=== PATIENT | female | born 1955 | race Caucasian/White ===

== ENCOUNTER 2021-01-26 08:25 | Inpatient (IN) | payer OTHER ==
[2021-01-26] MEDS ORDERED: FUROSEMIDE 40 MG/4 ML VIAL ONE (09:07)
[2021-01-26 09:12] LABS: Arterial Blood Carboxyhemoglob 1.1 % (0-1.5); Blood Gas Oxyhemoglobin 87.3 % (94-97); Blood O2 Saturation 89.1 % (92-98.5)
[2021-01-26 09:18] LABS: Absolute Lymphocytes (CBC) 3.2 K/uL (0.7-4.9); Basophils % 0.5 % (0-1.3); Hematocrit 40.1 % (36.0-45.0); Lymphocytes % 14.6 % (15.3-44.8); MPV 8.8 fL (7.6-11.3); RBC Red Blood Cell Count 3.98 M/uL (3.86-4.86)
[2021-01-26] MEDS ORDERED: NITROGLYCERIN/D5W 50 MG/250 ML BTL IV ONE (09:25)
[2021-01-26 09:31] LABS: Protime INR 1.02
[2021-01-26 09:39] LABS: ALT/SGPT 31 U/L (12-78); AST/SGOT 15 U/L (15-37); Albumin 3.3 g/dL (3.4-5.0); Alkaline Phosphatase 81 U/L (45-117); BUN Blood Urea Nitrogen 36 mg/dL (7-18); Bicarbonate 23 mmol/L (21-32); Bilirubin Direct < 0.1 mg/dL (0-0.2); Bilirubin Total 0.4 mg/dL (0.2-1.0); CKMB Creatine Kinase MB < 1.0 ng/mL (0.3-3.6); Creatine Phosphokinase 59 U/L (26-192); Glucose Level 395 mg/dL (74-106); Lipase 138 U/L (73-393); Magnesium 2.3 mg/dL (1.8-2.4); NT PRO-BNP 2235 pg/mL (<125); Potassium 4.9 mmol/L (3.5-5.1); Protein, Total 8.2 g/dL (6.4-8.2); Sodium Level 136 mmol/L (136-145); Troponin (Emerg Dept Use Only) 0.12 ng/mL (0.0-0.045)
--- NOTE | 2021-01-26 10:25 | RAD REPORT ---
EXAM DESCRIPTION: RAD - Chest Single View - 01/26/2021 9:44 am CLINICAL HISTORY: SOB, CHF COMPARISON: December 2011 TECHNIQUE: AP portable chest image was obtained 01/26/2021 9:44 am . FINDINGS: Alveolar opacification is present throughout most of the mid and lower left lung field. Le ft heart border is still visualized. Patchy right lower lung field airspace opacification is present. Trachea is midline. Sternotomy wires are in place. Right shoulder postsurgical changes are present w ith progression of degenerative change since comparison. Heart size is upper normal. Pulmonary vascul ature within normal limits. No measurable pleural effusion and no pneumothorax. No acute bony abnorma lity seen. No acute aortic findings suspected. IMPRESSION: Airspace opacification in the mid and lower left lung field with patchy opacification in the right lung field. Heart size is upper normal, decreased in size from comparison. Clinical history provided indicates CHF. Chest findings could represent an atypical presentation of C HF. Pneumonia is certainly a possibility and needs correlation with clinical presentation.
--- NOTE | 2021-01-26 10:36 | ER ---
Nurse's Notes [facility] Name: Mercedez Degroot Age: 65 yrs Sex: Female : 1955 Arrival Date: 01/26/2021 Time: 08:42 Bed 5 Private MD: Diagnosis: Unspecified combined systolic (congestive) and diastolic (congestive) heart failure;Hypoxemia Presentation: 01/26 08:55 Chief complaint: EMS states: "family called for a pt that woke up today with confusion jd3 and shortness of breath today. pt presenting with shortness of breath and A\\T\\O X 2. denies pain. 20 G started to left hand.". Coronavirus screen: difficulty breathing, Client presents with at least one sign or symptom that may indicate coronavirus-19. Standard/surgical mask placed on the client. Provider contacted for isolation considerations. Ebola Screen: Patient negative for fever greater than or equal to 101.5 degrees Fahrenheit, and additional compatible Ebola Virus Disease symptoms. Initial Sepsis Screen: Does the patient meet any 2 criteria? No. Patient's initial sepsis screen is negative. Does the patient have a suspected source of infection? No. Patient's initial sepsis screen is negative. Risk Assessment: Do you want to hurt yourself or someone else? Patient reports no desire to harm self or others. Onset of symptoms was January 26, 2021. 08:55 Method Of Arrival: EMS: [facility] jd3 08:55 Acuity: TRISHA 2 jd3 Triage Assessment: 08:45 Respiratory: Onset: The symptoms/episode began/occurred this morning, the patient has jd3 moderate shortness of breath. Historical: - Allergies: 09:03 Lisinopril; jd3 09:03 Tape; jd3 09:03 Valium; jd3 - Home Meds: 09:03 atorvastatin 40 mg oral tab 1 tab once daily [Active]; clopidogrel 75 mg oral tab 1 tab jd3 once daily [Active]; gabapentin 300 mg oral cap 1 cap 3 times per day [Active]; glipizide 5 mg Oral tab 1 tab 2 times per day [Active]; hydralazine 25 mg Oral tab 1 tab 2 times per day [Active]; isosorbide mononitrate 60 mg Oral Tb24 1 tab twice a day [Active]; losartan 50 mg oral tab 1 tab 2 times per day [Active]; metoprolol succinate 25 mg oral Tb24 1 tab twice a day [Active]; sotalol 120 mg Oral tab 1 tab daily [Active]; - PMHx: 09:03 cancer, hx; Diabetes - NIDDM; Hypertension; Hypothyroidism; kidney disease; CHF; jd3 - PSHx: 09:03 triple bypass; Hysterectomy; jd3 - Immunization history:: Adult Immunizations up to date. - Social history:: Smoking status: Patient denies any tobacco usage or history of. Screenin:13 Abuse screen: Denies threats or abuse. Nutritional screening: No deficits noted. jd3 Tuberculosis screening: No symptoms or risk factors identified. Fall Risk Ambulatory Aid- None/Bed Rest/Nurse Assist (0 pts). Gait- Normal/Bed Rest/Wheelchair (0 pts) Mental Status- Oriented to own ability (0 pts). Total Enrique Fall Scale indicates No Risk (0-24 pts). Assessment: 08:45 General: Appears uncomfortable, Behavior is anxious. Pain: Denies pain. Neuro: Level of jd3 Consciousness is awake, alert, obeys commands, confused, Oriented to person, place. Cardiovascular: Denies chest pain, Capillary refill < 3 seconds Rhythm is sinus tachycardia. Respiratory: Reports shortness of breath at rest cough that is productive, hacking, Airway is patent Respiratory effort is labored, shallow, using tripod position, Respiratory pattern is symmetrical, tachypnea Breath sounds are coarse Breath sounds with crackles bilaterally. GI: Abdomen is round non-distended, Patient currently denies abdominal pain, diarrhea, nausea, vomiting. : No signs and/or symptoms were reported regarding the genitourinary system. EENT: No signs and/or symptoms were reported regarding the EENT system. Derm: Skin is intact, Skin is diaphoretic, Skin is normal, Skin temperature is warm. Musculoskeletal: Circulation, motion, and sensation intact. Range of motion: intact in all extremities. 09:45 Reassessment: No changes from previously documented assessment. Patient and/or family jd3 updated on plan of care and expected duration. Pain level reassessed. pt reports feeling better on BiPAP. pt becoming less confused. A\\T\\O X 3 of person, place, time. pt continues to be tachypneic with respirations at 26, but reports feeling better breathing. 10:46 Reassessment: Patient and/or family updated on plan of care and expected duration. Pain jd3 level reassessed. Patient is alert, oriented x 3, equal unlabored respirations, skin warm/dry/pink. Patient states feeling better. 11:30 Reassessment: Patient appears in no apparent distress at this time. No changes from jd3 previously documented assessment. Patient and/or family updated on plan of care and expected duration. Pain level reassessed. 12:10 Reassessment: Patient appears in no apparent distress at this time. Patient and/or jd3 family updated on plan of care and expected duration. Pain level reassessed. pt A\\T\\O X . tachypnea, noted. pt reports feeling more relaxed and feels less short of breath. 13:23 Reassessment: Patient appears in no apparent distress at this time. Patient and/or jd3 family updated on plan of care and expected duration. Pain level reassessed. Patient is alert, oriented x 3, equal unlabored respirations, skin warm/dry/pink. Patient states symptoms have improved. 14:32 Reassessment: Patient appears in no apparent distress at this time. Patient and/or jd3 family updated on plan of care and expected duration. Pain level reassessed. Patient is alert, oriented x 3, equal unlabored respirations, skin warm/dry/pink. Patient states feeling better. 15:58 Reassessment: Patient appears in no apparent distress at this time. Patient and/or jd3 family updated on plan of care and expected duration. Pain level reassessed. Patient is alert, oriented x 3, equal unlabored respirations, skin warm/dry/pink. report given to Chelsie VELASQUEZ. Vital Signs: 09:04 BP 175 / 139; Pulse 128; Resp 38 S; Temp 98.5(O); Pulse Ox 86% on R/A; Weight 96.16 kg jd3 (R); Height 5 ft. 4 in. (162.56 cm) (R); Pain 0/10; 09:08 BP 190 / 143; Pulse 130; Resp 29; Pulse Ox 92% on 3 lpm NC; jd3 09:42 BP 166 / 105; Pulse 116; Resp 25; Pulse Ox 100% on BiPAP; jd3 10:45 BP 135 / 104; Pulse 95; Resp 28; Pulse Ox 100% on BiPAP; jd3 12:12 BP 129 / 95; Pulse 89; Resp 26; Pulse Ox 100% on BiPAP; jd3 13:23 BP 96 / 80; Pulse 87; Resp 24 S; Pulse Ox 100% on 4 lpm NC; jd3 14:33 BP 126 / 99; Pulse 90; Resp 17 S; Pulse Ox 100% on R/A; jd3 09:04 Body Mass Index 36.39 (96.16 kg, 162.56 cm) jd3 ED Course: 08:42 Patient arrived in ED. aa5 08:43 Andrey Rosen MD is Attending Physician. tw4 08:43 Bryan Estrada, EVA is Primary Nurse. jd3 08:57 Triage completed. jd3 09:05 Arm band placed on. EKG completed in triage. Results shown to MD. jd3 09:40 Callahan cath inserted, using sterile technique, 18 Fr., by va, balloon inflated, to jd3 gravity drainage, returned clear yellow urine. Patient tolerated well. 09:42 Maintain EMS IV. Dressing intact. Good blood return noted. Site clean \\T\\ dry. Gauge \\T\\ irina 3 site: 20 G left hand. 09:44 XRAY CXR (1 view) In Process Unspecified. EDMS 10:35 Eusebio Tan DO is Hospitalizing Provider. tw4 12:16 Patient has correct armband on for positive identification. Bed in low position. Call j light in reach. Side rails up X2. Adult w/ patient. monitoring coordinator on. Pulse ox on. NIBP on. 12:48 CT Head Brain wo Cont In Process Unspecified. EDMS 15:58 No provider procedures requiring assistance completed. Patient admitted, IV remains in jd3 place. Administered Medications: 08:54 Drug: Lasix (furosemide) 40 mg Route: IVP; Site: left hand; jd3 09:50 Follow up: Response: No adverse reaction jd3 09:15 Drug: Nitro Drip - (Nitroglycerin 50 mg, D5W 250 ml) Route: IV; Rate: 5 mcg/min; Site: jd3 left hand; 10:45 Follow up: Response: No adverse reaction; IV Status: Order to discontinue infusion jd3 11:06 Drug: Rocephin (cefTRIAXone) 1 grams Route: IV; Rate: bolus; Site: left hand; jd3 12:00 Follow up: Response: No adverse reaction; IV Status: Completed infusion jd3 12:08 Drug: AZITHromycin 500 mg Route: IVPB; Infused Over: 1 hrs; Site: left hand; jd3 13:00 Follow up: Response: No adverse reaction; IV Status: Completed infusion jd3 Outcome: 10:36 Decision to Hospitalize by Provider. tw4 15:59 Admitted to Med/surg accompanied by nurse, via wheelchair, room 2232, with oxygen, with jd3 chart, Report called to Chelsie VELASQUEZ 15:59 Condition: stable 15:59 Instructed on the need for admit, Demonstrated understanding of instructions. 16:52 Patient left the ED. jd3 Signatures: Dispatcher [employer] EDMS Becka Nesbitt RN RN aa5 Bryan Estrada RN RN jd3 Andrey Rosen MD MD tw4 Corrections: (The following items were deleted from the chart) 09:42 09:04 BP 175 / 139; Pulse 128bpm; Resp 38bpm; Spontaneous; Pulse Ox 94% RA; Temp 98.5F jd3 Oral; 96.16 kg Reported; Height 5 ft. 4 in. Reported; BMI: 36.3; Pain 0/10; jd3
--- NOTE | 2021-01-26 10:36 | EDPHYS ---
Physician Documentation [facility] Name: Mercedez Degroot Age: 65 yrs Sex: Female : 1955 Arrival Date: 01/26/2021 Time: 08:42 Bed 5 Private MD: ED Physician Andrey Rosen HPI: 01/26 13:09 This 65 yrs old Female presents to ER via EMS with complaints of Shortness Of tw4 Breath. 13:09 The patient has shortness of breath at rest. Onset: The symptoms/episode began/occurred tw4 today. Duration: The symptoms are continuous, and are steadily getting worse. The patient's shortness of breath has no apparent modifying factors. Associated signs and symptoms: Pertinent positives: altered mental status . Severity of symptoms: At their worst the symptoms were severe in the emergency department the symptoms are unchanged. The patient has not experienced similar symptoms in the past. Historical: - Allergies: 09:03 Lisinopril; jd3 09:03 Tape; jd3 09:03 Valium; jd3 - Home Meds: 09:03 atorvastatin 40 mg oral tab 1 tab once daily [Active]; clopidogrel 75 mg oral tab 1 tab jd3 once daily [Active]; gabapentin 300 mg oral cap 1 cap 3 times per day [Active]; glipizide 5 mg Oral tab 1 tab 2 times per day [Active]; hydralazine 25 mg Oral tab 1 tab 2 times per day [Active]; isosorbide mononitrate 60 mg Oral Tb24 1 tab twice a day [Active]; losartan 50 mg oral tab 1 tab 2 times per day [Active]; metoprolol succinate 25 mg oral Tb24 1 tab twice a day [Active]; sotalol 120 mg Oral tab 1 tab daily [Active]; - PMHx: 09:03 cancer, hx; Diabetes - NIDDM; Hypertension; Hypothyroidism; kidney disease; CHF; jd3 - PSHx: 09:03 triple bypass; Hysterectomy; jd3 - Immunization history:: Adult Immunizations up to date. - Social history:: Smoking status: Patient denies any tobacco usage or history of. ROS: 13:09 Constitutional: Negative for fever, chills, and weight loss, Eyes: Negative for injury, tw4 pain, redness, and discharge, Cardiovascular: Negative for chest pain, palpitations, and edema, Abdomen/GI: Negative for abdominal pain, nausea, vomiting, diarrhea, and constipation, Back: Negative for injury and pain, MS/Extremity: Negative for injury and deformity, Skin: Negative for injury, rash, and discoloration, Neuro: Negative for headache, weakness, numbness, tingling, and seizure. 13:09 Respiratory: Positive for shortness of breath, Negative for cough, dyspnea on exertion, hemoptysis, orthopnea, pleurisy. Exam: 13:09 Head/Face: Normocephalic, atraumatic. Eyes: Pupils equal round and reactive to light, tw4 extra-ocular motions intact. Lids and lashes normal. Conjunctiva and sclera are non-icteric and not injected. Cornea within normal limits. Periorbital areas with no swelling, redness, or edema. Chest/axilla: Normal chest wall appearance and motion. Nontender with no deformity. No lesions are appreciated. 13:09 Abdomen/GI: Soft, non-tender, with normal bowel sounds. No distension or tympany. No guarding or rebound. No evidence of tenderness throughout. Back: No spinal tenderness. No costovertebral tenderness. Full range of motion. Skin: Warm, dry with normal turgor. Normal color with no rashes, no lesions, and no evidence of cellulitis. MS/ Extremity: Pulses equal, no cyanosis. Neurovascular intact. Full, normal range of motion. Neuro: Awake and alert, GCS 15, oriented to person, place, time, and situation. Cranial nerves II-XII grossly intact. Motor strength 5/5 in all extremities. Sensory grossly intact. Cerebellar exam normal. Normal gait. 13:09 Constitutional: The patient appears agitated, in obvious distress, severely distressed, uncomfortable. 13:09 Cardiovascular: Rate: tachycardic, Rhythm: 13:09 Respiratory: severe repiratory distress is noted, Respirations: labored breathing, Breath sounds: rales, that are moderate, are located in both bases. Vital Signs: 09:04 BP 175 / 139; Pulse 128; Resp 38 S; Temp 98.5(O); Pulse Ox 86% on R/A; Weight 96.16 kg jd3 (R); Height 5 ft. 4 in. (162.56 cm) (R); Pain 0/10; 09:08 BP 190 / 143; Pulse 130; Resp 29; Pulse Ox 92% on 3 lpm NC; jd3 09:42 BP 166 / 105; Pulse 116; Resp 25; Pulse Ox 100% on BiPAP; jd3 10:45 BP 135 / 104; Pulse 95; Resp 28; Pulse Ox 100% on BiPAP; jd3 12:12 BP 129 / 95; Pulse 89; Resp 26; Pulse Ox 100% on BiPAP; jd3 13:23 BP 96 / 80; Pulse 87; Resp 24 S; Pulse Ox 100% on 4 lpm NC; jd3 14:33 BP 126 / 99; Pulse 90; Resp 17 S; Pulse Ox 100% on R/A; jd3 09:04 Body Mass Index 36.39 (96.16 kg, 162.56 cm) jd3 MDM: 08:43 Patient medically screened. tw4 13:23 Data reviewed: vital signs, nurses notes. 01/26 08:45 Order name: Blood Culture Adult (2) 01/26 08:45 Order name: BMP; Complete Time: 10:07 01/26 10:08 Interpretation: Normal except: GLUC 395; CRE 2.12; GFR 23; BUN 36. 01/26 08:45 Order name: CBC with Diff 01/26 08:45 Order name: Ckmb; Complete Time: 10:07 01/26 10:09 Interpretation: Within normal limits: CKMB < 1.0. 01/26 08:45 Order name: CPK; Complete Time: 10:07 01/26 10:09 Interpretation: Within normal limits: CPK 59. 01/26 08:45 Order name: D-Dimer 01/26 08:45 Order name: Hepatic Function; Complete Time: 10:07 01/26 10:08 Interpretation: Normal except: ALB 3.3; GLOB 4.9; A/G 0.7. 01/26 08:45 Order name: Lipase; Complete Time: 10:07 01/26 10:09 Interpretation: Within normal limits: LIP 138. 01/26 08:45 Order name: Magnesium; Complete Time: 10:07 01/26 10:09 Interpretation: Within normal limits: MG 2.3. 01/26 08:45 Order name: NT PRO-BNP; Complete Time: 10:07 [facility] 01/26 10:08 Interpretation: Abnormal: NT PRO-BNP 2235. tw01/26 08:45 Order name: PT-INR 01/26 08:45 Order name: Ptt, Activated 01/26 08:45 Order name: Troponin (emerg Dept Use Only); Complete Time: 10:07 [facility] 01/26 10:08 Interpretation: Abnormal: TROPED 0.12. 01/26 08:46 Order name: ABG; Complete Time: 10:07 01/26 10:09 Interpretation: Normal except: ABGPH 7.30; ABGPCO2 46.6; ABGPO2 63.2; ABGSO2 89.1; tw4 DORU4HR 87.3. 01/26 08:45 Order name: XRAY CXR (1 view) [facility] 01/26 08:45 Order name: EKG; Complete Time: 08:46 01/26 08:45 Order name: Cardiac monitoring; Complete Time: 08:54 01/26 08:45 Order name: EKG - Nurse/Tech; Complete Time: 08:55 01/26 08:45 Order name: IV Saline Lock; Complete Time: 08:54 01/26 08:45 Order name: Labs collected and sent; Complete Time: 11:08 01/26 08:45 Order name: CT Head Brain wo Cont 01/26 08:50 Order name: BIPAP [facility] 01/26 09:07 Order name: Glucose, Ancillary Testing EDAR 01/26 10:11 Order name: Manual Differential [facility]AR 01/26 11:11 Order name: SARS-COV-2 RT PCR [facility]AR 01/26 08:45 Order name: O2 Per Protocol; Complete Time: 08:54 01/26 08:45 Order name: O2 Sat Monitoring; Complete Time: 08:54 01/26 09:38 Order name: Sindy; Complete Time: 09:38 jd3 EC:38 Rate is 129 beats/min. Rhythm is regular. QRS [place] is Normal. IN interval is normal. tw4 QRS interval is normal. QT interval is normal. No Q waves. T waves are Inverted. No ST changes noted. Clinical impression: Sinus tachycardia. Interpreted by me. Reviewed by me. Administered Medications: 08:54 Drug: Lasix (furosemide) 40 mg Route: IVP; Site: left hand; jd3 09:50 Follow up: Response: No adverse reaction jd3 09:15 Drug: Nitro Drip - (Nitroglycerin 50 mg, D5W 250 ml) Route: IV; Rate: 5 mcg/min; Site: [facility] left hand; 10:45 Follow up: Response: No adverse reaction; IV Status: Order to discontinue infusion jd3 11:06 Drug: Rocephin (cefTRIAXone) 1 grams Route: IV; Rate: bolus; Site: left hand; jd3 12:00 Follow up: Response: No adverse reaction; IV Status: Completed infusion jd3 12:08 Drug: AZITHromycin 500 mg Route: IVPB; Infused Over: 1 hrs; Site: left hand; jd3 13:00 Follow up: Response: No adverse reaction; IV Status: Completed infusion jd3 Disposition: 01/26/21 10:36 Hospitalization ordered by Eusebio Tan for Inpatient Admission. Preliminary diagnosis are Unspecified combined systolic (congestive) and diastolic (congestive) heart failure, Hypoxemia. - Bed requested for Telemetry/MedSurg (Inpatient). - Status is Inpatient Admission. jd3 - Condition is Stable. - Problem is new. - Symptoms have improved. Signatures: Dispatcher [employer] Aida Alejandro RN RN dw Davies, Jonathon, RN RN jd3 Wadley, Terrence, MD MD tw4 Corrections: (The following items were deleted from the chart) 10:15 09:10 CORONAVIRUS+MR.LAB.BRZ ordered. [facility] 15:23 10:36 Hospitalization Ordered by Eusebio Tan DO for Inpatient Admission. Preliminary diagnosis is Unspecified combined systolic (congestive) and diastolic (congestive) heart failure; Hypoxemia. Bed requested for Telemetry/MedSurg (Inpatient). Status is Inpatient Admission. Condition is Stable. Problem is new. Symptoms have improved. tw4 16:52 15:23 01/26/2021 10:36 Hospitalization Ordered by Eusebio Tan DO for Inpatient jd3 Admission. Preliminary diagnosis is Unspecified combined systolic (congestive) and diastolic (congestive) heart failure; Hypoxemia. Bed requested for Telemetry/MedSurg (Inpatient). Status is Inpatient Admission. Condition is Stable. Problem is new. Symptoms have improved. dw
[2021-01-26] MEDS ORDERED: AZITHROMYCIN IV 500 MG in NA CHLORIDE 0.9% 250 ML IVPB ONE (11:00)
[2021-01-26] MEDS ORDERED: CEFTRIAXONE/SWI 1gm 1 GM/10 ML SYR ONE (11:12)
[2021-01-26 13:12] LABS: Blood Morphology Comment NOT SEEN (NOT SEEN); Platelet Estimate ADEQ
--- NOTE | 2021-01-26 14:54 | P.HP ---
Certification for Inpatient Patient admitted to: Inpatient With expected LOS: >2 Midnights Patient will require the following post-hospital care: None Practitioner: I am a practitioner with admitting privileges, knowledge of patient current condition, hospital course, and medical plan of care. Services: Services provided to patient in accordance with Admission requirements found in Title 42 Section 412.3 of the Code of Federal Regulations Patient History Date of Service: 01/26/21 Reason for admission: AMS History of Present Illness: Patient is a 65 year old female with a PMHx significant for HTN, DM 2, HLD, CKD who presents with c\o of AMS onset this morning. Patient currently AAO Xx2. Family reported that patient woke up confused and was unable to get out of bed due to generalized weakness. Patient reported associated s\s of fatigue, generalized body pain, cough and sob. Patient denies any other s\s. Symptoms are aggravated or relieved by nothing. Family decided to bring to the hospital for medical evaluation Allergies diazepam [From Valium] Allergy (Verified 01/26/21 17:24) Hives/Rash lisinopril Allergy (Verified 01/26/21 17:24) Unknown Tape Allergy (Uncoded 01/26/21 17:24) Unknown Home medications list reviewed: Yes Home Medications: Aspirin 325 mg PO DAILY 01/26/21 Atorvastatin Calcium [Lipitor] 40 mg PO BEDTIME 01/26/21 Clopidogrel Bisulfate [Plavix*] 1 tab PO DAILY 01/26/21 Gabapentin 300 mg PO TID 01/26/21 Hydralazine [Apresoline] 25 mg PO BID 01/26/21 Isosorbide Mononitrate [Isosorbide Mononitrate ER] 60 mg PO BID 01/26/21 Losartan Potassium [Cozaar] 50 mg PO BID 01/26/21 Metoprolol Succinate [Toprol Xl] 25 mg PO BID 01/26/21 Sotalol HCl [Sotalol] 1 tab PO DAILY 01/26/21 glipiZIDE [Glipizide] 1 tab PO BID 01/26/21 - Past Medical/Surgical History Diabetic: Yes - Family History Mother -: Heart disease, Lung disease, GI disease, Diabetes, Cancer, Kidney disease, Other (see notes) Notes: Colon Cancer - Social History Smoking Status: Never smoker Alcohol use: No CD- Drugs: No Caffeine use: Yes Place of Residence: Home Review of Systems General: Weakness, Other (Generalized body pain) Eyes: Unremarkable ENT: Unremarkable Respiratory: Cough, Shortness of Breath Cardiovascular: Unremarkable Gastrointestinal: Unremarkable Genitourinary: Unremarkable Musculoskeletal: Unremarkable Neurological: Weakness, Confusion Lymphatics: Unremarkable Physical Examination - Physical Exam General: Alert, Oriented x2, Cooperative HEENT: Atraumatic, Normocephalic, PERRLA, EOMI Neck: Supple, 2+ carotid pulse no bruit, JVD not distended Respiratory: Clear to auscultation bilaterally, Diminished Cardiovascular: No edema, Normal pulses, Regular rate/rhythm, Normal S1 S2 Capillary refill: <2 Seconds Gastrointestinal: Normal bowel sounds, Non-distended Musculoskeletal: No clubbing, No swelling Integumentary: No rashes Neurological: Normal gait, Normal speech, Normal strength at 5/5 x4 extr, Normal tone, Normal affect Lymphatics: No axilla or inguinal lymphadenopathy External genitalia: No edema, No lesions, Deferred Rectal: Deferred - Studies Laboratory Data (last 24 hrs) 01/26/21 09:05: PT 11.7, INR 1.02, APTT 33.5 01/26/21 09:05: WBC 21.70 H*, Hgb 12.8, Hct 40.1, Plt Count 313 01/26/21 09:05: Sodium 136, Potassium 4.9, BUN 36 H, Creatinine 2.12 H, Glucose 395 H, Magnesium 2.3, Total Bilirubin 0.4, AST 15, ALT 31, Alkaline Phosphatase 81, Lipase 138 Assessment and Plan - Plan --Acute encephalopathy. Unlcear etiology. CT brain pending . UA pending. Mental status improving Continue supportive care Acute systolic or diastolic CHF. BNP elevated @ 2235. Long Chain Beamer consulted. Echocardiogram pending to assess LV\Valvular functions and wall motion. Continue diuresis with Lasix. Daily weight and strict I\O. Continue home [id number] . Further mgt per supervisor cytogenetic laboratory --DM 2. Poor controlled. BS monitoring with s\s insulin, premeal insulin and Lantus --CKD 4. Baseline functions unknown. Will continue to monitor renal functions. --HTN. Poorly controlled. Continue home medications and labetalol prn --DVT prophylaxis with Lovenox subQ Discharge Plan: Home Plan to discharge in: 72 Hours - Advance Directives Does patient have a Living Will: No Does patient have a Durable POA for Healthcare: Yes - Code Status/Comfort Care Code Status Assessed: Yes Code Status: Do Not Attempt Resuscitat Critical Care: No
[2021-01-26 17:16] VITALS: BMI 36.3
[2021-01-26] MEDS ORDERED: GLUCAGON 1 MG/VIAL IM PRN ×2 (18:16→18:17)
[2021-01-26] MEDS ORDERED: D50W 25 GM/50 ML SYRINGE IV PRN (18:16)
[2021-01-26] MEDS ORDERED: ONDANSETRON 4 MG/2 ML VIAL IV PRN (18:19)
[2021-01-26] MEDS ORDERED: HYDROCODONE/APAP 5/325 MG TAB PO PRN (18:19)
[2021-01-26] MEDS ORDERED: D50W 25 GM/50 ML VIAL IV PRN (18:33)
[2021-01-26] MEDS: IPRATROPIUM BROM 0.5MG/2.5ML NEB SCH (19:45)
[2021-01-26] MEDS: ALBUTEROL 2.5 MG/3 ML NEB SOL NEB SCH (19:45)
[2021-01-26 19:54] LABS: Troponin I 1.28 ng/mL (0.0-0.045)
[2021-01-26] MEDS: INSULIN GLARGINE 100 UNITS/ML SQ SCH (20:44)
[2021-01-26] MEDS: HYDRALAZINE HCL 25 MG TABLET PO SCH (20:45)
[2021-01-26] MEDS: INSULIN -REGULAR HUMAN 50 UNIT/0.5 ML ML SQ SCH (20:45)
[2021-01-26] MEDS: ISOSORBIDE MONO SR 60 MG TAB PO SCH (20:45)
[2021-01-26] MEDS: METOPROLOL XL 25 MG TAB PO SCH (20:46)
[2021-01-26] MEDS: ATORVASTATIN 40 MG TAB PO SCH (20:46)
[2021-01-26] MEDS ORDERED: LABETALOL 20 MG/4ML SYRINGE IV PRN (20:53)
[2021-01-26] MEDS ORDERED: HEPARIN 5000 UNIT/ML 1 ML VIAL SQ SCH (21:00)
[2021-01-26] MEDS ORDERED: ENOXAPARIN 100 MG/ML SYR SQ SCH (21:00)
[2021-01-27] MEDS: ALBUTEROL 2.5 MG/3 ML NEB SOL NEB SCH ×3 (01:05→14:30)
[2021-01-27] MEDS: IPRATROPIUM BROM 0.5MG/2.5ML NEB SCH ×4 (01:05→14:30)
[2021-01-27] MEDS: PIPER/TAZO/NS 3.375gm 3.375 GM/100 ML BAG IVPB SCH ×3 (01:16→18:10)
[2021-01-27] MEDS: ACETAMINOPHEN 325 MG TABLET PO PRN ×2 (05:50→16:01)
[2021-01-27 06:18] LABS: Absolute Lymphocytes (CBC) 2.1 K/uL (0.7-4.9); Basophils % 0.2 % (0-1.3); Hematocrit 32.9 % (36.0-45.0); Lymphocytes % 12.7 % (15.3-44.8); MPV 8.7 fL (7.6-11.3); RBC Red Blood Cell Count 3.38 M/uL (3.86-4.86)
[2021-01-27 06:58] LABS: Potassium 4.2 mmol/L (3.5-5.1); Uric Acid 9.3 mg/dL (2.6-6.0)
[2021-01-27 07:03] LABS: Troponin I 0.58 ng/mL (0.0-0.045)
[2021-01-27] MEDS: INSULIN -REGULAR HUMAN 50 UNIT/0.5 ML ML SQ SCH ×4 (07:30→21:43)
--- NOTE | 2021-01-27 08:26 | RAD REPORT ---
EXAM DESCRIPTION: NM - Vent Perfusion VQ Scan - 01/27/2021 8:15 am CLINICAL HISTORY: Shortness of breath/elevated D-dimer COMPARISON: January 26, 2021 chest x-ray TECHNIQUE: 13.2 Mci [id number] was administered by inhalation. First breath, equilibrium, and washout images of the lungs obtained 7.7 millicuries Technetium-99 MAA was administered intravenously. Anterior, posterior, lateral and ob lique views of the lungs were taken. FINDINGS: Moderate area of diminished radiotracer uptake involves upper left lower lobe which is mat ched on ventilation and perfusion sequences. The right lung demonstrates relatively homogeneous radiotracer activity on ventilation and perfusion sequences. No mismatched segmental or lobar perfusion defects are seen. IMPRESSION: Low probability of a pulmonary embolus
--- NOTE | 2021-01-27 08:30 | RAD REPORT ---
EXAM DESCRIPTION: CT - Head Brain Wo Cont - 01/26/2021 12:48 pm CLINICAL HISTORY: Alteration of awareness/confusion COMPARISON: None TECHNIQUE: Computed axial tomography of the head was obtained. IV contrast was not requested. All CT scans are performed using dose optimization technique as appropriate and may include automated exposure control or mA/KV adjustment according to patient size. FINDINGS: The images have just now become available for interpretation. An intracranial bleed is not seen . The ventricles are normal in caliber. No extra-axial fluid collection is noted. Mild to moderate low-density areas within periventricular, deep and subcortical white matter likely r epresent ischemic changes secondary to small vessel disease. Fluid within the sinuses/ mastoids is not seen. IMPRESSION: No acute intracranial abnormality is seen. If patient's symptoms persist MRI of the bra in would be recommended.
[2021-01-27] MEDS: INSULIN LISPRO 100 UNIT/1 ML SQ SCH ×2 (09:21→12:00)
[2021-01-27] MEDS: HYDRALAZINE HCL 25 MG TABLET PO SCH ×2 (09:24→21:43)
[2021-01-27] MEDS: CLOPIDOGREL 75 MG TABLET PO SCH (09:25)
[2021-01-27] MEDS: ASPIRIN 325 MG TAB PO SCH (09:25)
[2021-01-27] MEDS: ISOSORBIDE MONO SR 60 MG TAB PO SCH ×2 (09:25→21:43)
[2021-01-27] MEDS: METOPROLOL XL 25 MG TAB PO SCH ×2 (09:25→21:42)
[2021-01-27] MEDS: SOTALOL HCL 80 MG TAB PO SCH (09:26)
[2021-01-27] MEDS: FUROSEMIDE 40 MG/4 ML VIAL IV SCH ×2 (09:27→18:07)
[2021-01-27 11:33] LABS: Blood Morphology Comment NOT SEEN (NOT SEEN); Platelet Estimate ADEQ
--- NOTE | 2021-01-27 12:53 | EKG ---
Test Date: 2021-01-26 Test Time: 08:52:18 General Warehouse Worker: KATARINA MEASUREMENT RESULTS: Intervals: Rate: 129 MA: 152 QRSD: 80 QT: 280 QTc: 410 [place]: P: 67 MA: 152 QRS: 3 T: 86 INTERPRETIVE STATEMENTS: Sinus tachycardia with premature supraventricular complexes T wave abnormality, consider lateral ischemia Abnormal ECG Compared to ECG 12/25/2011 18:48:40 Atrial premature complex(es) now present T-wave abnormality now present Possible ischemia now present Sinus rhythm no longer present Myocardial infarct finding no longer present Electronically Signed On 01-27-21 12:52:21 CDT by Jevon Berry
--- NOTE | 2021-01-27 13:21 | ECHO ---
HEIGHT: 5 ft 4 in WEIGHT: 211 lb 8 oz DATE OF STUDY: 01/27/[address]: Lucia Huggins 2-DIMENSIONAL: YES M.MODE: YES DOPPLER: NO COLOR FLOW: NO TDS: NO PORTABLE: NO DEFINITY: NO BUBBLE STUDY: NO DIAGNOSIS: CONGESTIVE HEART FAILURE CARDIAC HISTORY: CATHERIZATION: YES SURGERY: YES PROSTHETIC VALVE: NO PACEMAKER: NO MEASUREMENTS (cm) DIASTOLIC (NORMALS) SYSTOLIC (NORMALS) IVSd 1.2 (0.6-1.2) LA Diam 3.1 (1.9-4.0) LVEF 52% LVIDd 4.8 (3.5-5.7) LVIDs 3.5 (2.0-3.5) %FS 27% LVPWd 1.3 (0.6-1.2) Ao Diam 2.7 (2.0-3.7) 2 DIMENSIONAL ASSESSMENT: RIGHT ATRIUM: NORMAL LEFT ATRIUM: NORMAL RIGHT VENTRICLE: NORMAL LEFT VENTRICLE: NORMAL TRICUSPID VALVE: NORMAL MITRAL VALVE: NORMAL PULMONIC VALVE: NORMAL AORTIC VALVE: NORMAL PERICARDIAL EFFUSION: NONE AORTIC ROOT: NORMAL LEFT VENTRICULAR WALL MOTION: DECREASED LEFT VENTRICULAR COMPLIANCE. DOPPLER/COLOR FLOW: NOT REQUESTED. COMMENTS: DECREASED LEFT VENTRICULAR COMPLIANCE CONSISTENT WITH DIASTOLIC DYSFUNCTION. NORMAL LEFT VENTRICULAR EJECTION FRACTION. NO EFFUSION. TECHNOLOGIST: Peter TRUJILLO
--- NOTE | 2021-01-27 14:50 | RAD REPORT ---
EXAM DESCRIPTION: US - Renal Ultrasound-Complete - 01/27/2021 2:37 pm CLINICAL HISTORY: anh/ckd Flank pain COMPARISON: No comparisons FINDINGS: The left kidney is echogenic and small in size. The right kidney measures 11.2 x 5.0 x 4.8 cm. No hydronephrosis, focal mass or perinephric fluid. The left kidney measures 6.5 x 3.6 x 3.0 cm. No hydronephrosis, focal mass or perinephric fluid. The urinary bladder is incompletely distended without gross abnormality seen. IMPRESSION: Echogenic left kidney most compatible with underlying medical renal disease.
[2021-01-27] MEDS ORDERED: ALBUTEROL 2.5 MG/3 ML NEB SOL NEB PRN (15:34)
[2021-01-27] MEDS ORDERED: IPRATROPIUM BROM 0.5MG/2.5ML NEB PRN (15:36)
--- NOTE | 2021-01-27 15:37 | P.PN ---
Subjective Date of Service: 01/27/21 Chief Complaint: AMS Subjective: Improving, Doing well Physical Examination - Vital Signs Temperature: 97.7 F Blood Pressure: 111/55 Pulse: 66 Respirations: 16 Pulse Ox (%): 95 - Studies Microbiology Data (last 24 hrs): 01/26/21 12:20 Blood - Blood Anaerobic Blood Culture - Final Assessment & Plan Discharge Plan: Home Plan to discharge in: 24 Hours Physician Review Additional Text: Physical exam Patient alert, cooperative. Currently on 2 L per nasal cannula. Patient back to baseline. Heart: Regular rate and rhythm Lungs: Slight crackles to the bases. Better air movement bilateral. Abdomen: Soft nontender nondistended Extremities: Minimal pitting edema to the lower extremities Impression: Acute toxic encephalopathy likely related to acute on chronic diastolic CHF possible underlying pneumonia Acute on chronic renal disease stage IV Diabetes mellitus type 2 with hyperglycemia Hypertension Atrial fibrillation not on chronic anticoagulation therapy Hyperlipidemia Plan: Acute toxic encephalopathy likely related to acute on chronic diastolic CHF with possible underlying pneumonia: Patient doing well with IV diuresis. We will teach on 1500 cc/day fluid restriction. Patient was not on a fluid restriction at home. Echo shows diastolic dysfunction. We will recheck chest x-ray tomorrow. VQ scan shows no evidence of pulmonary embolism. We will continue with antibiotic therapy at this time as white count was elevated. We will need to rule out pneumonia. If chest x-ray unremarkable tomorrow we will discontinue antibiotic therapy. Acute on chronic renal disease stage IV: Continue diuresis. Nephrology consulted. Renal ultrasound obtained. Await further recommendations. Continue 1500 cc/day fluid restriction. Diabetes mellitus type 2 with hyperglycemia: Continue Lantus. Discontinue NovoLog. We will provide sliding scale as needed. Discontinue glipizide. Hypertension: Continue with home medications. Hold ARB inhibitor. Atrial fibrillation not on chronic anticoagulation therapy: Continue with sotalol. Continue aspirin and Plavix. Hyperlipidemia: Continue with medication. Time Spent Managing Pts Care (In Minutes): 55
[2021-01-27] MEDS: GABAPENTIN 300 MG CAP PO SCH ×2 (16:02→21:42)
--- NOTE | 2021-01-27 20:29 | P.CNS ---
Date of Consult: 01/27/21 Reason for Consult: REBECCA/ CKD Requesting Physician: Eusebio Tan Chief Complaint: AMS History of Present Illness: Patient is a 65 year old female with a PMHx significant for HTN, DM 2, HLD, CKD who presents with c\o of AMS onset this morning. Patient currently AAO Xx2. Family reported that patient woke up confused and was unable to get out of bed due to generalized weakness. Patient reported associated s\s of fatigue, generalized body pain, cough and sob. Patient denies any other s\s. Symptoms are aggravated or relieved by nothing. Family decided to bring to the hospital for medical evaluation. 13:09 This 65 yrs old Female presents to ER via EMS with complaints of Shortness Of tw4 Breath. 13:09 The patient has shortness of breath at rest. Onset: The symptoms/episode began/occurred tw4 today. Duration: The symptoms are continuous, and are steadily getting worse. The patient's shortness of breath has no apparent modifying factors. Associated signs and symptoms: Pertinent positives: altered mental status . Severity of symptoms: At their worst the symptoms were severe in the emergency department the symptoms are unchanged. The patient has not experienced similar symptoms in the past. Allergies diazepam [From Valium] Allergy (Verified 01/26/21 17:24) Hives/Rash lisinopril Allergy (Verified 01/26/21 17:24) Unknown Tape Allergy (Uncoded 01/26/21 17:24) Unknown Home Medications: Aspirin 325 mg PO DAILY 01/26/21 Atorvastatin Calcium [Lipitor] 40 mg PO BEDTIME 01/26/21 Clopidogrel Bisulfate [Plavix*] 1 tab PO DAILY 01/26/21 Gabapentin 300 mg PO TID 01/26/21 Hydralazine [Apresoline] 25 mg PO BID 01/26/21 Isosorbide Mononitrate [Isosorbide Mononitrate ER] 60 mg PO BID 01/26/21 Losartan Potassium [Cozaar] 50 mg PO BID 01/26/21 Metoprolol Succinate [Toprol Xl] 25 mg PO BID 01/26/21 Sotalol HCl [Sotalol] 1 tab PO DAILY 01/26/21 glipiZIDE [Glipizide] 1 tab PO BID 01/26/21 - Past Medical/Surgical History Diabetic: Yes -: DM-NIDDM -: HTN -: Stage 3 kidney disease -: AFIB -: Hypothyroidism -: Triple Bypass -: Hystectomy -: Hernia removal x7 - Family History Mother Medical History: Heart disease, Lung disease, GI disease, Diabetes, Cancer, Kidney disease, Other (see notes) Notes: Colon Cancer - Social History Alcohol use: No CD- Drugs: No Caffeine use: Yes Place of Residence: Home Physical Examination Temp Pulse Resp BP Pulse Ox 97.1 F 76 16 111/63 93 01/27/21 16:00 01/27/21 18:07 01/27/21 16:00 01/27/21 18:07 01/27/21 16:00 Blood work reviewed in the chart. Imagings Data: EXAM DESCRIPTION: US - Renal Ultrasound-Complete - 01/27/2021 2:37 pm CLINICAL HISTORY: rebecca/ckd Flank pain COMPARISON: No comparisons FINDINGS: The left kidney is echogenic and small in size. The right kidney measures 11.2 x 5.0 x 4.8 cm. No hydronephrosis, focal mass or perinephric fluid. The left kidney measures 6.5 x 3.6 x 3.0 cm. No hydronephrosis, focal mass or perinephric fluid. The urinary bladder is incompletely distended without gross abnormality seen. IMPRESSION: Echogenic left kidney most compatible with underlying medical renal disease. EXAM DESCRIPTION: RAD - Chest Single View - 01/26/2021 9:44 am CLINICAL HISTORY: SOB, CHF COMPARISON: December 2011 TECHNIQUE: AP portable chest image was obtained 01/26/2021 9:44 am . FINDINGS: Alveolar opacification is present throughout most of the mid and lower left lung field. Left heart border is still visualized. Patchy right lower lung field airspace opacification is present. Trachea is midline. Sternotomy wires are in place. Right shoulder postsurgical changes are present with progression of degenerative change since comparison. Heart size is upper normal. Pulmonary vasculature within normal limits. No measurable pleural effusion and no pneumothorax. No acute bony abnormality seen. No acute aortic findings suspected. IMPRESSION: Airspace opacification in the mid and lower left lung field with patchy opacification in the right lung field. Heart size is upper normal, decreased in size from comparison. Clinical history provided indicates CHF. Chest findings could represent an atypical presentation of CHF. Pneumonia is certainly a possibility and needs correlation with clinical presentation. LEFT VENTRICULAR WALL MOTION: DECREASED LEFT VENTRICULAR COMPLIANCE DOPPLER/COLOR FLOW: NOT REQUESTED COMMENTS: DECREASED LEFT VENTRICULAR COMPLIANCE CONSISTENT WITH DIASTOLIC DYSFUNCTION. NORMAL LEFT VENTRICULAR EJECTION FRACTION. NO EFFUSION. Conclusions/Impression: A/P: Continue the current POC and Medications other than the changes listed. AM Labs PRN. Recommend daily weight. Please see the orders for complete details. REBECCA likely CRS CKD IV -No NSAIDs -Continue furosemide Hyperkalemia -Continue furosemide HTN with CKD/ CHF -Continue Hydralazine -Continue Imdur Diastolic CHF, A/C -Continue furosemide -Continue Metoprolol DM II with CKD -Continue Lantus -RISS Anemia in chronic illness -Monitor H&H Toxic Metabolic Encephalopathy -Continue Zosyn for possible PNA Thank you kindly for the consultation.
[2021-01-27] MEDS ORDERED: ENOXAPARIN 40 MG/0.4 ML SQ SCH (21:00)
[2021-01-27] MEDS: ATORVASTATIN 40 MG TAB PO SCH (21:41)
[2021-01-27] MEDS: INSULIN GLARGINE 100 UNITS/ML SQ SCH (21:43)
[2021-01-28] MEDS: PIPER/TAZO/NS 3.375gm 3.375 GM/100 ML BAG IVPB SCH ×2 (00:35→08:58)
[2021-01-28 06:04] LABS: Absolute Lymphocytes (CBC) 2.2 K/uL (0.7-4.9); Basophils % 0.3 % (0-1.3); Hematocrit 30.8 % (36.0-45.0); Lymphocytes % 15.4 % (15.3-44.8); MPV 8.9 fL (7.6-11.3); RBC Red Blood Cell Count 3.19 M/uL (3.86-4.86)
[2021-01-28 06:18] LABS: Magnesium 2.2 mg/dL (1.8-2.4); Phosphorus 3.8 mg/dL (2.5-4.9); Potassium 3.3 mmol/L (3.5-5.1); Uric Acid 9.5 mg/dL (2.6-6.0)
[2021-01-28] MEDS: INSULIN -REGULAR HUMAN 50 UNIT/0.5 ML ML SQ SCH ×2 (07:30→12:39)
[2021-01-28] MEDS ORDERED: POTASSIUM CL SA 10 MEQ TAB PO ONE (07:45)
[2021-01-28] MEDS ORDERED: HYDRALAZINE HCL 25 MG TABLET PO SCH (07:47)
[2021-01-28] MEDS: CLOPIDOGREL 75 MG TABLET PO SCH (08:59)
[2021-01-28] MEDS: GABAPENTIN 300 MG CAP PO SCH ×2 (08:59→14:30)
[2021-01-28] MEDS: ISOSORBIDE MONO SR 60 MG TAB PO SCH (08:59)
[2021-01-28] MEDS: METOPROLOL XL 25 MG TAB PO SCH (08:59)
[2021-01-28] MEDS: ASPIRIN 325 MG TAB PO SCH (08:59)
[2021-01-28] MEDS ORDERED: SPIRONOLACTONE 25 MG TABLET PO SCH (09:00)
[2021-01-28] MEDS: SOTALOL HCL 80 MG TAB PO SCH (09:00)
[2021-01-28] MEDS: FUROSEMIDE 40 MG/4 ML VIAL IV SCH (09:00)
[2021-01-28] MEDS: ACETAMINOPHEN 325 MG TABLET PO PRN (09:05)
--- NOTE | 2021-01-28 09:06 | RAD REPORT ---
EXAM DESCRIPTION: RAD - Chest Pa And Lat (2 Views) - 01/28/2021 7:07 am CLINICAL HISTORY: follow up CHF, rule out pneumonia Chest pain. COMPARISON: Chest Single View dated 01/26/2021; CHEST SINGLE VIEW dated 12/25/2011; CHEST PA AND LAT 2 VIEW dated 06/27/2011; CHEST SINGLE VIEW dated 06/25/2011 FINDINGS: The left-sided pneumonia has moderately improved since comparative study. The right lung a ppears clear. The heart is upper limit normal in size with changes of a prior CABG. Hardware plate is present proximal right humerus. IMPRESSION: Moderate improvement in the left-sided pneumonia.
[2021-01-28 09:11] LABS: Urine Appearance CLEAR (Clear); Urine Bilirubin NEGATIVE (Negataive); Urine Blood NEGATIVE (Negative); Urine Color YELLOW (Yellow); Urine Glucose NEGATIVE (Negative); Urine Protein 1+ (Negative); Urine Specific Gravity 1.015 (1.005-1.030); Urine Urobilinogen 0.2 mg/dL (0.2-1.0); Urine pH 5.5 (5.0-7.0)
[2021-01-28 09:33] LABS: Urine Bacteria <20 /HPF (<20); Urine RBC <5 /HPF (NONE SEEN)
--- NOTE | 2021-01-28 10:12 | P.PN ---
Subjective Date of Service: 01/28/21 Chief Complaint: AMS Subjective: Other (Patient reports increased phlegm. Some shortness of breath this morning.) Physical Examination - Vital Signs Temperature: 99.0 F Blood Pressure: 145/89 Pulse: 111 Respirations: 18 Pulse Ox (%): 94 - Studies Microbiology Data (last 24 hrs): 01/26/21 12:20 Blood - Blood Anaerobic Blood Culture - Final Assessment & Plan Discharge Plan: Home Plan to discharge in: 24 Hours Physician Review Additional Text: Physical exam Patient alert, cooperative. Patient was on room air this morning. Phlegm noted from patient's cup Heart: A. fib rate slightly elevated. Lungs: Slight crackles to the bases. Better air movement bilateral. Abdomen: Soft nontender nondistended Extremities: Minimal pitting edema to the lower extremities Impression: Acute toxic encephalopathy likely related to acute on chronic diastolic CHF with left-sided pneumonia Acute on chronic renal disease stage IV Diabetes mellitus type 2 with hyperglycemia Hypertension Atrial fibrillation not on chronic anticoagulation therapy Hyperlipidemia Plan: Acute toxic encephalopathy likely related to acute on chronic diastolic CHF with left-sided pneumonia: Patient reports improvement. Continue with IV diuresis and 1500 cc. Fluid restriction. Patient also on IV Zosyn. Will transition to oral medication. VQ scan negative for pulmonary embolism. Echo shows ejection fraction around 52% with diastolic dysfunction noted. Renal ultrasound shows chronic renal disease. Case discussed with nephrology. Will also discuss with cardiology. We will ambulate today. Continue home medications including sotalol and metoprolol. If doing well will consider discharge later today if not tomorrow. Will need to check if patient will require oxygen at discharge. Will reassess after lunchtime. Acute on chronic renal disease stage IV: Continue diuresis. Nephrology consulted. Renal ultrasound obtained. Await further recommendations. Continue 1500 cc/day fluid restriction. Diabetes mellitus type 2 with hyperglycemia: Continue Lantus. We will provide sliding scale as needed. Discontinue glipizide. Hypertension: Continue with home medications. Hold ARB inhibitor. Atrial fibrillation not on chronic anticoagulation therapy: Continue with sotalol. Patient also takes metoprolol. Continue aspirin and Plavix. Hyperlipidemia: Continue with medication. Time Spent Managing Pts Care (In Minutes): 55
[2021-01-28 13:25] VITALS: O2SAT 98
--- NOTE | 2021-01-28 13:33 | CON ---
Date of Consultation: 01/27/2021 Reason For Consultation: I saw the patient for congestive heart failure and elevated troponin on . History Of Present Illness: Ms. Degroot is a 65-year-old woman. She has an extensive past medical hi story including history of diabetes, hypertension, chronic renal disease, cancer, congestive heart fa ilure, coronary artery disease status post CABG. She is also status post hysterectomy. Came in with shortness of breath and altered mental status. No nausea, vomiting, diaphoresis, PND, orthopnea, pe anat edema, palpitations, or syncope. She denied any chest pain. Denied any fever or chills. Her ma in symptoms were shortness of breath at rest. Medications: At home include Lipitor, Plavix, gabapentin, glipizide, hydralazine, Imdur, losartan, m etoprolol, sotalol. Past Medical History: As stated above. Also has a history of atrial fibrillation that is paroxysmal and she is on sotalol. She is on aspirin and Plavix for anticoagulation. Allergies: SHE IS ALLERGIC TO LISINOPRIL, TAPE, AND VALIUM. Review of Systems: Negative. Social History: Negative. Family History: Noncontributory. Physical Examination: Vital Signs: When she came in; her blood pressure was 175/139 with pulse of 128. HEENT: Negative. Neck: Supple without any bruit, lymphadenopathy, JVD, or thyromegaly. Chest: Revealed rales at both bases. Cardiac: Revealed atrial fibrillation. Abdomen: Benign. Extremities: Revealed no clubbing, cyanosis. She had 2+ edema. Diagnostic Data: Her creatinine was 2.54. Her white count was 22,000. Her hemoglobin was 12.8. He r D-dimer was 2927. Her pO2 was 63, pCO2 was 46, pH was 7.30. Her glucose was 395. Her troponin wa s 0.58. Chest x-ray was consistent with atypical presentation of congestive heart failure. She had a head CT that was normal. She had a V/Q scan that showed a low probability of pulmonary embolus. S he had a renal ultrasound that was consistent with medical disease. Echocardiogram which was done sh owed an ejection fraction of 52% with diastolic dysfunction. Impression And Plan: 1.Acute on chronic diastolic congestive heart failure. 2.Acute kidney injury. 3.Elevated white count. 4.Hypertension. 5.Dyslipidemia. 6.Diabetes. 7.Coronary artery disease, status post coronary artery bypass graft in the past. 8.Paroxysmal atrial fibrillation. Mrs. Degroot has elevated D-dimer, elevated BNP, and elevated trop onin and I think all are secondary to her acute on chronic diastolic congestive failure and her sever e very poorly controlled hypertension. I think she needs to have an aggressive treatment with blood pressure. Needs to continue aspirin and Plavix. I would put her on some antibiotic considering her white count. The patient is not a candidate for catheterization because of her altered mental status and renal dysfunction. She needs to be treated for congestive heart failure and for hypertension wh ile watching her kidney and I agree with Nephrology consultation. We will continue to follow the pat ient along. Her present medications are basically her home medicines. She is also on Lasix 40 mg IV twice a day. We can certainly increase her hydralazine and metoprolol dose if we have to. Norvasc may be appropriate, Aldactone dose can be increased as well. I will discuss the case further with Dr. Tan. JUSTINE/RENNY Voice ID: [id number] Report ID: [id number]
[2021-01-28 14:24] VITALS: BP 140/69; TEMP 98.7
--- NOTE | 2021-01-28 15:07 | P.DS ---
Admission Date: 01/26/21 Discharge Date: 01/28/21 Primary Care Provider: none Disposition: ROUTINE DISCHARGE Discharge Condition: GOOD Reason for Admission: AMS Consultations: Cardiology-Dr. Berry Nephrology-Dr. Fish Procedures: COVID: Negative ECHO: MEASUREMENTS (cm) DIASTOLIC (NORMALS) SYSTOLIC (NORMALS) IVSd 1.2 (0.6-1.2) LA Diam 3.1 (1.9-4.0) LVEF 52% LVIDd 4.8 (3.5-5.7) LVIDs 3.5 (2.0-3.5) %FS 27% LVPWd 1.3 (0.6-1.2) Ao Diam 2.7 (2.0-3.7) 2 DIMENSIONAL ASSESSMENT: RIGHT ATRIUM: NORMAL LEFT ATRIUM: NORMAL RIGHT VENTRICLE: NORMAL LEFT VENTRICLE: NORMAL TRICUSPID VALVE: NORMAL MITRAL VALVE: NORMAL PULMONIC VALVE: NORMAL AORTIC VALVE: NORMAL PERICARDIAL EFFUSION: NONE AORTIC ROOT: NORMAL LEFT VENTRICULAR WALL MOTION: DECREASED LEFT VENTRICULAR COMPLIANCE. DOPPLER/COLOR FLOW: NOT REQUESTED. COMMENTS: DECREASED LEFT VENTRICULAR COMPLIANCE CONSISTENT WITH DIASTOLIC DYSFUNCTION. NORMAL LEFT VENTRICULAR EJECTION FRACTION. NO EFFUSION. CT Head: FINDINGS: The images have just now become available for interpretation. An intracranial bleed is not seen . The ventricles are normal in caliber. No extra-axial fluid collection is noted. Mild to moderate low-density areas within periventricular, deep and subcortical white matter likely represent ischemic changes secondary to small vessel disease. Fluid within the sinuses/ mastoids is not seen. IMPRESSION: No acute intracranial abnormality is seen Renal US: FINDINGS: The left kidney is echogenic and small in size. The right kidney measures 11.2 x 5.0 x 4.8 cm. No hydronephrosis, focal mass or perinephric fluid. The left kidney measures 6.5 x 3.6 x 3.0 cm. No hydronephrosis, focal mass or perinephric fluid. The urinary bladder is incompletely distended without gross abnormality seen. IMPRESSION: Echogenic left kidney most compatible with underlying medical renal disease. V/Q scan: FINDINGS: Moderate area of diminished radiotracer uptake involves upper left lower lobe which is matched on ventilation and perfusion sequences. The right lung demonstrates relatively homogeneous radiotracer activity on ventilation and perfusion sequences. No mismatched segmental or lobar perfusion defects are seen. IMPRESSION: Low probability of a pulmonary embolus Follow up CXR: FINDINGS: The left-sided pneumonia has moderately improved since comparative study. The right lung appears clear. The heart is upper limit normal in size with changes of a prior CABG. Hardware plate is present proximal right humerus. IMPRESSION: Moderate improvement in the left-sided pneumonia. Medical Problem List: Acute toxic encephalopathy likely related to acute on chronic diastolic CHF with left-sided pneumonia Acute on chronic renal disease stage IV Diabetes mellitus type 2 with hyperglycemia Hypertension Atrial fibrillation not on chronic anticoagulation therapy Hyperlipidemia Hypothyroidism Brief History of Present Illness: 65 year old female with a PMHx significant for HTN, DM 2, HLD, CKD who presents with c\o of AMS onset this morning. Patient currently AAO Xx2. Family reported that patient woke up confused and was unable to get out of bed due to generalized weakness. Patient reported associated s\s of fatigue, generalized body pain, cough and sob. Patient denies any other s\s. Symptoms are aggravated or relieved by nothing. Patient found to have acute on chronic systolic CHF with pneumonia. Patient admitted for symptoms. Hospital Course: Patient presented with acute toxic encephalopathy related to acute on chronic diastolic CHF with left-sided pneumonia. Patient was treated with IV diuresis, fluid restriction and IV antibiotic therapy. Her condition improved. Patient doing well. VQ scan negative for pulmonary embolism. Echo shows ejection fraction around 52% with diastolic dysfunction. Renal ultrasound shows chronic renal disease. Patient was seen and evaluated by nephrology and cardiology. Patient has done well. Patient still requires oxygen at discharge. Medications have been adjusted. At discharge for her pneumonia the patient will continue with Augmentin 500 mg daily for 7 days. Recommend to recheck chest x-ray in 2 to 4 weeks to monitor resolution. Patient will be prescribed Tessalon Perles 100 mg 3 times a day as needed for cough. For her CHF patient will continue with the 1500 cc/day fluid restriction and low-salt diet. Patient will continue with Lasix 40 mg daily and Aldactone 25 mg daily. Recommend to monitor her weight daily. If her weight increases by more than 5 pounds further adjustment in medication may be required. This can be done with the help of her PCP, nephrology or process excellence manager. Recommend follow-up with cardiology in 1 to 2 weeks to follow-up his hospitalization and continue her care. At discharge home oxygen will be arranged to maintain sats above 93%. Patient currently on 2 L per nasal cannula. Patient would benefit with continued home health and physical therapy at discharge. Patient with acute on chronic renal disease stage IV. Patient continued diuresis with improvement. Nephrology adjusted medications as above. At discharge she will continue with the 1500 cc/day fluid restriction. Recommend no further use of nonsteroidal anti-inflammatories. Recommend to recheck labBMP in 1 week. Recommend follow-up with nephrology in 1 week to follow-up hospitalization. Patient with diabetes mellitus type 2. Patient takes glipizide. At discharge she will continue with glipizide as directed. Recommend to maintain blood sugar less than 140 fasting and less than 200 for meals. A1c well controlled at 6.1. Further adjustment in medication can be done by her PCP. Patient with hypertension. ARB inhibitor was discontinued. This was replaced with Aldactone. Patient will continue with her other medications including hydralazine 25 mg 1 pill twice daily, Toprol 25 mg 1 pill twice daily. Recommend to monitor her blood pressure daily. Recommend to maintain blood pressure less than 130/80. Further adjustment can be done by her PCP, cardiology or nephrology. Patient with CAD and atrial fibrillation not on chronic anticoagulation therapy. At discharge she will continue with aspirin 325 mg daily, sotalol 160 mg daily, isosorbide mononitrate 60 mg 1 pill twice daily and Toprol-XL 25 mg 1 pill twice daily. Patient previously took anticoagulation therapy in the past but this was discontinued due to anemia. Recommend follow-up with cardiology as directed. Patient with hyperlipidemia. At discharge she will continue with her medication Lipitor 40 mg daily. Patient with diabetic neuropathy. At discharge patient will continue with gabapentin 300 mg 1 pill 3 times a day. Patient with hypothyroidism. At discharge patient will continue with levothyroxine 137 mcg daily. Vital Signs/Physical Exam: Temp Pulse Resp BP Pulse Ox 98.7 F 86 18 140/69 97 01/28/21 12:00 01/28/21 12:00 01/28/21 12:00 01/28/21 12:00 01/28/21 12:00 General: Alert, In no apparent distress, Oriented x3, Cooperative HEENT: Atraumatic Neck: Supple Respiratory: Clear to auscultation bilaterally, Other (Better air movement bilateral. Less congestion noted) Cardiovascular: Irregular heart rate/rhythm (A. fib rate controlled) Gastrointestinal: Normal bowel sounds Musculoskeletal: No erythema, No tenderness, No warmth Integumentary: No tenderness/swelling Neurological: Normal speech, Normal strength at 5/5 x4 extr, Normal tone, Normal affect Laboratory Data at Discharge: WBC 14.00 K/uL (4.3-10.9) H D 01/28/21 05:31 Hgb 10.5 g/dL (12.0-15.0) L 01/28/21 05:31 Hct 30.8 % (36.0-45.0) L 01/28/21 05:31 Plt Count 223 K/uL (152-406) 01/28/21 05:31 PT 11.7 SECONDS (9.5-12.5) 01/26/21 09:05 INR 1.02 01/26/21 09:05 APTT 33.5 SECONDS (24.3-36.9) 01/26/21 09:05 Sodium 142 mmol/L (136-145) 01/28/21 05:31 Potassium 3.3 mmol/L (3.5-5.1) L 01/28/21 05:31 BUN 43 mg/dL (7-18) H 01/28/21 05:31 Creatinine 2.45 mg/dL (0.55-1.3) H 01/28/21 05:31 Glucose 76 mg/dL (74-106) 01/28/21 05:31 Uric Acid 9.5 mg/dL (2.6-6.0) H 01/28/21 05:31 Phosphorus 3.8 mg/dL (2.5-4.9) 01/28/21 05:31 Magnesium 2.2 mg/dL (1.8-2.4) 01/28/21 05:31 Total Bilirubin 0.4 mg/dL (0.2-1.0) 01/26/21 09:05 AST 15 U/L (15-37) 01/26/21 09:05 ALT 31 U/L (12-78) 01/26/21 09:05 Alkaline Phosphatase 81 U/L (45-117) 01/26/21 09:05 Troponin I 0.58 ng/mL (0.0-0.045) H* 01/27/21 05:39 Triglycerides 113 mg/dL (<150) 01/26/21 19:01 Cholesterol 182 mg/dL (<200) 01/26/21 19:01 HDL Cholesterol 62 mg/dL (40-60) H 01/26/21 19:01 Cholesterol/HDL Ratio 2.94 01/26/21 19:01 Lipase 138 U/L (73-393) 01/26/21 09:05 Home Medications: Aspirin 325 mg PO DAILY 01/26/21 Atorvastatin Calcium [Lipitor] 40 mg PO BEDTIME 01/26/21 Clopidogrel Bisulfate [Plavix*] 1 tab PO DAILY 01/26/21 Gabapentin 300 mg PO TID 01/26/21 Hydralazine [Apresoline*] 25 mg PO BID 01/26/21 Isosorbide Mononitrate [Isosorbide Mononitrate ER] 60 mg PO BID 01/26/21 Metoprolol Succinate [Toprol Xl*] 25 mg PO BID 01/26/21 Sotalol HCl [Sotalol] 1 tab PO DAILY 01/26/21 glipiZIDE [Glipizide] 1 tab PO BID 01/26/21 Amoxicillin/Potassium Clav [Augmentin 500-125 Tablet] 1 each PO DAILY #7 tablet 01/28/21 Benzonatate [Tessalon Perle] 100 mg PO TID PRN #10 cap 01/28/21 Furosemide [Lasix] 40 mg PO DAILY #30 tab 01/28/21 Levothyroxine Sodium [Levothyroxine] 137 mcg PO [id number] 01/28/21 Spironolactone [Aldactone*] 25 mg PO DAILY #30 tab 01/28/21 New Medications: Spironolactone [Aldactone*] 25 mg PO DAILY #30 tab Amoxicillin/Potassium Clav [Augmentin 500-125 Tablet] 1 each PO DAILY #7 tablet Furosemide [Lasix] 40 mg PO DAILY #30 tab Benzonatate [Tessalon Perle] 100 mg PO TID PRN #10 cap PRN Reason: Cough Physician Discharge Instructions: Patient presented with acute toxic encephalopathy related to acute on chronic diastolic CHF with left-sided pneumonia. Patient was treated with IV diuresis, fluid restriction and IV antibiotic therapy. Her condition improved. Patient back to baseline. Patient doing well. VQ scan negative for pulmonary embolism. Echo shows ejection fraction around 52% with diastolic dysfunction. Renal ultrasound shows chronic renal disease. Patient was seen and evaluated by nephrology and cardiology. Patient has done well. Patient still requires oxygen at discharge. Medications have been adjusted. At discharge for her pneumonia the patient will continue with Augmentin 500 mg daily for 7 days. Recommend to recheck chest x-ray in 2 to 4 weeks to monitor resolution. Patient will be prescribed Tessalon Perles 100 mg 3 times a day as needed for cough. For her CHF patient will continue with the 1500 cc/day fluid restriction and low-salt diet. Patient will continue with Lasix 40 mg daily and Aldactone 25 mg daily. Recommend to monitor her weight daily. If her weight increases by more than 5 pounds further adjustment in medication may be required. This can be done with the help of her PCP, nephrology or process excellence manager. Recommend follow-up with cardiology in 1 to 2 weeks to follow-up his hospitalization and continue her care. At discharge home oxygen will be arranged to maintain sats above 93%. Patient currently on 2 L per nasal cannula. Patient would benefit with continued home health and physical therapy at discharge. Patient with acute on chronic renal disease stage IV. Patient continued diuresis with improvement. Nephrology adjusted medications as above. At discharge she will continue with the 1500 cc/day fluid restriction. Recommend no further use of nonsteroidal anti-inflammatories. Recommend to recheck labBMP in 1 week. Recommend follow-up with nephrology in 1 week to follow-up hospitalization. Patient with diabetes mellitus type 2. Patient takes glipizide. At discharge she will continue with glipizide as directed. Recommend to maintain blood sugar less than 140 fasting and less than 200 for meals. A1c well controlled at 6.1. Further adjustment in medication can be done by her PCP. Patient with hypertension. ARB inhibitor was discontinued. This was replaced with Aldactone. Patient will continue with her other medications including hydralazine 25 mg 1 pill twice daily, Toprol 25 mg 1 pill twice daily. Recommend to monitor her blood pressure daily. Recommend to maintain blood pressure less than 130/80. Further adjustment can be done by her PCP, cardiology or nephrology. Patient with CAD and atrial fibrillation not on chronic anticoagulation therapy. At discharge she will continue with aspirin 325 mg daily, sotalol 160 mg daily, isosorbide mononitrate 60 mg 1 pill twice daily and Toprol-XL 25 mg 1 pill twice daily. Patient previously took anticoagulation therapy in the past but this was discontinued due to anemia. Recommend follow-up with cardiology as directed. Patient with hyperlipidemia. At discharge she will continue with her medication Lipitor 40 mg daily. Patient with diabetic neuropathy. At discharge patient will continue with gabapentin 300 mg 1 pill 3 times a day. Patient with hypothyroidism. At discharge patient will continue with levothyroxine 137 mcg daily. Diet: 1500 cc fl Activity: Ad sarah Followup: NONE,NONE [Primary Care Provider] - Time spent managing pt's care (in minutes): 55
--- NOTE | 2021-01-28 20:51 | P.PN ---
Date of Service: 01/28/21 Vital Signs Temp Pulse Resp BP Pulse Ox 98.7 F 86 18 140/69 97 01/28/21 12:00 01/28/21 12:00 01/28/21 12:00 01/28/21 12:00 01/28/21 12:00 Microbiology Results 01/26/21 12:20 Blood - Blood Aerobic Blood Culture - Preliminary No growth in 24 hours. 01/26/21 12:20 Blood - Blood Anaerobic Blood Culture - Final 01/26/21 09:05 Blood - Blood Aerobic Blood Culture - Preliminary No growth in 24 hours. 01/26/21 09:05 Blood - Blood Anaerobic Blood Culture - Preliminary No growth in 24 hours. Assessment/ Plan: Nephrology No acute cardiac or pulmonary complaints. No CP or SOB. Feeling better. No acute events overnight. Vitals, medications, blood work and imaging reviewed in the chart. Blood work reviewed in the chart. Imagings Data: EXAM DESCRIPTION: US - Renal Ultrasound-Complete - 01/27/2021 2:37 pm CLINICAL HISTORY: rebecca/ckd Flank pain COMPARISON: No comparisons FINDINGS: The left kidney is echogenic and small in size. The right kidney measures 11.2 x 5.0 x 4.8 cm. No hydronephrosis, focal mass or perinephric fluid. The left kidney measures 6.5 x 3.6 x 3.0 cm. No hydronephrosis, focal mass or perinephric fluid. The urinary bladder is incompletely distended without gross abnormality seen. IMPRESSION: Echogenic left kidney most compatible with underlying medical renal disease. EXAM DESCRIPTION: RAD - Chest Single View - 01/26/2021 9:44 am CLINICAL HISTORY: SOB, CHF COMPARISON: December 2011 TECHNIQUE: AP portable chest image was obtained 01/26/2021 9:44 am . FINDINGS: Alveolar opacification is present throughout most of the mid and lower left lung field. Left heart border is still visualized. Patchy right lower lung field airspace opacification is present. Trachea is midline. Sternotomy wires are in place. Right shoulder postsurgical changes are present with progression of degenerative change since comparison. Heart size is upper normal. Pulmonary vasculature within normal limits. No measurable pleural effusion and no pneumothorax. No acute bony abnormality seen. No acute aortic findings suspected. IMPRESSION: Airspace opacification in the mid and lower left lung field with patchy opacification in the right lung field. Heart size is upper normal, decreased in size from comparison. Clinical history provided indicates CHF. Chest findings could represent an atypical presentation of CHF. Pneumonia is certainly a possibility and needs correlation with clinical presentation. LEFT VENTRICULAR WALL MOTION: DECREASED LEFT VENTRICULAR COMPLIANCE DOPPLER/COLOR FLOW: NOT REQUESTED COMMENTS: DECREASED LEFT VENTRICULAR COMPLIANCE CONSISTENT WITH DIASTOLIC DYSFUNCTION. NORMAL LEFT VENTRICULAR EJECTION FRACTION. NO EFFUSION. EXAM DESCRIPTION: RAD - Chest Pa And Lat (2 Views) - 01/28/2021 7:07 am CLINICAL HISTORY: follow up CHF, rule out pneumonia Chest pain. COMPARISON: Chest Single View dated 01/26/2021; CHEST SINGLE VIEW dated 12/25/2011; CHEST PA AND LAT 2 VIEW dated 06/27/2011; CHEST SINGLE VIEW dated 06/25/2011 FINDINGS: The left-sided pneumonia has moderately improved since comparative study. The right lung appears clear. The heart is upper limit normal in size with changes of a prior CABG. Hardware plate is present proximal right humerus. IMPRESSION: Moderate improvement in the left-sided pneumonia. Conclusions/Impression: A/P: Continue the current POC and Medications other than the changes listed. AM Labs PRN. Recommend daily weight. Please see the orders for complete details. REBECCA likely CRS CKD IV -No NSAIDs -Continue furosemide Hyperkalemia -Continue furosemide -Replete potassium HTN with CKD/ CHF -Continue Hydralazine -Continue Imdur Diastolic CHF, A/C -Continue furosemide -Start spironolactone -Continue Metoprolol DM II with CKD -Continue Lantus -RISS Anemia in chronic illness -Monitor H&H Toxic Metabolic Encephalopathy -Continue Zosyn for possible PNA Case reviewed with Dr. Tan
--- NOTE | 2021-01-30 10:27 | PN ---
Date of Progress Note: 01/28/2021 Ms. Degroot was admitted to Dr. Tan on 01/26/2021. I saw her on 01/27/2021 because of acute diasto lic congestive heart failure, acute kidney injury, hypertension, dyslipidemia, diabetes, coronary art tai disease and paroxysmal atrial fibrillation. She had an elevated D-dimer, BNP and troponin, all s econdary to her acute on chronic diastolic congestive heart failure and severely controlled hypertens ion. I did not think she was a candidate for catheterization because of her altered mental status an d renal dysfunction. She improved dramatically on Lasix IV twice a day. I think hydralazine and met oprolol can be increased and I think calcium channel edward may be appropriate, her Aldactone can be increased as well. Her blood pressure has improved. She is not symptomatic. Echocardiogram showed an ejection fraction of 52% with decreased left ventricular compliance. I think she can go home whe never it is okay with Dr. Tan and we will see her in the office in the next couple of weeks. JUSTINE/RENNY Voice ID: [id number] Report ID: [id number]
== END 2021-01-28 16:37 | disposition home or self-care (01) | DRG 291 ==
LOC: ER 08:25 → ERHOLD 15:16 → 2ND 16:23
PROVIDERS: ADMIT Family Medicine; ATTEND Family Medicine
PROC: 5A09457 Assistance with Respiratory Ventilation, 24-96 Consecutive Hours, Continuous Positive Airway Pressure (ICD-10-PCS; principal; 2021-01-28)
DX: I13.0 Hypertensive heart and chronic kidney disease with heart failure and stage 1 through stage 4 chronic kidney disease, or unspecified chronic kidney disease (principal); I50.33 Acute on chronic diastolic (congestive) heart failure; G92 Toxic encephalopathy; J18.9 Pneumonia, unspecified organism; N18.4 Chronic kidney disease, stage 4 (severe); N17.9 Acute kidney failure, unspecified; E11.22 Type 2 diabetes mellitus with diabetic chronic kidney disease; E11.65 Type 2 diabetes mellitus with hyperglycemia; E11.40 Type 2 diabetes mellitus with diabetic neuropathy, unspecified; D72.829 Elevated white blood cell count, unspecified; E03.9 Hypothyroidism, unspecified; E87.5 Hyperkalemia; I25.10 Atherosclerotic heart disease of native coronary artery without angina pectoris; I48.0 Paroxysmal atrial fibrillation; D63.8 Anemia in other chronic diseases classified elsewhere; E78.5 Hyperlipidemia, unspecified; Z66 Do not resuscitate; Z91.048 Other nonmedicinal substance allergy status; Z79.02 Long term (current) use of antithrombotics/antiplatelets; Z79.82 Long term (current) use of aspirin; Z88.8 Allergy status to other drugs, medicaments and biological substances; Z79.84 Long term (current) use of oral hypoglycemic drugs; Z79.899 Other long term (current) drug therapy; Z90.710 Acquired absence of both cervix and uterus; Z79.01 Long term (current) use of anticoagulants; Z79.890 Hormone replacement therapy; Z20.822 Contact with and (suspected) exposure to COVID-19
CPT/HCPCS: 36415; 51702; 70450; 71045; 71046; 76770; 78582; 80048; 80061; 80076; 81001; 82550; 82553; 82805; 82947; 83036; 83690; 83735; 83880; 84100; 84484; 84550; 85025; 85379; 85610; 85730; 87040; 87070; 87205; 93005; 93307; 94660; 96365; 96367; 96375; 99285; A9540; A9558; J0456; J0696; J1644; J1650; J1815; J1940; J2543; J7050; U0003

== ENCOUNTER 2021-02-17 05:18 | Inpatient (IN) | payer OTHER ==
[2021-02-17 06:39] LABS: Basophils % 0.7 % (0-1.3); Hematocrit 34.5 % (36.0-45.0); Lymphocytes % 12.6 % (15.3-44.8); MPV 9.4 fL (7.6-11.3)
[2021-02-17 06:41] LABS: Protime INR 0.97
[2021-02-17] MEDS ORDERED: FAMOTIDINE 20 MG/2 ML VIAL IV ONE (06:44)
[2021-02-17] MEDS ORDERED: LEVALBUTEROL 1.25 MG/3 ML NEB ONE (06:44)
[2021-02-17] MEDS ORDERED: METHYLPREDNISOLONE 125 MG INJ ONE (06:44)
[2021-02-17] MEDS ORDERED: IPRATROPIUM BROM 0.5MG/2.5ML ONE (06:44)
[2021-02-17] MEDS ORDERED: FUROSEMIDE 20 MG/ 2ML VIAL ONE ×2 (06:44→07:13)
[2021-02-17] MEDS ORDERED: PIPER/TAZO/NS 3.375gm 3.375 GM/100 ML BAG ONE (06:45)
[2021-02-17 06:50] LABS: Magnesium 2.2 mg/dL (1.8-2.4)
[2021-02-17 06:53] LABS: Albumin 3.8 g/dL (3.4-5.0); Bilirubin Direct 0.1 mg/dL (0-0.2); Bilirubin Total 0.4 mg/dL (0.2-1.0); CKMB Creatine Kinase MB 2.7 ng/mL (0.3-3.6); Potassium 4.3 mmol/L (3.5-5.1); Protein, Total 8.1 g/dL (6.4-8.2); Troponin (Emerg Dept Use Only) 0.07 ng/mL (0.0-0.045)
--- NOTE | 2021-02-17 06:56 | ER ---
Nurse's Notes [facility] Name: Mercedez eDgroot Age: 66 yrs Sex: Female : 1955 Arrival Date: 02/17/2021 Time: 05:22 Bed 13 Private MD: Diagnosis: Dyspnea;Hypoxemia;Systolic (congestive) heart failure;Essential (primary) hypertension Presentation: 02/17 05:39 Chief complaint: Patient states: I am having difficulty of breathing started 1 AM and rr5 it gets worse now with cough that is started for couple of days now. last time I was here 3 weeks ago I got admitted with pneumonia. Coronavirus screen: Client denies travel out of the [place] in the last 14 days. cough unrelated to allergies, difficulty breathing. Ebola Screen: Patient negative for fever greater than or equal to 101.5 degrees Fahrenheit, and additional compatible Ebola Virus Disease symptoms. Initial Sepsis Screen: Does the patient meet any 2 criteria? RR > 20 per min. HR > 90 bpm. Does the patient have a suspected source of infection? Yes: Productive cough/pneumonia If YES to both, name of provider notified: Ajit Kim MD. Risk Assessment: Do you want to hurt yourself or someone else? Patient reports no desire to harm self or others. Onset of symptoms was February 17, 2021. 05:39 Method Of Arrival: Wheelchair rr5 05:39 Acuity: TRISHA 2 rr5 Triage Assessment: 06:50 Respiratory: Onset: The symptoms/episode began/occurred this morning, the patient has jm8 moderate shortness of breath. Historical: - Allergies: 05:44 Lisinopril; rr5 05:44 Tape; rr5 05:44 Valium; rr5 - Home Meds: 05:44 atorvastatin 40 mg Oral tab 1 tab once daily [Active]; clopidogrel 75 mg Oral tab 1 tab rr5 once daily [Active]; hydralazine 25 mg Oral tab 1 tab 2 times per day [Active]; glipizide 5 mg Oral tab 1 tab 2 times per day [Active]; isosorbide mononitrate 60 mg Oral Tb24 1 tab twice a day [Active]; gabapentin 300 mg Oral cap 1 cap 3 times per day [Active]; metoprolol succinate 25 mg Oral Tb24 1 tab twice a day [Active]; losartan 50 mg Oral tab 1 tab 2 times per day [Active]; sotalol 120 mg Oral tab 1 tab daily [Active]; - PMHx: 05:44 cancer, hx; CHF; Diabetes - NIDDM; Hypertension; Hypothyroidism; kidney disease; rr5 - PSHx: 05:44 arm surgery; endoscopy; Hernia repair; Hysterectomy; heart bypass; rr5 - Immunization history:: Adult Immunizations up to date. - Social history:: Smoking status: unknown. - Family history:: not pertinent. Screenin:21 Abuse screen: Denies threats or abuse. Denies injuries from another. Nutritional jm8 screening: No deficits noted. Tuberculosis screening: No symptoms or risk factors identified. Fall Risk IV access (20 points). Assessment: 06:48 General: Appears distressed, uncomfortable, Behavior is calm, cooperative, appropriate jm8 for age. Pain: Denies pain. Neuro: No deficits noted. Level of Consciousness is awake, alert, obeys commands, Oriented to person, place, time. Cardiovascular: No deficits noted. Rhythm is regular. Respiratory: Reports shortness of breath cough that is labored breathing pain with cough since 0100 this morning Airway is patent Trachea midline Respiratory effort is even, labored, Breath sounds are clear. GI: No deficits noted. No signs and/or symptoms were reported involving the gastrointestinal system. : No deficits noted. No signs and/or symptoms were reported regarding the genitourinary system. EENT: No deficits noted. No signs and/or symptoms were reported regarding the EENT system. Derm: No deficits noted. No signs and/or symptoms reported regarding the dermatologic system. Skin is intact, is healthy with good turgor, Skin is dry, Skin is pink, warm \T\ dry. Musculoskeletal: No deficits noted. No signs and/or symptoms reported regarding the musculoskeletal system. 19:34 General: report called to rn. ak2 Vital Signs: 05:39 BP 182 / 99; Pulse 99; Resp 30; Temp 98.5; Pulse Ox 100% ; Weight 89.81 kg; Height 5 rr5 ft. 4 in. (162.56 cm); Pain 0/10; 06:51 BP 158 / 113; Pulse 87; Resp 26; Pulse Ox 100% on Nebulizer Mask; jm8 07:47 BP 167 / 79; Pulse 86; Resp 20; Pulse Ox 98% on R/A; ll1 05:39 Body Mass Index 33.99 (89.81 kg, 162.56 cm) rr5 ED Course: 05:22 Patient arrived in ED. am4 05:22 Ajit Kim MD is Attending Physician. [facility] 05:42 Triage completed. rr5 05:44 Arm band placed on right wrist. rr5 06:00 COVID swab sent to lab. rr5 06:00 Flu and/or RSV swab sent to lab. rr5 06:21 Patient has correct armband on for positive identification. Placed in gown. Bed in low jm8 position. Call light in reach. Side rails up X2. Adult w/ patient. 06:52 Russ Valles MD is Hospitalizing Provider. [facility] 07:31 Ahsan Concepcion RN is Primary Nurse. ll1 Administered Medications: 05:49 CANCELLED (Other Intervention Used): NS 0.9% (30 ml/kg) 30 ml/kg IV at bolus once; 8 Sepsis Protocol 06:37 Drug: Xopenex (levalbuterol) 3.75 mg Route: Inhalation; 8 06:37 Drug: AtroVENT (ipratropium) Aerosol 0.5 mg Route: Inhalation; 8 06:37 Drug: Pepcid (famotidine) 20 mg Route: IVP; Site: right antecubital; jm8 06:46 Follow up: Response: No adverse reaction 8 06:37 Drug: Lasix (furosemide) 20 mg Route: IVP; Site: right antecubital; jm8 06:46 Follow up: Response: No adverse reaction 8 06:38 Drug: SOLU-Medrol (methylPrednisoLONE) 125 mg Route: IVP; Site: right antecubital; jm8 06:46 Follow up: Response: No adverse reaction 8 06:38 Drug: Zosyn (piperacillin-tazobactam) 3.375 grams Route: IVPB; Infused Over: 60 mins; 8 Site: right antecubital; 06:58 Drug: Lasix (furosemide) 20 mg Route: IVP; Site: right antecubital; jm8 07:49 Follow up: Response: No adverse reaction 1 07:47 Drug: HydrALAZINE 25 mg Route: PO; ll1 07:48 Drug: Aspirin 162 mg Route: PO; ll1 07:48 Drug: Lopressor (metoprolol TARTRATE) 50 mg Route: PO; ll1 07:48 Not Given (BP 167/79. PO only): hydrALAZINE 10 mg IVP once ll1 07:49 Drug: Lovenox (enoxaparin) 60 mg Route: Sub-Q; Site: left lower abdomen; ll1 08:32 Drug: PlaVIX (clopidogrel) 75 mg Route: PO; ll1 Outcome: 06:56 Decision to Hospitalize by Provider. osmani 19:54 Patient left the ED. ak2 Signatures: Ajit Kim MD MD cha Roque, Raymond RN RN rr5 Ahsan Concepcion RN RN ll1 Nitza Holland Joseph, RN RN jm8 Christiano Patricio2
--- NOTE | 2021-02-17 06:56 | EDPHYS ---
Physician Documentation [facility] Name: Mercedez Degroot Age: 66 yrs Sex: Female : 1955 Arrival Date: 02/17/2021 Time: 05:22 Bed 13 Private MD: MAXX Physician Ajit Kim HPI: 02/17 05:52 This 66 yrs old Female presents to ER via Wheelchair with complaints of osmani Breathing Difficulty. 05:52 The patient has shortness of breath at rest, with light activity. Onset: The osmani symptoms/episode began/occurred 2 day(s) ago. Duration: The symptoms are continuous, and are steadily getting worse. The patient's shortness of breath is aggravated by exertion, light activity, prone position. Associated signs and symptoms: Pertinent positives: non-productive cough, dizziness, nausea, vomiting. Severity of symptoms: At their worst the symptoms were moderate in the emergency department the symptoms are unchanged. The patient has experienced similar episodes in the past, multiple times. Historical: - Allergies: 05:44 Lisinopril; rr5 05:44 Tape; rr5 05:44 Valium; rr5 - Home Meds: 05:44 atorvastatin 40 mg Oral tab 1 tab once daily [Active]; clopidogrel 75 mg Oral tab 1 tab rr5 once daily [Active]; hydralazine 25 mg Oral tab 1 tab 2 times per day [Active]; glipizide 5 mg Oral tab 1 tab 2 times per day [Active]; isosorbide mononitrate 60 mg Oral Tb24 1 tab twice a day [Active]; gabapentin 300 mg Oral cap 1 cap 3 times per day [Active]; metoprolol succinate 25 mg Oral Tb24 1 tab twice a day [Active]; losartan 50 mg Oral tab 1 tab 2 times per day [Active]; sotalol 120 mg Oral tab 1 tab daily [Active]; - PMHx: 05:44 cancer, hx; CHF; Diabetes - NIDDM; Hypertension; Hypothyroidism; kidney disease; rr5 - PSHx: 05:44 arm surgery; endoscopy; Hernia repair; Hysterectomy; heart bypass; rr5 - Immunization history:: Adult Immunizations up to date. - Social history:: Smoking status: unknown. - Family history:: not pertinent. ROS: 05:52 Constitutional: Negative for fever, chills, and weight loss, Eyes: Negative for injury, osmani pain, redness, and discharge, ENT: Negative for injury, pain, and discharge, Neck: Negative for injury, pain, and swelling, Cardiovascular: Negative for chest pain, palpitations, and edema, Abdomen/GI: Negative for abdominal pain, nausea, vomiting, diarrhea, and constipation, Back: Negative for injury and pain, : Negative for injury, bleeding, discharge, and swelling, MS/Extremity: Negative for injury and deformity, Skin: Negative for injury, rash, and discoloration, Psych: Negative for depression, anxiety, suicide ideation, homicidal ideation, and hallucinations, Allergy/Immunology: Negative for hives, rash, and allergies, Endocrine: Negative for neck swelling, polydipsia, polyuria, polyphagia, and marked weight changes, Hematologic/Lymphatic: Negative for swollen nodes, abnormal bleeding, and unusual bruising. 05:52 Respiratory: Positive for cough, dyspnea on exertion, shortness of breath, wheezing, expiratory. Exam: 05:52 Constitutional: This is a well developed, well nourished patient who is awake, alert, osmani and in no acute distress. Head/Face: Normocephalic, atraumatic. Eyes: Pupils equal round and reactive to light, extra-ocular motions intact. Lids and lashes normal. Conjunctiva and sclera are non-icteric and not injected. Cornea within normal limits. Periorbital areas with no swelling, redness, or edema. ENT: Nares patent. No nasal discharge, no septal abnormalities noted. Tympanic membranes are normal and external auditory canals are clear. Oropharynx with no redness, swelling, or masses, exudates, or evidence of obstruction, uvula midline. Mucous membranes moist. Neck: Trachea midline, no thyromegaly or masses palpated, and no cervical lymphadenopathy. Supple, full range of motion without nuchal rigidity, or vertebral point tenderness. No Meningismus. Chest/axilla: Normal chest wall appearance and motion. Nontender with no deformity. No lesions are appreciated. Cardiovascular: Regular rate and rhythm with a normal S1 and S2. No gallops, murmurs, or rubs. Normal PMI, no JVD. No pulse deficits. Abdomen/GI: Soft, non-tender, with normal bowel sounds. No distension or tympany. No guarding or rebound. No evidence of tenderness throughout. Back: No spinal tenderness. No costovertebral tenderness. Full range of motion. Female : Normal external genitalia. Skin: Warm, dry with normal turgor. Normal color with no rashes, no lesions, and no evidence of cellulitis. MS/ Extremity: Pulses equal, no cyanosis. Neurovascular intact. Full, normal range of motion. Neuro: Awake and alert, GCS 15, oriented to person, place, time, and situation. Cranial nerves II-XII grossly intact. Motor strength 5/5 in all extremities. Sensory grossly intact. Cerebellar exam normal. Normal gait. Psych: Awake, alert, with orientation to person, place and time. Behavior, mood, and affect are within normal limits. 05:52 Respiratory: the patient does not display signs of respiratory distress, Respirations: normal, no acute changes, labored breathing, Breath sounds: bronchial sounds, that are mild, decreased breath sounds, that are moderate, rhonchi, that are mild, stridor, is not appreciated, wheezing: expiratory 06:01 ECG was reviewed by the Attending Physician. [facility] Vital Signs: 05:39 BP 182 / 99; Pulse 99; Resp 30; Temp 98.5; Pulse Ox 100% ; Weight 89.81 kg; Height 5 rr5 ft. 4 in. (162.56 cm); Pain 0/10; 06:51 BP 158 / 113; Pulse 87; Resp 26; Pulse Ox 100% on Nebulizer Mask; jm8 07:47 BP 167 / 79; Pulse 86; Resp 20; Pulse Ox 98% on R/A; ll1 05:39 Body Mass Index 33.99 (89.81 kg, 162.56 cm) rr5 MDM: 05:47 Patient medically screened. [facility] 05:52 Differential diagnosis: Anemia Anxiety Reaction asthma, Bronchitis CHF exacerbation, osmani Chronic Obstructive Pulmonary Disease pulmonary edema, Sepsis. Antibiotic administration: zosyn. The patient's Wells Deep Vein Thrombosis Score was calculated as follows: Total Score: 0-2 Pts- Low Risk. The patient's pulmonary embolism risk score was calculated as follows: Total Score: 0-2 points. This patient was found to be at low risk for a pulmonary embolism by using the Well's assessment criteria. Immunization status: Pneumococcal vaccine: Influenza vaccine: Data reviewed: vital signs, nurses notes, lab test result(s), EKG, radiologic studies, CT scan, plain films. Data interpreted: ekg monitor: rate is 99 beats/min, rhythm is regular, Pulse oximetry: on room air is 100 %. Test interpretation: by ED physician or midlevel provider: ECG, plain radiologic studies. Counseling: I had a detailed discussion with the patient and/or guardian regarding: the historical points, exam findings, and any diagnostic results supporting the discharge/admit diagnosis, the presence of at least one elevated blood pressure reading (>120/80) during this emergency department visit, lab results, radiology results, the need for further work-up and treatment in the hospital. 02/17 05:45 Order name: Amylase, Serum rr5 02/17 05:45 Order name: Basic Metabolic Panel rr5 02/17 05:45 Order name: Blood Culture Adult (2) rr5 02/17 05:45 Order name: CBC with Diff rr5 02/17 05:45 Order name: Ckmb rr 02/17 05:45 Order name: CPK rr 02/17 05:45 Order name: Lactate rr 02/17 05:45 Order name: LFT's rr5 02/17 05:45 Order name: Lipase rr 02/17 05:45 Order name: Protime (+inr) rr 02/17 05:45 Order name: Ptt, Activated rr 02/17 05:45 Order name: Troponin (emerg Dept Use Only) rr 02/17 05:45 Order name: Urine Microscopic Only rr 02/17 05:49 Order name: Magnesium [facility] 02/17 05:49 Order name: NT PRO-BNP [facility] 02/17 05:49 Order name: COVID-19 : Document "Date of Symptom Onset" if Symptomatic. jm8 02/17 05:51 Order name: Flu [facility] 02/17 06:31 Order name: CORONAVIRUS [facility] 02/17 06:31 Order name: Influenza Screen (A EDID 02/17 06:40 Order name: CBC with Automated Diff; Complete Time: 07:23 EDID 02/17 06:42 Order name: Protime (+INR); Complete Time: 06:50 EDID 02/17 06:42 Order name: PTT, Activated Partial Thromb; Complete Time: 06:50 EDID 02/17 06:49 Order name: Lactate; Complete Time: 06:50 EDID 02/17 06:50 Order name: NT PRO-BNP; Complete Time: 07:23 EDMS 02/17 06:50 Order name: Magnesium; Complete Time: 07:23 EDMS 02/17 06:53 Order name: Basic Metabolic Panel; Complete Time: 07:23 EDMS 02/17 06:53 Order name: Liver (Hepatic) Function; Complete Time: 07:23 EDMS 02/17 06:53 Order name: Creatine Phosphokinase; Complete Time: 07:23 EDMS 02/17 06:53 Order name: CKMB Creatine Kinase MB; Complete Time: 07:23 EDMS 02/17 05:45 Order name: Chest Single View XRAY rr5 02/17 05:45 Order name: Accucheck; Complete Time: 07:10 rr5 02/17 05:45 Order name: Cardiac monitoring; Complete Time: 06:48 rr5 02/17 05:45 Order name: EKG - Nurse/Tech; Complete Time: 06:19 rr5 02/17 05:45 Order name: IV Saline Lock - Large Bore; Complete Time: 06:19 rr5 02/17 05:45 Order name: Labs collected and sent; Complete Time: 06:19 rr5 02/17 05:45 Order name: O2 Per Protocol; Complete Time: 06:19 rr5 02/17 05:45 Order name: O2 Sat Monitoring; Complete Time: 06:19 rr5 02/17 05:49 Order name: EKG; Complete Time: 05:49 [facility] 02/17 06:53 Order name: Troponin (Emerg Dept Use Only); Complete Time: 07:23 EDMS 02/17 06:53 Order name: Amylase; Complete Time: 07:23 EDMS 02/17 06:53 Order name: Lipase; Complete Time: 07:23 EDMS 02/17 07:12 Order name: COVID-19/FLU A+B; Complete Time: 07:23 EDMS 02/17 07:20 Order name: CBC Smear Scan; Complete Time: 07:23 EDMS 02/17 07:35 Order name: Urine Dipstick-Ancillary; Complete Time: 08:18 EDMS 02/17 08:51 Order name: RAD EDMS 02/17 09:48 Order name: Urine Microscopic Only EDMS 02/17 14:54 Order name: Glucose, Ancillary Testing EDMS 02/17 05:45 Order name: Urine Dipstick-Ancillary (obtain specimen); Complete Time: 07:39 rr5 02/17 05:49 Order name: IV Saline Lock; Complete Time: :19 osmani EC:01 Rate is 92 beats/min. Rhythm is regular. QRS [place] is Normal. [place] interval is normal. QRS osmani interval is normal. QT interval is normal. No Q waves. T waves are Normal. No ST changes noted. Clinical impression: Abnormal EKG without significant change and No evidence of ischemia. Interpreted by me. Reviewed by me. Administered Medications: 05:49 CANCELLED (Other Intervention Used): NS 0.9% (30 ml/kg) 30 ml/kg IV at bolus once; 8 Sepsis Protocol 06:37 Drug: Xopenex (levalbuterol) 3.75 mg Route: Inhalation; 8 06:37 Drug: AtroVENT (ipratropium) Aerosol 0.5 mg Route: Inhalation; 8 06:37 Drug: Pepcid (famotidine) 20 mg Route: IVP; Site: right antecubital; 8 06:46 Follow up: Response: No adverse reaction 8 06:37 Drug: Lasix (furosemide) 20 mg Route: IVP; Site: right antecubital; jm8 06:46 Follow up: Response: No adverse reaction 8 06:38 Drug: SOLU-Medrol (methylPrednisoLONE) 125 mg Route: IVP; Site: right antecubital; 8 06:46 Follow up: Response: No adverse reaction 8 06:38 Drug: Zosyn (piperacillin-tazobactam) 3.375 grams Route: IVPB; Infused Over: 60 mins; [facility] Site: right antecubital; 06:58 Drug: Lasix (furosemide) 20 mg Route: IVP; Site: right antecubital; jm8 07:49 Follow up: Response: No adverse reaction ll1 07:47 Drug: HydrALAZINE 25 mg Route: PO; ll1 07:48 Drug: Aspirin 162 mg Route: PO; ll1 07:48 Drug: Lopressor (metoprolol TARTRATE) 50 mg Route: PO; ll1 07:48 Not Given (BP 167/79. PO only): hydrALAZINE 10 mg IVP once ll1 07:49 Drug: Lovenox (enoxaparin) 60 mg Route: Sub-Q; Site: left lower abdomen; ll1 08:32 Drug: PlaVIX (clopidogrel) 75 mg Route: PO; ll1 Disposition: 02/17/21 06:56 Hospitalization ordered by Russ Valles for Inpatient Admission. Preliminary diagnosis are Dyspnea, Hypoxemia, Systolic (congestive) heart failure, Essential (primary) hypertension. - Bed requested for Telemetry/MedSurg (Inpatient). - Status is Inpatient Admission. ak2 - Condition is Fair. - Problem is new. - Symptoms have improved. Signatures: Dispatcher [employer] EDMS Mariah Tejada Corey, MD MD cha Calderon, Audri RN RN aa5 Johnathon Bailey RN RN rr5 Ahsan Concepcion RN RN ll1 Ra Foster RN RN jm8 Christiano Patricio ak2 Corrections: (The following items were deleted from the chart) 05:49 05:45 NS 0.9% (30 ml/kg) 30 ml/kg IV at bolus once; Sepsis Protocol ordered. 5 jm8 09:50 06:56 Hospitalization Ordered by Russ Valles MD for Inpatient Admission. Preliminary [facility] diagnosis is Dyspnea; Hypoxemia; Systolic (congestive) heart failure; Essential (primary) hypertension. Bed requested for Telemetry/MedSurg (Inpatient). Status is Inpatient Admission. Condition is Fair. Problem is new. Symptoms have improved. [facility] 09:50 09:50 02/17/2021 06:56 Hospitalization Ordered by Russ Valles MD for Inpatient aa5 Admission. Preliminary diagnosis is Dyspnea; Hypoxemia; Systolic (congestive) heart failure; Essential (primary) hypertension. Bed requested for [facility] ER HOLD. Status is Inpatient Admission. Condition is Fair. Problem is new. Symptoms have improved. [facility] 18:37 09:50 02/17/2021 06:56 Hospitalization Ordered by Russ Valles MD for Inpatient bd Admission. Preliminary diagnosis is Dyspnea; Hypoxemia; Systolic (congestive) heart failure; Essential (primary) hypertension. Bed requested for [facility] ER HOLD. Status is Inpatient Admission. Condition is Fair. Problem is new. Symptoms have improved. [facility] 19:54 18:37 02/17/2021 06:56 Hospitalization Ordered by Russ Valles MD for Inpatient ak2 Admission. Preliminary diagnosis is Dyspnea; Hypoxemia; Systolic (congestive) heart failure; Essential (primary) hypertension. Bed requested for Telemetry/MedSurg (Inpatient). Status is Inpatient Admission. Condition is Fair. Problem is new. Symptoms have improved. bd
[2021-02-17 07:12] LABS: SARS-COV-2 RT PCR NEGATIVE (NEGATIVE)
[2021-02-17 07:20] LABS: Blood Morphology Comment NOT SEEN (NOT SEEN); Platelet Estimate ADEQ; White Blood Cell Scan OK (OK)
[2021-02-17 07:35] LABS: Urine Blood Negative (Negative); Urine Glucose Negative (Negative); Urine Protein 2+ (Negative); Urine Specific Gravity 1.025 (1.005-1.030)
[2021-02-17] MEDS ORDERED: HYDRALAZINE HCL 10 MG TABLET ONE (07:53)
[2021-02-17] MEDS ORDERED: ASPIRIN 81 MG CHEWABLE TABLET ONE (07:53)
[2021-02-17] MEDS ORDERED: HYDRALAZINE HCL 20 MG/ML VIAL ONE (07:53)
[2021-02-17] MEDS ORDERED: METOPROLOL TAR 50 MG TAB ONE (07:53)
[2021-02-17] MEDS ORDERED: ENOXAPARIN 60 MG/0.6 ML SQ ONE (07:54)
[2021-02-17] MEDS ORDERED: CLOPIDOGREL 75 MG TABLET ONE (08:45)
--- NOTE | 2021-02-17 08:50 | RAD REPORT ---
EXAM DESCRIPTION: RAD - Chest Single View - 02/17/2021 6:36 am CLINICAL HISTORY: COUGH COMPARISON: January 28 TECHNIQUE: AP portable chest image was obtained 02/17/2021 6:36 am . FINDINGS: No new mass or consolidation. No recurrence of the pneumonia findings seen on the January 28 study. Patient may have some very minimal remnant interstitial and alveolar opacities related to inc omplete clearing of the pneumonia. Trachea is midline. Sternotomy wires and CABG surgical changes are evident. Heart and vasculature are normal. No measurable pleural effusion and no pneumothorax. No acute bony abnormality seen. No acute aortic findings suspected. IMPRESSION: No new mass or consolidation. Very minimal interstitial and alveolar opacities are believed to be final remnants of the pneumonia s een January 28.
[2021-02-17] MEDS ORDERED: ONDANSETRON 4 MG/2 ML VIAL IV PRN (09:16)
[2021-02-17] MEDS: ACETAMINOPHEN 500 MG TAB PO PRN ×2 (09:43→21:32)
[2021-02-17 09:48] LABS: Urine Bacteria <20 /HPF (<20)
[2021-02-17] MEDS ORDERED: ACETAMINOPHEN 500 MG TAB ONE (09:50)
[2021-02-17] MEDS: NACHLORIDE 0.45% 1,000 ML IV SCH (10:00)
[2021-02-17] MEDS ORDERED: NACHLORIDE 0.45% 1,000 ML IV ONE (11:18)
[2021-02-17 11:27] VITALS: BMI 34.0
[2021-02-17] MEDS ORDERED: BENZONATATE 100 MG CAP PO PRN (15:00)
[2021-02-17] MEDS ORDERED: GLUCAGON 1 MG/VIAL IM PRN (15:04)
[2021-02-17] MEDS ORDERED: D50W 25 GM/50 ML SYRINGE IV PRN (15:04)
[2021-02-17] MEDS ORDERED: INSULIN 70/30 100 UNITS/ML SQ ONE ×2 (16:00→17:19)
[2021-02-17] MEDS ORDERED: FUROSEMIDE 40 MG/4 ML VIAL IV SCH (17:00)
[2021-02-17] MEDS: METOPROLOL XL 25 MG TAB PO SCH ×2 (18:00→21:00)
[2021-02-17] MEDS: POTASSIUM 25 MEQ EFFERV TAB PO SCH (21:20)
[2021-02-17] MEDS: HYDRALAZINE HCL 25 MG TABLET PO SCH (21:21)
[2021-02-17] MEDS: GABAPENTIN 300 MG CAP PO SCH (21:21)
[2021-02-17] MEDS: METOPROLOL TAR 50 MG TAB PO SCH (21:21)
[2021-02-17] MEDS: ISOSORBIDE MONO SR 60 MG TAB PO SCH (21:22)
[2021-02-17] MEDS: ATORVASTATIN 40 MG TAB PO SCH (21:32)
[2021-02-17] MEDS: glipiZIDE 5 MG TAB PO SCH (21:32)
--- NOTE | 2021-02-18 04:48 | CON ---
Date of Consultation: 02/17/2021 Reason For Consultation: Acute CHF exacerbation. History Of Present Illness: Ms. Degroot is a 66-year-old woman whom we have just seen recently in the hospital for the same situation. She has a history of congestive heart failure, diabetes, hypertens ion, hypothyroidism, kidney disease, coronary artery bypass surgery. She has had multiple surgeries in the past including cancer surgery, arm surgery, endoscopy, hernia repair, and hysterectomy. Came in with shortness of breath. She does have a history of COPD as well. Denied palpitation or syncope or fever or chills, but she has PND, orthopnea, pedal edema, and wheezing. Past Medical History: As stated above. Allergies: TO LISINOPRIL, TAPE AND VALIUM. Medications: At home include Lipitor, Plavix, hydralazine, glipizide, Imdur, gabapentin, metoprolol, losartan, and sotalol 120 mg daily. Review of Systems: Negative. Social History: Positive for history of tobacco. Family History: Noncontributory. Review of Systems: Negative. Physical Examination: Vital Signs: She had a blood pressure of 155/80, her pulse was 62 and normal rhythm, respiratory rat e was 20, she was afebrile. Her temperature was 98.2. O2 saturation on 100% oxygen was 95%. HEENT: Negative. Neck: Supple with no bruit, lymphadenopathy, JVD, or thyromegaly. Chest: Revealed diffuse wheezing and rales at the bases. Cardiac: Revealed a normal sinus rhythm. No murmurs, gallops, or rubs. Abdomen: Obese. Extremities: Revealed 2+ edema to the knee. Neurological: She was nonfocal. Pulses were present distally bilaterally. Skin: Dry and intact. Diagnostic Data: Her creatinine was 1.68. Her white count was 15.7. Her glucose was 314. BNP was 7284. Her troponin was 0.07. Chest x-ray showed a remnant of pneumonia from January 28. EKG showed sinus tachycardia with PACs. Echocardiogram which was done in January 27 revealed diastolic congest nishant heart failure with ejection fraction of 52%. Impression And Plan: 1.Acute on chronic diastolic congestive heart failure. 2.Acute chronic obstructive pulmonary disease exacerbation on chronic. 3.Paroxysmal atrial fibrillation in sinus rhythm, on sotalol, unable to take anticoagulants. She is on aspirin and Plavix for that. 4.Diabetes, poorly controlled. 5.High obesity. 6.Hypertension. 7.Hypothyroidism. 8.Coronary artery disease, status post coronary artery bypass graft. 9.Dyslipidemia. 10.Chronic renal disease. History Of Present Illness: Ms. Degroot is on appropriate medical therapy at home including sotalol, Lipitor, aspirin, and Plavix. She is on hydralazine and Imdur. She is on losartan. I am surprised, she is not on any Lasix at home. Her mainstay of therapy is going to be beta-blockade which she is already on with sotalol, Lasix, COPD treatment with inhalers, possibly steroid, Lasix IV for now. No need to repeat any further cardiac workup at this point. Her present regimen is adequate. We will use more IV Lasix on an as-needed basis. Control her glucose and I melyssa l continue to follow her along. JUSTINE/RENNY Voice ID: [id number] Report ID: [id number]
[2021-02-18] MEDS: LEVOTHYROXINE SOD 0.025 MG TAB PO SCH (05:45)
[2021-02-18] MEDS: LEVOTHYROXINE SOD 0.112 MG TAB PO SCH (05:45)
[2021-02-18] MEDS ORDERED: HOME MED 1 EA UNK (Levothyroxine Sodium [Levothyroxine] 137 MCG Capsule) PO SCH (06:00)
[2021-02-18] MEDS: NACHLORIDE 0.45% 1,000 ML IV SCH (06:00)
[2021-02-18 06:07] LABS: Absolute Lymphocytes (CBC) 1.9 K/uL (0.7-4.9); Basophils % 0.5 % (0-1.3); Hematocrit 30.8 % (36.0-45.0); Lymphocytes % 14.8 % (15.3-44.8); MPV 9.2 fL (7.6-11.3); RBC Red Blood Cell Count 3.14 M/uL (3.86-4.86)
[2021-02-18 06:21] LABS: Bilirubin Total 0.3 mg/dL (0.2-1.0); Phosphorus 2.4 mg/dL (2.5-4.9); Potassium 4.7 mmol/L (3.5-5.1); Protein, Total 6.8 g/dL (6.4-8.2)
[2021-02-18 06:22] LABS: Magnesium 2.3 mg/dL (1.8-2.4)
[2021-02-18] MEDS: ENOXAPARIN 40 MG/0.4 ML SQ SCH (09:00)
[2021-02-18] MEDS: POTASSIUM 25 MEQ EFFERV TAB PO SCH ×2 (09:00→20:04)
[2021-02-18] MEDS: GABAPENTIN 300 MG CAP PO SCH ×3 (10:32→20:02)
[2021-02-18] MEDS: HYDRALAZINE HCL 25 MG TABLET PO SCH ×2 (10:32→20:03)
[2021-02-18] MEDS: glipiZIDE 5 MG TAB PO SCH ×2 (10:32→16:07)
[2021-02-18] MEDS: METOPROLOL TAR 50 MG TAB PO SCH ×2 (10:32→20:04)
[2021-02-18] MEDS: FUROSEMIDE 40 MG TABLET PO SCH (10:33)
[2021-02-18] MEDS: CLOPIDOGREL 75 MG TABLET PO SCH (10:33)
[2021-02-18] MEDS: ISOSORBIDE MONO SR 60 MG TAB PO SCH ×2 (10:33→20:03)
[2021-02-18] MEDS: SPIRONOLACTONE 25 MG TABLET PO SCH (10:33)
[2021-02-18] MEDS: SOTALOL HCL 80 MG TAB PO SCH (10:34)
[2021-02-18] MEDS: ASPIRIN EC 81 MG TAB PO SCH (10:35)
[2021-02-18] MEDS: POTASS/SODIUM PHOSPHATE 1 PKT POWD.PACK PO SCH ×3 (10:36→14:26)
[2021-02-18] MEDS ORDERED: FUROSEMIDE 40 MG/4 ML VIAL IV ONE (10:41)
--- NOTE | 2021-02-18 10:47 | P.HP ---
Certification for Inpatient Patient admitted to: Inpatient With expected LOS: >2 Midnights Patient will require the following post-hospital care: None Practitioner: I am a practitioner with admitting privileges, knowledge of patient current condition, hospital course, and medical plan of care. Services: Services provided to patient in accordance with Admission requirements found in Title 42 Section 412.3 of the Code of Federal Regulations Patient History Date of Service: 02/17/21 Reason for admission: Acute CHF exacerbation History of Present Illness: Patient is a 66-year-old female came to the hospital with difficulty breathing. Patient states she had significant shortness of breath so patient came into the emergency room. In the emergency room patient was found have pulmonary edema. Patient been going by fluid restrictions; however, patient's symptoms continue to be worsened. Patient's blood pressure was uncontrolled during hospitalizat ion. Decision was made to admit the patient to the hospital for further evaluation. Patient w/ acute CHF exacerbation. Recent echocardiogram a couple weeks ago revealed normal ejection fraction with diastolic dysfunction. Patient with heart failure with preserved ejection fraction Allergies diazepam [From Valium] Allergy (Verified 01/26/21 17:24) Hives/Rash lisinopril Allergy (Verified 01/26/21 17:24) Unknown Tape Allergy (Uncoded 01/26/21 17:24) Unknown Home Medications: Aspirin 325 mg PO DAILY 01/26/21 Atorvastatin Calcium [Lipitor] 40 mg PO BEDTIME 01/26/21 Clopidogrel Bisulfate [Plavix*] 1 tab PO DAILY 01/26/21 Gabapentin 300 mg PO TID 01/26/21 Hydralazine [Apresoline*] 25 mg PO BID 01/26/21 Isosorbide Mononitrate [Isosorbide Mononitrate ER] 60 mg PO BID 01/26/21 Metoprolol Succinate [Toprol Xl*] 25 mg PO BID 01/26/21 Sotalol HCl [Sotalol] 1 tab PO DAILY 01/26/21 glipiZIDE [Glipizide] 1 tab PO BID 01/26/21 Amoxicillin/Potassium Clav [Augmentin 500-125 Tablet] 1 each PO DAILY #7 tablet 01/28/21 Benzonatate [Tessalon Perle] 100 mg PO TID PRN #10 cap 01/28/21 Furosemide [Lasix] 40 mg PO DAILY #30 tab 01/28/21 Levothyroxine Sodium [Levothyroxine] 137 mcg PO [id number] 01/28/21 Spironolactone [Aldactone*] 25 mg PO DAILY #30 tab 01/28/21 - Past Medical/Surgical History Has patient received pneumonia vaccine in the past: Yes Diabetic: Yes -: DM-NIDDM -: HTN -: Stage 3 kidney disease -: AFIB -: Hypothyroidism -: Triple Bypass -: Hystectomy -: Hernia removal x7 - Family History Mother Medical History: Heart disease, Lung disease, GI disease, Diabetes, Cancer, Kidney disease, Other (see notes) Notes: Colon Cancer - Social History Smoking Status: Never smoker Alcohol use: No CD- Drugs: No Caffeine use: Yes Place of Residence: Home Review of Systems 10-point ROS is otherwise unremarkable Physical Examination - Vital Signs Temperature: 98.7 F Blood Pressure: 168/79 Pulse: 87 Respirations: 20 Pulse Ox (%): 98 - Physical Exam General: Alert, In no apparent distress, Oriented x3 HEENT: Atraumatic, PERRLA, Mucous membr. moist/pink, EOMI, Sclerae nonicteric Neck: Supple, 2+ carotid pulse no bruit, No LAD, Without JVD or thyroid abnorma lity Respiratory: Diminished, Crackles/rales Cardiovascular: Regular rate/rhythm, Normal S1 S2, No murmurs Gastrointestinal: Normal bowel sounds, Soft and benign, Non-distended, No tenderness Musculoskeletal: No clubbing, No tenderness, Swelling Integumentary: No rashes Neurological: Normal gait, Normal speech, Normal strength at 5/5 x4 extr, Normal tone, Sensation intact, Cranial nerves 3-12 intact, Normal affect Lymphatics: No axilla or inguinal lymphadenopathy Assessment & Plan - Problems (Diagnosis) (1) Acute exacerbation of CHF (congestive heart failure) Current Visit: Yes Status: Acute (2) Acute congestive heart failure with left ventricular diastolic dysfunction Current Visit: Yes Status: Acute (3) Pulmonary edema Current Visit: Yes Status: Acute (4) Chronic kidney disease Current Visit: Yes Status: Acute (5) Hypertensive urgency Current Visit: Yes Status: Acute - Plan 1. Echocardiogram performed a few weeks ago and has been reviewed 2. Continue cardiac meds 3. Strict blood pressure control 4. Cardiology consultation appreciated 5. Aggressive diuresis 6. Strict I's and O's 7. Repeat CXR 8. Daily weights 9. Education regarding diet and treatment of congestive heart failure Discharge Plan: Home Plan to discharge in: Greater than 2 days - Advance Directives Does patient have a Living Will: Yes Does patient have a Durable POA for Healthcare: Yes - Code Status/Comfort Care Code Status Assessed: Yes Code Status: Full Code Critical Care: No Time Spent Managing PTS Care (In Minutes): 45
[2021-02-18] MEDS: ACETAMINOPHEN 500 MG TAB PO PRN ×2 (10:48→20:19)
[2021-02-18] MEDS ORDERED: CEFTRIAXONE 1 GM/NS 50 ML 1 GM/50 ML BAG IV ONE (12:00)
[2021-02-18] MEDS: CEFTRIAXONE/SWI 1gm 1 GM/10 ML SYR IV SCH (12:21)
[2021-02-18] MEDS: ATORVASTATIN 40 MG TAB PO SCH (20:03)
[2021-02-19 01:31] VITALS: O2SAT 99
[2021-02-19] MEDS: LEVOTHYROXINE SOD 0.025 MG TAB PO SCH (05:40)
[2021-02-19] MEDS: LEVOTHYROXINE SOD 0.112 MG TAB PO SCH (05:40)
[2021-02-19 05:45] VITALS: TEMP 98.7
[2021-02-19 07:16] LABS: Absolute Lymphocytes (CBC) 3.4 K/uL (0.7-4.9); Basophils % 0.6 % (0-1.3); Hematocrit 31.9 % (36.0-45.0); Lymphocytes % 35.3 % (15.3-44.8); MPV 9.3 fL (7.6-11.3); RBC Red Blood Cell Count 3.26 M/uL (3.86-4.86)
[2021-02-19 07:41] LABS: Albumin 3.2 g/dL (3.4-5.0); Bilirubin Total 0.4 mg/dL (0.2-1.0); Magnesium 2.2 mg/dL (1.8-2.4); Phosphorus 4.3 mg/dL (2.5-4.9); Potassium 4.3 mmol/L (3.5-5.1)
--- NOTE | 2021-02-19 08:19 | ECHO ---
HEIGHT: 5 ft 4 in WEIGHT: 198 lb 0 oz DATE OF STUDY: 02/18/[address]: Russ Valles MD 2-DIMENSIONAL: YES M.MODE: YES DOPPLER: YES COLOR FLOW: YES TDS: PORTABLE: DEFINITY: BUBBLE STUDY: DIAGNOSIS: CONGESTIVE HEART FAILURE CARDIAC HISTORY: CATHERIZATION: SURGERY: PROSTHETIC VALVE: PACEMAKER: YES MEASUREMENTS (cm) DIASTOLIC (NORMALS) SYSTOLIC (NORMALS) IVSd 1.0 (0.6-1.2) LA Diam 4.1 (1.9-4.0) LVEF 55-60% LVIDd 4.7 (3.5-5.7) LVIDs 3.5 (2.0-3.5) %FS 26% LVPWd 1.0 (0.6-1.2) Ao Diam 2.3 (2.0-3.7) 2 DIMENSIONAL ASSESSMENT: RIGHT ATRIUM: NORMAL LEFT ATRIUM: ENLARGED RIGHT VENTRICLE: NORMAL LEFT VENTRICLE: NORMAL TRICUSPID VALVE: MILD TRICUSPID REGURGITATION MITRAL VALVE: MILD MITRAL REGURGITATION PULMONIC VALVE: NORMAL AORTIC VALVE: NORMAL PERICARDIAL EFFUSION: TRACE AORTIC ROOT: NORMAL LEFT VENTRICULAR WALL MOTION: NORMAL DOPPLER/COLOR FLOW: SEE BELOW COMMENTS: NORMAL LEFT VENTRICULAR EJECTION FRACTION 55-60% WITH NORMAL WALL MOTION. DIASTOLIC DYSFUNCTION. MILD MITRAL AND TRICUSPID REGURGITATION. LEFT ATRIAL ENLARGEMENT. TECHNOLOGIST: REEMA CRUZ
--- NOTE | 2021-02-19 08:32 | P.PN ---
Subjective Date of Service: 02/18/21 Patient clinically feels much better. Still with elevated BNP today. Renal function is also slightly elevated. Patient denies any new complaints. Anticipate discharge in morning. Review of Systems 10-point ROS is otherwise unremarkable Physical Examination - Vital Signs Temperature: 98.7 F Blood Pressure: 122/55 Pulse: 62 Respirations: 17 Pulse Ox (%): 94 - Physical Exam General: Alert, In no apparent distress, Oriented x3 Respiratory: Diminished, Crackles/rales Cardiovascular: Regular rate/rhythm, Normal S1 S2, Systolic murmur Gastrointestinal: Normal bowel sounds, Soft and benign, Non-distended, No tenderness Musculoskeletal: No clubbing, No swelling, No tenderness Neurological: Normal tone, Sensation intact, Cranial nerves 3-12 intact - Studies Medications List Reviewed: Yes Assessment & Plan - Problems (Diagnosis) (1) Acute exacerbation of CHF (congestive heart failure) Current Visit: Yes Status: Acute (2) Acute congestive heart failure with left ventricular diastolic dysfunction Current Visit: Yes Status: Acute (3) Pulmonary edema Current Visit: Yes Status: Acute (4) Chronic kidney disease Current Visit: Yes Status: Acute (5) Hypertensive urgency Current Visit: Yes Status: Acute - Plan 1. No significant changes with echocardiogram. It appears patient has flash pulmonary edema. Elevated blood pressure with flash pulmonary edema. D strict blood pressure and volume control 2. Continue cardiac meds 3. Strict blood pressure control 4. Cardiology consultation appreciated 5. Continue with aggressive diuresis 6. Strict I's and O's 7. Repeat CXR in the morning 8. Daily weights 9. Monitor renal function closely Discharge Plan: Home Plan to discharge in: 24 Hours - Advance Directives Does patient have a Living Will: Yes Does patient have a Durable POA for Healthcare: Yes - Code Status/Comfort Care Code Status: Full Code Critical Care: No Time Spent Managing PTS Care (In Minutes): 35
--- NOTE | 2021-02-19 08:39 | P.DS ---
Discharge Date: 02/19/21 Disposition: ROUTINE DISCHARGE Discharge Condition: GOOD Reason for Admission: Acute CHF exacerbation Consultations: Commercial Underwriter - Problems (1) Acute exacerbation of CHF (congestive heart failure) Current Visit: Yes Status: Acute (2) Acute congestive heart failure with left ventricular diastolic dysfunction Current Visit: Yes Status: Acute (3) Pulmonary edema Current Visit: Yes Status: Acute (4) Chronic kidney disease Current Visit: Yes Status: Acute (5) Hypertensive urgency Current Visit: Yes Status: Acute Brief History of Present Illness: Patient is a 66-year-old female came to the hospital with difficulty breathing. Patient states she had significant shortness of breath so patient came into the emergency room. In the emergency room patient was found have pulmonary edema. Patient been going by fluid restrictions; however, patient's symptoms continue to be worsened. Patient's blood pressure was uncontrolled during hospitalization. Decision was made to admit the patient to the hospital for further evaluation. Patient w/ acute CHF exacerbation. Recent echocardiogram a couple weeks ago revealed normal ejection fraction with diastolic dysfunction. Patient with heart failure with preserved ejection fraction Hospital Course: Patient clinically doing much better. Patient was diuresed and symptoms are better. Renal function is stable from prior renal function labs. Hemodynamically she is feeling much better. Strict blood pressure control. At this time, patient is stable for discharge home. Vital Signs/Physical Exam: Temp Pulse Resp BP Pulse Ox 98.7 F 62 17 122/55 L 94 02/19/21 08:32 02/19/21 08:32 02/19/21 08:32 02/19/21 08:32 02/19/21 08:32 General: Alert, In no apparent distress, Oriented x3 Laboratory Data at Discharge: WBC 9.50 K/uL (4.3-10.9) D 02/19/21 06:28 Hgb 10.6 g/dL (12.0-15.0) L 02/19/21 06:28 Hct 31.9 % (36.0-45.0) L 02/19/21 06:28 Plt Count 241 K/uL (152-406) 02/19/21 06:28 PT 11.2 SECONDS (9.5-12.5) 02/17/21 06:10 INR 0.97 02/17/21 06:10 APTT 26.2 SECONDS (24.3-36.9) 02/17/21 06:10 Sodium 141 mmol/L (136-145) 02/19/21 06:28 Potassium 4.3 mmol/L (3.5-5.1) 02/19/21 06:28 BUN 44 mg/dL (7-18) H 02/19/21 06:28 Creatinine 2.07 mg/dL (0.55-1.3) H 02/19/21 06:28 Glucose 83 mg/dL (74-106) 02/19/21 06:28 Phosphorus 4.3 mg/dL (2.5-4.9) D 02/19/21 06:28 Magnesium 2.2 mg/dL (1.8-2.4) 02/19/21 06:28 Total Bilirubin 0.4 mg/dL (0.2-1.0) 02/19/21 06:28 AST 12 U/L (15-37) L 02/19/21 06:28 ALT 18 U/L (12-78) 02/19/21 06:28 Alkaline Phosphatase 55 U/L (45-117) 02/19/21 06:28 Amylase 76 U/L (25-115) 02/17/21 06:10 Lipase 154 U/L (73-393) 02/17/21 06:10 Home Medications: Aspirin 325 mg PO DAILY 01/26/21 Atorvastatin Calcium [Lipitor] 40 mg PO BEDTIME 01/26/21 Clopidogrel Bisulfate [Plavix*] 1 tab PO DAILY 01/26/21 Gabapentin 300 mg PO TID 01/26/21 Isosorbide Mononitrate [Isosorbide Mononitrate ER] 60 mg PO BID 01/26/21 Metoprolol Succinate [Toprol Xl*] 25 mg PO BID 01/26/21 Sotalol HCl [Sotalol] 1 tab PO DAILY 01/26/21 glipiZIDE [Glipizide] 1 tab PO BID 01/26/21 Amoxicillin/Potassium Clav [Augmentin 500-125 Tablet] 1 each PO DAILY #7 tablet 01/28/21 Benzonatate [Tessalon Perle*] 100 mg PO TID PRN #10 cap 01/28/21 Furosemide [Lasix*] 40 mg PO DAILY #30 tab 01/28/21 Levothyroxine Sodium [Levothyroxine] 137 mcg PO [id number] 01/28/21 Spironolactone [Aldactone*] 25 mg PO DAILY #30 tab 01/28/21 Clopidogrel Bisulfate [Plavix*] 75 mg PO DAILY #30 tablet 02/19/21 Hydralazine HCl 50 mg PO BID #60 tablet 02/19/21 New Medications: Hydralazine HCl 50 mg PO BID #60 tablet Clopidogrel Bisulfate [Plavix*] 75 mg PO DAILY #30 tablet Physician Discharge Instructions: OK TO DC IV AND DC HOME FOLLOW-UP WITH PRIMARY CARE PROVIDER IN 1-2 WEEKS FOLLOW-UP WITH CARDIOLOGY and Nephrology IN 1-2 WEEKS RETURN TO THE ER IF symptoms worsen CALL or TEXT DR. GONZALEZ AT [phone] IF ANY QUESTIONS REGARDING HOSPITAL STAY. PLEASE CALL THE FLOOR AT [phone] IF ANY MEDICATION OR NURSING QUESTIONS. Diet: AHA Activity: Fall precautions Followup: Unknown,U [Primary Care Provider] - Time spent managing pt's care (in minutes): 35
--- NOTE | 2021-02-19 08:49 | RAD REPORT ---
EXAM DESCRIPTION: RAD - Chest Single View - 02/19/2021 4:37 am CLINICAL HISTORY: pneumonia Chest pain. COMPARISON: Chest Single View dated 02/17/2021; Chest Pa And Lat (2 Views) dated 01/28/2021; Chest Sin gle View dated 01/26/2021; CHEST SINGLE VIEW dated 12/25/2011 FINDINGS: Portable technique limits examination quality. The lungs are grossly clear. The heart is mildly enlarged in size with postsurgical changes. Hardware is present proximal right humerus. IMPRESSION: No acute intrathoracic process suspected.
[2021-02-19] MEDS: ENOXAPARIN 40 MG/0.4 ML SQ SCH (09:00)
[2021-02-19] MEDS ORDERED: CEFTRIAXONE 1 GM/NS 50 ML 1 GM/50 ML BAG IV SCH (09:00)
[2021-02-19] MEDS: CLOPIDOGREL 75 MG TABLET PO SCH (09:20)
[2021-02-19] MEDS: HYDRALAZINE HCL 25 MG TABLET PO SCH (09:20)
[2021-02-19] MEDS: SOTALOL HCL 80 MG TAB PO SCH (09:21)
[2021-02-19] MEDS: ISOSORBIDE MONO SR 60 MG TAB PO SCH (09:21)
[2021-02-19] MEDS: SPIRONOLACTONE 25 MG TABLET PO SCH (09:21)
[2021-02-19] MEDS: CEFTRIAXONE/SWI 1gm 1 GM/10 ML SYR IV SCH (09:22)
[2021-02-19] MEDS: ASPIRIN EC 81 MG TAB PO SCH (09:22)
[2021-02-19] MEDS: GABAPENTIN 300 MG CAP PO SCH (09:22)
[2021-02-19] MEDS: glipiZIDE 5 MG TAB PO SCH (09:22)
[2021-02-19] MEDS: FUROSEMIDE 40 MG TABLET PO SCH (09:22)
[2021-02-19] MEDS: METOPROLOL TAR 50 MG TAB PO SCH (09:22)
[2021-02-19] MEDS: POTASSIUM 25 MEQ EFFERV TAB PO SCH (09:23)
[2021-02-19 09:48] VITALS: BP 131/78
== END 2021-02-19 10:26 | disposition home or self-care (01) | DRG 291 ==
LOC: ER 05:18 → ERHOLD 09:16 → 2ND 20:02
PROVIDERS: ADMIT Hospitalist; ATTEND Hospitalist
DX: I13.0 Hypertensive heart and chronic kidney disease with heart failure and stage 1 through stage 4 chronic kidney disease, or unspecified chronic kidney disease (principal); I50.33 Acute on chronic diastolic (congestive) heart failure; J44.1 Chronic obstructive pulmonary disease with (acute) exacerbation; N18.9 Chronic kidney disease, unspecified; E11.22 Type 2 diabetes mellitus with diabetic chronic kidney disease; I48.0 Paroxysmal atrial fibrillation; I16.0 Hypertensive urgency; E03.9 Hypothyroidism, unspecified; I25.10 Atherosclerotic heart disease of native coronary artery without angina pectoris; E78.5 Hyperlipidemia, unspecified; E66.9 Obesity, unspecified; Z91.048 Other nonmedicinal substance allergy status; Z79.02 Long term (current) use of antithrombotics/antiplatelets; Z95.1 Presence of aortocoronary bypass graft; Z79.84 Long term (current) use of oral hypoglycemic drugs; Z79.890 Hormone replacement therapy; Z88.8 Allergy status to other drugs, medicaments and biological substances; Z68.34 Body mass index [BMI] 34.0-34.9, adult; Z79.82 Long term (current) use of aspirin; Z79.899 Other long term (current) drug therapy; Z90.710 Acquired absence of both cervix and uterus; Z20.822 Contact with and (suspected) exposure to COVID-19
CPT/HCPCS: 0240U; 36415; 71045; 80048; 80053; 80076; 81003; 81015; 82150; 82550; 82553; 82947; 83605; 83690; 83735; 83880; 84100; 84484; 85025; 85610; 85730; 87040; 87086; 87088; 93005; 93306; 96372; 96374; 96375; 99284; J0360; J0696; J1650; J1815; J1940; J2543; J2930

== ENCOUNTER 2021-04-01 15:50 | Emergency (ER) | payer OTHER ==
--- NOTE | 2021-04-01 17:48 | RAD REPORT ---
EXAM DESCRIPTION: US - Extremity Venous Uni Ltd - 04/01/2021 5:42 pm CLINICAL HISTORY: Left arm pain and swelling COMPARISON: None. TECHNIQUE: Real-time sonographic evaluation of the left upper extremity deep venous systems was perf ormed. FINDINGS: Normal compressibility, flow augmentation, phasic flow and spontaneous flow are identified in the left upper extremity deep venous system. No intraluminal filling defects seen. Internal jugul ar and subclavian veins are normal as well. IMPRESSION: No DVT in the left upper extremity.
--- NOTE | 2021-04-01 18:10 | ER ---
Nurse's Notes [facility] Name: Mercedez Degroot Age: 66 yrs Sex: Female : 1955 Arrival Date: 04/01/2021 Time: 15:53 Bed 7 Private MD: Diagnosis: Edema of Upper Extremity Presentation: 04/01 16:05 Chief complaint: Patient states: Swelling to L upper arm, sent by PCP to check for ph blood clot. Coronavirus screen: Client denies travel out of the [place] in the last 14 days. At this time, the client does not indicate any symptoms associated with coronavirus-19. Ebola Screen: No symptoms or risks identified at this time. Initial Sepsis Screen: Does the patient meet any 2 criteria? No. Patient's initial sepsis screen is negative. Does the patient have a suspected source of infection? No. Patient's initial sepsis screen is negative. Risk Assessment: Do you want to hurt yourself or someone else? Patient reports no desire to harm self or others. Onset of symptoms was April 01, 2021. 16:05 Method Of Arrival: Ambulatory ph 16:05 Acuity: TRISHA 3 ph Historical: - Allergies: 16:08 Lisinopril; ph 16:08 Tape; ph 16:08 Valium; ph - PMHx: 16:08 cancer, hx; CHF; Diabetes - NIDDM; Hypertension; Hypothyroidism; kidney disease; ph - Immunization history:: Client reports receiving the 2nd dose of the Covid vaccine. - Social history:: Smoking status: Patient denies any tobacco usage or history of. Screenin:43 Abuse screen: Denies threats or abuse. Nutritional screening: No deficits noted. tw2 Tuberculosis screening: No symptoms or risk factors identified. Fall Risk None identified. Assessment: 17:45 General: Appears in no apparent distress. obese, well groomed, Behavior is calm, tw2 cooperative, appropriate for age. Pain: Denies pain. Neuro: Level of Consciousness is awake, alert, obeys commands, Oriented to person, place, time, situation. Cardiovascular: Patient's skin is warm and dry. Respiratory: Airway is patent Respiratory effort is even, unlabored, Respiratory pattern is regular, symmetrical. GI: No signs and/or symptoms were reported involving the gastrointestinal system. : No signs and/or symptoms were reported regarding the genitourinary system. Derm: No signs and/or symptoms reported regarding the dermatologic system. Musculoskeletal: Circulation, motion, and sensation intact. Range of motion: intact in all extremities. Vital Signs: 16:05 BP 130 / 71; Pulse 65; Resp 18; Temp 97.8; Pulse Ox 99% on R/A; ph 17:50 BP 183 / 92; Pulse 62; Resp 17; Pulse Ox 99% on R/A; tw2 18:20 BP 148 / 75; Pulse 67; Resp 20; Pulse Ox 98% on R/A; kg ED Course: 15:53 Patient arrived in ED. am2 16:07 Triage completed. ph 16:07 Arm band placed on Patient placed in an exam room. ph 17:41 Kirby Rose PA is PHCP. [facility] 17:41 Ajit Kim MD is Attending Physician. [facility] 17:42 US Extremity Venous Unilateral Ltd In Process Unspecified. EDMS 17:43 Zoila Mathew, RN is Primary Nurse. tw2 17:43 Bed in low position. Call light in reach. Adult w/ patient. Pulse ox on. NIBP on. tw2 18:29 No provider procedures requiring assistance completed. Patient did not have IV access kg during this emergency room visit. Administered Medications: No medications were administered Outcome: 18:09 Discharge ordered by . [facility] 18:30 Discharged to home via wheelchair, with family. kg 18:30 Condition: good 18:30 Discharge instructions given to patient, family, Instructed on discharge instructions, follow up and referral plans. Demonstrated understanding of instructions, follow-up care. 18:30 Patient left the ED. kg Signatures: Dispatcher [employer] EDMS Kirby Rose PA PA Roxana Renee, RN RN ph Zoila Mathew, RN RN tw2 Florinda Brandt am2 Anabel Hilliard, RN RN kg
--- NOTE | 2021-04-01 18:10 | EDPHYS ---
Physician Documentation [facility] Name: Mercedez Degroot Age: 66 yrs Sex: Female : 1955 Arrival Date: 04/01/2021 Time: 15:53 Bed 7 Private MD: ED Physician Ajit Kim HPI: 04/01 18:01 This 66 yrs old Female presents to ER via Ambulatory with complaints of jmm possible blood clot. 18:01 The patient or guardian complains of swelling. The complaints affect the left tricep. jmm Onset: The symptoms/episode began/occurred gradually, 2 week(s) ago. Modifying factors: The symptoms are alleviated by nothing. the symptoms are aggravated by nothing. This is a 66 year old female with a history of CHF, DM, HTN that presents to the ED with complaints of left arm swelling beginning approx 2 weeks ago. Denies fever, chest pain, shortness of breath. . Historical: - Allergies: 16:08 Lisinopril; ph 16:08 Tape; ph 16:08 Valium; ph - PMHx: 16:08 cancer, hx; CHF; Diabetes - NIDDM; Hypertension; Hypothyroidism; kidney disease; ph - Immunization history:: Client reports receiving the 2nd dose of the Covid vaccine. - Social history:: Smoking status: Patient denies any tobacco usage or history of. ROS: 18:01 Constitutional: Negative for fever, chills, and weight loss, Cardiovascular: Negative jmm for chest pain, palpitations, and edema, Respiratory: Negative for shortness of breath, cough, wheezing, and pleuritic chest pain. 18:01 MS/extremity: Positive for swelling. 18:01 All other systems are negative. Exam: 18:01 Constitutional: This is a well developed, well nourished patient who is awake, alert, jmm and in no acute distress. Head/Face: atraumatic. Eyes: EOMI, no conjunctival erythema appreciated ENT: Moist Mucus Membranes Neck: Trachea midline, Supple Chest/axilla: Normal chest wall appearance and motion. Cardiovascular: Regular rate and rhythm. No edema appreciated Respiratory: Normal respirations, no respiratory distress appreciated Abdomen/GI: Non distended, soft Back: Normal ROM Skin: General appearance color normal 18:01 Musculoskeletal/extremity: ROM: intact in all extremities, full left radial pulse, compartments are soft, NVI. 18:01 Skin: Appearance: Color: normal in color. 18:01 Neuro: Orientation: is normal, Mentation: is normal, Memory: is normal. 18:01 Psych: Behavior/mood is pleasant, cooperative. Vital Signs: 16:05 BP 130 / 71; Pulse 65; Resp 18; Temp 97.8; Pulse Ox 99% on R/A; ph 17:50 BP 183 / 92; Pulse 62; Resp 17; Pulse Ox 99% on R/A; tw2 18:20 BP 148 / 75; Pulse 67; Resp 20; Pulse Ox 98% on R/A; kg MDM: 17:[address] [facility] 18:06 Data reviewed: vital signs, nurses notes. Counseling: I had a detailed discussion with addis the patient and/or guardian regarding: the historical points, exam findings, and any diagnostic results supporting the discharge/admit diagnosis, lab results, the need for outpatient follow up, to return to the emergency department if symptoms worsen or persist or if there are any questions or concerns that arise at home. ED course: Patient is alert and non toxic in appearance in the ED. No signs of resp distress. I do not suspect DVT, PE, cellulitis. Patient is advised to follow up with pcp for further evaluation. patient otherwise given strict return precautions. patient understood and agrees with the plan of care. . 07 16:38 Order name: US Extremity Venous Unilateral Ltd; Complete Time: 17:51 ph Administered Medications: No medications were administered Disposition: 04/02 07:31 Co-signature as Attending Physician, Ajit Kim MD I agree with the assessment and [facility] plan of care. Disposition Summary: 04/01/21 18:09 Discharge Ordered Location: Home [facility] Condition: Stable [facility] Diagnosis - Edema of Upper Extremity [facility] Followup: [facility] - With: Private Physician - When: 2 - 3 days - Reason: Recheck today's complaints, Continuance of care, Re-evaluation by your physician Discharge Instructions: - Discharge Summary Sheet matt - Edema [facility] Forms: - Medication Reconciliation Form [facility] - Thank You Letter matt - Antibiotic Education mattm - Prescription Opioid Use matt Signatures: Dispatcher [employer] Ajit Del Cid MD MD cha Mickail, Joel, PA PA Roxana Renee RN RN ph
[2021-04-01 18:57] VITALS: TEMP 97.8
[2021-04-01 19:01] VITALS: BP 148/75; O2SAT 98
== END 2021-04-01 18:30 | disposition home or self-care (01) ==
LOC: ER 15:50
DX: R60.9 Edema, unspecified (principal); I10 Essential (primary) hypertension; E11.9 Type 2 diabetes mellitus without complications; Z88.5 Allergy status to narcotic agent; Z88.8 Allergy status to other drugs, medicaments and biological substances; Z91.048 Other nonmedicinal substance allergy status
CPT/HCPCS: 93971; 99283

== ENCOUNTER 2021-07-23 07:57 | Inpatient (IN) | payer OTHER ==
[2021-07-23 08:59] LABS: Basophils % 0.4 % (0-1.3); Hematocrit 38.1 % (36.0-45.0); Lymphocytes % 6.2 % (15.3-44.8); MPV 8.5 fL (7.6-11.3); RBC Red Blood Cell Count 4.07 M/uL (3.86-4.86)
[2021-07-23] MEDS ORDERED: NA CHLORIDE 0.9% 1,000 ML ONE (09:01)
[2021-07-23] MEDS ORDERED: NA CHLORIDE 0.9% 0 ML ONE (09:01)
[2021-07-23 09:03] LABS: Protime INR 1.73
--- NOTE | 2021-07-23 09:16 | RAD REPORT ---
EXAM DESCRIPTION: RAD - Chest Single View - 07/23/2021 8:54 am CLINICAL HISTORY: COUGH COMPARISON: February 19, 2021 TECHNIQUE: AP portable chest image was obtained 07/23/2021 8:54 am . FINDINGS: No peripheral mass or consolidation. Interstitial pattern matches comparison. Heart size is upper normal, magnified by portable technique. No vascular engorgement. CABG surgical changes are noted. No measurable pleural effusion and no pneumothorax. No acute bone finding. Surgical hardware is pres ent at the right humeral head and proximal shaft. There additional advanced degenerative changes at t he right shoulder joint. No acute aortic findings suspected. IMPRESSION: No acute cardiopulmonary process. Above detailed findings are not clearly different from the February 19 exam.
--- NOTE | 2021-07-23 09:53 | EDPHYS ---
Physician Documentation [facility] Name: Mercedez Degroot Age: 66 yrs Sex: Female : 1955 Arrival Date: 07/23/2021 Time: 07:57 Bed 14 Private MD: ED Physician Ajit Kim HPI: 07/23 08:32 This 66 yrs old Female presents to ER via Unassigned with complaints of osmani Weakness. 08:32 The patient presents to the emergency department with weakness of the entire body, osmani generalized weakness, that is moderate. Onset: The symptoms/episode began/occurred this morning. Context: occurred at home. 08:32 awoke weak all over , no pain , no fever no chills, no n/v/d. Severity of symptoms: At osmani their worst the symptoms were mild moderate in the emergency department the symptoms are unchanged. The patient has not experienced similar symptoms in the past. - Family history:: not pertinent. ROS: 08:35 Constitutional: Negative for fever, chills, and weight loss, Eyes: Negative for injury, osmani pain, redness, and discharge, ENT: Negative for injury, pain, and discharge, Neck: Negative for injury, pain, and swelling, Respiratory: Negative for shortness of breath, cough, wheezing, and pleuritic chest pain, Abdomen/GI: Negative for abdominal pain, nausea, vomiting, diarrhea, and constipation, Back: Negative for injury and pain, : Negative for injury, bleeding, discharge, and swelling, MS/Extremity: Negative for injury and deformity, Skin: Negative for injury, rash, and discoloration, Psych: Negative for depression, anxiety, suicide ideation, homicidal ideation, and hallucinations, Allergy/Immunology: Negative for hives, rash, and allergies, Endocrine: Negative for neck swelling, polydipsia, polyuria, polyphagia, and marked weight changes, Hematologic/Lymphatic: Negative for swollen nodes, abnormal bleeding, and unusual bruising. 08:35 Cardiovascular: Positive for palpitations. 08:35 Neuro: Positive for weakness. Exam: 08:39 Constitutional: This is a well developed, well nourished patient who is awake, alert, osmani and in no acute distress. Head/Face: Normocephalic, atraumatic. Eyes: Pupils equal round and reactive to light, extra-ocular motions intact. Lids and lashes normal. Conjunctiva and sclera are non-icteric and not injected. Cornea within normal limits. Periorbital areas with no swelling, redness, or edema. ENT: Nares patent. No nasal discharge, no septal abnormalities noted. Tympanic membranes are normal and external auditory canals are clear. Oropharynx with no redness, swelling, or masses, exudates, or evidence of obstruction, uvula midline. Mucous membranes moist. Neck: Trachea midline, no thyromegaly or masses palpated, and no cervical lymphadenopathy. Supple, full range of motion without nuchal rigidity, or vertebral point tenderness. No Meningismus. Chest/axilla: Normal chest wall appearance and motion. Nontender with no deformity. No lesions are appreciated. Respiratory: Lungs have equal breath sounds bilaterally, clear to auscultation and percussion. No rales, rhonchi or wheezes noted. No increased work of breathing, no retractions or nasal flaring. Abdomen/GI: Soft, non-tender, with normal bowel sounds. No distension or tympany. No guarding or rebound. No evidence of tenderness throughout. Back: No spinal tenderness. No costovertebral tenderness. Full range of motion. Female : Normal external genitalia. Skin: Warm, dry with normal turgor. Normal color with no rashes, no lesions, and no evidence of cellulitis. MS/ Extremity: Pulses equal, no cyanosis. Neurovascular intact. Full, normal range of motion. Psych: Awake, alert, with orientation to person, place and time. Behavior, mood, and affect are within normal limits. 08:39 Cardiovascular: Rate: tachycardic, Rhythm: irregularly irregular, Pulses: Pulses are 4+ in bilateral radial, brachial, femoral, popliteal, posterior tibial and and dorsalis pedis arteries.. Heart sounds: normal, normal S1and S2, no S3 or S4, no murmur, no rub, no gallop, Edema: is not appreciated, JVD: is not appreciated. 08:39 ECG was reviewed by the Attending Physician. Vital Signs: 08:53 BP 104 / 59; Pulse 125; Resp 18; Temp 98.2(TE); Pulse Ox 95% on R/A; Weight 87.09 kg; mh5 Height 5 ft. 4 in. (162.56 cm); Pain 9/10; 10:18 BP 115 / 71; Pulse 105; Resp 18; Pulse Ox 95% ; vg1 11:45 BP 110 / 83; Pulse 95; Resp 24; Pulse Ox 98% on R/A; vg1 12:30 BP 114 / 89; Pulse 103; Resp 22; Pulse Ox 96% on R/A; vg1 13:30 BP 120 / 91; Pulse 105; Resp 16; Pulse Ox 96% on R/A; vg1 14:30 BP 123 / 63; Pulse 103; Resp 20; Pulse Ox 97% on R/A; vg1 08:53 Body Mass Index 32.96 (87.09 kg, 162.56 cm) 5 MDM: 07:57 Patient medically screened. osmani 08:40 Differential diagnosis: arrythmia, dehydration, stress disorder. Differential Diagnosis osmani altered mental status, sepsis, flu. Data reviewed: vital signs, nurses notes, lab test result(s), EKG, radiologic studies, plain films. 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 Test interpretation: by ED physician or midlevel provider: ECG, plain radiologic studies. Counseling: I had a detailed discussion with the patient and/or guardian regarding: the historical points, exam findings, and any diagnostic results supporting the discharge/admit diagnosis, lab results, radiology results. 07/23 07:59 Order name: Basic Metabolic Panel; Complete Time: 11:46 [facility] 07/23 07:59 Order name: CBC with Diff; Complete Time: 09:48 [facility] 07/23 07:59 Order name: LFT's; Complete Time: 11:46 [facility] 07/23 07:59 Order name: Magnesium; Complete Time: 11:46 [facility] 07/23 07:59 Order name: NT PRO-BNP; Complete Time: 11:46 [facility] 07/23 07:59 Order name: PT-INR; Complete Time: 09:48 [facility] 07/23 07:59 Order name: Troponin (emerg Dept Use Only); Complete Time: 11:46 [facility] 07/23 07:59 Order name: Lipase; Complete Time: 11:46 [facility] 07/23 07:59 Order name: TSH; Complete Time: 11:46 [facility] 07/23 08:22 Order name: Blood Culture Adult (2) [facility] 07/23 08:22 Order name: Lactate; Complete Time: 09:48 [facility] 07/23 08:23 Order name: Urine Culture [facility] 07/23 07:59 Order name: XRAY Chest (1 view); Complete Time: 09:48 [facility] 07/23 07:59 Order name: EKG; Complete Time: 08:00 [facility] 07/23 07:59 Order name: Cardiac monitoring; Complete Time: 08:17 [facility] 07/23 07:59 Order name: EKG - Nurse/Tech; Complete Time: 08:48 [facility] 07/23 10:02 Order name: Urine Dipstick-Ancillary; Complete Time: 10:54 [facility] 07/23 11:55 Order name: CT Stone Protocol [facility] 07/23 13:26 Order name: COVID-19/FLU A+B [facility] 07/23 14:57 Order name: Comprehensive Metabolic Panel [facility] 07/23 14:57 Order name: Comprehensive Metabolic Panel [facility] 07/23 14:57 Order name: CONS Physician Consult [facility] 07/23 14:57 Order name: Renal [facility] 07/23 14:57 Order name: CBC with Automated Diff [facility] 07/23 14:57 Order name: CBC with Automated Diff [facility] 07/23 07:59 Order name: IV Saline Lock; Complete Time: 08:49 [facility] 07/23 07:59 Order name: Labs collected and sent; Complete Time: 08:49 [facility] 07/23 07:59 Order name: O2 Per Protocol; Complete Time: 08:49 [facility] 07/23 07:59 Order name: O2 Sat Monitoring; Complete Time: 08:17 [facility] 07/23 07:59 Order name: Urine Dipstick-Ancillary (obtain specimen); Complete Time: 10:16 [facility] EC:39 Rate is 112 beats/min. Rhythm is irregularly irregular. QRS Baldwin is Normal. SD interval osmani is normal. QRS interval is normal. QT interval is normal. No Q waves. T waves are Normal. No ST changes noted. Clinical impression: Atrial Fibrillation and No evidence of ischemia. Interpreted by me. Reviewed by me. Administered Medications: 08:44 Drug: NS 0.9% 500 ml Route: IV; Rate: bolus; Site: left antecubital; tc5 10:58 Follow up: IV Status: Completed infusion; IV Intake: 500ml vg1 10:56 Drug: Rocephin (cefTRIAXone) 1 grams Route: IV; Rate: per protocol; Site: right vg1 antecubital; 10:58 Follow up: IV Status: Completed infusion vg1 10:58 Drug: NS 0.9% 1000 ml Route: IV; Rate: 125 ml/hr; Site: right antecubital; vg1 16:20 Follow up: IV Status: Completed infusion; IV Intake: 500ml vg1 Disposition Summary: 07/23/21 09:53 Hospitalization Ordered Hospitalization Status: Inpatient Admission osmani Provider: Russ Valles cha Location: Telemetry/MedSurg (Inpatient) osmani Condition: Fair osmani Problem: new osmani Symptoms: have improved osmani Bed/Room Type: Standard osmani Room Assignment: 213(07/23/21 15:34) dw Diagnosis - Chronic atrial fibrillation - in RVR osmani - Weakness osmani - Other malaise and fatigue osmani - Elevated white blood cell count osmani - UTI/ Urinary tract infection, site not specified osmani - Acute kidney failure, unspecified - ON CHRONIC osmani Forms: - Medication Reconciliation Form osmani - SBAR form osmani Signatures: Dispatcher [employer] EDAida Mcmanus RN RN Ajit Tang MD MD cha Garcia, Victoria, RN RN vg1 Vianney William RN RN tc5 Corrections: (The following items were deleted from the chart) 09:36 08:23 CORONAVIRUS+MR.LAB.BRZ ordered. EDMS EDMS 09:37 08:23 Influenza Screen (A \T\ B)+BA.LAB.BRZ ordered. EDMS EDMS 15:34 09:53 osmani dw
--- NOTE | 2021-07-23 09:53 | ER ---
Nurse's Notes [facility] Name: Mercedez Degroot Age: 66 yrs Sex: Female : 1955 Arrival Date: 07/23/2021 Time: 07:57 Bed 14 Private MD: Diagnosis: Chronic atrial fibrillation-in RVR;Weakness;Other malaise and fatigue;Elevated white blood cell count;UTI/ Urinary tract infection, site not specified;Acute kidney failure, unspecified-ON CHRONIC Presentation: 07/23 09:06 Chief complaint: Patient states: weakness, couldn't get off the toilet this am because tc5 she was so weak, states her son and DIL had to help her. Coronavirus screen: Vaccine status: Patient reports receiving the 2nd dose of the covid vaccine. Client presents with at least one sign or symptom that may indicate coronavirus-19. Standard/surgical mask placed on the client. Ebola Screen: No symptoms or risks identified at this time. No acute neurological deficit is noted. Initial Sepsis Screen: Does the patient meet any 2 criteria? No. Patient's initial sepsis screen is negative. Risk Assessment: Do you want to hurt yourself or someone else? Patient reports no desire to harm self or others. Onset of symptoms was July 16, 2021 at 01:00. 09:06 Method Of Arrival: EMS tc5 09:06 Acuity: TRISHA 3 tc5 Triage Assessment: 09:09 The onset of the patients symptoms was July 16, 2021 at 01:00. General: Appears in tc5 no apparent distress. Behavior is calm, cooperative, appropriate for age, pt reports she has chronic pain, and COPD. rates her pain in BLE 9/10 at this time.. Pain: Complains of pain in right leg and left leg. Neuro: No deficits noted. - Family history:: not pertinent. Screenin:11 Abuse screen: Denies threats or abuse. Denies injuries from another. Nutritional tc5 screening: No deficits noted. Tuberculosis screening: No symptoms or risk factors identified. Fall Risk IV access (20 points). Gait- Weak (10 pts.). Assessment: 09:11 Reassessment: Patient appears in no apparent distress at this time. General: see tc5 triage.. 10:17 General: Appears in no apparent distress. comfortable, Behavior is calm, cooperative. vg1 Pain: Complains of pain in left leg and right leg Pain currently is 8 out of 10 on a pain scale. Neuro: Level of Consciousness is awake, alert, obeys commands, Oriented to person, place, time, situation. Cardiovascular: Patient's skin is warm and dry. Respiratory: Airway is patent Respiratory effort is even, unlabored. GI: No signs and/or symptoms were reported involving the gastrointestinal system. : No signs and/or symptoms were reported regarding the genitourinary system. EENT: No signs and/or symptoms were reported regarding the EENT system. Derm: Skin is pink, warm \T\ dry. Musculoskeletal: Circulation, motion, and sensation intact. 11:50 Reassessment: Patient appears in no apparent distress at this time. No changes from vg1 previously documented assessment. Patient and/or family updated on plan of care and expected duration. Pain level reassessed. Patient is alert, oriented x 3, equal unlabored respirations, skin warm/dry/pink. 13:00 Reassessment: Patient appears in no apparent distress at this time. No changes from vg1 previously documented assessment. Patient and/or family updated on plan of care and expected duration. Pain level reassessed. Patient is alert, oriented x 3, equal unlabored respirations, skin warm/dry/pink. 15:24 Reassessment: Patient appears in no apparent distress at this time. No changes from vg1 previously documented assessment. Patient and/or family updated on plan of care and expected duration. Pain level reassessed. Pt resting with eyes closed. Vital Signs: 08:53 BP 104 / 59; Pulse 125; Resp 18; Temp 98.2(TE); Pulse Ox 95% on R/A; Weight 87.09 kg; mh5 Height 5 ft. 4 in. (162.56 cm); Pain 9/10; 10:18 BP 115 / 71; Pulse 105; Resp 18; Pulse Ox 95% ; vg1 11:45 BP 110 / 83; Pulse 95; Resp 24; Pulse Ox 98% on R/A; vg1 12:30 BP 114 / 89; Pulse 103; Resp 22; Pulse Ox 96% on R/A; vg1 13:30 BP 120 / 91; Pulse 105; Resp 16; Pulse Ox 96% on R/A; vg1 14:30 BP 123 / 63; Pulse 103; Resp 20; Pulse Ox 97% on R/A; vg1 08:53 Body Mass Index 32.96 (87.09 kg, 162.56 cm) mh5 ED Course: 07:57 Patient arrived in ED. ds1 07:57 Ajit Kim MD is Attending Physician. osmani 08:17 Vianney William, RN is Primary Nurse. tc5 08:35 EKG done, by rvda master certified rv technician. reviewed by Ajit Kim MD. at1 08:35 Callahan cath inserted, using sterile technique, 16 Fr., by wi, balloon inflated, urine mh5 specimen collected. 08:48 Lactate Sent. mh5 08:48 Blood Culture Adult (2) Sent. mh5 08:48 TSH Sent. mh5 08:48 Lipase Sent. mh5 08:49 Basic Metabolic Panel Sent. mh5 08:49 CBC with Diff Sent. mh5 08:49 LFT's Sent. mh5 08:49 Magnesium Sent. mh5 08:49 NT PRO-BNP Sent. mh5 08:49 PT-INR Sent. mh5 08:49 Troponin (emerg Dept Use Only) Sent. mh5 08:49 Patient has correct armband on for positive identification. Bed in low position. Call [facility] light in reach. Side rails up X2. Adult w/ patient. Warm blanket given. Pillow given. desk monitor on. Pulse ox on. NIBP on. 08:50 Inserted saline lock: 20 gauge in left antecubital area, using aseptic technique. Blood mh5 collected. 08:50 Initial lab(s) drawn, by wi, sent to lab. First set of blood cultures drawn Second set mh5 of blood cultures drawn by wi, EKG done, by rvda master certified rv technician. reviewed by Ajit Kim MD COVID swab sent to lab. Flu and/or RSV swab sent to lab. 08:54 XRAY Chest (1 view) In Process Unspecified. EDMS 09:09 Triage completed. tc5 09:51 Russ Valles MD is Hospitalizing Provider. osmani 10:54 Inserted saline lock: 22 gauge in right antecubital area, using aseptic technique. vg1 ,using aseptic technique. Completed by Sylvia VELASQUEZ. 12:58 CT Stone Protocol In Process Unspecified. EDMS 16:09 Arm band placed on. vg1 16:15 No provider procedures requiring assistance completed. Patient admitted, IV remains in vg1 place. Administered Medications: 08:44 Drug: NS 0.9% 500 ml Route: IV; Rate: bolus; Site: left antecubital; tc5 10:58 Follow up: IV Status: Completed infusion; IV Intake: 500ml 1 10:56 Drug: Rocephin (cefTRIAXone) 1 grams Route: IV; Rate: per protocol; Site: right vg1 antecubital; 10:58 Follow up: IV Status: Completed infusion 1 10:58 Drug: NS 0.9% 1000 ml Route: IV; Rate: 125 ml/hr; Site: right antecubital; vg1 16:20 Follow up: IV Status: Completed infusion; IV Intake: 500ml vg1 Intake: 10:58 IV: 500ml; Total: 500ml. vg1 16:20 IV: 500ml; Total: 1000ml. 1 Outcome: 09:53 Decision to Hospitalize by Provider. osmani 16:11 Admitted to Tele accompanied by tech, via stretcher, room 213, with chart, Report vg1 called to EVA GRULLON 16:11 Condition: stable 16:11 Instructed on the need for admit. 16:27 Patient left the ED. [facility] Signatures: Dispatcher [employer] EDAjit Sofia MD MD cha Sanford, Demi ds1 Florinda Gerardo, lumber sorter machine EKG Rebecca Cardenas Victoria, RN RN vg1 Vianney William, EVA RN tc5 Corrections: (The following items were deleted from the chart) 09:36 08:48 CORONAVIRUS+MR.LAB.BRZ drawn and sent. [facility] EDTX 09:37 08:48 Influenza Screen (A \T\ B)+BA.LAB.BRZ drawn and sent. [facility] EDTX
[2021-07-23 10:03] LABS: Urine Blood 1+ (Negative); Urine Glucose Negative (Negative); Urine Protein 1+ (Negative); Urine pH 5.5 (5.0-7.0)
[2021-07-23] MEDS ORDERED: CEFTRIAXONE 1000 MG/VIAL ONE (10:21)
[2021-07-23 11:41] LABS: ALT/SGPT 26 U/L (12-78); AST/SGOT 19 U/L (15-37); Albumin 3.1 g/dL (3.4-5.0); Alkaline Phosphatase 76 U/L (45-117); BUN Blood Urea Nitrogen 79 mg/dL (7-18); Bicarbonate 22 mmol/L (21-32); Bilirubin Direct 0.1 mg/dL (0-0.2); Bilirubin Total 0.4 mg/dL (0.2-1.0); Glucose Level 189 mg/dL (74-106); Lipase 217 U/L (73-393); Magnesium 2.4 mg/dL (1.8-2.4); NT PRO-BNP 6974 pg/mL (<125); Potassium 4.1 mmol/L (3.5-5.1); Protein, Total 7.8 g/dL (6.4-8.2); Sodium Level 137 mmol/L (136-145); Troponin (Emerg Dept Use Only) < 0.02 ng/mL (0.0-0.045)
--- NOTE | 2021-07-23 13:11 | RAD REPORT ---
EXAM DESCRIPTION: CT - Stone Protocol - 07/23/2021 12:59 pm CLINICAL HISTORY: Flank pain. FLANK PAIN;Pain COMPARISON: No comparisons TECHNIQUE: Axial images were obtained without oral or IV contrast. Lack of contrast limits solid org an and vascular assessment. The [id number] spans the entirety of the system partially obscuring uppermost abdomen and lung bases. Coronal reformatted images were obtained and reviewed. All CT scans are performed using dose optimization technique as appropriate and may include automated exposure control or mA/KV adjustment according to patient size. FINDINGS: The lower lung sen are clear. Imaged portions of the liver and spleen show no suspicious findings on non-contrast imaging.Cholelith iasis. The pancreas and adrenal glands are normal. No pathologic lymphadenopathy in the abdomen or pe lvis. No urinary tract stones or obstructive uropathy. Atrophy left kidney is noted. No bowel obstruction, free air, free fluid or abscess. The appendix is not identified as a discrete s tructure, however, no secondary findings of appendicitis are identified. There is a Callahan catheter in place. Moderate lumbosacral degenerative changes. IMPRESSION: No urinary tract stones or obstructive uropathy. Cholelithiasis.
[2021-07-23 13:25] LABS: SARS-COV-2 RT PCR NEGATIVE (NEGATIVE)
[2021-07-23] MEDS ORDERED: ONDANSETRON 4 MG/2 ML VIAL IV PRN (14:54)
[2021-07-23] MEDS ORDERED: ACETAMINOPHEN 500 MG TAB PO PRN (14:54)
[2021-07-23] MEDS: NA CHLORIDE 0.9% 1,000 ML IV SCH ×3 (15:00→18:45)
[2021-07-23] MEDS: MORPHINE 2 MG/ML SYR IV PRN ×2 (17:15→22:12)
[2021-07-23 18:45] VITALS: BMI 32.9
[2021-07-23] MEDS ORDERED: PNEUMOCOCCAL VACCINE 0.5 ML IMVAC ONE (20:00)
[2021-07-23] MEDS ORDERED: INFLUENZA VACCINE (for 6+ mo) 0.5 ML DOSE IMVAC ONE (20:00)
[2021-07-23] MEDS: APIXABAN 5 MG TABLET PO SCH (20:31)
[2021-07-23] MEDS: METOPROLOL XL 50 MG TAB PO SCH (20:31)
[2021-07-23] MEDS: ATORVASTATIN 40 MG TAB PO SCH (20:31)
[2021-07-23] MEDS: ISOSORBIDE MONO SR 30 MG TAB PO SCH (20:31)
[2021-07-23] MEDS ORDERED: ISOSORBIDE MONO SR 60 MG TAB PO SCH (21:00)
[2021-07-23] MEDS ORDERED: METOPROLOL XL 25 MG TAB PO SCH (21:00)
[2021-07-23] MEDS ORDERED: HOME MED 1 EA UNK (Hydralazine Hcl [Hydralazine Hcl] 50 MG Tablet) PO SCH (21:00)
[2021-07-23] MEDS ORDERED: HYDRALAZINE HCL 25 MG TABLET PO SCH (21:00)
--- NOTE | 2021-07-23 21:38 | P.CNS ---
Date of Consult: 07/23/21 Reason for Consult: REBECCA/ CKD Requesting Physician: Russ Valles Chief Complaint: Weakness History of Present Illness: 66 yo WF HTN, DM presented to the ER with moderate, progressive weakness starting early this morning. She reports needing help to the bathroom and was unable to get off the toilet. Abdominal pain. 08:32 This 66 yrs old Female presents to ER via Unassigned with complaints of osmani Weakness. 08:32 The patient presents to the emergency department with weakness of the entire body, osmani generalized weakness, that is moderate. Onset: The symptoms/episode began/occurred this morning. Context: occurred at home. 08:32 awoke weak all over , no pain , no fever no chills, no n/v/d. Severity of symptoms: At osmani their worst the symptoms were mild moderate in the emergency department the symptoms are unchanged. The patient has not experienced similar symptoms in the past. Allergies diazepam [From Valium] Allergy (Verified 01/26/21 17:24) Hives/Rash lisinopril Allergy (Verified 01/26/21 17:24) Unknown Tape Allergy (Uncoded 01/26/21 17:24) Unknown Home medications list reviewed: Yes Home Medications: Aspirin 325 mg PO DAILY 01/26/21 Atorvastatin Calcium [Lipitor] 40 mg PO BEDTIME 01/26/21 Clopidogrel Bisulfate [Plavix*] 1 tab PO DAILY 01/26/21 Gabapentin 300 mg PO TID 01/26/21 Isosorbide Mononitrate [Isosorbide Mononitrate ER] 60 mg PO BID 01/26/21 Metoprolol Succinate [Toprol Xl*] 25 mg PO BID 01/26/21 Sotalol HCl [Sotalol] 1 tab PO DAILY 01/26/21 glipiZIDE [Glipizide] 1 tab PO BID 01/26/21 Amoxicillin/Potassium Clav [Augmentin 500-125 Tablet] 1 each PO DAILY #7 tablet 01/28/21 Benzonatate [Tessalon Perle*] 100 mg PO TID PRN #10 cap 01/28/21 Furosemide [Lasix*] 40 mg PO DAILY #30 tab 01/28/21 Levothyroxine Sodium [Levothyroxine] 137 mcg PO [id number] 01/28/21 Spironolactone [Aldactone*] 25 mg PO DAILY #30 tab 01/28/21 Clopidogrel Bisulfate [Plavix*] 75 mg PO DAILY #30 tablet 02/19/21 Hydralazine HCl 50 mg PO BID #60 tablet 02/19/21 - Past Medical/Surgical History Diabetic: Yes -: DM-NIDDM -: HTN -: Stage 3 kidney disease -: AFIB -: Hypothyroidism -: Triple Bypass -: Hystectomy -: Hernia removal x7 - Family History Mother Medical History: Heart disease, Lung disease, GI disease, Diabetes, Cancer, Kidney disease, Other (see notes) Notes: Colon Cancer - Social History Smoking Status: Unknown if ever smoked Alcohol use: No CD- Drugs: No Caffeine use: Yes Review of Systems 10-point ROS is otherwise unremarkable General: Weakness, Malaise Neurological: Weakness Physical Examination Temp Pulse Resp BP Pulse Ox 98.5 F 92 H 20 120/83 97 07/23/21 17:00 07/23/21 20:31 07/23/21 17:00 07/23/21 20:31 07/23/21 17:00 General: Alert, In no apparent distress, Oriented x3 HEENT: Atraumatic Neck: Supple Respiratory: Clear to auscultation bilaterally Cardiovascular: No edema, Irregular heart rate/rhythm Gastrointestinal: Non-distended, Tenderness Musculoskeletal: No clubbing, No contractures Integumentary: No rashes, No cyanosis Neurological: Normal speech Laboratory Data (last 24 hrs) 07/23/21 10:36: Sodium 137, Potassium 4.1, BUN 79 H, Creatinine 2.78 H, Glucose 189 H, Magnesium 2.4, Total Bilirubin 0.4, AST 19, ALT 26, Alkaline Phosphatase 76, Lipase 217 07/23/21 08:35: PT 20.0 H, INR 1.73 07/23/21 08:35: WBC 16.20 H, Hgb 12.6, Hct 38.1, Plt Count 313 Imagings Data: EXAM DESCRIPTION: CT - Stone Protocol - 07/23/2021 12:59 pm CLINICAL HISTORY: Flank pain. FLANK PAIN;Pain COMPARISON: No comparisons TECHNIQUE: Axial images were obtained without oral or IV contrast. Lack of contrast limits solid organ and vascular assessment. The [id number] spans the entirety of the system partially obscuring uppermost abdomen and lung bases. Coronal reformatted images were obtained and reviewed. All CT scans are performed using dose optimization technique as appropriate and may include automated exposure control or mA/KV adjustment according to patient size. FINDINGS: The lower lung sen are clear. Imaged portions of the liver and spleen show no suspicious findings on non- contrast imaging.Cholelithiasis. The pancreas and adrenal glands are normal. No pathologic lymphadenopathy in the abdomen or pelvis. No urinary tract stones or obstructive uropathy. Atrophy left kidney is noted. No bowel obstruction, free air, free fluid or abscess. The appendix is not identified as a discrete structure, however, no secondary findings of appendicitis are identified. There is a Callahan catheter in place. Moderate lumbosacral degenerative changes. IMPRESSION: No urinary tract stones or obstructive uropathy. Cholelithiasis. EXAM DESCRIPTION: RAD - Chest Single View - 07/23/2021 8:54 am CLINICAL HISTORY: COUGH COMPARISON: February 19, 2021 TECHNIQUE: AP portable chest image was obtained 07/23/2021 8:54 am . FINDINGS: No peripheral mass or consolidation. Interstitial pattern matches comparison. Heart size is upper normal, magnified by portable technique. No vascular engorgement. CABG surgical changes are noted. No measurable pleural effusion and no pneumothorax. No acute bone finding. Surgical hardware is present at the right humeral head and proximal shaft. There additional advanced degenerative changes at the right shoulder joint. No acute aortic findings suspected. IMPRESSION: No acute cardiopulmonary process. Above detailed findings are not clearly different from the February 19 exam. Conclusions/Impression: REBECCA may be due to hypovolemia CKD III with proteinuria -No NSAIDs -Continue gentle IVF HTN with CKD -Continue Metoprolol and Imdur DM II with CKD -Recommend RISS Mild malnutrition -Start Nepro Thank you kindly for the consultation.
[2021-07-24 05:11] LABS: Urine Appearance CLOUDY (Clear); Urine Bilirubin NEGATIVE (Negative); Urine Blood 3+ (Negative); Urine Color YELLOW (Yellow); Urine Glucose NEGATIVE (Negative); Urine Protein 1+ (Negative); Urine Urobilinogen 0.2 mg/dL (0.2-1.0)
[2021-07-24] MEDS: METOPROLOL TARTRATE 5 MG/5 ML INJ IV PRN (05:51)
[2021-07-24 05:53] LABS: Urine Bacteria 20-50 /HPF (<20)
[2021-07-24 06:26] LABS: Absolute Lymphocytes (CBC) 1.3 K/uL (0.7-4.9); Basophils % 0.5 % (0-1.3); Hematocrit 33.7 % (36.0-45.0); Lymphocytes % 10.6 % (15.3-44.8); MPV 8.4 fL (7.6-11.3); RBC Red Blood Cell Count 3.63 M/uL (3.86-4.86)
[2021-07-24 06:40] LABS: Protime INR 1.89
[2021-07-24 07:02] LABS: Albumin 2.6 g/dL (3.4-5.0); Bilirubin Total 0.4 mg/dL (0.2-1.0); Phosphorus 3.1 mg/dL (2.5-4.9); Protein, Total 7.3 g/dL (6.4-8.2); Uric Acid 11.3 mg/dL (2.6-6.0)
[2021-07-24 07:07] LABS: Thyroid Stimulating Hormone 4.51 uIU/mL (0.360-3.740)
[2021-07-24] MEDS: METOPROLOL XL 50 MG TAB PO SCH ×2 (08:42→21:11)
[2021-07-24] MEDS: ISOSORBIDE MONO SR 30 MG TAB PO SCH ×2 (08:42→21:10)
[2021-07-24] MEDS: APIXABAN 5 MG TABLET PO SCH ×2 (08:42→21:10)
[2021-07-24] MEDS: NEPRO SHAKE 237 ML CAN PO SCH ×2 (08:43→21:15)
[2021-07-24] MEDS ORDERED: CLOPIDOGREL 75 MG TABLET PO SCH (09:00)
--- NOTE | 2021-07-24 10:35 | P.HP ---
Certification for Inpatient Patient admitted to: Inpatient With expected LOS: >2 Midnights Patient will require the following post-hospital care: None Practitioner: I am a practitioner with admitting privileges, knowledge of patient current condition, hospital course, and medical plan of care. Services: Services provided to patient in accordance with Admission requirements found in Title 42 Section 412.3 of the Code of Federal Regulations Patient History Date of Service: 07/23/21 Reason for admission: Weakness History of Present Illness: Pt is a 66yo female who came to the hospital with generalized weakness. Patient's history of hypertension and diabetes and she also has been being monitored by her chronic kidney disease by Dr. Fish. Also with a history of atrial fibrillation. Patient's heart rate was elevated in the 130s when she arrived in the emergency room. Her creatinine was elevated to 2.8(GFR of 17) and her baseline is 1.8(GFR of 29). Patient is not ambulating as well as she had been. She is not able to make it to the restroom at her home. In the emergency room, patient with a significant leukocytosis. Patient also with acute renal insufficiency. Patient be admitted to the hospital for further evaluation. Allergies diazepam [From Valium] Allergy (Verified 01/26/21 17:24) Hives/Rash lisinopril Allergy (Verified 01/26/21 17:24) Unknown Tape Allergy (Uncoded 01/26/21 17:24) Unknown Home Medications: Atorvastatin Calcium [Lipitor] 80 mg PO BEDTIME 01/26/21 Gabapentin 300 mg PO TID 01/26/21 Isosorbide Mononitrate [Isosorbide Mononitrate ER] 60 mg PO DAILY 01/26/21 Metoprolol Succinate [Toprol Xl*] 100 mg PO BID 01/26/21 Furosemide [Lasix*] 40 mg PO DAILY #30 tab 01/28/21 Levothyroxine Sodium [Levothyroxine] 137 mcg PO [id number] 01/28/21 Apixaban [Eliquis] 1 tab PO BID 07/24/21 Aspirin [Aspirin EC 81 MG] 1 tab PO DAILY 07/24/21 Diltiazem HCl [Dilt-Xr] 120 mg PO BEDTIME 07/24/21 Diltiazem HCl [Dilt-Xr] 240 mg PO BREAKFAST 07/24/21 Glipizide [Glipizide ER] 5 mg PO BID 07/24/21 Isosorbide Mononitrate [Isosorbide Mononitrate ER] 60 mg PO BID 07/24/21 Pantoprazole [Protonix Tab*] 40 mg PO DAILY 07/24/21 Spironolactone [Aldactone*] 25 mg PO BID 07/24/21 - Past Medical/Surgical History Diabetic: Yes -: DM-NIDDM -: HTN -: Stage 3 kidney disease -: AFIB -: Hypothyroidism -: Triple Bypass -: Hystectomy -: Hernia removal x7 - Family History Mother Medical History: Heart disease, Lung disease, GI disease, Diabetes, Cancer, Kidney disease, Other (see notes) Notes: Colon Cancer - Social History Alcohol use: No CD- Drugs: No Caffeine use: Yes Review of Systems 10-point ROS is otherwise unremarkable Physical Examination - Vital Signs Temperature: 96.8 F Blood Pressure: 120/77 Pulse: 125 Respirations: 20 Pulse Ox (%): 95 - Physical Exam General: Alert, In no apparent distress, Oriented x3 HEENT: Atraumatic, PERRLA, Mucous membr. moist/pink, EOMI, Sclerae nonicteric Neck: Supple, 2+ carotid pulse no bruit, No LAD, Without JVD or thyroid abnorm ality Respiratory: Diminished, Crackles/rales Cardiovascular: Irregular heart rate/rhythm, Systolic murmur Gastrointestinal: Normal bowel sounds, Soft and benign, Non-distended, No tenderness Musculoskeletal: No clubbing, No tenderness, Swelling Neurological: Normal speech, Normal tone, Sensation intact, Cranial nerves 3-12 intact, Normal affect, Abnormal gait, Abnormal strength Lymphatics: No axilla or inguinal lymphadenopathy - Studies Laboratory Data (last 24 hrs) 07/23/21 10:36: Sodium 137, Potassium 4.1, BUN 79 H, Creatinine 2.78 H, Glucose 189 H, Magnesium 2.4, Total Bilirubin 0.4, AST 19, ALT 26, Alkaline Phosphatase 76, Lipase 217 Assessment & Plan - Problems (Diagnosis) (1) Generalized weakness Current Visit: Yes Status: Acute (2) Atrial fibrillation with rapid ventricular response Current Visit: Yes Status: Acute (3) Left ventricular thrombus Current Visit: Yes Status: Acute (4) Acute congestive heart failure with left ventricular diastolic dysfunction Current Visit: No Status: Acute (5) Chronic kidney disease Current Visit: No Status: Acute - Plan Plan: 1. Continue with antiarrhythmics and anticoagulation 2. Cardiology consultation 3. Nephrology consultation for worsening renal function 4. Continue with gentle diuresing 5. Strict blood sugar and blood pressure controlled 6. Physical therapy evaluation 7. IV antibiotic therapy for urinary tract infection 8. Echocardiogram to evaluate left ventricular thrombus 9. GI and DVT prophylaxis Discharge Plan: Home Plan to discharge in: Greater than 2 days - Advance Directives Does patient have a Living Will: Yes Does patient have a Durable POA for Healthcare: Yes - Code Status/Comfort Care Code Status Assessed: Yes Code Status: Full Code Critical Care: No Time Spent Managing PTS Care (In Minutes): 45
[2021-07-24] MEDS: MORPHINE 2 MG/ML SYR IV PRN (10:43)
[2021-07-24] MEDS ORDERED: CEFTRIAXONE 1 GM/NS 50 ML 1 GM/50 ML BAG IV ONE (11:00)
[2021-07-24] MEDS ORDERED: GABAPENTIN 300 MG CAP PO ONE (11:38)
[2021-07-24] MEDS ORDERED: LEVOTHYROXINE SOD 0.025 MG TAB PO ONE (11:39)
[2021-07-24] MEDS: GABAPENTIN 300 MG CAP PO SCH ×2 (15:44→21:09)
[2021-07-24] MEDS: NA CHLORIDE 0.9% 1,000 ML IV SCH (15:44)
[2021-07-24] MEDS ORDERED: ACETAMINOPHEN 500 MG TAB PO PRN (18:24)
--- NOTE | 2021-07-24 20:55 | PN ---
Date of Progress Note: 07/24/2021 Subjective: The patient was seen and examined at bedside. She is doing okay. Her weakness is slowl y improving. She states that her neuropathy is bothering her and her gabapentin has been restarted. Blood pressures have been reviewed. Blood pressures are running low in the 104/58 range. Objective: General: She appears in no acute distress. Lungs: Clear to auscultation. Heart: Auscultation of the heart revealed irregular rate and rhythm. Abdomen: Soft and nontender. Extremities: Showed no evidence of edema. Laboratory Data: Showed creatinine improving to 2.1 from 2.7. Other electrolytes are stable. TSH w as 4.5, uric acid was elevated to 11.3. BMP results are showing, WBC count improving to 12,000, hemo globin of 11, hematocrit 33.7, platelet count of 270. Current Medications: Include aspirin, Eliquis 5 mg b.i.d., diltiazem 240 mg and 120 mg daily, Lasix 40 mg p.o. daily. Gabapentin 300 mg 3 times a day. Levothyroxine, metoprolol, Nepro shake, Rocephin , and spironolactone 25 mg b.i.d. Impression: 1.Acute renal failure secondary to acute tubular necrosis, improving at this time. Continue to kumar tor. 2.Generalized weakness, likely debility from atrial fibrillation. We will do physical therapy asses sment. 3.Atrial fibrillation with rapid ventricular response. Continue diltiazem and Eliquis for anticoagu lation. 4.Left ventricular thrombus. Continue anticoagulation. 5.Acute congestive heart failure with diastolic dysfunction, compensated. Continue to monitor with p.o. Lasix. Plan: Overall, the patient is doing okay at this time. Continue to monitor left renal levels. Avoi d nephrotoxins and hypotension. We will discontinue hydration and monitor her renal function closely . VV/MODL Voice ID: [id number] Report ID: [id number]
[2021-07-24] MEDS ORDERED: APIXABAN 5 MG TABLET PO SCH (21:00)
[2021-07-24] MEDS: DILTIAZEM HCL 120 MG SR CAP PO SCH (21:10)
[2021-07-24] MEDS: SPIRONOLACTONE 25 MG TABLET PO SCH (21:10)
[2021-07-24] MEDS: ATORVASTATIN 40 MG TAB PO SCH (21:11)
[2021-07-24] MEDS: GLIPIZIDE S.A. 5 MG TAB PO SCH (21:11)
[2021-07-25] MEDS: LEVOTHYROXINE SOD 0.112 MG TAB PO SCH (05:42)
[2021-07-25] MEDS: LEVOTHYROXINE SOD 0.025 MG TAB PO SCH (05:43)
[2021-07-25] MEDS ORDERED: LEVOTHYROXINE SOD 0.025 MG TAB PO ONE (06:30)
[2021-07-25] MEDS ORDERED: DILTIAZEM HCL 120 MG SR CAP PO SCH (08:00)
[2021-07-25] MEDS: SPIRONOLACTONE 25 MG TABLET PO SCH (08:24)
[2021-07-25] MEDS: FUROSEMIDE 40 MG TABLET PO SCH (08:25)
[2021-07-25] MEDS: ISOSORBIDE MONO SR 30 MG TAB PO SCH (08:25)
[2021-07-25] MEDS: METOPROLOL XL 50 MG TAB PO SCH (08:26)
[2021-07-25] MEDS: GABAPENTIN 300 MG CAP PO SCH ×3 (08:28→21:22)
[2021-07-25] MEDS: APIXABAN 5 MG TABLET PO SCH ×2 (08:28→21:22)
[2021-07-25] MEDS: GLIPIZIDE S.A. 5 MG TAB PO SCH ×2 (08:28→21:22)
[2021-07-25] MEDS: ASPIRIN EC 81 MG TAB PO SCH (08:28)
[2021-07-25] MEDS: PANTOPRAZOLE 40MG TABLET PO SCH (08:28)
[2021-07-25] MEDS: NEPRO SHAKE 237 ML CAN PO SCH ×2 (08:29→21:26)
[2021-07-25] MEDS: CEFTRIAXONE 1 GM/NS 50 ML 1 GM/50 ML BAG IV SCH (08:32)
[2021-07-25 12:17] LABS: Absolute Lymphocytes (CBC) 1.6 K/uL (0.7-4.9); Basophils % 0.8 % (0-1.3); Hematocrit 31.4 % (36.0-45.0); Lymphocytes % 17.4 % (15.3-44.8); MPV 8.6 fL (7.6-11.3); RBC Red Blood Cell Count 3.36 M/uL (3.86-4.86)
[2021-07-25 12:55] LABS: Magnesium 2.3 mg/dL (1.8-2.4); Potassium 3.7 mmol/L (3.5-5.1)
[2021-07-25] MEDS ORDERED: ALBUMIN HUMAN 25% 100 ML IV ONE (14:53)
[2021-07-25] MEDS: ATORVASTATIN 40 MG TAB PO SCH (21:22)
[2021-07-25] MEDS: METOPROLOL XL 25 MG TAB PO SCH (21:23)
[2021-07-25] MEDS: DILTIAZEM HCL 120 MG SR CAP PO SCH (21:23)
--- NOTE | 2021-07-25 22:57 | P.PN ---
Subjective Date of Service: 07/24/21 Patient clinically doing better. Patient's respiratory status is improved. Patient still has some weakness. She says the right side is weak and she has a facial droop. Also some bruising on the right foot. Patient has not really gotten out of bed since she has been hurting. Improved with Neurontin. P hysical therapy evaluation. Review of Systems 10-point ROS is otherwise unremarkable Physical Examination - Vital Signs Temperature: 97.5 F Blood Pressure: 131/74 Pulse: 72 Respirations: 18 Pulse Ox (%): 96 - Physical Exam General: Alert, In no apparent distress, Oriented x3 Respiratory: Diminished, Crackles/rales Cardiovascular: Regular rate/rhythm, Normal S1 S2, No murmurs Gastrointestinal: Normal bowel sounds, Soft and benign, Non-distended, No tenderness Musculoskeletal: No clubbing, No tenderness, Swelling Integumentary: No rashes Neurological: Sensation intact, Cranial nerves 3-12 intact, Abnormal gait, A bnormal strength - Studies Microbiology Data (last 24 hrs): 07/23/21 10:00 Clean Catch Urine [place] Count - Final BETWEEN 10,000 & 100,000 CFU/ML 07/23/21 10:00 Clean Catch Urine - Final MIXED [place]. Medications List Reviewed: Yes Assessment & Plan - Problems (Diagnosis) (1) Generalized weakness Current Visit: Yes Status: Acute (2) Atrial fibrillation with rapid ventricular response Current Visit: Yes Status: Acute (3) Left ventricular thrombus Current Visit: Yes Status: Acute (4) Acute congestive heart failure with left ventricular diastolic dysfunction Current Visit: No Status: Acute (5) Chronic kidney disease Current Visit: No Status: Acute (6) Right sided weakness Current Visit: Yes Status: Acute (7) Foot pain, right Current Visit: Yes Status: Acute - Plan Plan: 1. Continue with antiarrhythmics and anticoagulation; 2. Cardiology consultation pending; adjusting blood pressure medications 3. Nephrology consultation for worsening renal function; this has stabilized 4. Continue with gentle diuresing; monitor renal function closely 5. Strict blood sugar and blood pressure controlled 6. Physical therapy evaluation pending; right foot x-ray and repeat CT of the brain 7. IV antibiotic therapy for urinary tract infection 8. Repeat an Echocardiogram to evaluate left ventricular thrombus 9. GI and DVT prophylaxis Discharge Plan: Home Plan to discharge in: Greater than 2 days - Advance Directives Does patient have a Living Will: Yes Does patient have a Durable POA for Healthcare: Yes - Code Status/Comfort Care Code Status: Full Code Critical Care: No Time Spent Managing PTS Care (In Minutes): 35
--- NOTE | 2021-07-25 23:01 | P.PN ---
Date of Service: 07/25/21 Subjective Patient continues to improve. She was able to ambulate today. Still having pain in the right foot so will get an x-ray. Also continued weakness and slight facial droop and slurred speech so we will get a CT of the brain. Echocardiogram to evaluate left ventricular thrombus Review of Systems 10-point ROS is otherwise unremarkable Physical Examination - Vital Signs Reviewed - Physical Exam General: Alert, In no apparent distress, Oriented x3 Respiratory: Diminished, Crackles/rales Cardiovascular: Regular rate/rhythm, Normal S1 S2, No murmurs Gastrointestinal: Normal bowel sounds, Soft and benign, Non-distended, No tenderness Musculoskeletal: No clubbing, No tenderness, Swelling Integumentary: No rashes; bruises on the right foot Neurological: Sensation intact, Cranial nerves 3-12 intact, Abnormal gait, Abnormal strength Assessment & Plan - Problems (Diagnosis) (1) Generalized weakness Current Visit: Yes Status: Acute (2) Atrial fibrillation with rapid ventricular response Current Visit: Yes Status: Acute (3) Left ventricular thrombus Current Visit: Yes Status: Acute (4) Acute congestive heart failure with left ventricular diastolic dysfunction Current Visit: No Status: Acute (5) Chronic kidney disease Current Visit: No Status: Acute (6) Right sided weakness Current Visit: Yes Status: Acute (7) Foot pain, right Current Visit: Yes Status: Acute - Plan Continue with plan of care as mentioned below: 1. Continue with antiarrhythmics and anticoagulation; adjusting BP medications as blood pressure has been in the 90 to low low 100s today. 2. Cardiology consultation pending; adjusting blood pressure medications 3. Nephrology consultation for worsening renal function; this has stabilized 4. Continue with gentle diuresing; monitor renal function closely 5. Strict blood sugar and blood pressure controlled 6. Physical therapy evaluation pending; right foot x-ray and repeat CT of the brain 7. IV antibiotic therapy for urinary tract infection 8. Repeat an Echocardiogram to evaluate left ventricular thrombus 9. GI and DVT prophylaxis
[2021-07-25] MEDS: METOPROLOL TARTRATE 5 MG/5 ML INJ IV PRN (23:27)
[2021-07-26] MEDS ORDERED: LEVOTHYROXINE SOD 0.025 MG TAB PO SCH (06:00)
[2021-07-26] MEDS: LEVOTHYROXINE SOD 0.025 MG TAB PO SCH (06:27)
[2021-07-26] MEDS: LEVOTHYROXINE SOD 0.112 MG TAB PO SCH (06:27)
--- NOTE | 2021-07-26 08:41 | RAD REPORT ---
EXAM DESCRIPTION: CT - Head Brain Wo Cont - 07/26/2021 7:41 am CLINICAL HISTORY: right sided weakness Headache, drowsiness COMPARISON: Head Brain Wo Cont dated 01/26/2021 TECHNIQUE: All CT scans are performed using dose optimization technique as appropriate and may inclu de automated exposure control or mA/KV adjustment according to patient size. FINDINGS: No intracranial hemorrhage, hydrocephalus or extra-axial fluid collection.Mild generalized brain atrophy is present with mild periventricular and deep white matter chronic microvascular ische benedict changes.No areas of brain edema or evidence of midline shift. The paranasal sinuses and mastoids are clear. The calvarium is intact. IMPRESSION: No acute intracranial abnormality.
--- NOTE | 2021-07-26 09:29 | RAD REPORT ---
EXAM DESCRIPTION: RAD - Foot Right 2 View - 07/26/2021 6:04 am CLINICAL HISTORY: pain COMPARISON: Foot Right 3 View dated 05/25/2016 FINDINGS: Moderate posterior plantar calcaneal spurs. The bones are mildly demineralized. No acute f racture or dislocation.
[2021-07-26] MEDS: ASPIRIN EC 81 MG TAB PO SCH (09:30)
[2021-07-26] MEDS: PANTOPRAZOLE 40MG TABLET PO SCH (09:31)
[2021-07-26] MEDS: GLIPIZIDE S.A. 5 MG TAB PO SCH (09:31)
[2021-07-26] MEDS: METOPROLOL XL 25 MG TAB PO SCH (09:31)
[2021-07-26] MEDS: FUROSEMIDE 40 MG TABLET PO SCH (09:31)
[2021-07-26] MEDS: GABAPENTIN 300 MG CAP PO SCH (09:31)
[2021-07-26] MEDS: CEFTRIAXONE 1 GM/NS 50 ML 1 GM/50 ML BAG IV SCH (09:32)
[2021-07-26] MEDS: APIXABAN 5 MG TABLET PO SCH (09:38)
[2021-07-26] MEDS: NEPRO SHAKE 237 ML CAN PO SCH (09:40)
[2021-07-26 10:00] VITALS: O2SAT 98
--- NOTE | 2021-07-26 10:59 | P.DS ---
Admission Date: 07/23/21 Discharge Date: 07/26/21 Primary Care Provider: Dr. Fish; Cardiology-Dr. Marley Disposition: ROUTINE DISCHARGE Discharge Condition: GOOD Reason for Admission: Weakness Consultations: Nephrology-Dr. Fish Cardiology-Dr. Cornell Procedures: COVID: Negative CXR: COMPARISON: February 19, 2021 TECHNIQUE: AP portable chest image was obtained 07/23/2021 8:54 am . FINDINGS: No peripheral mass or consolidation. Interstitial pattern matches comparison. Heart size is upper normal, magnified by portable technique. No vascular engorgement. CABG surgical changes are noted. No measurable pleural effusion and no pneumothorax. No acute bone finding. Surgical hardware is present at the right humeral head and proximal shaft. There additional advanced degenerative changes at the right shoulder joint. No acute aortic findings suspected. IMPRESSION: No acute cardiopulmonary process. CT Head: COMPARISON: Head Brain Wo Cont dated 01/26/2021 TECHNIQUE: All CT scans are performed using dose optimization technique as appropriate and may include automated exposure control or mA/KV adjustment according to patient size. FINDINGS: No intracranial hemorrhage, hydrocephalus or extra-axial fluid collection.Mild generalized brain atrophy is present with mild periventricular and deep white matter chronic microvascular ischemic changes.No areas of brain edema or evidence of midline shift. The paranasal sinuses and mastoids are clear. The calvarium is intact. IMPRESSION: No acute intracranial abnormality. Right foot xray: COMPARISON: Foot Right 3 View dated 05/25/2016 FINDINGS: Moderate posterior plantar calcaneal spurs. The bones are mildly demineralized. No acute fracture or dislocation. CT Ab/Pelvis: COMPARISON: No comparisons TECHNIQUE: Axial images were obtained without oral or IV contrast. Lack of contrast limits solid organ and vascular assessment. The [id number] spans the entirety of the system partially obscuring uppermost abdomen and lung bases. Coronal reformatted images were obtained and reviewed. All CT scans are performed using dose optimization technique as appropriate and may include automated exposure control or mA/KV adjustment according to patient size. FINDINGS: The lower lung sen are clear. Imaged portions of the liver and spleen show no suspicious findings on non- contrast imaging.Cholelithiasis. The pancreas and adrenal glands are normal. No pathologic lymphadenopathy in the abdomen or pelvis. No urinary tract stones or obstructive uropathy. Atrophy left kidney is noted. No bowel obstruction, free air, free fluid or abscess. The appendix is not identified as a discrete structure, however, no secondary findings of appendicitis are identified. There is a Callahan catheter in place. Moderate lumbosacral degenerative changes. IMPRESSION: No urinary tract stones or obstructive uropathy. Cholelithiasis. Medical Problem List: Weakness secondary to atrial fibrillation with RVR with history of chronic atrial fibrillation on chronic anticoagulation therapy Acute on chronic diastolic CHF Hypertension Hyperlipidemia Diabetes mellitus type 2 Hypothyroidism GERD Diabetic neuropathy Right foot pain likely sprained ankle Brief History of Present Illness: 66-year-old female with multiple medical problems including diabetes, hypertension, chronic renal disease stage III, atrial fibrillation, hypothyroidism. Patient reported generalized weakness. Patient found to have A. fib with RVR. Creatinine slightly abnormal. Patient was admitted for further evaluation and treatment. Hospital Course: Patient presented with generalized weakness likely secondary to atrial fibrillation with RVR. Patient with history of atrial fibrillation on chronic anticoagulation therapy. Patient also presented with acute on chronic diastolic CHF. The patient was treated in the course of her stay. Patient was seen by nephrology and cardiology. Patient responded well to diuresis. Patient with underlying hypertension, hyperlipidemia. Medications were adjusted during the course of her stay. Aldactone discontinued. Diltiazem was decreased to 120 mg daily. Her metoprolol XL also decreased from 100 to 25 mg 1 pill twice daily. Patient has done well. At discharge patient without significant shortness of breath. Patient on room air. Blood pressure within normal range. Heart rate well controlled. Patient remains in atrial fibrillation. At discharge the patient will continue with aspirin 81 mg daily, Eliquis 5 mg 1 pill twice daily, diltiazem 120 mg at bedtime and Toprol-XL 25 mg 1 pill twice daily. As mentioned above medications have been adjusted. Recommend to discontinue Aldactone and isosorbide mononitrate at discharge as the patient has done well without these medications. Recommend follow-up with cardiology within 1 week to follow-up his hospitalization. Recommend follow-up with PCP within 1 week to follow-up his hospitalization. Recommend to recheck labBMP within 1 week. As mentioned above patient with acute on chronic diastolic CHF. Diuresis was provided. At discharge patient may continue with Lasix 40 mg daily. Aldactone has been discontinued at discharge. Recommend to continue 1500 cc/day fluid restriction and low-salt diet. If her weight increases by more than 5 pounds or shortness of breath is noted Aldactone may need to be restarted or further adjustment in Lasix may be required. This can be done with the help of her PCP or cardiology. Patient with chronic renal disease. Stage III noted. Overall stable. Nephrology was consulted. No further adjustment in medication required. Future medications may need to be renally dosed. Medication adjustments have been done as above. Recommend follow-up with nephrology within 1 week to follow-up his hospitalization. Recommend to recheck labBMP within 1 week. Patient with hyperlipidemia. At discharge patient will continue with Lipitor 80 mg daily. Patient with hypothyroidism. At discharge patient will continue with levothyroxine 137 mcg daily. Patient with diabetic neuropathy. At discharge she will continue with gabapentin 300 mg 1 pill 3 times a day. Patient with diabetes mellitus type 2. Blood sugar well controlled. At discharge she will continue with glipizide ER 5 mg 1 pill twice daily. Recommend to maintain blood sugar less than 140 fasting and less than 200 after meals. May need to hold medication if with hypoglycemia. Education provided. Recommend to recheck hemoglobin A1c every 3 months to monitor her progress. Patient had swelling to the right ankle region. Fall precautions in place. X- ray shows no evidence of fracture. Bone spurs noted. If pain persists recommend podiatry evaluation as an outpatient. Patient with underlying GERD. At discharge she will continue with Protonix 40 mg daily. Patient will be provided supplementation including Nepro 1 can twice daily as needed. Patient was given antibiotic therapy for possible UTI. Urine culture at discharge shows mixed darling. No need for antibiotic therapy at discharge. Vital Signs/Physical Exam: Temp Pulse Resp BP Pulse Ox 96.8 F 89 20 137/69 98 07/26/21 08:00 07/26/21 09:31 07/26/21 08:00 07/26/21 09:31 07/26/21 08:00 General: Alert, In no apparent distress, Oriented x3, Cooperative HEENT: Atraumatic Neck: Supple Respiratory: Clear to auscultation bilaterally, Normal air movement, Other (Patient on room air) Cardiovascular: Other (Atrial fibrillation rate controlled) Gastrointestinal: Normal bowel sounds, No ascites, No tenderness, No masses, No rebound Integumentary: Other (Mild swelling to the right ankle region. Patient able to ambulate) Neurological: Normal speech, Normal strength at 5/5 x4 extr, Normal tone, Normal affect Laboratory Data at Discharge: WBC 9.50 K/uL (4.3-10.9) D 07/25/21 11:27 Hgb 10.5 g/dL (12.0-15.0) L 07/25/21 11:27 Hct 31.4 % (36.0-45.0) L 07/25/21 11:27 Plt Count 260 K/uL (152-406) 07/25/21 11:27 PT 21.9 SECONDS (9.5-12.5) H 07/24/21 05:29 INR 1.89 07/24/21 05:29 APTT 39.0 SECONDS (24.3-36.9) H 07/24/21 05:29 Sodium 144 mmol/L (136-145) 07/25/21 11:27 Potassium 3.7 mmol/L (3.5-5.1) 07/25/21 11:27 BUN 56 mg/dL (7-18) H 07/25/21 11:27 Creatinine 2.15 mg/dL (0.55-1.3) H 07/25/21 11:27 Glucose 188 mg/dL (74-106) H 07/25/21 11:27 Uric Acid 11.3 mg/dL (2.6-6.0) H 07/24/21 05:29 Phosphorus 3.1 mg/dL (2.5-4.9) 07/24/21 05:29 Magnesium 2.3 mg/dL (1.8-2.4) 07/25/21 11:27 Total Bilirubin 0.4 mg/dL (0.2-1.0) 07/24/21 05:29 AST 11 U/L (15-37) L 07/24/21 05:29 ALT 22 U/L (12-78) 07/24/21 05:29 Alkaline Phosphatase 71 U/L (45-117) 07/24/21 05:29 Lipase 217 U/L (73-393) 07/23/21 10:36 Home Medications: Atorvastatin Calcium [Lipitor] 80 mg PO BEDTIME 01/26/21 Gabapentin 300 mg PO TID 01/26/21 Metoprolol Succinate [Toprol Xl*] 100 mg PO BID 01/26/21 Furosemide [Lasix*] 40 mg PO DAILY #30 tab 01/28/21 Levothyroxine Sodium [Levothyroxine] 137 mcg PO [id number] 01/28/21 Apixaban [Eliquis] 1 tab PO BID 07/24/21 Aspirin [Aspirin EC 81 MG] 1 tab PO DAILY 07/24/21 Diltiazem HCl [Dilt-Xr] 120 mg PO BEDTIME 07/24/21 Glipizide [Glipizide ER] 5 mg PO BID 07/24/21 Pantoprazole [Protonix Tab*] 40 mg PO DAILY 07/24/21 Metoprolol Succinate [Toprol Xl] 25 mg PO BID #60 tab.er.24h 07/26/21 Nepro Shake [Nepro*] 237 ml PO BID #60 can 07/26/21 New Medications: Nepro Shake [Nepro*] 237 ml PO BID #60 can Metoprolol Succinate [Toprol Xl] 25 mg PO BID #60 tab.er.24h Physician Discharge Instructions: Patient presented with generalized weakness likely secondary to atrial fibrillation with RVR. Patient with history of atrial fibrillation on chronic anticoagulation therapy. Patient also presented with acute on chronic diastolic CHF. The patient was treated in the course of her stay. Patient was seen by nephrology and cardiology. Patient responded well to diuresis. Patient with underlying hypertension, hyperlipidemia. Medications were adjusted during the course of her stay. Aldactone discontinued. Diltiazem was decreased to 120 mg daily. Her metoprolol XL also decreased from 100 to 25 mg 1 pill twice daily. Patient has done well. At discharge patient without significant shortness of breath. Patient on room air. Blood pressure within normal range. Heart rate well controlled. Patient remains in atrial fibrillation. At discharge the patient will continue with aspirin 81 mg daily, Eliquis 5 mg 1 pill twice daily, diltiazem 120 mg at bedtime and Toprol-XL 25 mg 1 pill twice daily. As mentioned above medications have been adjusted. Recommend to discontinue Aldactone and isosorbide mononitrate at discharge as the patient has done well without these medications. Recommend follow-up with cardiology within 1 week to follow-up his hospitalization. Recommend follow-up with PCP within 1 week to follow-up his hospitalization. Recommend to recheck labBMP within 1 week. As mentioned above patient with acute on chronic diastolic CHF. Diuresis was provided. At discharge patient may continue with Lasix 40 mg daily. Aldactone has been discontinued at discharge. Recommend to continue 1500 cc/day fluid restriction and low-salt diet. If her weight increases by more than 5 pounds or shortness of breath is noted Aldactone may need to be restarted or further adjustment in Lasix may be required. This can be done with the help of her PCP or cardiology. Patient with chronic renal disease. Stage III noted. Overall stable. Nephrology was consulted. No further adjustment in medication required. Future medications may need to be renally dosed. Medication adjustments have been done as above. Recommend follow-up with nephrology within 1 week to follow-up his hospitalization. Recommend to recheck labBMP within 1 week. Patient with hyperlipidemia. At discharge patient will continue with Lipitor 80 mg daily. Patient with hypothyroidism. At discharge patient will continue with levothyroxine 137 mcg daily. Patient with diabetic neuropathy. At discharge she will continue with gabapenti n 300 mg 1 pill 3 times a day. Patient with diabetes mellitus type 2. Blood sugar well controlled. At discharge she will continue with glipizide ER 5 mg 1 pill twice daily. Recommend to maintain blood sugar less than 140 fasting and less than 200 after meals. May need to hold medication if with hypoglycemia. Education provided. Recommend to recheck hemoglobin A1c every 3 months to monitor her progress. Patient had swelling to the right ankle region. Fall precautions in place. X- ray shows no evidence of fracture. Bone spurs noted. If pain persists recommend podiatry evaluation as an outpatient. Patient with underlying GERD. At discharge she will continue with Protonix 40 mg daily. Patient will be provided supplementation including Nepro 1 can twice daily as needed. Patient was given antibiotic therapy for possible UTI. Urine culture at discharge shows mixed darling. No need for antibiotic therapy at discharge. Diet: ADA Activity: Ad sarah Followup: Unknown,U [Primary Care Provider] - Time spent managing pt's care (in minutes): 55
[2021-07-26 12:19] VITALS: BP 138/89; TEMP 97.3
--- NOTE | 2021-07-27 07:12 | ECHO ---
HEIGHT: 5 ft 4 in WEIGHT: 195 lb 14.4 oz DATE OF STUDY: 07/26/[address]: Russ Valles MD 2-DIMENSIONAL: YES M.MODE: YES DOPPLER: YES COLOR FLOW: YES TDS: YES PORTABLE: NO DEFINITY: NO BUBBLE STUDY: NO DIAGNOSIS: LEFT VENTRICULAR THROMBUS CARDIAC HISTORY: CATHERIZATION: NO SURGERY: YES PROSTHETIC VALVE: NO PACEMAKER: NO MEASUREMENTS (cm) DIASTOLIC (NORMALS) SYSTOLIC (NORMALS) IVSd 0.9 (0.6-1.2) LA Diam 3.2 (1.9-4.0) LVEF % LVIDd 5.2 (3.5-5.7) LVIDs 4.5 (2.0-3.5) %FS % LVPWd 0.9 (0.6-1.2) Ao Diam 2.0 (2.0-3.7) 2 DIMENSIONAL ASSESSMENT: RIGHT ATRIUM: LEFT ATRIUM: RIGHT VENTRICLE: LEFT VENTRICLE: TRICUSPID VALVE: MITRAL VALVE: PULMONIC VALVE: AORTIC VALVE: PERICARDIAL EFFUSION: AORTIC ROOT: LEFT VENTRICULAR WALL MOTION: DOPPLER/COLOR FLOW: COMMENTS: VERY LIMITED STUDY DUE TO POOR WINDOWS. LEFT VENTRICULAR EJECTION FRACTION APPEARS MODERATELY TO SEVERELY DEPRESSED. RECOMMEND CONTRAST STUDY. TECHNOLOGIST: Peter TRUJILLO
--- NOTE | 2021-07-27 19:38 | P.PN ---
Date of Service: 07/27/21 Vital Signs Temp Pulse Resp BP Pulse Ox 97.3 F 126 H 19 138/89 98 07/26/21 12:00 07/26/21 12:00 07/26/21 12:00 07/26/21 12:00 07/26/21 12:00 Microbiology Results 07/23/21 10:00 Clean Catch Urine [place] Count - Final BETWEEN 10,000 & 100,000 CFU/ML 07/23/21 10:00 Clean Catch Urine - Final MIXED LEOLA. 07/23/21 08:50 Blood - Blood Aerobic Blood Culture - Preliminary No growth in 24 hours. 07/23/21 08:50 Blood - Blood Anaerobic Blood Culture - Preliminary No growth in 24 hours. 07/23/21 08:35 Blood - Blood Aerobic Blood Culture - Preliminary No growth in 24 hours. 07/23/21 08:35 Blood - Blood Anaerobic Blood Culture - Preliminary No growth in 24 hours. Assessment/ Plan: Nephrology Progress Note Feeling better. No chest pain or dyspnea No acute events overnight Vitals, medications blood work and imaging reviewed in the chart General: Alert, In no apparent distress, Oriented x3 HEENT: Atraumatic Neck: Supple Respiratory: Clear to auscultation bilaterally Cardiovascular: No edema, Irregular heart rate/rhythm Gastrointestinal: Non-distended, Tenderness Musculoskeletal: No clubbing, No contractures Integumentary: No rashes, No cyanosis Neurological: Normal speech Laboratory Data (last 24 hrs) 07/23/21 10:36: Sodium 137, Potassium 4.1, BUN 79 H, Creatinine 2.78 H, Glucose 189 H, Magnesium 2.4, Total Bilirubin 0.4, AST 19, ALT 26, Alkaline Phosphatase 76, Lipase 217 07/23/21 08:35: PT 20.0 H, INR 1.73 07/23/21 08:35: WBC 16.20 H, Hgb 12.6, Hct 38.1, Plt Count 313 Imagings Data: EXAM DESCRIPTION: CT - Stone Protocol - 07/23/2021 12:59 pm CLINICAL HISTORY: Flank pain. FLANK PAIN;Pain COMPARISON: No comparisons TECHNIQUE: Axial images were obtained without oral or IV contrast. Lack of contrast limits solid organ and vascular assessment. The [id number] spans the entirety of the system partially obscuring uppermost abdomen and lung bases. Coronal reformatted images were obtained and reviewed. All CT scans are performed using dose optimization technique as appropriate and may include automated exposure control or mA/KV adjustment according to patient size. FINDINGS: The lower lung sen are clear. Imaged portions of the liver and spleen show no suspicious findings on non- contrast imaging.Cholelithiasis. The pancreas and adrenal glands are normal. No pathologic lymphadenopathy in the abdomen or pelvis. No urinary tract stones or obstructive uropathy. Atrophy left kidney is noted. No bowel obstruction, free air, free fluid or abscess. The appendix is not identified as a discrete structure, however, no secondary findings of appendicitis are identified. There is a Callahan catheter in place. Moderate lumbosacral degenerative changes. IMPRESSION: No urinary tract stones or obstructive uropathy. Cholelithiasis. EXAM DESCRIPTION: RAD - Chest Single View - 07/23/2021 8:54 am CLINICAL HISTORY: COUGH COMPARISON: February 19, 2021 TECHNIQUE: AP portable chest image was obtained 07/23/2021 8:54 am . FINDINGS: No peripheral mass or consolidation. Interstitial pattern matches comparison. Heart size is upper normal, magnified by portable technique. No vascular engorgement. CABG surgical changes are noted. No measurable pleural effusion and no pneumothorax. No acute bone finding. Surgical hardware is present at the right humeral head and proximal shaft. There additional advanced degenerative changes at the right shoulder joint. No acute aortic findings suspected. IMPRESSION: No acute cardiopulmonary process. Above detailed findings are not clearly different from the February 19 exam. Conclusions/Impression: REBECCA may be due to hypovolemia CKD III with proteinuria -No NSAIDs -Discontinue gentle IVF HTN with CKD -Continue Metoprolol and Imdur DM II with CKD -Recommend RISS Mild malnutrition -Continue Nepro
--- NOTE | 2021-08-01 08:10 | CON ---
Date of Consultation: 07/26/2021 Reason For Consultation: Atrial fibrillation, shortness of breath, and weakness. History Of Present Illness: She was admitted to Dr. Valles for further evaluation and workup. She did not have any chest pain. Denied any nausea, vomiting, diaphoresis, PND, orthopnea, or pedal edema. She actually denied any palpitation or syncope. Denied any fever or chills. In the emergency room, she was noted to have an issue of atrial fibrillation at a rate of 125. Otherwise, the rest of the vital signs were stable. Before I saw her, she was actually seen by Dr. Fish. She had some abdom inal pain. Past Medical History: Include dyslipidemia, coronary artery disease, neuropathy, atrial fibrillation , diabetes, chronic congestive heart failure that is diastolic, and hypothyroidism. Review of Systems: Negative. Social History: Negative. Family History: Noncontributory. Physical Examination: Vital Signs: Her blood pressure was 130/80, her pulse was 126 in atrial fibrillation, and her temper ature was 97.3. HEENT: Negative. Neck: Supple with no bruit. Chest: Clear to auscultation and percussion. Cardiac: Revealed atrial fibrillation. Abdomen: Benign. Extremities: Revealed no clubbing, cyanosis, or edema. Laboratory Data: She had a creatinine of 2.15, hemoglobin is 10.5. Her chloride is 111, glucose is 238. Her BNP was 13,616. Her chest x-ray was negative. She had an abdominal CT that showed gallsto ne. Echocardiogram that was done on the day that I saw her was technically difficult with what appea red to be moderately to severe depressed ejection fraction. Impression And Plan: Atrial fibrillation, unresponsive to sotalol. She has taken now sotalol 80 b.i .d. I think we need to go up on her sotalol dose. At home, she was not sure she was taking diltiaze m and metoprolol for her atrial fibrillation. I think we need to consider stopping the diltiazem. C ontinue with metoprolol. Continue the sotalol, but she may be a better candidate for amiodarone cons idering her ejection fraction. I would definitely continue with Eliquis. She needs to have her Lasi x continued. Her other problem is coronary artery disease that is stable. She is on aspirin. She i s on Lipitor. She is on a beta-edward. She is on Plavix. She has diabetes, controlled on glipizid e. Hypothyroidism is controlled on Synthroid. She has some reflux issue, she has been controlled on Protonix. She has renal insufficiency that Dr. Perry saw and Dr. Fish is following. She is d efinitely improved since admission. Her last medications list include Eliquis, aspirin, Lipitor, dil tiazem, Lasix, isosorbide, glipizide, levothyroxine, metoprolol, pantoprazole, and spironolactone. I would like to see Ms. Degroot in the office in the near future. I think she may be a candidate for s witching to amiodarone and considering a direct current cardioversion after that. I will discuss the case further with Dr. Valles. JUSTINE/RENNY Voice ID: [id number] Report ID: [id number]
== END 2021-07-26 13:21 | disposition home or self-care (01) | DRG 291 ==
LOC: ER 07:57 → 2ND 15:56
PROVIDERS: ADMIT Hospitalist; ATTEND Hospitalist
DX: I13.0 Hypertensive heart and chronic kidney disease with heart failure and stage 1 through stage 4 chronic kidney disease, or unspecified chronic kidney disease (principal); I50.33 Acute on chronic diastolic (congestive) heart failure; N17.0 Acute kidney failure with tubular necrosis; N39.0 Urinary tract infection, site not specified; E46 Unspecified protein-calorie malnutrition; I24.0 Acute coronary thrombosis not resulting in myocardial infarction; I48.91 Unspecified atrial fibrillation; N18.30 Chronic kidney disease, stage 3 unspecified; E11.22 Type 2 diabetes mellitus with diabetic chronic kidney disease; E11.40 Type 2 diabetes mellitus with diabetic neuropathy, unspecified; K21.9 Gastro-esophageal reflux disease without esophagitis; E03.9 Hypothyroidism, unspecified; S93.401A Sprain of unspecified ligament of right ankle, initial encounter; X58.XXXA Exposure to other specified factors, initial encounter; Z68.33 Body mass index [BMI] 33.0-33.9, adult; R53.1 Weakness; R29.810 Facial weakness; Z79.01 Long term (current) use of anticoagulants; Z20.822 Contact with and (suspected) exposure to COVID-19
CPT/HCPCS: 0240U; 36415; 51702; 70450; 71045; 74176; 76377; 80048; 80053; 80076; 81001; 81003; 82947; 83605; 83690; 83735; 83880; 84100; 84439; 84443; 84484; 84550; 85025; 85610; 85730; 87040; 87086; 87088; 93005; 93306; 96361; 96374; 97161; 99285; J0696; J2270; J7030; J7040; P9047

== ENCOUNTER 2021-11-02 13:24 | Observation (INO) | payer OTHER ==
--- OUTSIDE RECORDS SUMMARY | 2021-11-02 13:40 | XMS REPORT | Continuity of Care Document ---
:1955 Author Organization [facility] t Address [address] [place] [address] Care Team Providers Name Role Phone Unavailable Unavailable Unavailable Problems Condition Condition Condition Status Onset Resolution Last Treating Co mments Source Name Details Category Date Date Treatment Clinician Date CHEST Diagnosis Active 2018-102019-07-29 Mem oria PAIN, CAD 0-24 10:24:00 l CHEST 00:00: [place] PAIN, CAD 00 Active 07/25/2019 [facility] CHEST PAIN Diagnosis Active 2018-102019-07-25 Memoria 0-24 18:00:00 l CHEST 00:00: [place] PAIN 00 Active 07/25/2019 [facility] I25.10 Diagnosis Active 2019-03-01 Mem oria 2-14 11:17:00 l I25.10 00:00: [place] 00 Active 11/15/2018 [facility] M79.609 - Diagnosis Active 2018-05-24 Memoria PAIN IN 8-20 14:50:00 l UNSPECIFIE M79.609 00:01: Her fuentes D LIMB - PAIN IN 00 UNSPECIFIE D LIMB Active 05/21/2018 [facility] [place] Transient Problem Active 2021-07-02 Me moria ischemic 21:48:41 l attack [place]istan (disorder) Transient ischemic attack (disorder) Active Problem 07/02/2021 Medical [facility] [place], [facility] Diabetes Problem Active 2019-07-28 Mem oria mellitus 23:14:58 l type 2 Diabetes Abhinav n (disorder) mellitus type 2 (disorder) Active Problem 07/28/2019 Medical [facility] [place], [facility] Anemia Problem Active 2021-07-02 Memor ia (disorder) 21:48:41 l Anemia [place] (disorder) Active Problem 07/02/2021 Medical Group,[facility] Callosity Problem Active 2021-07-02 Me moria (disorder) 21:48:41 l [place] Callosity (disorder) Active Problem 07/02/2021 Medical Group,[facility] Chronic Problem Active 2021-07-02 Jose Roberto jesus obstructiv 21:48:41 l e lung Chronic [place] disease obstructiv (disorder) e lung disease (disorder) Active Problem 07/02/2021 Medical Group,[facility] Chronic Problem Active 2021-07-02 Jose Roberto jesus systolic 21:48:41 l heart Chronic [place] failure systolic (disorder) heart failure (disorder) Active Problem 07/02/2021 Medical Group,[facility] Diabetic Problem Active 2021-07-02 Mem oria neuropathy 21:48:41 l (disorder) Diabetic He rmann neuropathy (disorder) Active Problem 07/02/2021 Medical Group,[facility] Hyperlipid Problem Active 2021-07-02 M emoria emia 21:48:41 l (disorder) Abhinav n Hyperlipid emia (disorder) Active Problem 07/02/2021 Medical Group,[facility] Hypertensi Problem Active 2020-07-13 M emoria ve heart 00:08:42 l disease [place] (disorder) Hypertensi ve heart disease (disorder) Active Problem 07/13/2020 Medical Group History of Problem Active 2021-07-02 M emoria - atrial 21:48:41 l fibrillati History Her fuentes on of - (context-d atrial ependent fibrillati category) on (context-d ependent category) Active Problem 07/02/2021 Medical Group Hypertensi Problem Active 2021-07-02 M emoria ve heart 21:48:41 l AND renal [place] disease Hypertensi (disorder) ve heart AND renal disease (disorder) Active Problem 07/02/2021 Medical Group ATHSCL Diagnosis Active 2019-07-29 Mem oria HEART 10:24:00 l DISEASE OF ATHSCL Herm isma [place] [facility] CORONARY DISEASE OF [place] CORONARY Active [facility] CHEST Diagnosis Active 2019-07-29 Mem oria PAIN, 10:24:00 l UNSPECIFIE CHEST Clarissa nn D PAIN, UNSPECIFIE D Active [facility] Atheroscle Problem 2018-12-11 M emoria rosis of 13:04:54 l eek [place] arteries Atheroscle of rosis of extremitie eek s with arteries intermitte of nt extremitie claudicati s with on, left intermitte leg nt claudicati on, left leg 12/11/2018 [facility] Hallux Problem 2018-12-11 Memor ia valgus 13:04:54 l (acquired) Hallux Herm isma , valgus unspecifie (acquired) d foot , unspecifie d foot 12/11/2018 [facility] Disorder Problem Resolve 2021-07-02 Me moria of d 21:48:41 l implantabl Disorder He rmann e of defibrilla implantabl tor e (disorder) defibrilla tor (disorder) Resolved Problem 07/02/2021 Medical [facility] [place], [facility] [place], [facility] Atrial Problem Active 2020-10-09 Memor ia fibrillati 00:57:01 l on Atrial [place] (disorder) fibrillati on (disorder) Active Problem 10/09/2020 [facility] [place] Chronic Problem Active 2021-07-02 Jose Roberto jesus kidney 21:48:41 l disease Chronic 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 type (disorder) 2 diabetes mellitus (disorder) Active Problem 07/02/2021 Medical Group,[facility] [place], [facility] [place], [facility] Chronic Problem Active 2020-07-13 Jose Roberto jesus renal 00:08:42 l failure Chronic Abhinav n syndrome renal (disorder) failure syndrome (disorder) Active Problem 07/13/2020 Medical Group,[facility] [place], [facility] [place], [facility] Coronary Problem Active 2021-07-02 Mem oria arterioscl 21:48:41 l erosis Coronary Abhinav n (disorder) arterioscl erosis (disorder) Active Problem 07/02/2021 Medical Group,[facility] [place], [facility] [place], [facility] Eczema Problem Active 2021-07-02 Memor ia (disorder) 21:48:41 l Eczema [place] (disorder) Active Problem 07/02/2021 Medical Group,[facility] [place],[facility], [facility] Hyperchole Problem Active 2019-05-26 M emoria sterolemia 23:35:57 l (disorder) Abhinav n Hyperchole sterolemia (disorder) Active Problem 05/26/2019 Medical Group,[facility] [place],[facility], [facility] Hypertensi Problem Active 2021-07-02 M emoria ve 21:48:41 l disorder, [place] systemic Hypertensi arterial ve (disorder) disorder, systemic arterial (disorder) Active Problem 07/02/2021 Medical Group,[facility] [place],[facility], [facility] Hypothyroi Problem Active 2021-07-02 M emoria dism 21:48:41 l (disorder) Abhinav n Hypothyroi dism (disorder) Active Problem 07/02/2021 Medical Group,[facility] [place] Morbid Problem Active 2019-07-28 Memor ia obesity 23:14:58 l (disorder) Morbid Herm isma obesity (disorder) Active Problem 07/28/2019 Medical Group,[facility] [place],[facility], [facility] Myocardial Problem Active 2019-05-26 M emoria infarction 23:35:57 l (disorder) Abhinav n Myocardial infarction (disorder) Active Problem 05/26/2019 Medical Group,[facility] [place], [facility] [place], [facility] Neuropathy Problem Active 2019-05-26 M emoria (disorder) 23:35:57 l [place] Neuropathy (disorder) Active Problem 05/26/2019 Medical Group,[facility] [place],[facility] Peripheral Problem Active 2020-02-16 M emoria vascular 23:21:56 l disease [place] (disorder) Peripheral vascular disease (disorder) Active Problem 02/16/2020 [facility] Group[facility] [place] Pulmonary Problem Active 2019-05-26 Me moria emphysema 23:35:57 l (disorder) Abhinav n Pulmonary emphysema (disorder) Active Problem 05/26/2019 Medical Group,[facility] [place], [facility] [place] History of Past Illness Condition Condition Condition Status Onset Resolution Last Treating Co mments Source Name Details Category Date Date Treatment Clinician Date Encounter Problem 2018-12-13 2018-12-13 Memoria for 06-02 11:15:02 11:15:02 l screening 05:17: [place] mammogram Encounter 04 for for malignant screening neoplasm mammogram of breast for malignant neoplasm of breast 06/02/2018 12/13/2018 [facility] [place] Atheroscle Problem 2018-12-11 2018-12-11 Memoria rosis of 06-09 13:04:54 13:04:54 l eek 04:54: [place] arteries Atheroscle 40 of rosis of extremitie eek s with arteries intermitte of nt extremitie claudicati s with on, right intermitte leg nt claudicati on, right leg 06/09/2018 12/11/2018 [facility] [place] Allergies, Adverse Reactions, Alerts Allergy Allergy Status Severity Reaction(s) Onset Inactive Treating Comm ents Source Name Type Date Date Clinician lisinopr lisinopr Active Memori a il il l [place] Valium Valium Active Memoria l [place] Social History Social Habit Start Date Stop Date Quantity Comments Source Social History 2018-10-17 2018-10-17 Ricki ordaz 20:17:11 20:17:11 Medications Ordered Filled Start Stop Current Ordering Indication Dosage Frequency Signature Comments Components Source Medication Medication Date Date Medication? 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 MANAGER, Weight Hydralazine 0 Yes = 1 tab, Me moria Hydrochlori 7-02 PO, BID, # l de 25 MG 22:39: 180 tab, 3 Her fuentes Oral Tablet 00 Refill(s), Pharmacy: [facility], 162.56, cm, 11/12/20 9:05:00 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, Height, 94.773, kg, 11/12/20 9:05:00 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 MANAGER, Weight clopidogrel 2020-0 Yes = 1 tab, Me moria 75 mg oral 3-28 PO, Daily, l tablet 03:08: # 30 tab, Abhinav n 00 4 Refill(s), Pharmacy: [facility], 162.56, cm, 11/12/20 9:05:00 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 MANAGER, Height, 94.773, kg, 11/12/20 9:05:00 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 MANAGER, Weight Hydralazine 0 Yes = 1 tab, Me moria Hydrochlori 2-10 PO, BID, # l de 25 MG 06:02: 180 tab, 3 Her fuentes Oral Tablet 00 Refill(s), Pharmacy: [facility], 162.56, cm, 09/10/20 10:03:00 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 MANAGER, Height, 93.636, kg, 09/10/20 10:03:00 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 MANAGER, Weight atorvastati 0 Yes = 1 tab, Me moria n 40 mg 1-05 PO, l oral tablet 14:26: Bedtime, # [place] 00 30 tab, 10 Refill(s), Pharmacy: [facility], 162.56, cm, 09/10/20 10:03:00 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 MANAGER, Height, 93.636, kg, 09/10/20 10:03:00 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 MANAGER, Weight isosorbide 2020-1 Yes 60 mg = 1 Me moria mononitrate 2-10 tab, PO, l 60 mg oral 19:00: QAM, # 90 He rmann tablet, 00 tab, 3 extended Refill(s), release Pharmacy: [facility], 162.56, cm, 09/10/20 10:03:00 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 MANAGER, Height, 93.636, kg, 09/10/20 10:03:00 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 MANAGER, Weight isosorbide 2019-10 No 60 mg = 1 Me moria mononitrate 2-07 tab, PO, l 60 mg oral 22:20: QAM, # 30 He rmann tablet, 00 tab, 0 extended Refill(s), release Pharmacy: [id number], 162.56, cm, 08/12/20 8:58:00 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 MANAGER, Height, 93.352, kg, 08/12/20 8:58:00 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 MANAGER, Weight rifaMPIN 2019-10 Yes 600 mg = 2 Mem oria 300 mg oral 1-11 cap, PO, l capsule 15:03: Daily, 0 Abhinav n 00 Refill(s) ethambutol 2019-10 Yes 400 mg = 1 M emoria 400 mg oral 1-11 tab, PO, l tablet 15:03: Daily, 0 [place] 00 Refill(s) clarithromy 2019-10 Yes 500 mg = 1 Memoria steven 500 mg 1-11 tab, PO, l oral tablet 15:03: BID, 0 Herm isma 00 Refill(s) levothyroxi 2019-10 Yes 137 Memori a ne 137 mcg 0-08 microgram l (0.137 mg) 19:29: = 1 tab, Her fuentes oral tablet 00 PO, Daily, # 90 tab, 1 Refill(s), Pharmacy: [facility], 162.56, cm, 05/19/20 7:36:00 CDT, Height, 94.716, kg, 05/19/20 7:36:00 CDT, Weight valacyclovi Yes 1 gm = 1 Me moria r 1000 MG 8-18 tab, PO, l Oral Tablet 12:57: Q8H, X 7 He rmann [Valtrex] 00 day, # 21 tab, 0 Refill(s), Pharmacy: [facility], 162.56, cm, 05/19/20 7:36:00 CDT, Height, 94.716, kg, 05/19/20 7:36:00 CDT, Weight gabapentin Yes 300 mg = 1 M emoria 300 MG Oral 8-05 cap, PO, l Capsule 18:30: TID, # 90 Clarissa nn 00 cap, 6 Refill(s), Pharmacy: [facility], 162.56, cm, 03/18/20 13:49:00 CDT, Height, 95.966, kg, 03/18/20 13:49:00 CDT, Weight sotalol 120 2020-0 Yes 120 mg = 1 Memoria mg oral 7-02 tab, PO, l tablet 06:34: Daily, # [place] 00 90 tab, 3 Refill(s), Pharmacy: [facility] 162.56, cm, 03/18/20 13:49:00 CDT, Height, 95.966, kg, 03/18/20 13:49:00 CDT, Weight gabapentin 2019-0 Yes 300 mg = 1 M emoria 300 MG Oral 6-17 cap, PO, l Capsule 19:21: TID, # 90 Clarissa nn 00 cap, 1 Refill(s), Pharmacy: [facility], 162.56, cm, 03/18/20 13:49:00 CDT, Height, 95.966, kg, 03/18/20 13:49:00 CDT, Weight Glipizide 5 2019-0 Yes 5 mg = 1 Me moria MG Oral 6-17 tab, PO, l Tablet 19:20: BID-Before Clarissa nn 00 Meals, # 180 tab, 1 Refill(s), Pharmacy: [facility], 162.56, cm, 03/18/20 13:49:00 CDT, Height, 95.966, kg, 03/18/20 13:49:00 CDT, Weight gabapentin 2019-0 Yes 300 mg = 1 M emoria 300 MG Oral 5-15 cap, PO, l Capsule 17:01: TID, # 90 Clarissa nn 00 cap, 0 Refill(s), Pharmacy: [facility] atorvastati 2020-0 Yes 40 mg = 1 M emoria n 40 MG 3-31 tab, PO, l Oral Tablet 13:20: Bedtime, # [place] [Lipitor] 00 90 tab, 2 Refill(s), Pharmacy: [facility] Furosemide 2020-0 Yes 20 mg = 1 Me moria 20 MG Oral 3-31 tab, PO, l Tablet 13:20: Daily, PRN Clarissa nn 00 Edema, # 90 tab, 3 Refill(s), Pharmacy: [facility] levothyroxi 2019-0 Yes 137 Memori a ne 137 mcg 3-27 microgram l (0.137 mg) 22:03: = 1 tab, Her fuentes oral tablet 00 PO, Daily, # 90 tab, 1 Refill(s), Pharmacy: [facility] Fluticasone 2019-0 Yes 50 Memori a propionate 3-27 microgram l 0.05 22:01: = 1 spray, Tristan MG/ACTUAT 00 NASAL, Metered BID, # 1 Dose Nasal ea, 6 [place] Refill(s), [Flonase] Pharmacy: [place] [id number] isosorbide 0 Yes 60 mg = 1 Me moria mononitrate 3-23 tab, PO, l 60 mg oral 20:04: QAM, # 90 He rmann tablet, 00 tab, 2 extended Refill(s), release Pharmacy: [facility] losartan 50 0 Yes 50 mg = 1 M emoria mg oral 3-23 tab, PO, l tablet 20:04: BID, # 180 Clarissa nn 00 tab, 2 Refill(s), Pharmacy: [facility] metoprolol 2019-0 Yes 25 mg = 1 Me moria 25 mg oral 3-23 tab, PO, l tablet, 20:04: Daily, # Abhinav n extended 00 90 tab, 2 release Refill(s), Pharmacy: [facility] Hydralazine 2019-0 Yes 25 mg = 1 M emoria Hydrochlori 3-23 tab, PO, l de 25 MG 20:04: BID, # 180 Her fuentes Oral Tablet 00 tab, 2 Refill(s), Pharmacy: [facility] clopidogrel 2019-0 Yes 75 mg = 1 M emoria 75 mg oral 3-23 tab, PO, l tablet 20:04: Daily, # [place] 00 90 tab, 2 Refill(s), Pharmacy: [facility] isosorbide 2018-10 Yes 60 mg = 1 Me moria mononitrate 2-06 tab, PO, l 60 mg oral 13:54: QAM, # 90 He rmann tablet, 00 tab, 3 extended Refill(s), release Pharmacy: [facility] losartan 50 2018-10 Yes 50 mg = 1 M emoria mg oral 2-06 tab, PO, l tablet 13:54: BID, # 180 Clarissa nn 00 tab, 3 Refill(s), Pharmacy: [facility] metoprolol 2018-10 Yes 25 mg = 1 Me moria 25 mg oral 2-06 tab, PO, l tablet, 13:54: BID, # 180 Herm isma extended 00 tab, 3 release Refill(s), Pharmacy: [facility] Aspirin 325 2018-10 Yes 325 mg = 1 Memoria MG Oral 2-04 tab, PO, l Tablet 14:51: Daily, # [place] 00 30 tab, 0 Refill(s) lovastatin 2018-10 No 10 mg = 1 Me moria 10 mg oral 2-02 tab, PO, l tablet 16:45: Bedtime, # Clarissa nn 00 30 tab, 0 Refill(s) Symbicort 2018-10 Yes 2 puff, Memor ia 160/4.5 2-02 INHALATION l inhalation 16:45: , BID, # 6 H ermann aerosol 00 gm, 0 with Refill(s) adapter Fluticasone 2018-10 Yes 1 spray, Me moria propionate 2-02 NASAL, l 0.05 16:45: BID, # 16 [place] MG/ACTUAT 00 gm, 0 Metered Refill(s) Dose Nasal [place] [Flonase] Furosemide 2018-10 No 20 mg, Memor ia 20 MG Oral 0 Route: PO, l Tablet 15:00: Drug form: Clarissa nn [Lasix] 00 TAB, Daily, Dosing Weight 95.011, kg, Start date: 07/27/19 10:00:00 CDT, Duration: 30 day, Stop date: 08/26/19 9:00:00 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 MANAGER Calcium 2018-10 No 600 mg, Memoria Carbonate Route: PO, l 14:00: Drug form: [place] 00 TAB, Daily, Dosing Weight 95.011, kg, Start date: 07/27/19 9:00:00 CDT, Duration: 30 day, Stop date: 08/25/19 9:00:00 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 MANAGER Lipitor 2018-10 No Notes: Memoria 0-26 (Same as: l 02:00: Lipitor) Tristan 00 metoprolol 2018-10 No 25 mg, Memor ia extended 0-25 Route: PO, l release 22:00: Drug form: Herm isma ERTAB, BID, Start date: 07/26/19 17:00:00 CDT, Duration: 30 day, Stop date: 08/25/19 9:00:00 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 MANAGER losartan 50 2018-10 Yes 50 mg = 1 M emoria mg oral 0-25 tab, PO, l tablet 20:06: BID, # 60 Abhinav n 00 tab, 0 Refill(s), Pharmacy: [facility] metoprolol 2018-10 Yes 25 mg = 1 Me moria 25 mg oral 0-25 tab, PO, l tablet, 20:06: BID, # 60 Clarissa nn extended 00 tab, 0 release Refill(s), Pharmacy: [facility] gabapentin 2018-10 No Notes: Memor ia 0-25 (Same as: l 18:00: Neurontin) Tristan 00 Imdur 2018-10 No Notes: Memoria 0-25 (Same l 15:00: as:Imdur) "Do Not Crush" Take on empty stomach/ full glass of water. Do not crush Aspirin 2018-10 No Notes: Do Memor ia 0-25 not crush l 15:00: or chew. (Same As: Ecotrin) Plavix 2018-10 No Notes: Memoria 0-25 (Same As: l 15:00: Plavix) Atrial 2018-10 No 120 mg, Memoria Fibrillatio 0-25 Route: PO, l n Sotalol 15:00: Daily, Abhinav n Hydrochlori 00 Dosing de 120 MG Weight Oral Tablet 95.011, kg, Start date: 07/26/19 10:00:00 CDT, Duration: 30 day, Stop date: 08/25/19 9:00:00 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 MANAGER Furosemide 2018-10 No Notes: Memor ia 20 MG Oral 0-25 (Same as: l Tablet 15:00: Lasix) [Lasix] 00 May cause GI upset. Give with food or milk. sotalol 2018-10 No Notes: Memoria 0-25 (Same As: l 15:00: Betapace) Os-Don 500 2018-10 No Notes: Memor ia 0-25 500mg l 14:42: elemental [place] 00 calcium = 1250mg calcium carbonate. Contains 500mg elemental calcium. (Same As: OsCal 500) Thyroxine 2018-10 No Notes: Memori a 0-25 Take 1 l 14:39: hour [place] 00 before or 2 hours after meal; Enteral feeds may interefere with the absorption of this medication . (Same as:Levothr oid) Losartan 2018-10 No Notes: Memoria 0-25 (Same as: l 14:09: Cozaar) [place] 00 metoprolol 2018-10 No Notes: Memor ia extended 0-25 (Same as: l release 14:08: Toprol XL) Herm isma Do Not Crush Losartan 2018-10 No 50 mg, Memoria 0-25 Route: PO, l 14:00: Drug form: [place] 00 TAB, BID, Dosing Weight 95.011, kg, Start date: 07/26/19 9:00:00 CDT, Duration: 30 day, Stop date: 08/24/19 17:00:00 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 MANAGER Dextrometho 2018-10 No Notes: Jose Roberto jesus rphan 0-25 (dextromet l Hydrobromid 07:02: horphan-gu [place] e 2 MG/ML / 00 aifenesin Guaifenesin 10-100/5 20 MG/ML ml LIQ) Oral (Same as: Solution Robitussin -DM) Hydralazine 2018-10 No Notes: Jose Roberto jesus Hydrochlori 0-25 (Same as: l de 25 MG 02:00: Apresoline Her fuentes Oral Tablet 00 ) May interfere w/enteral feedings Take With Food. metoprolol 2018-10 No Notes: Memor ia extended 0-25 (Same as: l release 02:00: Toprol XL) Herm isma Do Not Crush Saline 2018-10 No Notes: Memoria Flush 0.9% 0-25 Same as: l 02:00: BD Posiflush Sterile heparin 2018-10 No Notes: Memoria 0-25 porcine l 02:00: heparin Sotalol 2018-10 Yes 120 mg, Memoria 0-25 PO, Daily l 01:50: [place] 00 Glipizide 5 2018-10 Yes 5 mg = 1 Me moria MG Oral 0-25 tab, PO, l Tablet 01:50: BID-Before Clarissa nn 00 Meals Thyroxine 2018-10 Yes 137 Memoria 0-25 microgram, l 01:50: PO, Daily [place] 00 gabapentin 2018-10 Yes 300 mg, Jose Roberto jesus 0-25 PO, TID l 01:50: [place] 00 Losartan 2018-10 No 50 mg, PO, Mem oria 0-25 Daily l 01:50: [place] 00 Hydralazine 2018-10 Yes 25 mg, PO, Memoria 0-25 BID l 01:50: [place] magnesium 2018-10 Yes 250 mg = 1 Me moria oxide 250 0-25 tab, PO, l mg oral 01:50: Daily [place] tablet 00 metoprolol 2018-10 No 25 mg = 1 Me moria 25 mg oral 0-25 tab, PO, l tablet, 01:50: Daily [place] extended 00 release Lipitor 2018-10 Yes 40 mg, PO, Jose Roberto jesus 0-25 Bedtime l 01:50: [place] 00 Calcium 2018-10 Yes 600 mg = 1 Jose Roberto jesus Carbonate 0-25 tab, PO, l 1500 MG 01:50: Daily [place] Oral Tablet 00 [Caltrate] albuterol 2018-10 Yes 2 puff, Memor ia 90 mcg/inh 0-25 INHALATION l inhalation 01:50: , Q6H, PRN H ermann aerosol 00 Wheezing Albuterol 2018-10 No Notes: SEE Me moria 0.83 MG/ML 0-24 RT l Inhalant 23:51: DOCUMENTAT Her fuentes Solution 00 ION (Same as: Proventil) Hydralazine 2018-10 No Notes: Jose Roberto jesus 0-24 (Same as: l 23:40: Apresoline ) Push over 5 minutes Nitroglycer 2018-10 No Notes: Jose Roberto jesus in 0-24 (Same l 23:36: as:Nitroqu ick, Nitrostat) "Do Not Crush" Sublingual tablet Ondansetron 2018-10 No Notes: Jose Roberto jesus 0-24 (Same as: l 23:36: Zofran) Saline 2018-10 No Notes: Memoria Flush 0.9% 0-24 Same as: l 23:36: BD Posiflush Sterile Saline 2018-10 No Notes: Memoria Flush 0.9% 0-24 preservati l 17:12: ve free. [place] 00 sotalol 120 2018- Yes 120 mg = 1 Memoria mg oral 0-09 tab, PO, l tablet 00:33: Daily, # [place] 00 90 tab, 3 Refill(s), Pharmacy: [facility] Glipizide 5 Yes 5 mg = 1 Me moria MG Oral 8-29 tab, PO, l Tablet 20:59: Daily, # [place] 42 90 tab, 1 Refill(s), Pharmacy: [facility] gabapentin Yes 300 mg = 1 M emoria 300 MG Oral 8-29 cap, PO, l Capsule 20:58: TID, # 270 Herm isma 44 cap, 1 Refill(s), Pharmacy: [facility] Levothroid Yes 137 Memoria 137 mcg 8-29 microgram l (0.137 mg) 20:58: = 1 tab, Her fuentes oral tablet 06 PO, Daily, # 90 tab, 1 Refill(s), Pharmacy: [facility] Glipizide 5 No 5 mg = 1 Me moria MG Oral 8-28 tab, PO, l Tablet 18:38: Daily, X [place] 00 90 day, # 90 tab, 1 Refill(s), Pharmacy: [facility] Levothroid No 137 Memoria 137 mcg 8-28 microgram l (0.137 mg) 18:33: = 1 tab, Her fuentes oral tablet 00 PO, Daily, X 30 day, # 30 tab, 6 Refill(s), Pharmacy: [facility] gabapentin No 300 mg = 1 M emoria 300 MG Oral 8-28 cap, PO, l Capsule 18:33: TID, X 30 Clarissa nn 00 day, # 90 cap, 6 Refill(s), Pharmacy: [facility] Fluticasone 2018- Yes 2 spray, Me moria propionate 8-26 NASAL, l 0.05 18:04: Daily, in [place] MG/ACTUAT 00 each Metered nostril, # Dose Nasal 16 gm, 3 [place] Refill(s), [Flonase] Pharmacy: [facility] losartan 50 2018- Yes 50 mg = 1 M emoria mg oral 8-22 tab, PO, l tablet 21:35: Daily, # [place] 00 90 tab, 3 Refill(s), Pharmacy: [facility] Hydralazine Yes 25 mg = 1 M emoria Hydrochlori 6-06 tab, PO, l de 25 MG 17:41: BID, # 180 Her fuentes Oral Tablet 00 tab, 3 Refill(s), Pharmacy: [facility] metoprolol Yes 25 mg = 1 Me moria 25 mg oral 6-06 tab, PO, l tablet, 17:41: Daily, # Abhinav n extended 00 90 tab, 3 release Refill(s), Pharmacy: [facility] atorvastati Yes 40 mg = 1 M emoria n 40 MG 6-06 tab, PO, l Oral Tablet 17:41: Bedtime, # [place] [Lipitor] 00 90 tab, 3 Refill(s), Pharmacy: [facility] gabapentin Yes 300 mg = 1 M emoria 300 MG Oral 5-30 cap, PO, l Capsule 17:41: TID, # 90 Clarissa nn 00 cap, 1 Refill(s), Pharmacy: [facility] amoxicillin Yes 500 mg = 1 Memoria 500 mg oral 5-30 cap, PO, l capsule 17:40: TID, X 7 Abhinav n 00 day, # 21 cap, 0 Refill(s), Pharmacy: [facility] Hydralazine Yes 25 mg = 1 M emoria Hydrochlori 5-10 tab, PO, l de 25 MG 14:54: BID, # 60 Herm isma Oral Tablet 00 tab, 0 Refill(s), Pharmacy: [facility] Levothroid Yes 137 Memoria 137 mcg 5-10 microgram l (0.137 mg) 14:54: = 1 tab, Her fuentes oral tablet 00 PO, Daily, # 30 tab, 0 Refill(s), Pharmacy: [facility] lovastatin Yes 20 mg = 1 Me moria 20 mg oral 4-16 tab, PO, l tablet 16:45: Bedtime, # Clarissa nn 10 90 tab, 0 Refill(s), Pharmacy: [facility] Guaifenesin Yes 100 mg = 5 Memoria 20 MG/ML 4-16 ml, PO, l Oral 15:27: Q12H, PRN [place] Solution 00 for cough, X 10 day, # 120 mL, 0 Refill(s), Pharmacy: [facility] Fluticasone Yes 1 spray, Me moria propionate 4-16 NASAL, l 0.05 15:27: BID, # 16 [place] MG/ACTUAT 00 gm, 0 Metered Refill(s), Dose Nasal Pharmacy: [place] [facility]Flonase[facility] LOVASTATIN No = 1 tab, Mem oria 20MG TAB 4-12 PO, l 22:05: Bedtime, # [place] 52 30 tab, Pharmacy: [facility] benzonatate Yes 200 mg = 1 Memoria 200 MG Oral 4-03 cap, PO, l Capsule 17:01: TID, X 10 Clarissa nn [Tessalon] 00 day, # 30 cap, 0 Refill(s), Pharmacy: [facility] CoQ10 Yes 300 mg, Memoria 2-14 PO, Daily, l 17:24: 0 [place] 00 Refill(s) magnesium 2018- Yes 250 mg = 1 Me moria oxide 250 2-14 tab, PO, l mg oral 17:24: Daily, 0 Abhinav n tablet 00 Refill(s) gabapentin Yes 300 mg = 1 M emoria 300 MG Oral 2-14 cap, PO, l Capsule 17:24: TID, # 270 Herm isma 00 cap, 0 Refill(s) lovastatin No 20 mg = 1 Me moria 20 mg oral 2-01 tab, PO, l tablet 21:50: Bedtime, # Clarissa nn 00 30 tab, 0 Refill(s), Pharmacy: [facility] sotalol 120 2018- Yes 120 mg = 1 Memoria mg oral 2-01 tab, PO, l tablet 21:50: Daily, # [place] 00 30 tab, 0 Refill(s), Pharmacy: [facility] cilostazol No 100 mg = 1 M emoria 100 mg oral 1-28 tab, PO, l tablet 16:05: BID, # 60 Abhinav n 00 tab, 1 Refill(s), Pharmacy: [id number] losartan 50 0 No 50 mg = 1 M emoria mg oral 1-28 tab, PO, l tablet 16:05: Daily, # [place] 00 30 tab, 1 Refill(s), Pharmacy: [id number] Triamcinolo No 1 appl, Mem oria ne 1-16 TOP, l Acetonide 1 20:45: Daily, PRN [place] MG/ML 00 For rash, Topical X 14 day, Cream # 15 gm, 0 Refill(s) Furosemide Yes 20 mg = 1 Me moria 20 MG Oral 1-16 tab, PO, l Tablet 20:19: Daily, 0 [place] 00 Refill(s) Glipizide 5 Yes 10 mg = 2 M emoria MG Oral 1-16 tab, PO, l Tablet 20:19: Daily, 0 [place] 00 Refill(s) clopidogrel Yes 75 mg = 1 M emoria 75 mg oral 1-16 tab, PO, l tablet 20:19: Daily, 0 [place] 00 Refill(s) sotalol 120 No 120 mg = 1 Memoria mg oral 1-16 tab, PO, l tablet 20:19: BID, # 180 Clarissa nn 00 tab, 0 Refill(s) cilostazol No 100 mg = 1 M emoria 100 mg oral 1-16 tab, PO, l tablet 20:19: BID, # 180 Clarissa nn 00 tab, 3 Refill(s) isosorbide Yes 60 mg = 1 Me moria mononitrate 1-16 tab, PO, l 60 mg oral 20:19: QAM, 0 Clarissa nn tablet, 00 Refill(s) extended release Ranitidine Yes 150 mg = 1 M emoria 150 MG Oral 1-16 tab, PO, l Tablet 20:19: BID, 0 [place] 00 Refill(s) Ranitidine 0 No 0 Memoria 1-16 Refill(s) l 20:19: [place] 00 amitriptyli No 25 mg = 1 M emoria ne 25 mg 1-16 tab, PO, l oral tablet 20:19: Bedtime, 0 [place] 00 Refill(s) losartan 50 2018- Yes 50 mg = 1 M emoria mg oral 1-16 tab, PO, l tablet 20:19: Daily, 0 [place] 00 Refill(s) gabapentin No 300 mg = 1 M emoria 300 MG Oral 1-16 cap, PO, l Capsule 20:19: TID, 0 [place] 00 Refill(s) Caltrate 0 No PO, Daily, Mem oria 600 Plus -16 0 l 20:19: Refill(s) [place] 00 Levothroid No 137 Memoria 137 mcg 1-16 microgram l (0.137 mg) 20:19: = 1 tab, Her fuentes oral tablet 00 PO, Daily, 0 Refill(s) Alendronate 0 No PO, Daily, Memoria 1-16 0 l 20:19: Refill(s) Hydralazine No 25 mg = 1 M emoria Hydrochlori 1-16 tab, PO, l de 25 MG 20:19: BID, # 90 Herm isma Oral Tablet 00 tab, 3 Refill(s) lovastatin No 40 mg = 1 Me moria 40 mg oral 1-16 tab, PO, l tablet 20:19: Daily, 0 [place] 00 Refill(s) Aspirin Yes 81 mg, 0 Memori a 1-16 Refill(s) l 20:19: [place] 00 CoQ10 Yes 100 mg, Memoria 1-16 PO, Daily, l 20:19: 0 [place] 00 Refill(s) Immunizations Ordered Immunization Filled Immunization Date Status Commen ts Source Name Name [id number]- 2020-12-06 Completed Jose Roberto rial [id number] 17:44:23 Herm isma <sup>1, 2</sup> [id number]- 2020-11-15 Completed Jose Roberto rial [id number] 17:44:32 Herm isma <sup>3, 4</sup> influenza virus 2020-08-12 Completed [facility] vaccine, 17:21:00 [place] inactivated<sup>5</s up> influenza virus 2020-08-12 Completed [facility] vaccine, 17:21:00 [place] inactivated<sup>1</s up> influenza virus 2020-08-12 Completed [facility] vaccine, 17:21:00 [place] inactivated<sup>1</s up> pneumococcal 2019-09-02 Completed [facility] 13-valent vaccine 20:15:00 [place] influenza virus 2019-09-02 Completed [facility] vaccine, inactivated 19:20:00 Herm isma diphtheria/pertussis 2018-03-14 Completed Jose Roberto rial , acel/tetanus 00:00:00 [place] adult<sup>1</sup> diphtheria/pertussis 2018-03-14 Completed Jose Roberto rial , acel/tetanus 00:00:00 [place] adult<sup>6</sup> diphtheria/pertussis 2018-03-14 Completed Jose Roberto rial , acel/tetanus 00:00:00 [place] adult<sup>2</sup> Vital Signs Vital Name Observation Time Observation Value Comments Source Systolic (mm Hg) 2020-11-12 15:05:00 Jose Roberto rial [place] Diastolic (mm Hg) 2020-11-12 15:05:00 Mem orial [place] Heart Rate 2020-11-12 15:05:00 [facility] [place] Respitory Rate 2020-11-12 15:05:00 Memori al [place] Height 2020-11-12 15:05:00 162.56 cm [facility] [place] Weight 2020-11-12 15:05:00 [facility] [place] BMI Calculated 2020-11-12 15:05:00 Memori al [place] Systolic (mm Hg) 2020-09-10 15:41:00 Jose Roberto rial [place] Diastolic (mm Hg) 2020-09-10 15:41:00 Mem orial [place] Heart Rate 2020-09-10 15:41:00 [facility] [place] Height 2020-09-10 15:41:00 162.56 cm [facility] [place] Weight 2020-09-10 15:41:00 [facility] [place] BMI Calculated 2020-09-10 15:41:00 Memori al [place] Systolic (mm Hg) 2020-08-12 14:58:00 Jose Roberto rial [place] Diastolic (mm Hg) 2020-08-12 14:58:00 Mem orial [place] Heart Rate 2020-08-12 14:58:00 [facility] [place] Respitory Rate 2020-08-12 14:58:00 Memori al [place] Height 2020-08-12 14:58:00 162.56 cm [facility] [place] Weight 2020-08-12 14:58:00 [facility] [place] BMI Calculated 2020-08-12 14:58:00 Memori al [place] Systolic (mm Hg) 2020-05-19 12:36:00 Jose Roberto rial [place] Diastolic (mm Hg) 2020-05-19 12:36:00 Mem orial [place] Heart Rate 2020-05-19 12:36:00 [facility] [place] Respitory Rate 2020-05-19 12:36:00 Memori al [place] Height 2020-05-19 12:36:00 162.56 cm [facility] [place] Weight 2020-05-19 12:36:00 [facility] [place] BMI Calculated 2020-05-19 12:36:00 Memori al [place] Systolic (mm Hg) 2020-03-18 18:49:00 Jose Roberto rial [place] Diastolic (mm Hg) 2020-03-18 18:49:00 Mem orial [place] Heart Rate 2020-03-18 18:49:00 [facility] [place] Respitory Rate 2020-03-18 18:49:00 Memori al [place] Height 2020-03-18 18:49:00 162.56 cm [facility] [place] Weight 2020-03-18 18:49:00 [facility] [place] BMI Calculated 2020-03-18 18:49:00 Memori al [place] Systolic (mm Hg) 2019-09-04 14:40:00 Jose Roberto rial [place] Diastolic (mm Hg) 2019-09-04 14:40:00 Mem orial [place] Heart Rate 2019-09-04 14:40:00 [facility] [place] Height 2019-09-04 14:40:00 162.56 cm [facility] [place] Weight 2019-09-04 14:40:00 [facility] [place] BMI Calculated 2019-09-04 14:40:00 Memori al [place] Systolic (mm Hg) 2019-09-02 16:57:00 Jose Roberto rial [place] Diastolic (mm Hg) 2019-09-02 16:57:00 Mem orial [place] Systolic (mm Hg) 2019-09-02 16:31:00 Jose Roberto rial [place] Diastolic (mm Hg) 2019-09-02 16:31:00 Mem orial [place] Heart Rate 2019-09-02 16:31:00 [facility] [place] Respitory Rate 2019-09-02 16:31:00 Memori al [place] Temperature Oral (F) 2019-09-02 16:31:00 98.3 F [facility] [place] Height 2019-09-02 16:31:00 162.56 cm [facility] [place] Weight 2019-09-02 16:31:00 [facility] [place] BMI Calculated 2019-09-02 16:31:00 Memori al [place] Temperature Oral (F) 2019-07-26 20:12:00 98.6 F [facility] [place] Heart Rate 2019-07-26 20:12:00 [facility] [place] Systolic (mm Hg) 2019-07-26 20:12:00 Jose Roberto rial [place] Diastolic (mm Hg) 2019-07-26 20:12:00 Mem orial [place] Temperature Oral (F) 2019-07-26 15:11:00 98.3 F [facility] [place] Heart Rate 2019-07-26 15:11:00 [facility] [place] Systolic (mm Hg) 2019-07-26 15:11:00 Jose Roberto rial [place] Diastolic (mm Hg) 2019-07-26 15:11:00 Mem orial [place] Temperature Oral (F) 2019-07-26 13:50:00 98.2 F [facility] [place] Heart Rate 2019-07-26 13:50:00 [facility] [place] Respitory Rate 2019-07-26 13:50:00 Memori al [place] Systolic (mm Hg) 2019-07-26 13:50:00 Jose Roberto rial [place] Diastolic (mm Hg) 2019-07-26 13:50:00 Mem orial [place] Respitory Rate 2019-07-26 08:49:00 Memori al [place] Height 2019-07-26 07:58:00 162.56 cm [facility] [place] Weight 2019-07-26 07:58:00 [facility] [place] BMI Calculated 2019-07-26 07:58:00 Memori al [place] Respitory Rate 2019-07-26 04:35:00 Memori al [place] BMI Calculated 2019-07-25 23:36:00 Memori al [place] BMI Calculated 2019-07-25 21:04:00 Memori al [place] Height 2019-07-25 17:08:00 162.56 cm [facility] [place] Weight 2019-07-25 17:08:00 [facility] [place] Systolic (mm Hg) 2019-07-08 14:11:00 Jose Roberto rial [place] Diastolic (mm Hg) 2019-07-08 14:11:00 Mem orial [place] Heart Rate 2019-07-08 14:11:00 [facility] [place] Height 2019-07-08 14:11:00 162.56 cm [facility] [place] Weight 2019-07-08 14:11:00 [facility] [place] BMI Calculated 2019-07-08 14:11:00 Memori al [place] Systolic (mm Hg) 2019-05-28 03:40:00 Jose Roberto rial [place] Diastolic (mm Hg) 2019-05-28 03:40:00 Mem orial [place] Systolic (mm Hg) 2019-05-27 17:30:00 Jose Roberto rial [place] Diastolic (mm Hg) 2019-05-27 17:30:00 Mem orial [place] Heart Rate 2019-05-27 17:30:00 [facility] [place] Respitory Rate 2019-05-27 17:30:00 Memori al [place] Temperature Oral (F) 2019-05-27 17:30:00 98.0 F [facility] [place] Height 2019-05-27 17:30:00 154.94 cm [facility] [place] Weight 2019-05-27 17:30:00 [facility] [place] BMI Calculated 2019-05-27 17:30:00 Memori al [place] Weight 2019-03-07 14:15:00 [facility] [place] BMI Calculated 2019-03-07 14:15:00 Memori al [place] Height 2019-03-07 14:15:00 162.56 cm [facility] [place] Heart Rate 2019-03-07 14:15:00 [facility] [place] Systolic (mm Hg) 2019-03-07 14:15:00 Jose Roberto rial [place] Diastolic (mm Hg) 2019-03-07 14:15:00 Mem orial [place] Weight 2019-02-28 14:57:00 [facility] [place] Height 2019-02-28 14:57:00 154.94 cm [facility] [place] BMI Calculated 2019-02-28 14:57:00 Memori al [place] Temperature Oral (F) 2019-02-28 14:57:00 97.8 F [facility] [place] Respitory Rate 2019-02-28 14:57:00 Memori al [place] Heart Rate 2019-02-28 14:57:00 [facility] [place] Systolic (mm Hg) 2019-02-28 14:57:00 Jose Roberto rial [place] Diastolic (mm Hg) 2019-02-28 14:57:00 Mem orial [place] Respitory Rate 2019-01-24 15:12:00 Memori al [place] Weight 2019-01-24 15:12:00 [facility] [place] Height 2019-01-24 15:12:00 162.56 cm [facility] [place] BMI Calculated 2019-01-24 15:12:00 Memori al [place] Systolic (mm Hg) 2019-01-24 15:12:00 Jose Roberto rial [place] Diastolic (mm Hg) 2019-01-24 15:12:00 Mem orial [place] Heart Rate 2019-01-24 15:12:00 [facility] [place] Weight 2019-01-15 14:46:00 [facility] [place] Height 2019-01-15 14:46:00 162.56 cm [facility] [place] BMI Calculated 2019-01-15 14:46:00 Memori al [place] Respitory Rate 2019-01-15 14:46:00 Memori al [place] Temperature Oral (F) 2019-01-15 14:46:00 97.8 F [facility] [place] Heart Rate 2019-01-15 14:46:00 [facility] [place] Systolic (mm Hg) 2019-01-15 14:46:00 Jose Roberto rial [place] Diastolic (mm Hg) 2019-01-15 14:46:00 Mem orial [place] Weight 2019-01-03 14:36:00 [facility] [place] BMI Calculated 2019-01-03 14:36:00 Memori al [place] Height 2019-01-03 14:36:00 162.56 cm [facility] [place] Heart Rate 2019-01-03 14:36:00 [facility] [place] Systolic (mm Hg) 2019-01-03 14:36:00 Jose Roberto rial [place] Diastolic (mm Hg) 2019-01-03 14:36:00 Mem orial [place] BMI Calculated 2019-01-02 16:18:00 Memori al [place] Weight 2019-01-02 16:18:00 [facility] [place] Height 2019-01-02 16:18:00 162.56 cm [facility] [place] Systolic (mm Hg) 2019-01-02 16:18:00 Jose Roberto rial [place] Diastolic (mm Hg) 2019-01-02 16:18:00 Mem orial [place] Heart Rate 2019-01-02 16:18:00 [facility] [place] Temperature Oral (F) 2019-01-02 16:18:00 97.8 F [facility] [place] Respitory Rate 2019-01-02 16:18:00 Memori al [place] Weight 2018-12-03 18:52:00 [facility] [place] BMI Calculated 2018-12-03 18:52:00 Memori al [place] Height 2018-12-03 18:52:00 162.56 cm [facility] [place] Weight 2018-11-15 17:17:00 [facility] [place] Height 2018-11-15 17:17:00 162.56 cm [facility] [place] BMI Calculated 2018-11-15 17:17:00 Memori al [place] Systolic (mm Hg) 2018-11-15 17:17:00 Jose Roberto rial [place] Diastolic (mm Hg) 2018-11-15 17:17:00 Mem o[facility] [place] Heart Rate 2018-11-15 17:17:00 [facility] [place] Systolic (mm Hg) 2018-11-02 21:19:00 Jose Roberto rial [place] Diastolic (mm Hg) 2018-11-02 21:19:00 Mem orial [place] Heart Rate 2018-11-02 21:19:00 [facility] [place] Respitory Rate 2018-11-02 21:19:00 Memori al [place] Temperature Oral (F) 2018-11-02 21:19:00 97.4 F [facility] [place] Height 2018-11-02 21:19:00 162.56 cm [facility] [place] Weight 2018-11-02 21:19:00 [facility] [place] BMI Calculated 2018-11-02 21:19:00 Memori al [place] Systolic (mm Hg) 2018-10-17 21:39:00 Jose Roberto rial [place] Diastolic (mm Hg) 2018-10-17 21:39:00 Mem orial [place] Height 2018-10-17 19:45:00 165.1 cm [facility] [place] Weight 2018-10-17 19:45:00 [facility] [place] BMI Calculated 2018-10-17 19:45:00 Memori al [place] Heart Rate 2018-10-17 19:45:00 [facility] [place] Respitory Rate 2018-10-17 19:45:00 Memori al [place] Temperature Oral (F) 2018-10-17 19:45:00 97.9 F [facility] [place] Systolic (mm Hg) 2018-10-17 19:45:00 Jose Roberto [place] Diastolic (mm Hg) 2018-10-17 19:45:00 Mem o[facility] [place] Procedures Procedure Date / Time Performing Clinician Source Performed Diabetic retinal eye 2021-02-25 05:00:00 Derek fulton [place] exam<sup>1</sup> Diabetic retinal eye 2021-01-14 05:00:00 Derek fulton [place] exam<sup>1, 2, 3</sup> Diabetic retinal eye 2020-10-02 00:00:00 Derek fulton [place] exam<sup>1, 2</sup> Mammogram - 2019-04-01 05:00:00 Ricki Farmer fuentes screening<sup>3, 4</sup> Cardiac catheterisation 2018-12-20 05:00:00 Jose Roberto Diasann Mammogram - 2018-05-26 05:00:00 [facility] Her fuentes screening<sup>2</sup> Colonoscopy 2015-10-02 06:00:00 [facility] Her fuentes CABG x 3 - Coronary artery 1992-10-02 06:00:00 emoriamber Diasann bypass grafts x 3 Total 1988-10-02 00:00:00 [facility] Her fuentes hysterectomy<sup>5</sup> ICD - Internal cardiac [facility] defibrillator procedure Encounters Start End Encounter Admission Attending Care Care Encounter Source Date/Time Date/Time Type Type Clinicians Facility Department ID 2021-06-29 2021-06-30 Between nullFlavo [facility] [id number] Memoria 16:17:24 16:17:24 Visit r Primary 51 l [facility] 2021-06-03 2021-06-05 Phone nullFlavo MG [id number] Memoria 19:14:03 04:59:59 Message r Primary 37 l [facility] 2021-04-27 2021-04-28 Between nullFlavo [facility] [id number] Memoria 14:28:58 14:28:58 Visit r Primary 49 l [facility] 2021-04-02 2021-04-04 Phone nullFlavo [facility] [id number] Memoria 15:11:04 04:59:59 Message r Cardiology 36 l [facility] 2021-03-25 2021-03-27 Phone nullFlavo MG [id number] Memoria 20:10:12 04:59:59 Message r Primary 35 l [facility] 2021-03-12 2021-03-12 [place] [id number] Memoria 13:00:00 13:00:00 Pre-Reg r Primary 24 l [facility] 2020-12-25 2020-12-27 Phone nullFlavo MG [id number] Memoria 17:29:39 04:59:59 Message r Cardiology 34 l [facility] 2020-11-12 2020-11-13 [place] [id number] Memoria 15:00:00 05:59:59 r Primary 22 l [facility] 2020-11-10 2020-11-12 Phone nullFlavo MG [id number] Memoria 15:10:38 05:59:59 Message r Cardiology 33 l [facility] 2020-10-05 2020-10-07 Phone nullFlavo MG [id number] Memoria 20:55:01 05:59:59 Message r Cardiology 30 l [facility] 2020-09-10 2020-09-11 [place] [id number] Memoria 16:10:00 05:59:59 r Cardiology 23 l [facility] 2020-09-07 2020-09-09 Phone nullFlavo MG [id number] Memoria 19:17:47 05:59:59 Message r Cardiology 29 l [facility] 2020-09-01 2020-09-03 Phone nullFlavo MG [id number] Memoria 15:44:30 05:59:59 Message r Primary 28 l [facility] 2020-08-21 2020-08-21 [place] [id number] Memoria 20:15:00 20:15:00 Pre-Reg r Primary 20 l [facility] 2020-08-20 2020-08-21 Between nullFlavo MG [id number] Memoria 13:26:37 13:26:37 Visit r Primary 39 l [facility] 2020-08-12 2020-08-13 [place] [id number] Memoria 15:30:00 05:59:59 r Primary 21 l [facility] 2020-07-09 2020-07-11 Phone nullFlavo MG [id number] Memoria 13:22:44 04:59:59 Message r Primary 27 l [facility] 2020-05-19 2020-05-20 [place] [id number] Memoria 12:45:00 04:59:59 r Primary 19 l [facility] 2020-05-06 2020-05-08 Phone nullFlavo MG [id number] Memoria 17:48:35 04:59:59 Message r Primary 26 l [facility] 2020-03-30 2020-04-01 Phone nullFlavo MG [id number] Memoria 16:34:59 04:59:59 Message r Cardiology 25 l [facility] 2020-03-18 2020-03-20 Phone nullFlavo MG [id number] Memoria 20:16:58 04:59:59 Message r Primary 24 l [facility] 2020-03-18 2020-03-19 [place] [id number] Memoria 18:45:00 04:59:59 r Primary 17 l [facility] 2020-03-18 2020-03-19 [place] [id number] Mem[facility] 18:45:00 04:59:59 r Primary 18 l [facility] 2020-02-13 2020-02-15 Phone nullFlavo MG [id number] Memoria 17:59:00 04:59:59 Message r Primary 23 l [facility] 2020-01-29 2020 Phone nullFlavo MG [id number] Memoria 19:29:03 04:59:59 Message r Cardiology 22 l [facility] 2020-01-21 2020-01-21 Ambulatory nullFlavo [facility] [id number] Memoria 13:40:00 13:40:00 Pre-Reg r Cardiology 16 l [facility] 2019-12-30 2020-01-01 Phone nullFlavo MG [id number] Memoria 19:02:38 04:59:59 Message r Cardiology 21 l [facility] 2019-12-27 2019-12-29 Phone nullFlavo [facility] [id number] Memoria 21:36:53 04:59:59 Message r Primary 20 l [facility] 2019-12-27 2019-12-29 Phone nullFlavo MG [id number] Memoria 21:36:01 04:59:59 Message r Primary 19 l [facility] 2019-12-24 2019-12-26 Phone nullFlavo [facility] [id number] Memoria 21:13:46 04:59:59 Message r Primary 18 l [facility] 2019-12-23 2019-12-25 Phone nullFlavo [facility] [id number] Memoria 16:38:08 04:59:59 Message r Cardiology 17 l [facility] 2019-12-02 2019-12-02 Ambulatory nullFlavo [facility] [id number] Memoria 15:15:00 15:15:00 Pre-Reg r Primary 15 l [facility] 2019-04-30 2019-11-11 NURSE nullFlavo [facility] [id number] Memoria 16:05:06 21:32:15 NAVIGATOR jenaro Hudson [address] 2019-09-06 2019-09-08 Phone nullFlavo [facility] [id number] Memoria 13:36:37 05:59:59 Message r Cardiology 16 l [facility] 2019-09-05 2019-09-07 Phone nullFlavo [facility] [id number] Memoria 16:15:29 05:59:59 Message r Cardiology 15 l [facility] 2019-09-04 2019-09-05 Outpatient nullFlavo [facility] [id number] Memoria 14:40:00 05:59:59 r Cardiology 14 l [facility] 2019-09-02 2019-09-03 Outpatient nullFlavo [facility] [id number] Memoria 17:15:00 05:59:59 r Primary 13 [facility] 2019-07-25 2019-07-27 Phone nullFlavo [facility] [id number] Memoria 15:42:53 04:59:59 Message r Cardiology 14 l [facility] 2019-07-25 2019-07-26 Observatio nullFlavo [facility] [id number] Memoria 16:56:46 23:30:00 n r [facility] 14 l [facility] 2019-07-18 2019-07-20 Outside nullFlavo MG [id number] Memoria 20:19:30 04:59:59 Medical r Primary 13 l [facility] 2019-07-17 2019-07-19 Outside nullFlavo MG [id number] [facility] 15:38:56 04:59:59 Medical r Primary 12 l [facility] 2019-07-09 2019-07-11 Phone nullFlavo MG [id number] [facility] 18:20:30 04:59:59 Message r Cardiology 11 l [facility] 2019-07-08 2019-07-09 [place] [id number] Mem[facility] 14:30:00 04:59:59 r Cardiology 11 l [facility] 2019-06-10 2019-06-12 Phone nullFlavo MG [id number] [facility] 13:52:31 04:59:59 Message r Cardiology 10 l [facility] 2019-05-27 2019-05-28 [place] [id number] [facility] 17:45:00 04:59:59 r Primary 12 l [facility] 2019-05-23 2019-05-25 Phone nullFlavo MG [id number] [facility] 13:57:39 04:59:59 Message r Cardiology 09 l [facility] 2019-04-24 2019-04-25 Outpt Diag nullFlavo [facility] [id number] Memoria 16:09:00 04:59:00 Services r Outpatient 05 l Imaging [facility] 2019-03-07 2019-03-08 [place] [id number] Mem[facility] 14:30:00 04:59:59 r Cardiology 07 l [facility] 2019-02-28 2019-03-01 [place] [id number] [facility] 15:00:00 04:59:59 r Primary 10 l [facility] 2019-02-28 2019-03-01 Outpt Diag nullFlavo [facility] [id number] Mem[facility] 15:40:00 04:59:00 Services r Outpatient 04 l Imaging [facility] 2019-02-21 2019-02-23 Outside nullFlavo [facility] [id number] [facility]oria 17:55:18 04:59:59 Medical r Primary 08 l [facility] 2019-02-08 2019-02-10 Phone nullFlavo MG [id number] [facility] 14:45:41 04:59:59 Message r Primary 07 l [facility] 2019-01-24 2019-01-25 [place] [id number] [facility] 15:00:00 04:59:59 r Primary 09 l [facility] 2019-01-15 2019-01-16 [place] [id number] [facility] 15:00:00 04:59:59 r Primary 08 l [facility] 2019-01-14 2019-01-16 Phone nullFlavo MG [id number] [facility] 21:32:00 04:59:59 Message r Cardiology 06 l [facility] 2019-01-10 2019-01-12 Outside nullFlavo MG [id number] [facility] 17:41:00 04:59:59 Medical r Primary 05 l [facility] 2019-01-04 2019-01-05 Between nullFlavo MG [id number] [facility] 14:40:16 14:40:16 Visit r Primary 09 l [facility] 2019-01-03 2019-01-04 [place] [id number] [facility] 14:50:00 04:59:59 r Cardiology 05 l [facility] 2019-01-02 2019-01-03 [place] [id number] [facility] 16:30:00 04:59:59 r Primary 06 l [facility] 2019-01-02 2019-01-03 Outpt Diag nullFlavo [facility] [id number] [facility] 17:19:00 04:59:00 Services r Outpatient 03 l [facility] - [facility]2018-12-20 2018-12-20 [place] [id number] [facility] 15:30:00 15:30:00 Pre-Reg r Cardiology 04 l [facility] 2018-12-07 2018-12-07 [place] [id number] [facility] 16:30:00 16:30:00 Pre-Reg r Primary 01 l [facility] 2018-12-04 2018-12-06 Phone nullFlavo [facility] [id number] [facility] 19:23:00 05:59:59 Message r Cardiology 04 l [facility] 2018-12-04 2018-12-06 Phone nullFlavo [facility] [id number] [facility] 19:05:00 05:59:59 Message r Cardiology 03 l [facility] 2018-12-03 2018-12-04 Outpatient nullFlavo [place] [id number] [facility] 18:33:00 05:59:00 r [place] [facility] 2018-11-27 2018-11-29 Outside nullFlavo [facility] [id number] [facility] 21:06:00 05:59:59 Medical r Primary 02 l [facility] 2018-11-22 2018-11-23 Outside nullFlavo [facility] [id number] [facility] 00:10:00 05:59:59 Medical r Primary 01 l [facility] 2018-11-21 2018-11-23 Phone nullFlavo [facility] [id number] [facility] 17:41:00 05:59:59 Message r Primary 00 l [facility] 2018-11-19 2018-11-20 Outpt Diag nullFlavo [facility] [id number] [facility] 19:51:00 05:59:00 Services r Outpatient 02 l Imaging [facility] 2018-11-15 2018-11-16 Outpatient nullFlavo [facility] [id number] [facility] 17:20:00 05:59:59 r Cardiology 03 l [facility] 2018-11-02 2018-11-03 Outpatient nullFlavo [facility] [id number] [facility] 21:30:00 05:59:59 r Primary 02 l [facility] 2018-10-17 2018-10-18 Outpatient nullFlavo [facility] [id number] [facility] 21:00:00 05:59:59 r Primary 00 l [facility] 2018-05-26 2018-05-27 Outpatient nullFlavo [facility] [id number] [facility] 15:24:00 04:59:00 r Outpatient 00 l Imaging [facility] 2018-05-24 2018-05-25 Outpt Diag nullFlavo [facility] [id number] [facility] 19:40:00 04:59:00 Services r Outpatient 01 l Imaging [facility] Results Test Description Test Time Test Comments Results Result Comments Source SPECIAL CHEMISTRY 2020-11-12 6.2 [facility] [place] 15:57:00 CHEM PANEL 2020-11-12 116 [facility] 15:57:00 CHEM PANEL 2020-11-12 31 [facility] 15:57:00 CHEM PANEL 2020-11-12 1.83 [facility] 15:57:00 CHEM PANEL 2020-11-12 28 [facility] 15:57:00 CHEM PANEL 2020-11-12 33 [facility] 15:57:00 CHEM PANEL 2020-11-12 17 [facility] 15:57:00 CHEM PANEL 2020-11-12 141 [facility] 15:57:00 CHEM PANEL 2020-11-12 4.4 [facility] [place] 15:57:00 CHEM PANEL 2020-11-12 105 [facility] 15:57:00 CHEM PANEL 2020-11-12 29 [facility] 15:57:00 CHEM PANEL 2020-11-12 9.5 [facility] 15:57:00 CHEM PANEL 2020-11-12 6.8 [facility] 15:57:00 CHEM PANEL 2020-11-12 4.1 [facility] 15:57:00 CHEM PANEL 2020-11-12 2.7 [facility] 15:57:00 CHEM PANEL 2020-11-12 1.5 [facility] 15:57:00 CHEM PANEL 2020-11-12 0.4 [facility] [place] 15:57:00 CHEM PANEL 2020-11-12 74 [facility] 15:57:00 CHEM PANEL 2020-11-12 20 [facility] [place] 15:57:00 CHEM PANEL 2020-11-12 23 [facility] 15:57:00 HEMATOLOGY 2020-11-12 29 [facility] 15:57:00 IMMUNOLOGY 2020-11-12 2.7 [facility] 15:57:00 IMMUNOLOGY 2020-11-12 <14 [facility] 15:57:00 CHEM PANEL 2020-08-12 108 [facility] 17:27:00 CHEM PANEL 2020-08-12 34 [facility] 17:27:00 CHEM PANEL 2020-08-12 2.04 [facility] 17:27:00 CHEM PANEL 2020-08-12 25 [facility] 17:27:00 CHEM PANEL 2020-08-12 29 [facility] 17:27:00 CHEM PANEL 2020-08-12 17 [facility] 17:27:00 CHEM PANEL 2020-08-12 142 [facility] 17:27:00 CHEM PANEL 2020-08-12 4.2 [facility] 17:27:00 CHEM PANEL 2020-08-12 104 [facility] 17:27:00 CHEM PANEL 2020-08-12 25 [facility] 17:27:00 CHEM PANEL 2020-08-12 9.6 [facility] 17:27:00 CHEM PANEL 2020-08-12 6.7 [facility] 17:27:00 CHEM PANEL 2020-08-12 4.1 [facility] 17:27:00 CHEM PANEL 2020-08-12 2.6 [facility] 17:27:00 CHEM PANEL 2020-08-12 1.6 [facility] 17:27:00 CHEM PANEL 2020-08-12 0.4 [facility] 17:27:00 CHEM PANEL 2020-08-12 64 [facility] 17:27:00 CHEM PANEL 2020-08-12 32 [facility] 17:27:00 CHEM PANEL 2020-08-12 38 [facility] 17:27:00 LIPIDS 2020-08-12 157 [facility] 17:27:00 LIPIDS 2020-08-12 52 [facility] 17:27:00 LIPIDS 2020-08-12 73 [facility] 17:27:00 LIPIDS 2020-08-12 89 [facility] 17:27:00 LIPIDS 2020-08-12 3.0 [facility] 17:27:00 LIPIDS 2020-08-12 105 [facility] 17:27:00 SPECIAL CHEMISTRY 2020-08-12 6.2 [facility] [place] 17:27:00 URINE CHEM 2020-08-12 172 [facility] 17:27:00 URINE CHEM 2020-08-12 18.8 [facility] 17:27:00 URINE CHEM 2020-08-12 109 [facility] 17:27:00 CHEM PANEL 2020-03-18 108 [facility] 19:42:00 CHEM PANEL 2020-03-18 35 [facility] 19:42:00 CHEM PANEL 2020-03-18 1.98 [facility] 19:42:00 CHEM PANEL 2020-03-18 26 [facility] 19:42:00 CHEM PANEL 2020-03-18 30 [facility] 19:42:00 CHEM PANEL 2020-03-18 18 [facility] 19:42:00 CHEM PANEL 2020-03-18 141 [facility] 19:42:00 CHEM PANEL 2020-03-18 4.8 [facility] 19:42:00 CHEM PANEL 2020-03-18 102 [facility] 19:42:00 CHEM PANEL 2020-03-18 29 [facility] 19:42:00 CHEM PANEL 2020-03-18 10.6 [facility] 19:42:00 CHEM PANEL 2020-03-18 6.3 [facility] 19:42:00 CHEM PANEL 2020-03-18 4.0 [facility] 19:42:00 CHEM PANEL 2020-03-18 2.3 [facility] 19:42:00 CHEM PANEL 2020-03-18 1.7 [facility] 19:42:00 CHEM PANEL 2020-03-18 0.3 [facility] 19:42:00 CHEM PANEL 2020-03-18 67 [facility] 19:42:00 CHEM PANEL 2020-03-18 16 [facility] 19:42:00 CHEM PANEL 2020-03-18 14 [facility] 19:42:00 LIPIDS 2020-03-18 183 [facility] 19:42:00 LIPIDS 2020-03-18 51 [facility] 19:42:00 LIPIDS 2020-03-18 230 [facility] 19:42:00 LIPIDS 2020-03-18 97 [facility] [place] 19:42:00 LIPIDS 2020-03-18 3.6 [facility] 19:42:00 LIPIDS 2020-03-18 132 [facility] 19:42:00 SPECIAL CHEMISTRY 2020-03-18 5.9 [facility] [place] 19:42:00 URINE CHEM 2020-03-18 65 [facility] 19:42:00 URINE CHEM 2020-03-18 8.9 [facility] 19:42:00 URINE CHEM 2020-03-18 137 [facility] 19:42:00 CARDIAC ENZYMES 2019-07-26 <0.02 [facility] [place] 07:03:00 CHEM PANEL 2019-07-26 133 [facility] 07:03:00 CHEM PANEL 2019-07-26 44 [facility] 07:03:00 CHEM PANEL 2019-07-26 1.69 [facility] 07:03:00 CHEM PANEL 2019-07-26 141 [facility] 07:03:00 CHEM PANEL 2019-07-26 3.8 [facility] 07:03:00 CHEM PANEL 2019-07-26 108 [facility] 07:03:00 CHEM PANEL 2019-07-26 28 [facility] 07:03:00 CHEM PANEL 2019-07-26 8.8 [facility] 07:03:00 CHEM PANEL 2019-07-26 9.3 [facility] 07:03:00 CHEM PANEL 2019-07-26 31 [facility] 07:03:00 HEMATOLOGY 2019-07-26 9.8 [facility] 07:03:00 HEMATOLOGY 2019-07-26 3.52 [facility] 07[facility]03:00 HEMATOLOGY 2019-07-26 11.0 [facility] 07:03:00 HEMATOLOGY 2019-07-26 32.9 [facility] 07:03:00 HEMATOLOGY 2019-07-26 93.4 [facility] 07:03:00 HEMATOLOGY 2019-07-26 07:03:00 Test Item Value Reference Range Interpretation Comme nts MCH (test code = MCH) 31.2 pg 27.0-31.0 [facility] UusynwjUTQFJVXKMH9729-41-76 07:03:0033.4[facility] 2019-07-26 07:03:0016.5[facility] WnqhvyjQNZJJSXWNA4265-88-57 07:03:13126Cvbdovyb NgihnnsKUNAUOIHAT0962-48-84 07:03:008.0[facility] FuyznjkNQLAWCJRAY6604-99-12 07:03:0062.1[facility] TtnroltZCLWLIHMVW8624-31-42 07:03:0026.9[facility] LDUYQLQZYF4335-10-36 07:03:007.9[facility] AkhmoamRYFQIXDNZA1310-94-38 07:03:002.4 [facility] HzsbpszRCUNWUSVYR7625-95-90 07:03:000.7[facility]annHEMATOLOGY 2019-07-26 07:03:006.1[facility] KdbgfkoLDURJJYYZE4153-36-68 07:03:002.6[facility] OierxicCBCDOPWSIK0605-48-03 07:03:000.8[facility] LaiibncTTDQAWSRZV7699-58-04 07:03:000.2[facility] KowkgzxIHVCGCQRGT4704-14-06 07:03:000.1[facility] [place] CARDIAC HBUAPGZ5883-90-19 02:51:00<0.02[facility]annCARDIAC ENZYMES 2019-07-25 18:29:00<0.02[facility]annCARDIAC HLXMRBD8323-80-69 18:29:33774 [facility]annCHEM NKYWZ7744-92-79 18:29:0071[facility]annCHEM PANEL 2019-07-25 18:29:0047[facility]annCHEM YNRDN3146-48-23 18:29:001.82[facility]annCHEM KUOHK8141-96-52 18:29:10080Wxzhjfnt HermannCHEM VMUMG7952-55-15 18:29:004.8[facility] HermannCHEM KCLRY4528-94-39 18:29:95830Vnwqzdba HermannCHEM KQOMU3124-86-46 18:29:0025[facility]annCHEM DFOVJ9731-72-55 18:29:009.4 [facility]annCHE[facility] GKLVY9603-38-47 18:29:007.6[facility]annCHEM PANEL 2019-07-25 18:29:003.7[facility]annCHEM APCBJ9830-11-96 18:29:0021[facility]annCHEM GIOEB1791-58-27 18:29:0018[facility]annCHEM AJIUN1811-56-91 18:29:0082[facility]annCHEM FEYWW5943-03-54 18:29:000.2[facility]annCHEM NOXJD7727-11-20 18:29:009.8[facility]annCHEM NYJLI4700-06-66 18:29:00 Test Item Value Reference Range Interpretation Comments B/C Ratio (test code = B/C Ratio) 26 1 6-25 [facility] HermannCHEM [id number] 18:29:003.9[facility]annCHEM PANEL 2019-07-25 18:29:00 Test Item Value Reference Range Interpretation Comments A/G Ratio (test code = A/G Ratio) 0.9 1 0.7-1.6 [facility]annCHE[facility] [id number] 18:29:0029[facility]annCHEM PANEL 2019-07-25 18:29:002.2[facility]annCHEM JWGMZ1029-26-06 18:29:003.8[facility] VwofsriJUZDKRBBGR2006-48-05 18:29:0011.9[facility] JydetkmOGXBVMWWVM3997-28-97 18:29:003.65[facility] MnodentATOITJJZLR6696-19-48 18:29:0011.4[facility] [place] DVVRRRFUFV3051-19-43 18:29:0034.4[facility] QsgpphlYMYRCWNLNA1788-96-34 18:29:00 94.1[facility] JnslmhmDJNUAPFOAN5945-10-41 18:29:00 Test Item Value Reference Range Interpretation Comments MCH (test code = MCH) 31.3 pg 27.0-31.0 [facility]lineFopehkdKGTRPQGSGX5967-53-89 18:29:0033.2[facility]annHEMATOLOGY 2019-07-25 18:29:0016.7[facility] KlhlyppGHBTCCBSBR5038-18-86 18:29:26568Zrgayiua FgdmzsnDEVBTJKHSI8995-40-73 18:29:008.6[facility] EgkhqkiYCFCIPBOGR7405-53-62 18:29:00 Test Item Value Reference Range Interpretation Comments INR (test code = INR) 0.99 1 0.85-1.17 [facility]lineOziopzvUQWITDAKPF0437-19-41 18:29:00 Test Item Value Reference Range Interpretation Comments PT (test code = PT) 12.9 s 12.0-14.7 [facility]lineEgmngzyXGJBXYBDRJ4589-22-13 18:29:00 Test Item Value Reference Range Interpretation Comments PTT (test code = PTT) 33.0 s 22.9-35.8 [facility]lineQaknhkaKJJYCIQJFE4079-81-97 18:29:0064.8[facility]annHEMATOLOGY 2019-07-25 18:29:0024.5[facility] CfnoqfbLNKXHEMUWX4866-69-47 18:29:007.7[facility] BpgjjpjNCDQTAKSCY2371-64-64 18:29:002.3[facility] UkecizqYWKYXXUUKY4744-62-92 18:29:000.7[facility] YfurvrkYJIIMQZKNW5126-91-15 18:29:007.7[facility] [place] EAWGVDQVKX6913-80-19 18:29:002.9[facility] YeuagphZGVTJEGVBL7054-90-76 18:29:000.9 [facility] SpweekdNRDWJUIUPK4330-11-90 18:29:000.3[facility]annHEMATOLOGY 2019-07-25 18:29:000.1[facility] [place]
[2021-11-02 14:48] LABS: Absolute Lymphocytes (CBC) 1.8 K/uL (0.7-4.9); Lymphocytes % 12.4 % (15.3-44.8); RBC Red Blood Cell Count 3.38 M/uL (3.86-4.86)
[2021-11-02 14:52] LABS: Protime INR 1.69
--- NOTE | 2021-11-02 15:25 | RAD REPORT ---
EXAM DESCRIPTION: RAD - Chest Single View - 11/02/2021 3:18 pm CLINICAL HISTORY: SOB Chest pain. COMPARISON: Chest Pa And Lat (2 Views) dated 09/07/2021; Chest Single View dated 07/23/2021; Chest Si ngle View dated 02/19/2021; Chest Single View dated 02/17/2021 FINDINGS: Portable technique limits examination quality. Mild interstitial pulmonary edema. The heart is moderately enlarged with changes of a prior CABG note d. Hardware is seen proximal right femur. IMPRESSION: Mild CHF.
[2021-11-02 15:34] LABS: Potassium 4.1 mmol/L (3.5-5.1)
[2021-11-02 15:35] LABS: Bilirubin Direct 0.2 mg/dL (0-0.2); Bilirubin Total 0.7 mg/dL (0.2-1.0); Protein, Total 7.4 g/dL (6.4-8.2); Troponin High Sensitivity 14.7 pg/mL (<58.9)
[2021-11-02 15:35] LABS: SARS-COV-2 RT PCR NEGATIVE (NEGATIVE)
[2021-11-02] MEDS ORDERED: FUROSEMIDE 40 MG/4 ML VIAL ONE ×2 (16:39→16:46)
[2021-11-02 18:07] LABS: Magnesium 1.8
--- NOTE | 2021-11-02 18:11 | EDPHYS ---
Physician Documentation [facility] Name: Mercedez Degroot Age: 66 yrs Sex: Female : 1955 Arrival Date: 11/02/2021 Time: 13:28 Bed 19 Private MD: ED Physician Jett Ospina HPI: 11/02 14:30 This 66 yrs old Female presents to ER via Wheelchair with complaints of Shortness Of cp Breath, Chest Pain. 14:30 The patient has shortness of breath at rest. cp 14:30 Duration: The symptoms are continuous, and are steadily getting worse. Associated signs cp and symptoms: Pertinent positives: chest pain since this morning, Pertinent negatives: productive cough, fever. Severity of symptoms: in the emergency department the symptoms are unchanged despite home interventions. Historical: - Allergies: 13:42 Lisinopril; ld1 13:42 Valium; ld1 13:42 Tape; ld1 - PMHx: 13:42 cancer, hx; Diabetes - NIDDM; Hypothyroidism; Hypertension; kidney disease; CHF; ld1 13:45 Atrial fibrillation; ld1 - PSHx: 13:42 Triple bypass; section; ld1 - Immunization history:: Adult Immunizations up to date, Client reports receiving the 2nd dose of the Covid vaccine. - Social history:: Smoking status: Patient denies any tobacco usage or history of. Patient/guardian denies using alcohol. ROS: 14:35 Constitutional: Negative for body aches, chills, fever, poor PO intake. cp 14:35 Eyes: Negative for injury, pain, redness, and discharge. cp 14:35 ENT: Negative for ear pain, sore throat, difficulty swallowing, difficulty handling secretions. 14:35 Cardiovascular: Positive for chest pain. 14:35 Respiratory: Positive for orthopnea, shortness of breath, at rest. Negative for cough, wheezing. 14:35 Abdomen/GI: Negative for abdominal pain, vomiting, diarrhea, constipation. 14:35 Back: Negative for pain at rest, pain with movement. Exam: 14:05 ECG was reviewed by the Attending Physician. cp 14:40 Constitutional: The patient appears in no acute distress, alert, awake, cp non-diaphoretic, non-toxic, well developed, well nourished, obese. 14:40 Head/Face: Normocephalic, atraumatic. cp 14:40 Eyes: Periorbital structures: appear normal, Conjunctiva: normal, no exudate, no injection, Sclera: no appreciated abnormality, Lids and lashes: appear normal, bilaterally. 14:40 ENT: External ear(s): are unremarkable, Nose: is normal, Mouth: Lips: moist, Oral mucosa: moist, Posterior pharynx: Airway: no evidence of obstruction, patent. 14:40 Neck: ROM/movement: is normal, is supple, without pain, no range of motions limitations. 14:40 Chest/axilla: Inspection: normal. 14:40 Cardiovascular: Rate: normal, Rhythm: irregular, Edema: ankle edema, that is moderate, JVD: is not appreciated. 14:40 Respiratory: the patient does not display signs of respiratory distress, Respirations: labored breathing, that is moderate, Breath sounds: decreased breath sounds, that are mild, diffuse, stridor, is not appreciated, wheezing: is not appreciated. 14:40 Abdomen/GI: Inspection: abdomen appears normal, Palpation: abdomen is soft and non-tender, in all quadrants. 14:40 Back: pain, is absent, ROM is normal. 14:40 Neuro: Orientation: to person, place \\T\\ time. Mentation: is normal, Motor: moves all fours, strength is normal, Sensation: is normal. Vital Signs: 13:42 BP 99 / 71; Pulse 71; Resp 18; Temp 98.4(O); Pulse Ox 97% on R/A; Weight 92.53 kg; ld1 Height 5 ft. 4 in. (162.56 cm); Pain 7/10; 15:00 BP 121 / 62; Pulse 52; Resp 16; Pulse Ox 94% ; bp 16:00 BP 137 / 82; Pulse 77; Resp 22; Pulse Ox 94% ; bp 17:00 BP 96 / 65; Pulse 87; Resp 21; Pulse Ox 95% ; bp 18:00 BP 131 / 82; Pulse 81; Resp 26; Pulse Ox 95% ; bp 19:00 BP 154 / 89; Pulse 81; Resp 21; Pulse Ox 97% ; Pain 0/10; ld1 20:00 BP 114 / 93; Pulse 88; Resp 21; Pulse Ox 97% ; Pain 0/10; al4 20:48 BP 142 / 107 LA Supine (auto/reg); Pulse 86 MON; Resp 19 S; Pulse Ox 94% on R/A; sv1 21:02 BP 144 / 87 Supine (auto/reg); Pulse 86 MON; sv1 13:42 Body Mass Index 35.02 (92.53 kg, 162.56 cm) ld1 MDM: 13:49 Patient medically screened. 15:00 Differential diagnosis: CHF exacerbation, Chronic Obstructive Pulmonary Disease cp Myocardial Infarction pneumonia, pulmonary edema, Pulmonary Embolism Sepsis Unstable Angina. 18:00 Physician consultation: Carlos Jorge was contacted at 18:00, regarding admission, to the telemetry unit. patient's condition. 18:35 Data reviewed: vital signs, nurses notes, lab test result(s), EKG, radiologic studies, cp plain films. 18:35 Test interpretation: by ED physician or midlevel provider: ECG, plain radiologic cp studies. 11/02 14:12 Order name: Basic Metabolic Panel; Complete Time: 18:32 11/02 17:14 Interpretation: Normal except: GLUC 171; BUN 29; CRE 1.80; GFR 28. 11/02 14:12 Order name: CBC with Diff; Complete Time: 16:15 11/02 17:14 Interpretation: Normal except: WBC 14.50; RBC 3.38; HGB 10.6; HCT 32.0; RDW 16.3; GALEN% cp 79.2; LYM% 12.4; NEUT A 11.5. 11/02 14:12 Order name: LFT's; Complete Time: 18:32 11/02 18:32 Interpretation: Normal except: AST 8; ALB 3.0; GLOB 4.4; A/G 0.7. cp 11/02 14:12 Order name: Magnesium; Complete Time: 18:32 cp 11/02 18:33 Interpretation: Reviewed. cp 11/02 14:12 Order name: NT PRO-BNP; Complete Time: 18:32 cp 11/02 18:32 Interpretation: Abnormal: NT PRO-BNP 7646. cp 11/02 14:12 Order name: PT-INR; Complete Time: 16:15 cp 11/02 14:12 Order name: Troponin HS; Complete Time: 18:32 cp 11/02 18:32 Interpretation: Reviewed. cp 11/02 14:12 Order name: XRAY Chest (1 view); Complete Time: 16:15 cp 11/02 18:33 Interpretation: Report review. cp 11/02 14:12 Order name: COVID-19/FLU A+B (Document "Date of Onset" if Symptomatic); Complete Time: cp 16:15 11/02 17:43 Order name: Urine Microscopic Only cp 11/02 18:06 Order name: Procalcitonin; Complete Time: 18:27 la1 11/02 20:04 Order name: Blood Culture Adult (2) ld1 11/02 20:52 Order name: Urine Dipstick-Ancillary; Complete Time: 18:27 EDMS 11/02 14:12 Order name: EKG; Complete Time: 14:13 cp 11/02 14:12 Order name: Cardiac monitoring; Complete Time: 14:18 cp 11/02 14:12 Order name: EKG - Nurse/Tech; Complete Time: 14:32 cp 11/02 14:12 Order name: IV Saline Lock; Complete Time: 14:23 cp 11/02 14:12 Order name: Labs collected and sent; Complete Time: 14:19 cp 11/02 14:12 Order name: O2 Per Protocol; Complete Time: 14:19 cp 11/02 14:12 Order name: O2 Sat Monitoring; Complete Time: 14:19 cp 11/02 17:43 Order name: Urine Dipstick-Ancillary (obtain specimen); Complete Time: 20:50 cp EC:05 Rate is 89 beats/min. Rhythm is irregular. QRS interval is prolonged at 116 msec. QT cp interval is normal. T waves are Inverted in leads III, V5. Interpreted by me. Reviewed by me. Administered Medications: 16:30 Drug: Lasix (furosemide) 40 mg Route: IVP; Site: left antecubital; bp 17:56 Follow up: Response: No adverse reaction bp 20:02 Drug: Rocephin - (cefTRIAXone) 1 grams Route: IVPB; Infused Over: 30 mins; Site: left al4 wrist; 20:33 Follow up: Response: No adverse reaction; IV Status: Completed infusion; IV Intake: 62cola1 Disposition Summary: 11/02/21 17:56 Hospitalization Ordered Hospitalization Status: Inpatient Admission cp Provider: Johnathon Ospina cp Location: Telemetry/MedSurg (Inpatient) cp Condition: Stable cp Problem: an acute exacerbation cp Symptoms: have improved cp Bed/Room Type: Standard cp Room Assignment: 220(11/02/21 19:54) mw Diagnosis - Unspecified combined systolic (congestive) and diastolic (congestive) heart failure cp - Dyspnea cp Forms: - Medication Reconciliation Form cp - SBAR form cp Addendum: 11/06/2021 07:11 Co-signature as Attending Physician, Jett Ospina MD. r n 07:11 I agree with the assessment and plan of care. Attestation: The patient's history, exam r n findings, diagnostics, and a summary of any interventions or procedures was reviewed in detail with Ajit STEVENSON. Signatures: Dispatcher [employer] EDSC Harriet Gutierrez RN RN mw Nieto, Roman, MD MD rn Page, Corey, PA PA cp Peltier, Brian, RN RN Starla Espinosa RN RN ld1 Kai [place] Corrections: (The following items were deleted from the chart) 11/02 19:54 17:56 cp mw
--- NOTE | 2021-11-02 18:11 | ER ---
Nurse's Notes [facility] Name: Mercedez Degroot Age: 66 yrs Sex: Female : 1955 Arrival Date: 11/02/2021 Time: 13:28 Bed 19 Private MD: Diagnosis: Unspecified combined systolic (congestive) and diastolic (congestive) heart failure;Dyspnea Presentation: 11/02 13:42 Chief complaint: Patient states: Chest pain began this morning - radiates to right arm. ld1 Reports SOB - SpO2 97% RA. Coronavirus screen: Client presents with at least one sign or symptom that may indicate coronavirus-19. Standard/surgical mask placed on the client. Ebola Screen: No symptoms or risks identified at this time. Initial Sepsis Screen: Does the patient meet any 2 criteria? No. Patient's initial sepsis screen is negative. Does the patient have a suspected source of infection? No. Patient's initial sepsis screen is negative. Risk Assessment: Do you want to hurt yourself or someone else? Patient reports no desire to harm self or others. Onset of symptoms was November 02, 2021. 13:42 Method Of Arrival: Wheelchair ld1 13:42 Acuity: TRISHA 3 ld1 Triage Assessment: 13:42 General: Appears in no apparent distress. comfortable, Behavior is calm, cooperative, ld1 appropriate for age. Pain: Complains of pain in chest. Pain: Pain radiates to right arm Pain currently is 0 out of 10 on a pain scale. at worst was 7 out of 10 on a pain scale. Quality of pain is described as sharp. Neuro: Level of Consciousness is awake, alert, obeys commands, Oriented to person, place, time, situation. Cardiovascular: Capillary refill < 3 seconds Patient's skin is warm and dry. Rhythm is regular. Respiratory: Reports cough that is Airway is patent Respiratory effort is even, unlabored, Onset: The symptoms/episode began/occurred gradually, the patient has mild shortness of breath. Historical: - Allergies: 13:42 Lisinopril; ld1 13:42 Valium; ld1 13:42 Tape; ld1 - PMHx: 13:42 cancer, hx; Diabetes - NIDDM; Hypothyroidism; Hypertension; kidney disease; CHF; ld1 13:45 Atrial fibrillation; ld1 - PSHx: 13:42 Triple bypass; section; ld1 - Immunization history:: Adult Immunizations up to date, Client reports receiving the 2nd dose of the Covid vaccine. - Social history:: Smoking status: Patient denies any tobacco usage or history of. Patient/guardian denies using alcohol. Screenin:45 Abuse screen: Denies threats or abuse. Denies injuries from another. Nutritional bp screening: No deficits noted. Tuberculosis screening: No symptoms or risk factors identified. Fall Risk None identified. Assessment: 13:45 General: SEE TRIAGE NOTE. bp 15:13 Reassessment: Patient and/or family updated on plan of care and expected duration. Pain cb5 level reassessed. 15:13 Cardiovascular: Reports chest pain, pt reported chest pain upon arrival to ER. cb5 Respiratory: Airway is patent Trachea midline Breath sounds with wheezes in right posterior lower lobe. 16:00 Reassessment: No changes from previously documented assessment. Patient and/or family bp updated on plan of care and expected duration. Pain level reassessed. 18:00 Reassessment: No changes from previously documented assessment. Patient and/or family bp updated on plan of care and expected duration. Pain level reassessed. 19:35 Reassessment: NGOZI Gonzalez verbal ordered blood cultures before giving Rocephin. ld1 19:50 General: Appears in no apparent distress. comfortable, Behavior is calm, cooperative, ld1 Patient sitting up in bed talking to family member. Patient is in no apparent distress. Patient is ao x 3. NGOZI Gonzalez at bedside and answered all patient and family members questions. . Cardiovascular: Capillary refill < 3 seconds Patient's skin is warm and dry. Respiratory: Airway is patent Respiratory effort is even, unlabored, Respiratory pattern is regular, symmetrical. 19:50 Pain: Denies pain. Cardiovascular: Heart tones present. Respiratory: Breath sounds are ld1 clear. GI: Abdomen is round. : No signs and/or symptoms were reported regarding the genitourinary system. EENT: No signs and/or symptoms were reported regarding the EENT system. Derm: No signs and/or symptoms reported regarding the dermatologic system. Musculoskeletal: Range of motion: intact in all extremities. 19:50 Reassessment: Assessment done by EAV Quinn. al4 19:54 General: called registration to have the room flipped. tw5 20:47 Reassessment: pt ambulated to restroom with assistance. al4 Vital Signs: 13:42 BP 99 / 71; Pulse 71; Resp 18; Temp 98.4(O); Pulse Ox 97% on R/A; Weight 92.53 kg; ld1 Height 5 ft. 4 in. (162.56 cm); Pain 7/10; 15:00 BP 121 / 62; Pulse 52; Resp 16; Pulse Ox 94% ; bp 16:00 BP 137 / 82; Pulse 77; Resp 22; Pulse Ox 94% ; bp 17:00 BP 96 / 65; Pulse 87; Resp 21; Pulse Ox 95% ; bp 18:00 BP 131 / 82; Pulse 81; Resp 26; Pulse Ox 95% ; bp 19:00 BP 154 / 89; Pulse 81; Resp 21; Pulse Ox 97% ; Pain 0/10; ld1 20:00 BP 114 / 93; Pulse 88; Resp 21; Pulse Ox 97% ; Pain 0/10; al4 20:48 BP 142 / 107 LA Supine (auto/reg); Pulse 86 MON; Resp 19 S; Pulse Ox 94% on R/A; sv1 21:02 BP 144 / 87 Supine (auto/reg); Pulse 86 MON; sv1 13:42 Body Mass Index 35.02 (92.53 kg, 162.56 cm) ld1 ED Course: 13:28 Patient arrived in ED. ds1 13:45 Triage completed. ld1 13:45 Arm band placed on right wrist. ld1 13:45 Patient has correct armband on for positive identification. Bed in low position. Call bp light in reach. Side rails up X2. Adult w/ patient. 13:47 Ajit Rivas PA is PHCP. cp 13:47 Jett Ospina MD is Attending Physician. cp 14:08 Abdiel Boucher, EVA is Primary Nurse. bp 14:24 Initial lab(s) drawn, by me, sent to lab. Inserted saline lock: 20 gauge in left wrist, kj1 using aseptic technique. Blood collected. 14:31 COVID-19/FLU A+B (Document "Date of Onset" if Symptomatic) Sent. cb5 14:31 Basic Metabolic Panel Sent. cb5 14:31 CBC with Diff Sent. cb5 14:32 LFT's Sent. cb5 14:32 Magnesium Sent. cb5 14:32 NT PRO-BNP Sent. cb5 14:32 PT-INR Sent. cb5 14:32 Troponin HS Sent. cb5 15:13 Basic Metabolic Panel Sent. cb5 15:13 LFT's Sent. cb5 15:13 Magnesium Sent. cb5 15:13 NT PRO-BNP Sent. cb5 15:13 Troponin HS Sent. cb5 15:19 XRAY Chest (1 view) In Process Unspecified. EDMS 17:55 Johnathon Ospina MD is Hospitalizing Provider. cp 18:53 Report given to Angelica Ferguson cb5 19:00 Procalcitonin Sent. cb5 20:27 No provider procedures requiring assistance completed. Patient admitted, IV remains in ld1 place. 20:33 Blood Culture Adult (2) Sent. sv1 Administered Medications: 16:30 Drug: Lasix (furosemide) 40 mg Route: IVP; Site: left antecubital; bp 17:56 Follow up: Response: No adverse reaction bp 20:02 Drug: Rocephin - (cefTRIAXone) 1 grams Route: IVPB; Infused Over: 30 mins; Site: left al4 wrist; 20:33 Follow up: Response: No adverse reaction; IV Status: Completed infusion; IV Intake: [id number] Intake: 20:33 IV: 50ml; Total: 50ml. ld1 Outcome: 17:56 Decision to Hospitalize by Provider. cp 20:15 Admitted to Med/surg Report called to Licha. Unable to give report. ld1 20:27 Admitted to Med/surg accompanied by nurse, room 220. ld1 20:27 Condition: stable 20:27 Discharge instructions given to patient, family, Instructed on the need for admit, Demonstrated understanding of instructions. 20:30 Admitted to Med/surg Report called to Licha. Unable to give report. ld1 20:58 Admitted to Med/surg Report called to EVA Zeng al4 21:04 Patient left the ED. sv1 Signatures: Dispatcher [employer] EDOK LinaresAsai ds1 Ajit Rivas PA PA cp Peltier, Brian, RN RN Aisha Perez kj1 Starla Shaw RN RN ld1 Rani Cano tw5 Kai Cuba al4 Marty Kirkland RN RN sv1 Annika Ramon RN RN cb5 Corrections: (The following items were deleted from the chart) 20:51 19:50 General: Appears in no apparent distress. comfortable, Behavior is calm, al4 cooperative, Patient sitting up in bed talking to family member. Patient is in no apparent distress. Patient is ao x 3. DIRECTOR ADVERTISING Carlos at bedside and answered all patient and family members questions. . ld1 20:53 20:47 Reassessment: patient ambulated to restroom with assistance ld1 al4 20:58 20:00 BP 114 / 93; Pulse 88bpm; Resp 21bpm; Pulse Ox 37%; Pain 0/10; ld1 al4
[2021-11-02] MEDS ORDERED: NA CHLORIDE 0.9% 50 ML ONE (19:34)
[2021-11-02] MEDS ORDERED: CEFTRIAXONE 1000 MG/VIAL ONE (19:34)
[2021-11-02 20:52] LABS: Urine Blood Trace-intact (Negative); Urine Glucose Negative (Negative); Urine Protein 1+ (Negative); Urine pH 5.5 (5.0-7.0)
--- NOTE | 2021-11-02 20:57 | P.HP ---
Certification for Inpatient Patient admitted to: Observation With expected LOS: <2 Midnights Patient will require the following post-hospital care: None Practitioner: I am a practitioner with admitting privileges, knowledge of patient current condition, hospital course, and medical plan of care. Services: Services provided to patient in accordance with Admission requirements found in Title 42 Section 412.3 of the Code of Federal Regulations Patient History Date of Service: 11/02/21 Reason for admission: CHF exacerbation History of Present Illness: 66-year-old female with history of diabetes mellitus type [id number], hypothyroidism, hypertension, CKD 4, chronic systolic congestive heart failure, atrial fibrillation on chronic anticoagulation therapy and COPD presents the emergency department for shortness of breath. Patient also complained of right-sided chest pain radiating down her arm earlier today which is typical of her CHF exacerbations patient reports. Patient was evaluated in the emergency department after significant for white blood cell count 14.5 hemoglobin 10.6 adequate 32 creatinine 1.8 BUN 29 GFR 28 glucose 171 BNP 7646 urinalysis is pending Covid negative chest x-ray demonstrates mild CHF pattern. Patient was given IV Rocephin in the emergency department given mild leukocytosis, patient reports that she was also given Zithromax by hedge fund manager last week as she had been having a productive cough. Procalcitonin and urinalysis pending at this time. ED provider wishes to admit under observation for CHF exacerbation. Allergies diazepam [From Valium] Allergy (Verified 01/26/21 17:24) Hives/Rash lisinopril Allergy (Verified 01/26/21 17:24) Unknown Tape Allergy (Uncoded 01/26/21 17:24) Unknown Home Medications: Atorvastatin Calcium [Lipitor] 80 mg PO BEDTIME 01/26/21 Gabapentin 300 mg PO TID 01/26/21 Metoprolol Succinate [Toprol Xl*] 100 mg PO BID 01/26/21 Furosemide [Lasix*] 40 mg PO DAILY #30 tab 01/28/21 Levothyroxine Sodium [Levothyroxine] 137 mcg PO [id number] 01/28/21 Apixaban [Eliquis] 1 tab PO BID 07/24/21 Aspirin [Aspirin EC 81 MG] 1 tab PO DAILY 07/24/21 Diltiazem HCl [Dilt-Xr] 120 mg PO BEDTIME 10/23/21 Glipizide [Glipizide ER] 5 mg PO BID 07/24/21 Pantoprazole [Protonix Tab*] 40 mg PO DAILY 07/24/21 Metoprolol Succinate [Toprol Xl] 25 mg PO BID #60 tab.er.24h 07/26/21 Nepro Shake [Nepro*] 237 ml PO BID #60 can 07/26/21 - Past Medical/Surgical History Diabetic: Yes -: DM-NIDDM -: HTN -: Stage 4 kidney disease -: AFIB on chronic anticoagulation therapy -: Hypothyroidism -: Chronic systolic congestive heart failure -: Hyperlipidemia -: Triple Bypass -: Hystectomy -: Hernia removal x7 Psychosocial/ Personal History: Patient lives at home with family - Family History Mother -: Heart disease, Lung disease, GI disease, Diabetes, Cancer, Kidney disease, Other (see notes) Notes: Colon Cancer - Social History Smoking Status: Never smoker Alcohol use: No CD- Drugs: No Caffeine use: Yes Place of Residence: Home Review of Systems 10-point ROS is otherwise unremarkable Respiratory: Cough, Shortness of Breath, SOB with Excertion, Sputum Cardiovascular: Edema, As per HPI Physical Examination - Physical Exam General: Alert, In no apparent distress, Oriented x3 HEENT: Atraumatic, PERRLA, Mucous membr. moist/pink, EOMI, Sclerae nonicteric Neck: Supple, 2+ carotid pulse no bruit, No LAD, Without JVD or thyroid abnormality Respiratory: Diminished, Crackles/rales Cardiovascular: Normal S1 S2, Edema (1+ pitting edema bilateral lower extremity), Irregular heart rate/rhythm (A. fib, rate controlled) Capillary refill: <2 Seconds Gastrointestinal: Normal bowel sounds Musculoskeletal: No tenderness Integumentary: No rashes Neurological: Normal speech, Normal strength at 5/5 x4 extr, Normal tone, Normal affect - Studies Laboratory Data (last 24 hrs) 11/02/21 14:20: WBC 14.50 H, Hgb 10.6 L, Hct 32.0 L, Plt Count 300 11/02/21 14:20: Sodium 138, Potassium 4.1, BUN 29 H, Creatinine 1.80 H, Glucose 171 H, Magnesium 1.8, Total Bilirubin 0.7, AST 8 L, ALT 19, Alkaline Phosphatase 85 11/02/21 14:08: PT 19.5 H, INR 1.69 Assessment and Plan - Plan Assessment: Acute on chronic systolic congestive heart failure Atrial fibrillation on chronic anticoagulation therapy Leukocytosis CKD 4 Diabetes mellitus type [id number] Hypertension Hypothyroidism Plan: Acute on chronic systolic congestive heart failure: Lasix 40 mg IV 3 times daily, cardiology/nephrology consulted. Echocardiogram ordered, last echocardiogram 07/22 with very poor windows report said moderately to severely depressed left ventricular ejection fraction, patient also with history of left ventricular mural thrombosis has been on anticoagulation. Obtaining continue other medications, fluid restriction/daily weights. Continue Eliquis. Atrial fibrillation on chronic anticoagulation therapy: Continue Eliquis, monitor on telemetry, rate controlled at this time. Obtain and verify other home medications. Leukocytosis: Chest x-ray with mild CHF, patient has been on Zithromax the past few days. Patient does report some mild urinary symptoms, urinalysis pending. Procalcitonin pending. Patient afebrile without other systemic signs of infection, will hold off on antibiotics until source confirmed. CKD 4: Stable from baseline we will need to continue with IV diuresis for CHF exacerbation, nephrology consulted for additional assistance with diuresis and renal function management. Diabetes mellitus type KEwsn-girpgaw-nvcqypqbn: ACH S Accu-Chek, sliding scale insulin. Hypertension: Obtain and continue medications Hypothyroidism: Obtain and continue medications DVT PPX: Continue Eliquis Code status:Full code Discharge Plan: Home Plan to discharge in: 24 Hours - Advance Directives Does patient have a Living Will: Yes Does patient have a Durable POA for Healthcare: Yes - Code Status/Comfort Care Code Status Assessed: Yes (Full code) Critical Care: No Time Spent Managing Pts Care (In Minutes): 55
[2021-11-02] MEDS ORDERED: ALBUTEROL 2.5 MG/3 ML NEB SOL NEB PRN (21:14)
[2021-11-02] MEDS: INSULIN -REGULAR HUMAN 50 UNIT/0.5 ML ML SQ SCH (21:14)
[2021-11-02] MEDS ORDERED: ONDANSETRON 4 MG/2 ML VIAL IV PRN (21:14)
[2021-11-02 22:26] VITALS: BMI 35.0
[2021-11-02] MEDS: APIXABAN 5 MG TABLET PO SCH (22:29)
[2021-11-03] MEDS: FUROSEMIDE 40 MG/4 ML VIAL IV SCH ×2 (01:28→09:03)
[2021-11-03 06:14] LABS: Absolute Lymphocytes (CBC) 2.2 K/uL (0.7-4.9); Hematocrit 34.1 % (36.0-45.0); Lymphocytes % 17.7 % (15.3-44.8); MPV 7.9 fL (7.6-11.3); RBC Red Blood Cell Count 3.65 M/uL (3.86-4.86)
--- NOTE | 2021-11-03 06:32 | P.PN ---
Date of Service: 11/03/21
[2021-11-03] MEDS: INSULIN -REGULAR HUMAN 50 UNIT/0.5 ML ML SQ SCH ×2 (07:30→12:06)
[2021-11-03 07:40] LABS: Albumin 3.1 g/dL (3.4-5.0); Bilirubin Total 0.6 mg/dL (0.2-1.0); Potassium 3.2 mmol/L (3.5-5.1); Protein, Total 7.6 g/dL (6.4-8.2); Thyroid Stimulating Hormone 2.61 uIU/mL (0.360-3.740)
[2021-11-03] MEDS ORDERED: INFLUENZA VACCINE (for 6+ mo) 0.5 ML DOSE IMVAC ONE (08:00)
[2021-11-03] MEDS: METOPROLOL TAR 50 MG TAB PO SCH ×2 (09:00→09:02)
[2021-11-03] MEDS: APIXABAN 5 MG TABLET PO SCH (09:03)
[2021-11-03 09:16] VITALS: O2SAT 93
[2021-11-03] MEDS ORDERED: DILTIAZEM HCL 120 MG SR CAP PO SCH (10:15)
--- NOTE | 2021-11-03 10:33 | P.CNS ---
Date of Consult: 11/03/21 Reason for Consult: REBECCA/ CKD Requesting Physician: Johnathon Ospina Chief Complaint: CHF exacerbation History of Present Illness: 66-year-old female with history of diabetes mellitus type [id number], hypothyroidism, hypertension, CKD 4, chronic systolic congestive heart failure, atrial fibrillation on chronic anticoagulation therapy and COPD presents the emergency department for shortness of breath. Patient also complained of right-sided chest pain radiating down her arm earlier today which is typical of her CHF exacerbations patient reports. Patient was evaluated in the emergency department after significant for white blood cell count 14.5 hemoglobin 10.6 adequate 32 creatinine 1.8 BUN 29 GFR 28 glucose 171 BNP 7646 urinalysis is pending Covid negative chest x-ray demonstrates mild CHF pattern. Patient was given IV Rocephin in the emergency department given mild leukocytosis, patient reports that she was also given Zithromax by flower stripper last week as she had been having a productive cough. Procalcitonin and urinalysis pending at this time. ED provider wishes to admit under observation for CHF exacerbation. Allergies diazepam [From Valium] Allergy (Verified 01/26/21 17:24) Hives/Rash lisinopril Allergy (Verified 01/26/21 17:24) Unknown Tape Allergy (Uncoded 01/26/21 17:24) Unknown Home medications list reviewed: Yes Home Medications: Atorvastatin Calcium [Lipitor] 80 mg PO BEDTIME 01/26/21 Gabapentin 300 mg PO TID 01/26/21 Furosemide [Lasix*] 40 mg PO DAILY #30 tab 01/28/21 Levothyroxine Sodium [Levothyroxine] 137 mcg PO PSSAG0LY 01/28/21 Apixaban [Eliquis] 1 tab PO BID 07/24/21 Aspirin [Aspirin EC 81 MG] 1 tab PO DAILY 07/24/21 Diltiazem HCl [Dilt-Xr] 120 mg PO BEDTIME 07/24/21 Glipizide [Glipizide ER] 5 mg PO BID 07/24/21 Pantoprazole [Protonix Tab*] 40 mg PO DAILY 07/24/21 Isosorbide Mononitrate [Isosorbide Mononitrate ER] 1 tab PO DAILY 11/03/21 Metoprolol Succinate 125 mg PO BID 11/03/21 Spironolactone [Aldactone*] 25 mg PO DAILY 30 Days #30 tab 11/03/21 dilTIAZem HCL [Diltiazem 24Hr ER (Xr)] 1 tab PO SEECOM 11/03/21 - Past Medical/Surgical History Diabetic: Yes -: DM-NIDDM -: HTN -: Stage 4 kidney disease -: AFIB on chronic anticoagulation therapy -: Hypothyroidism -: Chronic systolic congestive heart failure -: Hyperlipidemia -: Triple Bypass -: Hystectomy -: Hernia removal x7 Psychosocial/ Personal History: Patient lives at home with family - Family History Mother Medical History: Heart disease, Lung disease, GI disease, Diabetes, Cancer, Kidney disease, Other (see notes) Notes: Colon Cancer - Social History Smoking Status: Unknown if ever smoked Alcohol use: No CD- Drugs: No Caffeine use: Yes Place of Residence: Home Review of Systems 10-point ROS is otherwise unremarkable General: Weakness Respiratory: SOB with Excertion Cardiovascular: Edema Physical Examination Temp Pulse Resp BP Pulse Ox 97.0 F 129 H 16 139/66 93 11/03/21 08:00 11/03/21 09:02 11/03/21 08:00 11/03/21 09:02 11/03/21 08:00 General: Oriented x3, Cooperative Neck: Supple, JVD distended Respiratory: Crackles/rales Cardiovascular: Regular rate/rhythm, Edema Gastrointestinal: Soft and benign, Non-distended Musculoskeletal: No clubbing, No contractures Integumentary: No rashes, No cyanosis Neurological: Normal speech Laboratory Data (last 24 hrs) 11/02/21 14:20: WBC 14.50 H, Hgb 10.6 L, Hct 32.0 L, Plt Count 300 11/02/21 14:20: Sodium 138, Potassium 4.1, BUN 29 H, Creatinine 1.80 H, Glucose 171 H, Magnesium 1.8, Total Bilirubin 0.7, AST 8 L, ALT 19, Alkaline Phosphatase 85 11/02/21 14:08: PT 19.5 H, INR 1.69 Imagings Data: EXAM DESCRIPTION: RAD - Chest Single View - 11/02/2021 3:18 pm CLINICAL HISTORY: SOB Chest pain. COMPARISON: Chest Pa And Lat (2 Views) dated 09/07/2021; Chest Single View dated 07/23/2021; Chest Single View dated 02/19/2021; Chest Single View dated 02/17/2021 FINDINGS: Portable technique limits examination quality. Mild interstitial pulmonary edema. The heart is moderately enlarged with changes of a prior CABG noted. Hardware is seen proximal right femur. IMPRESSION: Mild CHF. Conclusions/Impression: CKD IV with proteinuria -No NSAIDs Hypokalemia -Replete potassium -Start spironolactone HTN with CKD/ CHF -Continue Metoprolol Systolic CHF, A/C -Continue IV Lasix -Start Spironolactone DM II with CKD -RISS Anemia in chronic illness -Monitor H&H Thank you kindly for the consultation Case reviewed with Dr. Ospina
[2021-11-03] MEDS ORDERED: SPIRONOLACTONE 25 MG TABLET PO SCH (10:45)
[2021-11-03 11:48] VITALS: BP 145/66; TEMP 97.2
[2021-11-03 12:06] LABS: Magnesium 1.8
--- NOTE | 2021-11-03 13:07 | EKG ---
Test Date: 2021-11-02 Test Time: 13:57:05 Dietary Internship: MEASUREMENT RESULTS: Intervals: Rate: 89 UT: QRSD: 116 QT: 384 QTc: 467 Marland: P: UT: QRS: 71 T: -47 INTERPRETIVE STATEMENTS: Atrial fibrillation Possible Inferior infarct, age undetermined Abnormal ECG Compared to ECG 07/23/2021 08:25:55 Myocardial infarct finding now present T-wave abnormality no longer present Possible ischemia no longer present Electronically Signed On 11-03-21 13:03:14 FAMILY RESOURCE MANAGEMENT PROFESSOR by Jevon Berry
--- NOTE | 2021-11-03 13:42 | ECHO ---
HEIGHT: 5 ft 4 in WEIGHT: 204 lb 0 oz DATE OF STUDY: 11/03/[address]: Carlos Patel NP 2-DIMENSIONAL: YES M.MODE: YES DOPPLER: YES COLOR FLOW: YES TDS: PORTABLE: DEFINITY: BUBBLE STUDY: DIAGNOSIS: CONGESTIVE HEART FAILURE CARDIAC HISTORY: CATHERIZATION: YES SURGERY: PROSTHETIC VALVE: NO PACEMAKER: MEASUREMENTS (cm) DIASTOLIC (NORMALS) SYSTOLIC (NORMALS) IVSd (0.6-1.2) LA Diam (1.9-4.0) LVEF % LVIDd (3.5-5.7) LVIDs (2.0-3.5) %FS % LVPWd (0.6-1.2) Ao Diam (2.0-3.7) 2 DIMENSIONAL ASSESSMENT: RIGHT ATRIUM: LEFT ATRIUM: RIGHT VENTRICLE: LEFT VENTRICLE: TRICUSPID VALVE: MITRAL VALVE: PULMONIC VALVE: AORTIC VALVE: PERICARDIAL EFFUSION: AORTIC ROOT: LEFT VENTRICULAR WALL MOTION: DOPPLER/COLOR FLOW: COMMENTS: TECHNICALLY DIFFICULT STUDY. MILD TRICUSPID REGURGITATION. GROSSLY NORMAL LEFT VENTRICULAR SIZE. DIASTOLIC DYSFUNCTION. TECHNOLOGIST: JANETTE TRUJILLO
--- NOTE | 2021-11-03 16:06 | P.DS ---
Admission Date: 11/02/21 Discharge Date: 11/03/21 Disposition: ROUTINE DISCHARGE Discharge Condition: GOOD Reason for Admission: CHF exacerbation Consultations: Nephrology - Dr. Fish Procedures: Problem list Acute on chronic systolic congestive heart failure Atrial fibrillation on chronic anticoagulation therapy Leukocytosis CKD 4 Diabetes mellitus type RJlkl-uagbyyi-puzzencic Hypertension Hypothyroidism Brief History of Present Illness: 66-year-old female with history of diabetes mellitus type [id number], hypothyroidism, hypertension, CKD 4, chronic systolic congestive heart failure, atrial fibrillation on chronic anticoagulation therapy and COPD Presented to the ED with SOB. Patient also complained of right-sided chest pain radiating down her arm earlier today which is typical of her CHF exacerbations patient reports. Patient was evaluated in the emergency department after significant for white blood cell count 14.5 hemoglobin 10.6 adequate 32 creatinine 1.8 BUN 29 GFR 28 glucose 171 BNP 7646 urinalysis is pending Covid negative chest x-ray demonstrates mild CHF pattern. Patient was given IV Rocephin in the emergency department given mild leukocytosis, patient reports that she was also given Zithromax by gang vibrator operator last week as she had been having a productive cough. ED provider wishes to admit under observation for CHF exacerbation. Hospital Course: Patient was found to have mild diastolic CHF exacerbation. Had significant improvement with IV diuretics. She did not require any oxygen supplementation during her hospitalization. Cardiology and nephrology were consulted. Patient was deemed stable for discharge home, with addition of 25 mg spironolactone daily. Advised to take an additional furosemide pill in the afternoon if she is feeling more short of breath or noticing more lower extremity edema. She did receive a dose of IV Rocephin in the ED for possible bacterial pneumonia, however chest x-ray is more suggestive of CHF, and she had significant improvement with diuretics. She remained afebrile. Echocardiogram was done which revealed some diastolic dysfunction. Follow-up with PCP in 1 week Follow-up with nephrology in 1-2 weeks Follow-up with cardiology Vital Signs/Physical Exam: Temp Pulse Resp BP Pulse Ox 97.2 F 97 H 16 145/66 H 96 11/03/21 11:47 11/03/21 12:06 11/03/21 11:47 11/03/21 12:06 11/03/21 11:47 General: Alert, In no apparent distress, Oriented x3 HEENT: Sclerae nonicteric Respiratory: Clear to auscultation bilaterally, Diminished (Slightly at bases bilaterally) Cardiovascular: Edema (Trace1+ bilateral lower extremities above ankles (L>R)), Irregular heart rate/rhythm Gastrointestinal: Soft and benign, Non-distended, No tenderness Musculoskeletal: No tenderness Integumentary: No rashes Neurological: Normal speech, Normal affect Laboratory Data at Discharge: WBC 12.30 K/uL (4.3-10.9) H D 11/03/21 06:02 Hgb 11.1 g/dL (12.0-15.0) L 11/03/21 06:02 Hct 34.1 % (36.0-45.0) L 11/03/21 06:02 Plt Count 301 K/uL (152-406) 11/03/21 06:02 PT 19.5 SECONDS (9.5-12.5) H 11/02/21 14:08 INR 1.69 11/02/21 14:08 Sodium 139 mmol/L (136-145) 11/03/21 06:02 Potassium 3.2 mmol/L (3.5-5.1) L 11/03/21 06:02 BUN 29 mg/dL (7-18) H 11/03/21 06:02 Creatinine 1.81 mg/dL (0.55-1.3) H 11/03/21 06:02 Glucose 130 mg/dL (74-106) H 11/03/21 06:02 Magnesium 1.8 11/03/21 06:02 Total Bilirubin 0.6 mg/dL (0.2-1.0) 11/03/21 06:02 AST 10 U/L (15-37) L 11/03/21 06:02 ALT 18 U/L (12-78) 11/03/21 06:02 Alkaline Phosphatase 85 U/L (45-117) 11/03/21 06:02 Triglycerides 101 mg/dL (<150) 11/03/21 06:02 Cholesterol 138 mg/dL (<200) 11/03/21 06:02 HDL Cholesterol 61 mg/dL (40-60) H 11/03/21 06:02 Cholesterol/HDL Ratio 2.26 11/03/21 06:02 Home Medications: Atorvastatin Calcium [Lipitor] 80 mg PO BEDTIME 01/26/21 Gabapentin 300 mg PO TID 01/26/21 Furosemide [Lasix*] 40 mg PO DAILY #30 tab 01/28/21 Levothyroxine Sodium [Levothyroxine] 137 mcg PO [id number] 01/28/21 Apixaban [Eliquis] 1 tab PO BID 07/24/21 Aspirin [Aspirin EC 81 MG] 1 tab PO DAILY 07/24/21 Diltiazem HCl [Dilt-Xr] 120 mg PO BEDTIME 07/24/21 Glipizide [Glipizide ER] 5 mg PO BID 07/24/21 Pantoprazole [Protonix Tab*] 40 mg PO DAILY 07/24/21 Isosorbide Mononitrate [Isosorbide Mononitrate ER] 1 tab PO DAILY 11/03/21 Metoprolol Succinate 125 mg PO BID 11/03/21 Spironolactone [Aldactone*] 25 mg PO DAILY 30 Days #30 tab 11/03/21 dilTIAZem HCL [Diltiazem 24Hr ER (Xr)] 1 tab PO SEECOM 11/03/21 New Medications: Spironolactone [Aldactone*] 25 mg PO DAILY 30 Days #30 tab Physician Discharge Instructions: Patient was found to have mild diastolic CHF exacerbation. Had significant improvement with IV diuretics. She did not require any oxygen supplementation during her hospitalization. Cardiology and nephrology were consulted. Patient was deemed stable for discharge home, with addition of 25 mg spironolactone daily. Advised to take an additional furosemide pill in the afternoon if she is feeling more short of breath or noticing more lower extremity edema. Echocardiogram was done which revealed some diastolic dysfunction. Follow-up with PCP in 1 week Follow-up with nephrology in 1-2 weeks Follow-up with cardiology Diet: AHA Activity: Ad sarah Followup: Abimael Fish DO [ACTIVE - CAN ADMIT] - Jevon Berry MD [ACTIVE - CAN ADMIT] - Mark Baez MD [Primary Care Provider] - Time spent managing pt's care (in minutes): 45
--- NOTE | 2021-11-06 16:34 | CON ---
Date of Consultation: 11/03/2021 Reason For Consultation: Congestive heart failure and chest pain. History Of Present Illness: Ms. Degroot is 66. She is known to me from previous office visits and ad mission. Has a history of CABG, atrial fibrillation, diabetes, hypertension, kidney disease, congest nishant heart failure, hypothyroidism. Came in with chest pain and shortness of breath. Has had no feve r or chills. Denied any PND, orthopnea, or pedal edema. Denied any palpitation or syncope. Her sym ptoms mostly were shortness of breath. Past Medical History: As stated above. Allergies: SHE IS ALLERGIC TO LISINOPRIL, VALIUM, AND TAPE. Review of Systems: Negative. Social History: Negative. Family History: Noncontributory. Medications: At home include Eliquis, aspirin, Lipitor, diltiazem, Lasix, gabapentin, glipizide, Imd ur, levothyroxine, metoprolol, Protonix, spironolactone, and diltiazem. Physical Examination: Vital Signs: She weighed 204 pounds. Blood pressure was 130/80, pulse was 80, respiratory rate was 18. She was in atrial fibrillation, rate controlled. HEENT: Negative. Neck: Supple with no bruit. Chest: Clear to auscultation and percussion. Cardiac: Revealed a regular rhythm and rate with S4 gallops. No murmurs or rubs. Abdomen: Benign. Extremities: Revealed no clubbing, cyanosis, or edema. Diagnostic Data: Showed a creatinine of 1.80. White count of 15,000, hemoglobin is 10.6. Her BNP w as 7646. Procalcitonin was elevated. Her troponin was negative. Chest x-ray showed mild congestive heart failure. EKG showed atrial fibrillation at a rate of 89. Echocardiogram was technically diff icult, but showed diastolic dysfunction with normal ejection fraction. Impression And Plan: 1.Acute on chronic diastolic congestive heart failure. The patient is on appropriate therapy. She needs to be diuresed with IV Lasix. Continue her home medication. Otherwise, send her home whenever it is okay with Dr. Ospina. 2.This patient has atrial fibrillation, rate controlled, on Eliquis and beta-edward. 3.Coronary artery disease, status post coronary artery bypass graft, stable. 4.Dyslipidemia, on Lipitor. 5.Hypertension, on diltiazem, metoprolol and spironolactone. We will continue her present regimen. 6.She has diabetes, neuropathy, and renal insufficiency. Nephrology had been consulted, their input was appreciated. I will see the patient after she goes home. I suggest doing another Lexiscan on h er in the very near future. Continue isosorbide in the meanwhile as well as metoprolol. NB/MODL Voice ID: [id number] Report ID: [id number]
== END 2021-11-03 15:35 | disposition home or self-care (01) ==
LOC: ER 13:24 → ERHOLD 19:47 → 2ND 20:04
PROVIDERS: ADMIT Hospitalist; ATTEND Hospitalist
DX: I13.0 Hypertensive heart and chronic kidney disease with heart failure and stage 1 through stage 4 chronic kidney disease, or unspecified chronic kidney disease (principal); I50.33 Acute on chronic diastolic (congestive) heart failure; N18.4 Chronic kidney disease, stage 4 (severe); E11.22 Type 2 diabetes mellitus with diabetic chronic kidney disease; D63.1 Anemia in chronic kidney disease; I48.91 Unspecified atrial fibrillation; E11.40 Type 2 diabetes mellitus with diabetic neuropathy, unspecified; I25.10 Atherosclerotic heart disease of native coronary artery without angina pectoris; E03.9 Hypothyroidism, unspecified; E87.6 Hypokalemia; D72.829 Elevated white blood cell count, unspecified; J44.9 Chronic obstructive pulmonary disease, unspecified; E78.5 Hyperlipidemia, unspecified; Z20.822 Contact with and (suspected) exposure to COVID-19; Z79.01 Long term (current) use of anticoagulants; Z79.82 Long term (current) use of aspirin; Z88.8 Allergy status to other drugs, medicaments and biological substances; Z91.09 Other allergy status, other than to drugs and biological substances; Z95.1 Presence of aortocoronary bypass graft; Z90.710 Acquired absence of both cervix and uterus; Z82.49 Family history of ischemic heart disease and other diseases of the circulatory system; Z83.3 Family history of diabetes mellitus; Z80.0 Family history of malignant neoplasm of digestive organs; Z83.6 Family history of other diseases of the respiratory system
CPT/HCPCS: 96365; 93005; 93306; 87040 ×2; 85025 ×2; 80048; 36415; 83735 ×2; 85610; 80061; 82947 ×3; 80076; 84443; 81003; 84484; 84439; 80053; 84145; 83880; 0240U; 71045; 94760 ×2; 96375; 99285; J1940 ×3; G0378 ×3

== ENCOUNTER 2023-06-01 12:59 | Inpatient (IN) | payer OTHER ==
[2023-06-01 13:53] LABS: SARS-CoV-2 Antigen Rapid Res Negative (Negative)
[2023-06-01 13:57] LABS: Absolute Lymphocytes (CBC) 1.8 K/uL (0.7-4.9); Hematocrit 31.7 % (36.0-45.0); Lymphocytes % 13.1 % (15.3-44.8); MCV 98.3 fL (80-100); MPV 8.1 fL (7.6-11.3); Platelets 243 thou/uL (152-406); RBC Red Blood Cell Count 3.22 M/uL (3.86-4.86)
[2023-06-01] MEDS ORDERED: ONDANSETRON 4 MG/2 ML VIAL ONE (14:03)
[2023-06-01 14:14] LABS: Albumin 2.9 g/dL (3.4-5.0); Bilirubin Total 0.5 mg/dL (0.2-1.0); Potassium 3.5 mEq/L (3.5-5.1); Protein, Total 6.6 g/dL (6.4-8.2)
--- NOTE | 2023-06-01 14:53 | RAD REPORT ---
EXAM DESCRIPTION: CT - Abdomen Pelvis Wo Contrast - 06/01/2023 2:24 pm CLINICAL HISTORY: diarrhea;Abd pain COMPARISON: [facility] Protocol dated 07/23/2021 TECHNIQUE: Thin cut axial CT imaging of the abdomen and pelvis was performed without IV contrast. Mu ltiplanar reformats were generated and reviewed. All CT scans are performed using dose optimization technique as appropriate and may include automated exposure control or mA/KV adjustment according to patient size. FINDINGS: No suspicious findings in the lung bases. The liver, spleen, adrenal glands, and pancreas show no suspicious findings. Gallbladder shows multip le moderate-sized layering stones along the body/neck. No intra or extrahepatic biliary ductal dilati on. Atrophic changes of the left kidney again seen, without suspicious parenchymal findings within limits of noncontrast technique. No evidence of radiopaque calculi or hydroureteronephrosis. No dilated bowel loops or bowel wall thickening. Somewhat ahaustral appearance of the mid to distal d escending colon, with an air-fluid level. No free air, free fluid or inflammatory stranding. No herni a, mass or bulky lymphadenopathy. The urinary bladder is without significant finding. No suspicious bony findings. IMPRESSION: Somewhat ahaustral appearance of the mid to distal descending colon with an air-fluid le irma. This could relate to mild colitis or diarrheal state. No other acute intra-abdominal process. Stable cholelithiasis. Atrophic changes of the left kidney again seen.
[2023-06-01 14:58] LABS: Specific Gravity 1.014 (1.005-1.030); Urine Bacteria <20 /HPF (<20); Urine Bilirubin NEGATIVE (Negative); Urine Blood 1+ (Negative); Urine Clarity Extremely Turbid (Clear); Urine Color Yellow (Yellow); Urine Glucose NEGATIVE (Negative); Urine Mucus Slight /HPF (None Seen); Urine Protein 1+ (Negative); Urine RBC <5 /HPF (None Seen); Urine Urobilinogen Normal (Normal); Urine WBC Clump Many /HPF (None Seen); Urine pH 5.5 (5.0-7.0)
--- NOTE | 2023-06-01 15:18 | EDPHYS ---
Physician Documentation [facility] Name: Mercedez Degroot Age: 68 yrs Sex: Female : 1955 Arrival Date: 06/01/2023 Time: 12:59 Bed 2 Private MD: ED Physician HPI: 06/01 13:45 This 68 yrs old Female presents to ER via Unassigned with complaints of Diarrhea and rn weakness. 13:45 The patient presents to the emergency department with diarrhea. rn 13:45 Possible causes: unknown. The symptoms are aggravated by nothing. The symptoms are rn alleviated by nothing. Associated signs and symptoms: Pertinent positives: abdominal pain, diarrhea, Pertinent negatives: fever, GI bleeding. Severity of symptoms: At their worst the symptoms were moderate in the emergency department the symptoms are unchanged. The patient has not experienced similar symptoms in the past. Patient reports several days of nonbloody diarrhea, associated with abdominal cramping, and generalized weakness. Could not get herself up today. Fell recently as well without syncope and no injuries. No vomiting. No fever.. Historical: - Allergies: 14:02 Lisinopril; ko1 14:02 Valium; ko1 14:02 Tape; ko1 - PMHx: 14:02 Atrial fibrillation; cancer, hx; CHF; Diabetes - NIDDM; Hypertension; Hypothyroidism; ko1 kidney disease; - PSHx: 14:02 section; triple bypass; ko1 - Immunization history:: Adult Immunizations up to date, Client reports receiving the 2nd dose of the Covid vaccine. - Social history:: Smoking status: Patient denies any tobacco usage or history of. - Family history:: not pertinent. - Hospitalizations: : No recent hospitalization is reported. ROS: 13:45 Constitutional: Negative for fever, chills, and weight loss, Cardiovascular: Negative rn for chest pain, palpitations, and edema, Respiratory: Negative for shortness of breath, cough, wheezing, and pleuritic chest pain, Abdomen/GI: Negative for nausea, vomiting, and constipation, Back: Negative for injury and pain, MS/Extremity: Negative for injury and deformity, Skin: Negative for injury, rash, and discoloration, Neuro: Negative for headache, numbness, tingling, and seizure. Exam: 13:45 Constitutional: This is a well developed, well nourished patient who is awake, alert, rn and in no acute distress. Head/Face: Normocephalic, atraumatic. ENT: Dry mucous membranes Cardiovascular: Tachycardic, regular. No pulse deficits. Respiratory: No increased work of breathing, no retractions or nasal flaring. Abdomen/GI: Soft, non-tender Skin: Warm, dry MS/ Extremity: Pulses equal, no cyanosis. Neuro: Awake and alert, GCS 15, strength 4/5 throughout Vital Signs: 13:30 BP 110 / 63; Pulse 88; Resp 18; Temp 98.9; Pulse Ox 97% ; ko1 19:02 BP 109 / 58; Pulse 88; Resp 18; Pulse Ox 99% ; ko1 MDM: 13:05 Patient medically screened. rn 15:14 Differential diagnosis: Nonspecific abd pain, appendicitis, diverticulitis, viral rn gastroenteritis, gastroenteritis, colitis. 15:15 Data reviewed: vital signs, nurses notes, lab test result(s), radiologic studies, CT rn scan, and as a result, I will admit patient. Consideration of Admission/Observation Patient was admitted/placed on observation. Escalation of care including admission/observation considered. Independent interpretation of the following test(s) in the Emergency Department CT Scan: My interpretation is CT abdomen images negative for obstruction or free air per my interpretation. Care significantly affected by the following chronic conditions: Diabetes, Hypertension, Congestive Heart Failure, Chronic Kidney Disease. Counseling: I had a detailed discussion with the patient and/or guardian regarding the historical points, exam findings, and any diagnostic results supporting the discharge/admit diagnosis, lab results, radiology results, the need for further work-up and treatment in the hospital. Response to treatment: the patient's symptoms have mildly improved after treatment, and as a result, I will admit patient. 06/01 13:11 Order name: CBC with Diff; Complete Time: 14:12 rn 06/01 13:11 Order name: CMP; Complete Time: 14:30 rn 06/01 13:11 Order name: Lipase; Complete Time: 14:30 rn 06/01 13:11 Order name: Urinalysis w/ reflexes; Complete Time: 15:10 rn 06/01 13:11 Order name: SARS RAPID; Complete Time: 14:12 rn 06/01 13:11 Order name: Flu; Complete Time: 14:12 rn 06/01 15:02 Order name: Urine Culture EDRI 06/01 14:24 Order name: Abdomen ; Complete Time: 15:10 EDRI 06/01 16:26 Order name: CONS Physician Consult EDRI 06/01 13:11 Order name: IV Saline Lock; Complete Time: 13:20 rn 06/01 13:11 Order name: Labs collected and sent; Complete Time: 13:50 rn Administered Medications: 13:29 Drug: NS 0.9% IV 1000 ml Route: IV; Rate: 1 bolus; Site: right forearm; ko1 13:53 Drug: Ondansetron IVP 4 mg Route: IVP; Site: right forearm; ko1 15:44 Drug: Rocephin IV 1 grams Route: IV; Rate: calculated rate; Site: right forearm; ko1 15:44 Drug: metroNIDAZOLE IVPB 500 mg Volume: 100 ml; Route: IVPB; Rate: 200 ml/hr; Infused ko1 Over: 30 mins; Site: right forearm; Disposition Summary: 06/01/23 15:17 Hospitalization Ordered Hospitalization Status: Inpatient Admission rn Provider: Johnathon Ospina rn Location: Telemetry/MedSurg (Inpatient) rn Condition: Stable rn Problem: new rn Symptoms: have improved rn Bed/Room Type: Standard rn Room Assignment: 212(06/01/23 18:33) kj1 Diagnosis - Infectious gastroenteritis and colitis, unspecified rn - Acute kidney failure, unspecified rn - Dehydration rn - Muscle weakness (generalized) rn Forms: - Medication Reconciliation Form rn - SBAR form rn - Leadership Thank You Letter rn Signatures: Dispatcher [employer] [facility] Jett Ospina MD MD rn Jackson, Kandis kj Pat Saunders RN RN ko1 Corrections: (The following items were deleted from the chart) 14:24 13:11 Abdomen Pelvis W Con+CT.RAD.BRZ ordered. [facility] 18:33 15:17 rn kj1
--- NOTE | 2023-06-01 15:18 | ER ---
Nurse's Notes [facility] Name: Mercedez Degroot Age: 68 yrs Sex: Female : 1955 Arrival Date: 06/01/2023 Time: 12:59 Bed 2 Private MD: Diagnosis: Infectious gastroenteritis and colitis, unspecified;Acute kidney failure, unspecified;Dehydration;Muscle weakness (generalized) Presentation: 06/01 13:30 Chief complaint: EMS states: diarrhea for 8 days, loss of appetite and weakness. ko1 Coronavirus screen: At this time, the client does not indicate any symptoms associated with coronavirus-19. Ebola Screen: No symptoms or risks identified at this time. Initial Sepsis Screen: Does the patient meet any 2 criteria? No. Patient's initial sepsis screen is negative. Does the patient have a suspected source of infection? No. Patient's initial sepsis screen is negative. Risk Assessment: Do you want to hurt yourself or someone else? Patient reports no desire to harm self or others. Onset of symptoms is unknown. Care prior to arrival: IV initiated. 20 GA, in the right forearm, Glucose check: 168. 13:30 Method Of Arrival: EMS: [facility] ko1 13:30 Acuity: TRISHA 3 ko1 Triage Assessment: 14:02 General: Appears in no apparent distress. uncomfortable, Behavior is calm, cooperative, ko1 appropriate for age. Pain: Denies pain. Historical: - Allergies: 14:02 Lisinopril; ko1 14:02 Valium; ko1 14:02 Tape; ko1 - PMHx: 14:02 Atrial fibrillation; cancer, hx; CHF; Diabetes - NIDDM; Hypertension; Hypothyroidism; ko1 kidney disease; - PSHx: 14:02 section; triple bypass; ko1 - Immunization history:: Adult Immunizations up to date, Client reports receiving the 2nd dose of the Covid vaccine. - Social history:: Smoking status: Patient denies any tobacco usage or history of. - Family history:: not pertinent. - Hospitalizations: : No recent hospitalization is reported. Screenin:40 [facility] ED Fall Risk Assessment (Adult) History of falling in the last 3 months, ko1 including since admission Yes- single mechanical fall (1 pt) Confusion or Disorientation No (0 pts) Intoxicated or Sedated No (0 pts) Impaired Gait Yes (1 pt) Mobility Assist Device Used Yes (1 pt) Altered Elimination No (0 pt) Score/Fall Risk Level 3 or more points = High Risk Oriented to surroundings, Maintained a safe environment, Educated pt \T\ family on fall prevention, incl call for assistance when getting out of bed, Assessed \T\ reinforced patient's understanding of fall precautions, Provided non-skid footwear, Hourly rounding (assess needs \T\ fall precautionary measures) done, Used ambulatory aids as needed (educated on \T\ assisted with), Used gait belt as appropriate Implemented a Fall Risk Plan of Care, Apply high fall risk patient identification: yellow non skid footwear/ fall signage, Remained w/in arm's length of patient and in sight while toileting, Offered frequent toileting (1:1 observation), Remained with patient while ambulating, Utilized family, sitter, or virtual creative manager as indicated. Abuse screen: Denies threats or abuse. Denies injuries from another. Nutritional screening: No deficits noted. Tuberculosis screening: No symptoms or risk factors identified. Assessment: 13:40 Neuro: No deficits noted. Cardiovascular: Rhythm is atrial fibrillation. Respiratory: ko1 No deficits noted. GI: Reports diarrhea. GI: Reports nausea. : No deficits noted. EENT: Poor dentition noted. Derm: No deficits noted. Musculoskeletal: Reports weakness in generalized. 19:10 Reassessment: No changes from previously documented assessment. Patient and/or family vc1 updated on plan of care and expected duration. Pain level reassessed. Vital Signs: 13:30 BP 110 / 63; Pulse 88; Resp 18; Temp 98.9; Pulse Ox 97% ; ko1 19:02 BP 109 / 58; Pulse 88; Resp 18; Pulse Ox 99% ; ko1 ED Course: 13:05 Patient arrived in ED. kj1 13:05 Jett Ospina MD is Attending Physician. rn 13:20 Pat Saunders, EVA is Primary Nurse. ko1 13:29 Flu Sent. ko1 13:29 SARS RAPID Sent. ko1 13:40 Maintain EMS IV. Dressing intact. Good blood return noted. Site clean \T\ dry. Gauge \T\ ko 1 site: 20 R FA. 13:40 Patient has correct armband on for positive identification. Allergy band placed. Fall ko1 risk band placed. Placed in gown. Bed in low position. Call light in reach. Side rails up X2. Provided Education on: NA. Pulse ox on. NIBP on. Door closed. Noise minimized. Lights dimmed. Warm blanket given. 13:50 CBC with Diff Sent. ko1 13:50 CMP Sent. ko1 13:50 Lipase Sent. ko1 14:02 Triage completed. ko1 14:02 Arm band placed on left wrist. Patient placed in an exam room, on a stretcher, on pulse ko1 oximetry, Patient notified of wait time. 14:24 Abdomen In Process Unspecified. EDMS 14:40 Urinalysis w/ reflexes Sent. ko1 15:17 Johnathon Ospina MD is Hospitalizing Provider. rn 15:32 Urine Culture Sent. ll1 18:34 Attending Physician role handed off by Jett Ospina MD kj1 19:09 Report received from Darek. RN. vc1 20:06 No provider procedures requiring assistance completed. Patient admitted, IV remains in vc1 place. Administered Medications: 13:29 Drug: NS 0.9% IV 1000 ml Route: IV; Rate: 1 bolus; Site: right forearm; ko1 13:53 Drug: Ondansetron IVP 4 mg Route: IVP; Site: right forearm; ko1 15:44 Drug: Rocephin IV 1 grams Route: IV; Rate: calculated rate; Site: right forearm; ko1 15:44 Drug: metroNIDAZOLE IVPB 500 mg Volume: 100 ml; Route: IVPB; Rate: 200 ml/hr; Infused ko1 Over: 30 mins; Site: right forearm; Medication: 13:40 VIS not applicable for this client. ko1 Outcome: 15:17 Decision to Hospitalize by Provider. rn 18:33 Patient left the ED. kj1 20:06 Admitted to Med/surg accompanied by tech, via stretcher, room 212, Report called to 1 EVA Sherman 20:06 Condition: good 20:06 Instructed on the need for admit. 20:06 Patient left the ED. [facility] Signatures: Dispatcher [employer] EDMS Jett Ospina MD MD rn Jackson, Kandis kj1 Ahsan Concepcion RN RN ll1 Calcote, Vanessa, RN RN [facility] Pat Saunders RN RN ko1
--- NOTE | 2023-06-01 15:26 | P.HP ---
Certification for Inpatient Patient admitted to: Inpatient With expected LOS: <2 Midnights Patient will require the following post-hospital care: None Practitioner: I am a practitioner with admitting privileges, knowledge of patient current condition, hospital course, and medical plan of care. Services: Services provided to patient in accordance with Admission requirements found in Title 42 Section 412.3 of the Code of Federal Regulations Patient History Date of Service: 06/01/23 Reason for admission: Diarrhea x8 days and weakness History of Present Illness: 68-year-old female with past medical history of atrial fibrillation, congestive heart failure, diabetes, history of cancer, hypertension, hypothyroidism, and kidney disease presents to the emergency room with complaints of diarrhea and weakness for 2 to 3 days. Reports cramping, no recorded rectal bleeding, hematemesis, fever, shortness of breath, chest pain, edema. ER course BP 110 / 63; Pulse 88; Resp 18; Temp 98.9; Pulse Ox 97%, H/H 10.5/31.7, Leukocytosis with white blood count at 14, anemia H&H 10.5/31.7, acute on chronic kidney disease with BUN and creatinine 41/2.75, Lipase 26, UA with 1+ blood, leukoesterase 500, and COVID was negative. CT abdomen pelvis without contrast reveals a somewhat ahaustral appearance of the mid to distal descending colon with an air-fluid le irma. This could relate to mild colitis or diarrheal state. No other acute intra-abdominal process stable cholelithiasis, atrophic changes to the left kidney again seen. Plan to admit for infectious gastroenteritis and colitis with acute cystitis, dehydration with acute kidney failure, weakness, and sepsis without shock for IV fluids and IV antibiotics. Dr. Fish consulted for acute on chronic kidney disease, Dr. Almendarez ordered GI consult for colitis/gastroenteritis evaluation. . Allergies diazepam [From Valium] Allergy (Verified 01/26/21 17:24) Hives/Rash lisinopril Allergy (Verified 01/26/21 17:24) Unknown Tape Allergy (Uncoded 01/26/21 17:24) Unknown Home Medications: Atorvastatin Calcium [Lipitor] 80 mg PO BEDTIME 01/26/21 Gabapentin 300 mg PO TID 01/26/21 Furosemide [Lasix*] 40 mg PO DAILY #30 tab 01/28/21 Levothyroxine Sodium 137 mcg PO [id number] 01/28/21 Apixaban [Eliquis] 1 tab PO BID 07/24/21 Aspirin [Aspirin EC 81 MG] 1 tab PO DAILY 07/24/21 Diltiazem HCl [Dilt-Xr] 120 mg PO BEDTIME 07/24/21 Glipizide [Glipizide ER] 5 mg PO BID 07/24/21 Pantoprazole [Protonix Tab*] 40 mg PO DAILY 07/24/21 Isosorbide Mononitrate [Isosorbide Mononitrate ER] 1 tab PO DAILY 11/03/21 Metoprolol Succinate 125 mg PO BID 11/03/21 Spironolactone [Aldactone*] 25 mg PO DAILY 30 Days #30 tab 11/03/21 dilTIAZem HCL [Diltiazem 24Hr ER (Xr)] 1 tab PO SEECOM 11/03/21 - Past Medical/Surgical History Diabetic: Yes -: DM-NIDDM -: HTN -: Stage 4 kidney disease -: AFIB on chronic anticoagulation therapy -: Hypothyroidism -: Chronic systolic congestive heart failure -: Hyperlipidemia -: Triple Bypass -: Hystectomy -: Hernia removal x7 Psychosocial/ Personal History: Patient lives at home with family - Family History Mother -: Heart disease, Lung disease, GI disease, Diabetes, Cancer, Kidney disease, Other (see notes) Notes: Colon Cancer - Social History Alcohol use: No CD- Drugs: No Caffeine use: Yes Review of Systems 10-point ROS is otherwise unremarkable Physical Examination - Physical Exam General: Alert, Oriented x3, Cooperative, Obese HEENT: Atraumatic, Normocephalic, Other (Mucous membranes tacky) Neck: Supple, 2+ carotid pulse no bruit Respiratory: Clear to auscultation bilaterally, Normal air movement Cardiovascular: No edema, Other (No edema present), Irregular heart rate/rhythm Capillary refill: <2 Seconds Gastrointestinal: Hypoactive, Soft and benign, Other ( nontender) Musculoskeletal: No clubbing, No swelling Integumentary: No rashes, No breakdown Neurological: Normal speech, Normal strength at 5/5 x4 extr, Normal tone - Studies Laboratory Data (last 24 hrs) 06/01/23 06/01/23 13:45 13:45 WBC 14.00 H Hgb 10.5 L Hct 31.7 L Plt Count 243 Sodium 136 Potassium 3.5 BUN 41 H Creatinine 2.75 H Glucose 154 H Total Bilirubin 0.5 AST 14 L ALT 26 Alkaline Phosphatase 58 Lipase 26 Microbiology Data (last 24 hrs): 06/01/23 13:26 Nasopharnyx Influenza Type A Antigen Screen - Final 06/01/23 13:26 Nasopharnyx Influenza Type B Antigen Screen - Final Assessment and Plan - Plan Assessment and plan). Sepsis without shock -Admit -WBC 14, HR >90 -Gentle IVF -Rocephin/flagyl Infectious gastroenteritis with colitis -GI notified -Flagyl -Stool culture, OVA/parasite, C-diff -CT abd/pelvis ahaustral appearance of the mid to distal descending colon with an air-fluid level. This could relate to mild colitis or diarrheal state. -Monitor LFT in AM -Clear liquid diet Acute cystitis -Rocephin 1Gram -UA positive with blood present -UA with 1+ blood, leukoesterase 500 Weakness 2/2 dehydration/fluid volume deficit Acute kidney failure vs chronic kidney disease stage 4 -CT abd/pelvis atrophic changes to the left kidney -Gentle IVF -BUN 41 creatinine 2.75 -no nephrotixic medications -Nephrology consulted and notified Diabetes mellitus type NTind-amjfpnb-vijtrying: -ACHS Accu-Chek, sliding scale insulin. Hypothyroidism: -Obtain and continue medications Anemia -H/H 10.5/31.7 -Trend H/H -Transfuse hgb < 7 Afib in patient with Diastolic HF -EKG -Telemetry -continue Eliquis -monitor for blood in bowel and urine -Continue home medications HTN -continue home medications -monitor BP Q4hr DVT PPX: home eliquis Full code Clear liquid advance as tolerated Discharge Plan: Home Plan to discharge in: 48 Hours - Advance Directives Does patient have a Living Will: Yes Does patient have a Durable POA for Healthcare: Yes - Code Status/Comfort Care Code Status Assessed: Yes Code Status: Full Code Physician Review: Patient Assessed, Agree with Above Assessment and Plan Critical Care: No Time Spent Managing Pts Care (In Minutes): 50
[2023-06-01] MEDS ORDERED: CEFTRIAXONE 1000 MG/VIAL ONE (15:34)
[2023-06-01] MEDS ORDERED: NA CHLORIDE 0.9% 0 ML ONE (15:35)
[2023-06-01] MEDS ORDERED: METRONIDAZOLE 500mg IVPB 500 MG/100 ML BAG IV ONE (15:35)
[2023-06-01] MEDS ORDERED: NA CHLORIDE 0.9% 50 ML ONE (15:35)
[2023-06-01] MEDS ORDERED: ONDANSETRON 4 MG/2 ML VIAL IV PRN (16:26)
[2023-06-01] MEDS ORDERED: ALPRAZOLAM 0.25 MG TABLET PO PRN (16:26)
[2023-06-01] MEDS: METRONIDAZOLE 500mg IVPB 500 MG/100 ML BAG IV SCH (17:00)
[2023-06-01] MEDS ORDERED: NA CHLORIDE 0.9% 500 ML ONE (17:04)
[2023-06-01] MEDS ORDERED: D50W 25 GM/50 ML SYRINGE IV PRN (17:36)
[2023-06-01] MEDS ORDERED: GLUCAGON 1 MG/VIAL IM PRN (17:36)
[2023-06-01] MEDS ORDERED: D10W 125 ML IV PRN (17:48)
[2023-06-01] MEDS ORDERED: CEFTRIAXONE 1,000 MG in NA CHLORIDE 0.9% 50 ML IVPB SCH (18:00)
--- NOTE | 2023-06-01 18:19 | P.CNS ---
Date of Consult: 06/01/23 Reason for Consult: REBECCA/ CKD Requesting Physician: Johnathon Ospina Chief Complaint: Diarrhea x8 days and weakness History of Present Illness: 68-year-old female with past medical history of atrial fibrillation, congestive heart failure, diabetes, history of cancer, hypertension, hypothyroidism, and kidney disease presents to the emergency room with complaints of diarrhea and weakness for 2 to 3 days. Reports cramping, no recorded rectal bleeding, hematemesis, fever, shortness of breath, chest pain, edema. ER course BP 110 / 63; Pulse 88; Resp 18; Temp 98.9; Pulse Ox 97%, H/H 10.5/31.7, Leukocytosis with white blood count at 14, anemia H&H 10.5/31.7, acute on chronic kidney disease with BUN and creatinine 41/2.75, Lipase 26, UA with 1+ blood, leukoesterase 500, and COVID was negative. CT abdomen pelvis without contrast reveals a somewhat ahaustral appearance of the mid to distal descending colon with an air-fluid level. This could relate to mild colitis or diarrheal state. No other acute intra-abdominal process stable cholelithiasis, atrophic changes to the left kidney again seen. Plan to admit for infectious gastroenteritis and colitis with acute cystitis, dehydration with acute kidney failure, weakness, and sepsis without shock for IV fluids and IV antibiotics. Dr. Fish consulted for acute on chronic kidney disease, Dr. Almendarez ordered GI consult for colitis/gastroenteritis evaluation. 13:45 This 68 yrs old Female presents to ER via Unassigned with complaints of Diarrhea and rn weakness. 13:45 The patient presents to the emergency department with diarrhea. rn 13:45 Possible causes: unknown. The symptoms are aggravated by nothing. The symptoms are rn alleviated by nothing. Associated signs and symptoms: Pertinent positives: abdominal pain, diarrhea, Pertinent negatives: fever, GI bleeding. Severity of symptoms: At their worst the symptoms were moderate in the emergency department the symptoms are unchanged. The patient has not experienced similar symptoms in the past. Patient reports several days of nonbloody diarrhea, associated with abdominal cramping, and generalized weakness. Could not get herself up today. Fell recently as well without syncope and no injuries. No vomiting. No fever. Brown liquid stool observed in the ER. Allergies diazepam [From Valium] Allergy (Verified 01/26/21 17:24) Hives/Rash lisinopril Allergy (Verified 01/26/21 17:24) Unknown Tape Allergy (Uncoded 01/26/21 17:24) Unknown Home medications list reviewed: Yes Home Medications: Atorvastatin Calcium [Lipitor] 80 mg PO BEDTIME 01/26/21 Gabapentin 300 mg PO TID 01/26/21 Furosemide [Lasix*] 40 mg PO DAILY #30 tab 01/28/21 Levothyroxine Sodium 137 mcg PO [id number] 01/28/21 Apixaban [Eliquis] 1 tab PO BID 07/24/21 Aspirin [Aspirin EC 81 MG] 1 tab PO DAILY 07/24/21 Diltiazem HCl [Dilt-Xr] 120 mg PO BEDTIME 07/24/21 Glipizide [Glipizide ER] 5 mg PO BID 07/24/21 Pantoprazole [Protonix Tab*] 40 mg PO DAILY 07/24/21 Isosorbide Mononitrate [Isosorbide Mononitrate ER] 1 tab PO DAILY 11/03/21 Metoprolol Succinate 125 mg PO BID 11/03/21 Spironolactone [Aldactone*] 25 mg PO DAILY 30 Days #30 tab 11/03/21 dilTIAZem HCL [Diltiazem 24Hr ER (Xr)] 1 tab PO SEECOM 11/03/21 - Past Medical/Surgical History Diabetic: Yes -: DM-NIDDM -: HTN -: CKD IV (Dr. Fish/ Dr. Casiano) -: AFIB on chronic anticoagulation therapy -: Hypothyroidism -: Systolic CHF -: HLD -: Triple Bypass -: Hystectomy -: Hernia removal x7 Psychosocial/ Personal History: Patient lives at home with family - Family History Mother Medical History: Heart disease, Lung disease, GI disease, Diabetes, Cancer, Kidney disease, Other (see notes) Notes: Colon Cancer - Social History Smoking Status: Unknown if ever smoked Alcohol use: No CD- Drugs: No Caffeine use: Yes Review of Systems 10-point ROS is otherwise unremarkable General: Weakness, Malaise Gastrointestinal: Diarrhea Musculoskeletal: Leg Pain, Foot Pain Physical Examination General: Oriented x3, Cooperative HEENT: Atraumatic Neck: Supple Respiratory: Normal air movement Cardiovascular: No edema, Regular rate/rhythm Gastrointestinal: Soft and benign, Non-distended, No tenderness Musculoskeletal: No clubbing, No contractures Integumentary: No rashes, No cyanosis Neurological: Normal speech Laboratory Data (last 24 hrs) 06/01/23 06/01/23 13:45 13:45 WBC 14.00 H Hgb 10.5 L Hct 31.7 L Plt Count 243 Sodium 136 Potassium 3.5 BUN 41 H Creatinine 2.75 H Glucose 154 H Total Bilirubin 0.5 AST 14 L ALT 26 Alkaline Phosphatase 58 Lipase 26 Imagings Data: EXAM DESCRIPTION: CT - Abdomen Pelvis Wo Contrast - 06/01/2023 2:24 pm CLINICAL HISTORY: diarrhea;Abd pain COMPARISON: [facility] Protocol dated 07/23/2021 TECHNIQUE: Thin cut axial CT imaging of the abdomen and pelvis was performed without IV contrast. Multiplanar reformats were generated and reviewed. All CT scans are performed using dose optimization technique as appropriate and may include automated exposure control or mA/KV adjustment according to patient size. FINDINGS: No suspicious findings in the lung bases. The liver, spleen, adrenal glands, and pancreas show no suspicious findings. Gallbladder shows multiple moderate-sized layering stones along the body/neck. No intra or extrahepatic biliary ductal dilation. Atrophic changes of the left kidney again seen, without suspicious parenchymal findings within limits of noncontrast technique. No evidence of radiopaque calculi or hydroureteronephrosis. No dilated bowel loops or bowel wall thickening. Somewhat ahaustral appearance of the mid to distal descending colon, with an air-fluid level. No free air, free fluid or inflammatory stranding. No hernia, mass or bulky lymphadenopathy. The urinary bladder is without significant finding. No suspicious bony findings. IMPRESSION: Somewhat ahaustral appearance of the mid to distal descending colon with an air-fluid level. This could relate to mild colitis or diarrheal state. No other acute intra-abdominal process. Stable cholelithiasis. Atrophic changes of the left kidney again seen. Conclusions/Impression: Stage I REBECCA likely due to hypovolemia CKD IV with Proteinuria Atrophic Left Kidney -No NSAIDs -Continue IVF with NS Hypokalemia -Replete as ordered HTN with CKD/ CHF -Hold antihypertensives at this time Systolic CHF, chronic -Daily weight -Low sodium diet DM II with CKD -RISS Hypoalbuminemia -Consider protein supplementation Anemia in chronic illness -Monitor H&H Acute Cystitis Colitis -Continue Abx -Follow up cultures Hospitalist and ER notes reviewed Thank you kindly for the consultation
[2023-06-01] MEDS ORDERED: POTASSIUM CL SA 10 MEQ TAB PO ONE (18:30)
[2023-06-01] MEDS: INSULIN -REGULAR HUMAN 50 UNIT/0.5 ML ML SQ SCH (22:00)
[2023-06-01] MEDS: NA CHLORIDE 0.9% 1,000 ML IV SCH (22:02)
[2023-06-01] MEDS ORDERED: GABAPENTIN 300 MG CAP PO PRN (23:39)
[2023-06-01 23:55] VITALS: BMI 33.3
[2023-06-01] MEDS: ACETAMINOPHEN 500 MG TAB PO PRN (23:56)
[2023-06-02] MEDS: METRONIDAZOLE 500mg IVPB 500 MG/100 ML BAG IV SCH ×3 (00:03→16:04)
[2023-06-02 03:50] LABS: Hematocrit 30.3 % (36.0-45.0); Lymphocytes % 17.9 % (15.3-44.8); MCV 98.8 fL (80-100); MPV 8.7 fL (7.6-11.3); Platelets 213 thou/uL (152-406); RBC Red Blood Cell Count 3.07 M/uL (3.86-4.86)
[2023-06-02 04:12] LABS: Albumin 2.6 g/dL (3.4-5.0); Bilirubin Total 0.3 mg/dL (0.2-1.0); Phosphorus 3.3 mg/dL (2.5-4.9); Potassium 3.7 mEq/L (3.5-5.1); Protein, Total 6.4 g/dL (6.4-8.2); Uric Acid 9.7 mg/dL (2.6-6.0)
[2023-06-02] MEDS ORDERED: MORPHINE 2 MG/ML SYR IV ONE (04:34)
--- NOTE | 2023-06-02 07:05 | P.PN ---
Date of Service: 06/02/23 Subjective: Feeling better today no diarrhea since coming to the floor cramping pains are gone chronic R foot pain with neuropathy - from ankle down, ~same as yesterday similar type of pain and location as previous episodes but pain is more severe ROS: 10 point ROS as noted above, otherwise negative Physical Exam: GEN: Alert, oriented, NAD HEENT: Normal conjunctiva, sclera anicteric CV: Regular rate and rhythm, no edema Pulm: Nonlabored respirations on room air ABD: Soft, nontender, nondistended Neuro: Normal speech, normal affect vitals reviewed Problem List: Infectious gastroenteritis with colitis Pyuria, leukocyturia REBECCA on CKD 4 Afib on chronic anticoagulation Diastolic CHF, chronic NIDDM2 Hypothyroidism Hypertension Infectious gastroenteritis with colitis CT abdomen (06/01): ahaustral appearance of the mid to distal descending colon with an air-fluid level Stool culture, OVA/parasite, C-diff pending GI consutled Continue empiric rocephin / flagyl (06/02-) afebrile, +leukocytosis improving Monitor LFTs Clear liquids no BM/diarrhea since coming to the floor from ED cramping pains are gone Pyuria, leukocyturia Denies UTI symptoms UA: +LE, +WBC >50, <20 Bacteria Urine cx: pending REBECCA on CKD 4 CT abdomen (06/01): Atrophic changes of the left kidney Nephrology consulted continue IV fluids improving Afib on chronic anticoagulation Diastolic CHF, chronic Monitor on tele continue home eliquis Continue home medications NIDDM2 with neuropathy ACHS Accu-Chek, SSI chronic R foot pain with neuropathy - from ankle down similar type of pain and location as previous episodes but pain is more severe Continue gabapentin TID PRN pain medication Hypothyroidism Hypertension Confirm home medication, restart as appropriate VTE: home eliquis Code: Full Dispo: Home ~2 days
[2023-06-02] MEDS: INSULIN -REGULAR HUMAN 50 UNIT/0.5 ML ML SQ SCH ×4 (07:30→21:00)
[2023-06-02] MEDS ORDERED: POTASSIUM 25 MEQ EFFERV TAB PO ONE (07:40)
[2023-06-02] MEDS: CEFTRIAXONE 1,000 MG in NA CHLORIDE 0.9% 50 ML IVPB SCH (08:04)
[2023-06-02] MEDS: LACTOBACILLUS/ACIDOPHILUS TAB PO SCH (08:05)
[2023-06-02] MEDS: ACETAMINOPHEN 500 MG TAB PO PRN ×2 (10:29→18:37)
[2023-06-02] MEDS: GABAPENTIN 300 MG CAP PO SCH ×3 (12:03→21:03)
[2023-06-02] MEDS: CODEINE 30MG/APAP 300MG TAB PO PRN (13:41)
--- NOTE | 2023-06-02 16:50 | P.PN ---
Nephrology note (S) Delayed entry note, pt seen earlier this AM, pt reports resolution of diarrheal symptoms that her brought her in, no abdominal pain (O) Vitals reviewed in the EMR General: Oriented x3, Cooperative HEENT: Atraumatic, not on O2 Neck: Supple Respiratory: Normal air movement, no rhonchi Cardiovascular: No edema, Regular rate/rhythm Gastrointestinal: Soft and benign, Non-distended, No tenderness Musculoskeletal: No clubbing, No contractures Integumentary: No rashes Neurological: Normal speech, awake, alert EXAM DESCRIPTION: CT - Abdomen Pelvis Wo Contrast - 06/01/2023 2:24 pm CLINICAL HISTORY: diarrhea;Abd pain COMPARISON: [facility] Protocol dated 07/23/2021 TECHNIQUE: Thin cut axial CT imaging of the abdomen and pelvis was performed without IV contrast. Multiplanar reformats were generated and reviewed. All CT scans are performed using dose optimization technique as appropriate and may include automated exposure control or mA/KV adjustment according to patient size. FINDINGS: No suspicious findings in the lung bases. The liver, spleen, adrenal glands, and pancreas show no suspicious findings. Gallbladder shows multiple moderate-sized layering stones along the body/neck. No intra or extrahepatic biliary ductal dilation. Atrophic changes of the left kidney again seen, without suspicious parenchymal findings within limits of noncontrast technique. No evidence of radiopaque calculi or hydroureteronephrosis. No dilated bowel loops or bowel wall thickening. Somewhat ahaustral appearance of the mid to distal descending colon, with an air-fluid level. No free air, free fluid or inflammatory stranding. No hernia, mass or bulky lymphadenopathy. The urinary bladder is without significant finding. No suspicious bony findings. IMPRESSION: Somewhat ahaustral appearance of the mid to distal descending colon with an air-fluid level. This could relate to mild colitis or diarrheal state. No other acute intra-abdominal process. Stable cholelithiasis. Atrophic changes of the left kidney again seen. Conclusions/Impression: Stage I REBECCA 2nd to pre-renal azotemia/relative hypotension on underlying CKD IV with atrophic/small kidney unilateral. Cr level earlier in the year in November then was > 3 mg/dl. Pt has had abnormal renal function tests going back to 2016 -Cr level lower post hydration, cont to trend, cont gentle hydration Abnormal findings in urine, pyuria. Presumed cystitis -No hydro, stones or bladder wall thickening on CT, f/u UCx HTN, chronic BP non elevated, hold diuretics currently Bunny Casiano MD, JAZLYN
[2023-06-02] MEDS: NA CHLORIDE 0.9% 1,000 ML IV SCH (18:38)
[2023-06-03] MEDS: METRONIDAZOLE 500mg IVPB 500 MG/100 ML BAG IV SCH ×3 (00:09→15:50)
[2023-06-03 04:23] LABS: Absolute Lymphocytes (CBC) 1.5 K/uL (0.7-4.9); Hematocrit 28.9 % (36.0-45.0); Lymphocytes % 16.2 % (15.3-44.8); MPV 8.7 fL (7.6-11.3); Platelets 213 thou/uL (152-406); RBC Red Blood Cell Count 2.92 M/uL (3.86-4.86)
[2023-06-03 04:47] LABS: Albumin 2.5 g/dL (3.4-5.0); Bilirubin Total 0.2 mg/dL (0.2-1.0); Magnesium 1.9 mg/dL (1.6-2.4); Phosphorus 2.9 mg/dL (2.5-4.9); Potassium 4.1 mEq/L (3.5-5.1); Protein, Total 6.2 g/dL (6.4-8.2)
--- NOTE | 2023-06-03 07:03 | P.PN ---
Date of Service: 06/03/23 Subjective: Feeling a little better Ambulating with PT, improving; gait distance limited by R foot pain per PT no further episodes of diarrhea currently in a-fib with HR in 110-120s afebrile ROS: 10 point ROS as noted above, otherwise negative Physical Exam: GEN: Alert, oriented, NAD HEENT: Normal conjunctiva, sclera anicteric CV: Irregularly Irregular rate and rhythm with HR:110-120s, no edema Pulm: Nonlabored respirations on room air ABD: Soft, nontender, nondistended Neuro: Normal speech, normal affect vitals reviewed Problem List: Infectious gastroenteritis with colitis Gram negative bacteriuria REBECCA on CKD 4 Afib on chronic anticoagulation Diastolic CHF, chronic NIDDM2 Hypothyroidism Hypertension Infectious gastroenteritis with colitis CT abdomen (06/01): ahaustral appearance of the mid to distal descending colon with an air-fluid level Stool culture, OVA/parasite, C-diff pending GI consutled Continue empiric rocephin / flagyl (06/02-) afebrile, +leukocytosis improving Monitor LFTs Full liquids no BM/diarrhea since coming to the floor from ED cramping pains are gone Gram negative bacteriuria Denies UTI symptoms Urine cx: +GNR Continue empiric rocephin / flagyl (06/02-) afebrile, +leukocytosis improving REBECCA on CKD 4 CT abdomen (06/01): Atrophic changes of the left kidney Nephrology consulted IV fluids DCd 06/02 improving A-fib on chronic anticoagulation Diastolic CHF, chronic Monitor on tele continue home eliquis BNP 06/03: 5925 currently in a-fib with HR in 110-120s Restarted some home medications including amiodarone, metoprolol, statin, aspirin 06/03 NIDDM2 with neuropathy ACHS Accu-Chek, SSI chronic R foot pain with neuropathy - from ankle down similar type of pain and location as previous episodes but pain is more severe Continue gabapentin TID PRN pain medication Hypothyroidism Hypertension Confirm home medication, restart as appropriate VTE: home eliquis Code: Full Dispo: Home ~1-2 days
[2023-06-03] MEDS: INSULIN -REGULAR HUMAN 50 UNIT/0.5 ML ML SQ SCH ×4 (07:30→21:00)
[2023-06-03] MEDS: CEFTRIAXONE 1,000 MG in NA CHLORIDE 0.9% 50 ML IVPB SCH (07:42)
[2023-06-03] MEDS: GABAPENTIN 300 MG CAP PO SCH ×3 (07:42→21:34)
[2023-06-03] MEDS: LACTOBACILLUS/ACIDOPHILUS TAB PO SCH (07:43)
[2023-06-03] MEDS: ACETAMINOPHEN 500 MG TAB PO PRN (07:50)
[2023-06-03] MEDS: CODEINE 30MG/APAP 300MG TAB PO PRN (11:08)
[2023-06-03] MEDS: AMIODARONE HCL 200 MG TAB PO SCH (11:08)
[2023-06-03] MEDS: METOPROLOL XL 50 MG TAB PO SCH ×2 (11:08→21:34)
--- NOTE | 2023-06-03 13:24 | P.PN ---
Nephrology note (S) Pt feels better overall, no acute complaints, denies urinary symptoms (O) Vitals reviewed in the EMR General: Oriented x3, Cooperative HEENT: Atraumatic, not on O2 Neck: Supple Respiratory: Normal air movement, no rhonchi Cardiovascular: No edema, Regular rate/rhythm Gastrointestinal: Soft and benign, Non-distended, No tenderness Musculoskeletal: No clubbing, No contractures Integumentary: No rashes Neurological: Normal speech, awake, alert EXAM DESCRIPTION: CT - Abdomen Pelvis Wo Contrast - 06/01/2023 2:24 pm CLINICAL HISTORY: diarrhea;Abd pain COMPARISON: [facility] Protocol dated 07/23/2021 TECHNIQUE: Thin cut axial CT imaging of the abdomen and pelvis was performed without IV contrast. Multiplanar reformats were generated and reviewed. All CT scans are performed using dose optimization technique as appropriate and may include automated exposure control or mA/KV adjustment according to patient size. FINDINGS: No suspicious findings in the lung bases. The liver, spleen, adrenal glands, and pancreas show no suspicious findings. Gallbladder shows multiple moderate-sized layering stones along the body/neck. No intra or extrahepatic biliary ductal dilation. Atrophic changes of the left kidney again seen, without suspicious parenchymal findings within limits of noncontrast technique. No evidence of radiopaque calculi or hydroureteronephrosis. No dilated bowel loops or bowel wall thickening. Somewhat ahaustral appearance of the mid to distal descending colon, with an air-fluid level. No free air, free fluid or inflammatory stranding. No hernia, mass or bulky lymphadenopathy. The urinary bladder is without significant finding. No suspicious bony findings. IMPRESSION: Somewhat ahaustral appearance of the mid to distal descending colon with an air-fluid level. This could relate to mild colitis or diarrheal state. No other acute intra-abdominal process. Stable cholelithiasis. Atrophic changes of the left kidney again seen. Conclusions/Impression: Stage I REBECCA 2nd to pre-renal azotemia/relative hypotension on underlying CKD IIIb/IV with atrophic/small kidney unilateral. Cr level earlier in the year in November then was > 3 mg/dl but that does not appear to be her baseline lever however, pt has had abnormal renal function tests going back to 2016 -Cr levels have downward trended with hydration and off diuretic therapy, IVF stopped since. Abnormal findings in urine, pyuria. Presumed cystitis -No hydro, stones or bladder wall thickening on CT, UCx with GNR bacteruria, cont Abx, follow up final cultures. HTN, chronic. Some reports of CHF unspecified BP generally acceptable. Pt may have been on a higher maintenance dose of lasix than needed, will lower dose on discharge Bunny Casiano MD, JAZLYN
[2023-06-03] MEDS: APIXABAN 5 MG TABLET PO SCH (21:34)
[2023-06-03] MEDS: ATORVASTATIN 80 MG TAB PO SCH (21:34)
[2023-06-04] MEDS: METRONIDAZOLE 500mg IVPB 500 MG/100 ML BAG IV SCH ×3 (00:10→18:26)
[2023-06-04 04:31] LABS: Absolute Lymphocytes (CBC) 1.5 K/uL (0.7-4.9); Hematocrit 32.1 % (36.0-45.0); Lymphocytes % 13.1 % (15.3-44.8); MCV 99.7 fL (80-100); MPV 8.9 fL (7.6-11.3); Platelets 260 thou/uL (152-406); RBC Red Blood Cell Count 3.22 M/uL (3.86-4.86)
[2023-06-04 04:49] LABS: Albumin 2.7 g/dL (3.4-5.0); Bilirubin Total 0.4 mg/dL (0.2-1.0); Phosphorus 2.2 mg/dL (2.5-4.9); Potassium 4.3 mEq/L (3.5-5.1); Protein, Total 6.8 g/dL (6.4-8.2)
[2023-06-04] MEDS: CODEINE 30MG/APAP 300MG TAB PO PRN (05:03)
[2023-06-04] MEDS: LEVOTHYROXINE SOD 0.075 MG TAB PO SCH (05:44)
--- NOTE | 2023-06-04 07:00 | P.PN ---
Date of Service: 06/04/23 Subjective: 1 episode of diarrhea yesterday pm, 1 episode this morning so far denies any pain in a-fib with HR in 100s otherwise no new / worsening problems ROS: 10 point ROS as noted above, otherwise negative Physical Exam: GEN: Alert, oriented, NAD HEENT: Normal conjunctiva, sclera anicteric CV: Irregularly Irregular rate and rhythm with HR:100s, no edema Pulm: Nonlabored respirations on room air ABD: Soft, nontender, nondistended Neuro: Normal speech, normal affect vitals reviewed Problem List: Infectious gastroenteritis with colitis UTI, Klebsiella Pneumoniae REBECCA on CKD 4 Afib on chronic anticoagulation Diastolic CHF, chronic NIDDM2 Hypothyroidism Hypertension GERD Infectious gastroenteritis with colitis CT abdomen (06/01): ahaustral appearance of the mid to distal descending colon with an air-fluid level Stool culture, OVA/parasite, C-diff pending GI consutled Continue empiric rocephin / flagyl (06/02-) afebrile, +leukocytosis improving Monitor LFTs heart healthy started 06/03 1 episode of diarrhea 06/03 pm, 1 episode this morning so far cramping pains are gone UTI, Klebsiella Pneumoniae Denies UTI symptoms Urine cx: Klebsiella Pneumoniae Continue rocephin / flagyl (06/02-) afebrile, +leukocytosis improving REBECCA on CKD 4 CT abdomen (06/01): Atrophic changes of the left kidney Nephrology consulted IV fluids DCd 06/02 improving A-fib on chronic anticoagulation Diastolic CHF, chronic Monitor on tele continue home eliquis currently in a-fib with HR in 100s Restarted some home medications including amiodarone, metoprolol, statin, aspirin 06/03 BNP 5925 -> 32549 (06/04) NIDDM2 with neuropathy ACHS Accu-Chek, SSI chronic R foot pain with neuropathy - from ankle down similar type of pain and location as previous episodes but pain is more severe Continue gabapentin TID PRN pain medication Hypothyroidism Hypertension GERD Confirm home medication, restart as appropriate VTE: home eliquis Code: Full Dispo: Home ~1-2 days
[2023-06-04] MEDS: INSULIN -REGULAR HUMAN 50 UNIT/0.5 ML ML SQ SCH ×4 (07:30→21:00)
[2023-06-04] MEDS: POTASS/SODIUM PHOSPHATE 1 PKT POWD.PACK PO SCH ×3 (08:43→12:14)
[2023-06-04] MEDS: LACTOBACILLUS/ACIDOPHILUS TAB PO SCH (08:44)
[2023-06-04] MEDS: PANTOPRAZOLE 40MG TABLET PO SCH (08:44)
[2023-06-04] MEDS: METOPROLOL XL 50 MG TAB PO SCH ×2 (08:45→21:14)
[2023-06-04] MEDS: APIXABAN 5 MG TABLET PO SCH ×2 (08:45→21:15)
[2023-06-04] MEDS: ASPIRIN EC 81 MG TAB PO SCH (08:45)
[2023-06-04] MEDS: AMIODARONE HCL 200 MG TAB PO SCH (08:45)
[2023-06-04] MEDS: GABAPENTIN 300 MG CAP PO SCH ×3 (08:45→21:15)
[2023-06-04] MEDS: CEFTRIAXONE 1,000 MG in NA CHLORIDE 0.9% 50 ML IVPB SCH (08:46)
[2023-06-04] MEDS ORDERED: POTASS/SODIUM PHOSPHATE 1 PKT POWD.PACK PO SCH (12:00)
[2023-06-04 17:47] VITALS: O2SAT 93
[2023-06-04] MEDS: ATORVASTATIN 80 MG TAB PO SCH (21:15)
[2023-06-05] MEDS: METRONIDAZOLE 500mg IVPB 500 MG/100 ML BAG IV SCH ×3 (00:26→16:03)
[2023-06-05] MEDS: CODEINE 30MG/APAP 300MG TAB PO PRN (03:31)
[2023-06-05] MEDS: LEVOTHYROXINE SOD 0.075 MG TAB PO SCH (05:59)
--- NOTE | 2023-06-05 07:22 | P.PN ---
Date of Service: 06/05/23 Subjective: Feeling much better today no diarrhea since yesterday pm (2 episodes yesterday) breathing ~same foot pain continues to improve remains in a-fib with HR in 110s ROS: 10 point ROS as noted above, otherwise negative Physical Exam: GEN: Alert, oriented, NAD HEENT: Normal conjunctiva, sclera anicteric CV: Irregularly Irregular rate and rhythm with HR:100s, no edema Pulm: Nonlabored respirations on room air ABD: Soft, nontender, nondistended Neuro: Normal speech, normal affect vitals reviewed Problem List: Infectious gastroenteritis with colitis UTI, Klebsiella Pneumoniae REBECCA on CKD 4 Afib on chronic anticoagulation Diastolic CHF, chronic NIDDM2 Hypothyroidism Hypertension GERD Infectious gastroenteritis with colitis CT abdomen (06/01): ahaustral appearance of the mid to distal descending colon with an air-fluid level Stool culture, OVA/parasite, C-diff pending GI consutled Continue empiric rocephin / flagyl (06/02-) afebrile, +leukocytosis improving Monitor LFTs heart healthy started 06/03 2 episode of diarrhea 06/04; 2 on 06/05 cramping pains are gone UTI, Klebsiella Pneumoniae Denies UTI symptoms Urine cx: Klebsiella Pneumoniae Continue rocephin / flagyl (06/02-) afebrile, +leukocytosis improving REBECCA on CKD 4 CT abdomen (06/01): Atrophic changes of the left kidney Nephrology consulted IV fluids DCd 06/02 improving A-fib on chronic anticoagulation Diastolic CHF, chronic Monitor on tele continue home eliquis currently in a-fib with HR in 110s Restarted some home medications including amiodarone, metoprolol, statin, aspirin 06/03 BNP 5925 -> 03410 (06/04) PO lasix restarted at 20 mg daily 06/05 NIDDM2 with neuropathy ACHS Accu-Chek, SSI chronic R foot pain with neuropathy - from ankle down similar type of pain and location as previous episodes but pain is more severe Continue gabapentin TID PRN pain medication Hypothyroidism Hypertension GERD Confirm home medication, restart as appropriate VTE: home eliquis Code: Full Dispo: Home ~1 days ?HH
[2023-06-05] MEDS: INSULIN -REGULAR HUMAN 50 UNIT/0.5 ML ML SQ SCH ×4 (07:30→21:00)
[2023-06-05 08:42] LABS: Absolute Lymphocytes (CBC) 2.2 K/uL (0.7-4.9); Lymphocytes % 21.2 % (15.3-44.8); MCV 98.6 fL (80-100); MPV 8.2 fL (7.6-11.3); Platelets 331 thou/uL (152-406); RBC Red Blood Cell Count 3.35 M/uL (3.86-4.86)
[2023-06-05 08:56] LABS: Albumin 2.7 g/dL (3.4-5.0); Phosphorus 2.8 mg/dL (2.5-4.9); Potassium 4.4 mEq/L (3.5-5.1)
[2023-06-05] MEDS: ASPIRIN EC 81 MG TAB PO SCH (09:09)
[2023-06-05] MEDS: LACTOBACILLUS/ACIDOPHILUS TAB PO SCH (09:09)
[2023-06-05] MEDS: APIXABAN 5 MG TABLET PO SCH ×2 (09:09→21:51)
[2023-06-05] MEDS: PANTOPRAZOLE 40MG TABLET PO SCH (09:10)
[2023-06-05] MEDS: METOPROLOL XL 50 MG TAB PO SCH ×2 (09:10→21:52)
[2023-06-05] MEDS: CEFTRIAXONE 1,000 MG in NA CHLORIDE 0.9% 50 ML IVPB SCH (09:11)
[2023-06-05] MEDS: AMIODARONE HCL 200 MG TAB PO SCH (09:11)
[2023-06-05] MEDS: GABAPENTIN 300 MG CAP PO SCH ×3 (09:11→21:51)
--- NOTE | 2023-06-05 12:09 | P.PN ---
Nephrology note (S) Pt complains of pain in her Rt foot, reports a hx of peripheral neuropathy (O) Vitals reviewed in the EMR General: Oriented x3, Cooperative HEENT: Atraumatic, not on O2 Neck: Supple Respiratory: Normal air movement, no rhonchi Cardiovascular: No edema, Regular rate/rhythm Gastrointestinal: Soft and benign, Non-distended, No tenderness Musculoskeletal: No clubbing, No contractures Integumentary: No rashes Neurological: Normal speech, awake, alert EXAM DESCRIPTION: CT - Abdomen Pelvis Wo Contrast - 06/01/2023 2:24 pm CLINICAL HISTORY: diarrhea;Abd pain COMPARISON: Stone Protocol dated 07/23/2021 TECHNIQUE: Thin cut axial CT imaging of the abdomen and pelvis was performed without IV contrast. Multiplanar reformats were generated and reviewed. All CT scans are performed using dose optimization technique as appropriate and may include automated exposure control or mA/KV adjustment according to patient size. FINDINGS: No suspicious findings in the lung bases. The liver, spleen, adrenal glands, and pancreas show no suspicious findings. Gallbladder shows multiple moderate-sized layering stones along the body/neck. No intra or extrahepatic biliary ductal dilation. Atrophic changes of the left kidney again seen, without suspicious parenchymal findings within limits of noncontrast technique. No evidence of radiopaque calculi or hydroureteronephrosis. No dilated bowel loops or bowel wall thickening. Somewhat ahaustral appearance of the mid to distal descending colon, with an air-fluid level. No free air, free fluid or inflammatory stranding. No hernia, mass or bulky lymphadenopathy. The urinary bladder is without significant finding. No suspicious bony findings. IMPRESSION: Somewhat ahaustral appearance of the mid to distal descending colon with an air-fluid level. This could relate to mild colitis or diarrheal state. No other acute intra-abdominal process. Stable cholelithiasis. Atrophic changes of the left kidney again seen. Conclusions/Impression: Stage I REBECCA 2nd to pre-renal azotemia/relative hypotension on underlying CKD IIIb/IV with atrophic/small kidney unilateral. Cr level earlier in the year in November then was > 3 mg/dl but that does not appear to be her baseline lever h owever, pt has had abnormal renal function tests going back to 2016 -Cr levels have downward trended with hydration and off scheduled diuretic therapy, IVF stopped since. Abnormal findings in urine, pyuria. Presumed cystitis -No hydro, stones or bladder wall thickening on CT, UCx with GNR/Klebsiella bacteruria, complete Abx course. Ok to switch to PO Abx and send home on course to complete 5-7 day course HTN, chronic. Some reports of CHF unspecified. Afib unspecified BP generally acceptable. Pt may have been on a higher maintenance dose of lasix than needed, will resume dose but lower. HR has been elevated, Metoprolol and Amio ordered Bunny Casiano MD, JAZLYN
[2023-06-05] MEDS: FUROSEMIDE 20 MG TABLET PO SCH (12:16)
[2023-06-05] MEDS: ATORVASTATIN 80 MG TAB PO SCH (21:51)
[2023-06-06] MEDS: METRONIDAZOLE 500mg IVPB 500 MG/100 ML BAG IV SCH ×2 (00:54→09:29)
[2023-06-06 05:12] LABS: Albumin 2.4 g/dL (3.4-5.0); Phosphorus 2.4 mg/dL (2.5-4.9); Potassium 3.9 mEq/L (3.5-5.1)
[2023-06-06] MEDS: LEVOTHYROXINE SOD 0.075 MG TAB PO SCH (05:40)
[2023-06-06] MEDS: INSULIN -REGULAR HUMAN 50 UNIT/0.5 ML ML SQ SCH ×2 (07:30→11:30)
[2023-06-06] MEDS ORDERED: POTASSIUM CL SA 10 MEQ TAB PO ONE (09:00)
[2023-06-06] MEDS: CEFTRIAXONE 1,000 MG in NA CHLORIDE 0.9% 50 ML IVPB SCH (09:29)
[2023-06-06] MEDS: POTASS/SODIUM PHOSPHATE 1 PKT POWD.PACK PO SCH ×3 (09:31→11:09)
[2023-06-06] MEDS: METOPROLOL XL 50 MG TAB PO SCH (09:31)
[2023-06-06] MEDS: APIXABAN 5 MG TABLET PO SCH (09:32)
[2023-06-06] MEDS: AMIODARONE HCL 200 MG TAB PO SCH (09:32)
[2023-06-06] MEDS: FUROSEMIDE 20 MG TABLET PO SCH (09:32)
[2023-06-06] MEDS: PANTOPRAZOLE 40MG TABLET PO SCH (09:32)
[2023-06-06] MEDS: GABAPENTIN 300 MG CAP PO SCH (09:32)
[2023-06-06] MEDS: LACTOBACILLUS/ACIDOPHILUS TAB PO SCH (09:32)
[2023-06-06] MEDS: ASPIRIN EC 81 MG TAB PO SCH (09:32)
--- NOTE | 2023-06-06 12:17 | P.DS ---
Admission Date: 06/01/23 Discharge Date: 06/06/23 Disposition: ROUTINE DISCHARGE Discharge Condition: FAIR Reason for Admission: Diarrhea x8 days and weakness Brief History of Present Illness: 68-year-old female with past medical history of atrial fibrillation, congestive heart failure, diabetes, history of cancer, hypertension, hypothyroidism, and kidney disease presented to the emergency room with complaints of diarrhea and weakness for 2 to 3 days. Reported cramping, no recorded rectal bleeding, hematemesis, fever, shortness of breath, chest pain, edema. ER course BP 110 / 63; Pulse 88; Resp 18; Temp 98.9; Pulse Ox 97%, H/H 10.5/31.7, Leukocytosis with white blood count at 14, anemia H&H 10.5/31.7, acute on chronic kidney disease with BUN and creatinine 41/2.75, Lipase 26, UA with 1+ blood, leukoesterase 500, and COVID was negative. CT abdomen pelvis without contrast reveals distal descending colon with an air-fluid level. which could relate to mild colitis or diarrheal state. No other acute intra-abdominal process stable cholelithiasis, atrophic changes to the left kidney again seen. Patient was hospitalized for further management. Hospital Course: Diagnosis Infectious gastroenteritis with colitis UTI, Klebsiella Pneumoniae REBECCA on CKD 4 Afib on chronic anticoagulation Diastolic CHF, chronic NIDDM2 Hypothyroidism Hypertension GERD Patient admitted to the medical floor and the following medical problems addressed: Infectious gastroenteritis with colitis Stool culture, OVA/parasite, C-diff pending Seen by GI Patient treated with IV Rocephin and Flagyl She waafebrile, she had leukocytosis which resolved. Patient tolerated diet. Diarrhea frequency decreased significantly, only 1 BM today before discharge. UTI, Klebsiella Pneumoniae She denies UTI symptoms Urine cx: Klebsiella Pneumoniae Treated with rocephin / flagyl (06/02-) Leukocytosis resolved. She is discharged with oral Cipro to continue treatment for the UTI. REBECCA on CKD 4 CT abdomen (06/01): Atrophic changes of the left kidney Nephrology consulted Treated with IV fluid Serum creatinine improved A-fib on chronic anticoagulation Diastolic CHF, chronic continued home eliquis Restarted some home medications including amiodarone, metoprolol, statin, aspirin 06/03 Resumed her oral Lasix. NIDDM2 with neuropathy ACHS Accu-Chek, SSI chronic R foot pain with neuropathy - from ankle down Continued gabapentin TID Hypothyroidism Hypertension GERD Continued home medications Vital Signs/Physical Exam: Temp Pulse Resp BP Pulse Ox 98.9 F 88 18 158/67 H 96 06/06/23 08:00 06/06/23 08:00 06/06/23 08:00 06/06/23 08:00 06/06/23 08:00 General: Alert, In no apparent distress, Oriented x3 HEENT: Mucous membr. moist/pink Neck: Supple, JVD not distended Respiratory: Clear to auscultation bilaterally, Normal air movement Cardiovascular: No edema, Regular rate/rhythm, Normal S1 S2 Gastrointestinal: Normal bowel sounds, Soft and benign, Non-distended, No tenderness Musculoskeletal: No swelling Integumentary: No rashes, No cyanosis Neurological: Normal speech, Normal strength at 5/5 x4 extr Laboratory Data at Discharge: WBC 10.30 thou/uL (4.3-10.9) 06/05/23 08:19 Hgb 10.9 g/dL (12.0-15.0) L 06/05/23 08:19 Hct 33.0 % (36.0-45.0) L 06/05/23 08:19 Plt Count 331 thou/uL (152-406) 06/05/23 08:19 Sodium 142 mEq/L (136-145) 06/06/23 04:22 Potassium 3.9 mEq/L (3.5-5.1) 06/06/23 04:22 BUN 26 mg/dL (7-18) H 06/06/23 04:22 Creatinine 1.69 mg/dL (0.55-1.02) H 06/06/23 04:22 Glucose 112 mg/dL (74-106) H 06/06/23 04:22 Uric Acid 9.7 mg/dL (2.6-6.0) H 06/02/23 02:57 Phosphorus 2.4 mg/dL (2.5-4.9) L 06/06/23 04:22 Magnesium 2.0 mg/dL (1.6-2.4) 06/04/23 03:38 Total Bilirubin 0.4 mg/dL (0.2-1.0) 06/04/23 03:38 AST 15 U/L (15-37) 06/04/23 03:38 ALT 23 U/L (13-56) 06/04/23 03:38 Alkaline Phosphatase 70 U/L (45-117) D 06/04/23 03:38 Lipase 26 U/L (13-75) 06/01/23 13:45 Home Medications: Atorvastatin Calcium [Lipitor] 80 mg PO BEDTIME 01/26/21 Gabapentin 300 mg PO TID 01/26/21 Apixaban [Eliquis] 1 tab PO BID 07/24/21 Aspirin [Aspirin EC 81 MG] 1 tab PO DAILY 07/24/21 Glipizide [Glipizide ER] 5 mg PO BID 07/24/21 Pantoprazole [Protonix Tab*] 40 mg PO DAILY 07/24/21 Isosorbide Mononitrate [Isosorbide Mononitrate ER] 1 tab PO DAILY 11/03/21 Metoprolol Succinate 150 mg PO BID 11/03/21 Acetaminophen [Tylenol Extra Strength] 500 mg PO PRN 06/01/23 Amiodarone HCl [Cordarone*] 200 mg PO DAILY 06/01/23 Ezetimibe 1 tab PO BEDTIME 06/01/23 Levothyroxine Sodium 1 tab PO DAILY 06/01/23 Ciprofloxacin HCl [Cipro] 500 mg PO BID #10 tab 06/06/23 Furosemide [Lasix*] 20 mg PO DAILY #30 tab 06/06/23 New Medications: Ciprofloxacin HCl [Cipro] 500 mg PO BID #10 tab Furosemide [Lasix*] 20 mg PO DAILY #30 tab Diet: ADA Activity: Fall precautions Followup: NONE,NONE [Primary Care Provider] - 1-2 Weeks Bunny Casiano [ACTIVE - CAN ADMIT] - (Within 2 weeks.) Time spent managing pt's care (in minutes): 33
[2023-06-06 13:07] VITALS: BP 113/64; TEMP 98.1
== END 2023-06-06 14:00 | disposition home or self-care (01) | DRG 872 ==
LOC: ER 12:59 → ERHOLD 16:15 → 2ND 19:41
PROVIDERS: ADMIT Hospitalist; ATTEND Internal Medicine
DX: A41.9 Sepsis, unspecified organism (principal); N17.9 Acute kidney failure, unspecified; N30.00 Acute cystitis without hematuria; N18.4 Chronic kidney disease, stage 4 (severe); I50.32 Chronic diastolic (congestive) heart failure; I13.0 Hypertensive heart and chronic kidney disease with heart failure and stage 1 through stage 4 chronic kidney disease, or unspecified chronic kidney disease; E11.22 Type 2 diabetes mellitus with diabetic chronic kidney disease; E11.42 Type 2 diabetes mellitus with diabetic polyneuropathy; D63.1 Anemia in chronic kidney disease; I48.91 Unspecified atrial fibrillation; E78.5 Hyperlipidemia, unspecified; E03.9 Hypothyroidism, unspecified; E87.6 Hypokalemia; E88.09 Other disorders of plasma-protein metabolism, not elsewhere classified; E86.0 Dehydration; K52.9 Noninfective gastroenteritis and colitis, unspecified; B96.1 Klebsiella pneumoniae [K. pneumoniae] as the cause of diseases classified elsewhere; R82.81 Pyuria; Z95.1 Presence of aortocoronary bypass graft; Z88.8 Allergy status to other drugs, medicaments and biological substances; Z79.01 Long term (current) use of anticoagulants; Z79.82 Long term (current) use of aspirin; Z91.048 Other nonmedicinal substance allergy status; Z79.890 Hormone replacement therapy; Z79.899 Other long term (current) drug therapy; Z90.710 Acquired absence of both cervix and uterus; Z20.822 Contact with and (suspected) exposure to COVID-19
CPT/HCPCS: 36415; 74176; 80053; 80069; 81001; 82947; 83631; 83690; 83735; 83880; 84100; 84550; 85025; 87045; 87046; 87077; 87086; 87088; 87177; 87186; 87209; 87804; 87811; 96374; 96375; 97116; 97161; 97530; 99285; J0696; J2270; J2405; J7030; J7040

== ENCOUNTER 2024-06-26 05:32 | Emergency (ER) | payer OTHER ==
[2024-06-26] MEDS ORDERED: DOPAMINE IV ONE (05:33)
[2024-06-26] MEDS ORDERED: SODIUM CHL 0.9% 1000 ML BAG IV ONE (05:33)
[2024-06-26] MEDS ORDERED: EPINEPHrine 1 MG/10 ML SYR IV ONE (05:33)
[2024-06-26] MEDS ORDERED: Calcium Chloride 10% INJ SYR IV ONE ×2 (05:33)
[2024-06-26] MEDS ORDERED: DEXTROSE IV ONE (05:33)
[2024-06-26 06:03] LABS: Absolute Basophils 0.1 K/uL (0-0.5); Absolute Eosinophils 0.1 K/uL (0-0.5); Absolute Lymphocytes (CBC) 4.3 K/uL (0.7-4.9); Absolute Monocytes 0.6 K/uL (0.1-1.3); Absolute Neutrophil 14.8 K/uL (1.8-8.0); Basophils % 0.6 % (0-1.3); Eosinophils % 0.5 % (0-4.4); Hematocrit 32.8 % (36.0-45.0); Hemoglobin 10.1 g/dL (12.0-15.0); Lymphocytes % 21.7 % (15.3-44.8); MCH 30.4 pg (27.0-35.0); MCHC 30.8 g/dL (32.0-36.0); MCV 98.8 fL (80-100); MPV 8.2 fL (7.6-11.3); Neutrophils % 74.2 % (41.7-73.7); Nucleated Red Blood Cells % 0.2 % (0-0); Platelets 299 thou/uL (152-406); RBC Red Blood Cell Count 3.32 M/uL (3.86-4.86); Red Cell Distribution Width 15.4 % (12.1-15.2)
[2024-06-26 06:05] LABS: PTT, Activated Partial Thromb 48.4 SECONDS (24.3-36.9)
[2024-06-26 06:26] LABS: Albumin 1.4 g/dL (3.4-5.0); Albumin/Globulin Ratio 0.5 (1.1-1.8); Anion Gap 29.1 mEq/L (5.0-15.0); Bilirubin Total 0.2 mg/dL (0.2-1.0); Globulin 2.6 g/dL (2.3-3.5); Troponin High Sensitivity 46.4 pg/mL (<58.9)
[2024-06-26 06:27] LABS: Potassium 5.1 mEq/L (3.5-5.1)
--- NOTE | 2024-06-26 06:44 | EDPHYS ---
Physician Documentation [facility] Name: Mercedez Degroot Age: 69 yrs Sex: Female : 1955 Arrival Date: 06/26/2024 Time: 05:32 Bed 3 Private MD: ED Physician Chelita Rodriguez HPI: 06/26 06:35 This 69 yrs old Female presents to ER via EMS with complaints of Unresponsive, CPR. sp3 06:35 Report received for altered mental status and generalized weakness patient. EMS arrived sp3 to find patient severely weak and somewhat agonal respirations. Patient arrested while EMS was present and ACLS pathway started. Patient was intubated with adequate end-tidal CO2 and intraosseous access was initiated with subsequent epinephrine drip. ROSC was obtained briefly and lost as patient was being wheeled into the hospital. Patient arrived with CPR in progress by automated machine. Please see MDM for continued documentation and also see code sheet. ROS, history and physical severely limited.. ROS: 06:37 Unable to obtain ROS due to obtunded state, sp3 Exam: 06:37 Unable to obtain exam due to obtunded state, CPR. sp3 Vital Signs: 05:32 BP 00 / 00; Pulse 24; Resp 20 A; Weight 63 kg; Height 5 ft. 3 in. ; Pain 0/10; bm8 05:32 Body Mass Index 24.60 (63.00 kg, 160.02 cm) bm8 05:32 Pain Scale: Adult bm8 MDM: 06:27 Patient medically screened. sp3 06:37 Data reviewed: EMS record. ED course: Patient moved over onto ED stretcher with CPR sp3 still in progress. Nonsterile code line attempted left subclavian with adequate flash but inability to pass wire despite 2 attempts with 2 different line kits. Central line then attempted left internal jugular by ultrasound with also repeat adequate flash but inability to pass wire with wire crimping. Intraosseous and peripheral IV was able to be established and all drugs were given there. Patient was due for dialysis therefore large amounts of sodium bicarbonate and calcium chloride were given in conjunction with epinephrine as per documentation on code sheet. Brief ROSC was obtained during this process with subsequent arrest again. Patient went into ventricular escape at 30 bpm in a PEA fashion. Pulse did not return and CPR was initiated. Patient's family was brought to the hallway and further history demonstrated from them that patient did not want any extreme measures and did not want to be on a ventilator. Family was brought into the room and CPR was stopped. Patient was in a PEA/asystole pattern and time of was called at 0617 AM. Family escorted out into a separate room where I counseled them. Patient's room was prepped and family then returned. Patient had fixed and dilated pupils the entire time.. 06/26 05:53 Order name: CBC with Diff vc1 06/26 05:53 Order name: CMP vc 06/26 05:53 Order name: Lactate w/ 2H reflex if indic. vc1 06/26 05:53 Order name: Protime (+inr) [facility] 06/26 05:53 Order name: Ptt, Activated vc 06/26 05:53 Order name: Troponin HS [facility] 06/26 09:03 Order name: Manual Differential [facility] 06/26 05:53 Order name: Cardiac monitoring; Complete Time: 07:01 [facility] 06/26 05:53 Order name: EKG - Nurse/Tech; Complete Time: 07:01 [facility] 06/26 05:53 Order name: IV Saline Lock - Large Bore; Complete Time: 07:01 [facility] 06/26 05:53 Order name: Labs collected and sent; Complete Time: 07:02 [facility] 06/26 05:53 Order name: O2 Per Protocol; Complete Time: 07:02 [facility] 06/26 05:53 Order name: O2 Sat Monitoring; Complete Time: 07:02 [facility] 06/26 05:53 Order name: Vital Signs; Complete Time: 07:02 vc Administered Medications: No medications were administered Disposition: 06:42 Critical Care:. sp3 Disposition Summary: 06/26/24 06:43 Patient Notes: Location: Home sp3 Pronouncing Physician: Chelita Rodriguez sp3 Time of : 06:17 06/26/2024 sp3 Diagnosis - Cardiopulmonary arrest sp3 Critical care time excluding procedures: 06:42 Critical care time: Bedside Care: 20 minutes, Consultation: 10 minutes. Total time: 30 sp3 minutes Signatures: Dispatcher [employer] EDChelita Washington MD MD sp3 Ana Luisa Baird RN RN vc1 Jacobo Tsai RN RN bm8 Corrections: (The following items were deleted from the chart) 05:54 05:54 CBC+H.LAB.BRZ ordered. EDMS EDMS 05:54 05:54 COMPREHENSIVE METABOLIC PANEL+C.LAB.BRZ ordered. EDMS EDMS 05:54 05:54 LACTATE+C.LAB.BRZ ordered. EDMS EDMS 05:54 05:54 PROTIME (+INR)+COAG.LAB.BRZ ordered. EDMS EDMS 05:54 05:54 PTT, ACTIVATED+COAG.LAB.BRZ ordered. EDMS EDMS 05:54 05:54 Troponin High Sensitivity+C.LAB.BRZ ordered. EDMS EDMS 07:01 05:53 Accucheck ordered. vc1 bm8 08:07 05:54 Urinalysis+U.LAB.BRZ ordered. EDMS EDMS 08:09 05:54 BLOOD CULTURE*+BA.LAB.BRZ ordered. EDMS EDMS
--- NOTE | 2024-06-26 06:44 | ER ---
Nurse's Notes [facility] Name: Mercedez Degroot Age: 69 yrs Sex: Female : 1955 Arrival Date: 06/26/2024 Time: 05:32 Bed 3 Private MD: Diagnosis: Cardiopulmonary arrest Presentation: 06/26 05:30 Chief complaint: EMS states: family stated that pt was feeling very sick yesterday with bm8 N/V, tonight she continued to have N/V they found her at the foot of her bed unconscious and nonresponsive. Care prior to arrival: Oral intubation, CPR via thumper performed by EMS was defibrillated Medication(s) given: 4 Epi, Defib pt, 1 bicarb, ended with epi drip. Compressions began prior to arrival. 05:30 Method Of Arrival: EMS: [facility] bm8 05:30 Acuity: TRISHA 1 bm8 Screenin:32 Abuse screen: Denies threats or abuse. Nutritional screening: No deficits noted. bm8 Tuberculosis screening: No symptoms or risk factors identified. Assessment: 05:30 CPR assessment: unresponsive, pupils fixed \T\ dilated, no respiratory effort, intubated, bm8 Ambu ventilation, cyanotic, pale, pulses present w/ compressions. Cardiac rhythm is PEA. General: Appears ill, well groomed, well developed, well nourished, Behavior is unresponsive. Neuro: Level of Consciousness is unresponsive. EENT: No signs and/or symptoms were reported regarding the EENT system. Cardiovascular: Rhythm is PEA. Respiratory: Airway is patent via oral intubation. GI: No signs and/or symptoms were reported involving the gastrointestinal system. : No signs and/or symptoms were reported regarding the genitourinary system. Derm: No signs and/or symptoms reported regarding the dermatologic system. Musculoskeletal: No signs and/or symptoms reported regarding the musculoskeletal system. 07:00 Reassessment: 0530 - Pt arrival to ED. Code blue called. Pt being compressed using bm8 Marcellus device. Intubated ETT 7.0, 24cm at teeth, Epi drip infusing, IO to left tibia. 0534- 1 epi, 1 calcium, 2 bicarb given in IO, failed attempt for central line access. 0535 - Pulse check performed, pulses felt at carotid and femoral, 93 bpm on monitor. NO BP 0540 - 100 bpm, no BP, 20 g LAC inserted. 0542 - 1 Calcium in LAC, BP measuring 38/19, 98bpm, Vent set up, 450 T.V, 12 Rate, FiO2 100%, 12 peep 0545 - 1 Epi 0547- V/S 112p, 100% vent, Dopamine started 10 mcg/kg/min 0552 - V/S 138/83, 100p, 12Resp, 100% 0555 - 16 Fr temperature Callahan placed, failed central line placement 0600 - Titrate dopamine up 2.5mcg/kg/min to 12.5 mcg 0601 - Per MD verbal order dopamine set to bolus 0605- 2 bicarb, 3rd failed attempt at central line placement 0610 - BP 47/38, 66P temp 93F 0611 - Pulses loss, CPR began, 1 epi given 0613- Pulse check, no pulse, CPR, 2 calcium 0615 - Pulse check, no pulse, 40 bpm agonal escape rhythm, CPR continued. 0617 - pulse check, no pulses, MD calls TIME OF . 07:17 Reassessment: [facility] contacted, spoke with Catherine De La Vega, referral number [id number]. Vital Signs: 05:32 BP 00 / 00; Pulse 24; Resp 20 A; Weight 63 kg; Height 5 ft. 3 in. ; Pain 0/10; bm8 05:32 Body Mass Index 24.60 (63.00 kg, 160.02 cm) bm8 05:32 Pain Scale: Adult bm8 ED Course: 05:30 Patient has correct armband on for positive identification. Bed in low position. Side bm8 rails up X2. Adult w/ patient. 05:32 Patient arrived in ED. jj6 05:40 Inserted saline lock: 20 gauge in left antecubital area, using aseptic technique. Blood bm8 collected. Flushed with 10 mL NS. 06:16 Chelita Rodriguez MD is Attending Physician. sp3 06:24 Jacobo Tsai, EVA is Primary Nurse. bm8 06:32 Triage completed. bm8 06:33 Police [place] [employer] dispatch called to page out the police detective on duty. eb 06:36 [place] [employer] dispatch called and said i needed to call [facility] office eb to page the police detective [place]. 06:38 [employer] called dispatch will call the police detective box person. eb 06:43 Chelita Rodriguez MD is Pronouncing Provider. sp3 07:17 Report given to EVA Bernal. bm8 Administered Medications: No medications were administered Outcome: 06:17 Outcome Patient bm8 06:17 Patient : Time of 06:17 Pronounced by Chelita Rodriguez MD 06:17 Condition: bm8 09:46 Patient left the ED. kc6 Signatures: Sailaja Jones Setul, MD MD sp3 Cathy Mendozaj6 Dolores Thurston, RN RN kc6 Jacobo Tsai RN RN bm8 Corrections: (The following items were deleted from the chart) 06:29 Chief complaint: EMS states: family stated that pt was feeling very sick bm8 yesterday with N/V, tonight she continued to have N/V they found her at the foot of her bed unconscious and nonresponsive. [facility] 06:29 Care prior to arrival: Oral intubation, CPR via thumper performed by EMS was bm8 defibrillated Medication(s) given: 4 Epi, Defib pt, 1 bicarb, ended with epi drip [facility] 06:29 Compressions began prior to arrival. [place] [id number] 06:29 Method Of Arrival: EMS: [facility] EMS [place] [address] 06:29 Acuity: TRISHA 1 [place] [address] 06:29 CPR assessment: unresponsive, pupils fixed \T\ dilated, no respiratory effort, bm8 intubated, Ambu ventilation, cyanotic, pale, pulses present w/ compressions, [facility] 06:29 Cardiac rhythm is PEA [place] [address] 06:29 General: Appears ill, well groomed, well developed, well nourished, Behavior is [facility] unresponsive. 8 06:29 Neuro: Level of Consciousness is unresponsive, [place] [address] 06:29 EENT: No signs and/or symptoms were reported regarding the EENT system. [place] [address] 06:29 Cardiovascular: Rhythm is PEA [place] [address] 06:29 Respiratory: Airway is patent via oral intubation [place] [address] 06:38 06:29 : No signs and/or symptoms were reported regarding the genitourinary system. [id number] :38 06:29 Derm: No signs and/or symptoms reported regarding the dermatologic system. bm8 bm8 :38 06:29 Musculoskeletal: No signs and/or symptoms reported regarding the musculoskeletal bm8 system. bm8 :38 06:29 GI: No signs and/or symptoms were reported involving the gastrointestinal system. bm8 bm8 06:39 05:32 BP 00 / 00; Pulse 24bpm; Resp 20bpm; Assisted; Pain 0/10, Adult; 8 8
[2024-06-26 09:03] LABS: Band Neutrophils 2 % (0-1); Blood Morphology Comment NOT SEEN (NOT SEEN); Differential Total Cells Count 100; Lymphocytes 29 % (15-42); Metamyelocytes 6 % (0-0); Monocytes 4 % (0-10); Platelet Estimate ADEQ; Segmented Neutrophils 59 % (40-80)
[2024-06-26 10:12] VITALS: BP 00/00
== END 2024-06-26 09:46 | disposition expired ==
LOC: ER 05:32
PROC: 5A12012 Performance of Cardiac Output, Single, Manual (ICD-10-PCS; principal; 2024-06-26)
DX: I46.9 Cardiac arrest, cause unspecified (principal)
CPT/HCPCS: 36415; 80053; 83605; 84484; 85025; 85610; 85730; 92950; 94002; 99291; J0171; J7030